=== PATIENT | female | born 1935 | race Caucasian/White ===

== ENCOUNTER 2016-05-30 03:03 | Inpatient (IN) | payer MEDICARE ==
[~2016-05-30] VITALS: Ht 162.6 cm; Wt 69.8 kg
[~2016-05-30 03:03] MED LIST: ALLO100T PO; ANAS1TAB PO; CALC500T49 PO; CALCTAB68 PO; CO Q200C PO; FAMO1TAB11 PO; FOLI1TAB2 PO; LOMO2.5T PO; METO25TAB PO; PROBCAP14 PO; SODI1TA PO; VITA100066 PO; VITA500T88 PO; VITMTA PO; WARF4TAB51 PO; ZOFR20TA PO
[2016-05-30 03:39] LABS: BASO # 0.1 K/mm3 (0.0-0.2); BASO % 0.5 % (0.0-1.0); EOS # 0.5 K/mm3 (0.0-0.50); LARGE UNSTAINED CELL # 0.1 K/mm3 (0.0-0.4); LARGE UNSTAINED CELL % 0.6 % (0.0-4.0); LYMPH # 1.2 K/mm3 (1.5-4.5); LYMPH % 6.9 % (24.0-44.0); MEAN CORPUSCULAR HEMOGLOBIN 30.3 pg (27.0-33.0); MEAN CORPUSCULAR HGB CONC 30.9 g/dl (32.0-36.5); MEAN CORPUSCULAR VOLUME 98.1 fl (80.0-96.0); MONO # 0.6 K/mm3 (0.0-0.8); MONO % 3.7 % (0.0-5.0); NEUTROPHILS % 85.3 % (36.0-66.0); PLATELET COUNT, AUTOMATED 354 k/mm3 (150-450); RED CELL DISTRIBUTION WIDTH 15.9 % (11.5-14.5); WHITE BLOOD COUNT 16.4 K/mm3 (4.0-10.0)
[2016-05-30 03:56] LABS: CALCIUM LEVEL 9.2 MG/DL (8.8-10.2); CREATININE FOR GFR 2.96 MG/DL (0.55-1.02); GLOMERULAR FILTRATION RATE 16.1 (>32); POTASSIUM SERUM 4.3 MEQ/L (3.5-5.1)
[2016-05-30 03:59] LABS: ABG BASE EXCESS -14.3 (-2.0-2.0); ABG DEVICE NASAL CANN; ABG HCO3 11.3 MEQ/L (22.0-26.0); ABG PARTIAL PRESSURE CO2 26.3 mmHg (35.0-45.0); ABG PARTIAL PRESSURE O2 63.2 mmHg (75.0-100.0); ABG STANDARD HCO3 13.4 MEQ/L (22.0-26.0); ABG TOTAL CO2 12.1 MEQ/L (23.0-31.0); ABG pH (ARTERIAL) 7.252 UNITS (7.350-7.450)
[2016-05-30] MEDS ORDERED: ZOSYN 2.25 GM VIAL (J2543) As Ordered ONE (06:44)
[2016-05-30] MEDS ORDERED: LOPE2CA PO (07:33)
[2016-05-30] MEDS ORDERED: DILT180C PO (07:33)
[2016-05-30] MEDS ORDERED: AMIO20TA PO (07:33)
[2016-05-30] MEDS ORDERED: VITA20008 PO (07:33)
--- NOTE | 2016-05-30 07:40 | REPUSA ---
CLINICAL HISTORY: Shortness of breath. TECHNIQUE: Multiple axial CT images were obtained through the thorax without IV contrast material. COMMENTS: Moderate bilateral pleural effusions. Passive atelectatic airspace disease of the lower lobes. Enlarged main pulmonary artery. Findings are suggestive of pulmonary hypertension. Bilateral perihilar ground glass densities of the lungs. Spondylosis. Mildly enlarged mediastinal and hilar lymph nodes. Diffuse idiopathic skeletal hyperostosis. IMPRESSION: Chronic pulmonary fibrosis. Decompensated congestive heart failure. Bilateral multifocal bronchopneumonia. Pulmonary hypertension. Pleural effusions. Thank you for your kind referral of this patient.
--- NOTE | 2016-05-30 08:10 | REP ---
Clinical: Shortness of breath. Comparison: 11/21/2015. Findings: Pulmonary vasculature and interstitial edema with bibasilar opacities will effusions. Mediastinum suggests cardiomegaly with evidence for prior sternotomy and CABG. No pneumothorax. Skeletal structures stable. Impression: Cardiomegaly with CHF including bibasilar atelectasis and pleural effusions. Signed by Jared Nichols MD 05/30/2016 08:02 A
[2016-05-30 08:45] VITALS: BP 104/58
[2016-05-30] MEDS ORDERED: ACETAMINOPHEN TAB 650MG DOSE (2X325MG) PO PRN (08:45)
[2016-05-30] MEDS ORDERED: ONDANSETRON 4MG/2ML VIAL (J2405) IV PRN (08:45)
[2016-05-30] MEDS ORDERED: ONDANSETRON 4MG/2ML VIAL (J2405) As Ordered ONE (08:46)
--- NOTE | 2016-05-30 09:22 | EDDOCDS ---
Nurse's Notes [facility] Name: Keren Carranza Age: 81 yrs Sex: Female : 1935 Arrival Date: 05/30/2016 Time: 03:03 Bed 2 Private MD: Diagnosis: Shortness of breath;Pleural effusion in conditions classified elsewhere Presentation: 05/30 03:09 Presenting complaint: Patient states: per pt she has had SOB for the past week now, had tm5 a cardioversion & loop recorder placed today at [facility], pt states that her SOB gets worse at night. Adult Sepsis Screening: The patient does not have new or worsening altered mentation. Patient's respiratory rate is less than 22. Systolic blood pressure is greater than 100. Patient has a qSOFA score of 0- Negative Sepsis Screen. Suicide/Homicide risk assessment- the patient denies having any suicidal and/or homicidal ideations and does not present with any other emotional, behavioral or mental health complaints. Status: Patient is not a legal service specialist or dependent. Transition of care: patient was not received from another setting of care. 03:09 Acuity: RADHA Level 3 tm5 03:09 Method Of Arrival: Wheelchair tm5 Triage Assessment: 03:14 General: Appears distressed, Behavior is appropriate for age, cooperative. Pain: Denies tm5 pain. The patient is triaged at the bedside. See Assessment in Nurses Notes section of ED record. Neurological: Level of Consciousness is awake, alert, Oriented to person, place, time. Cardiovascular: Rhythm is sinus rhythm. Respiratory: Onset: The symptoms/episode began/occurred 1 week ago, Reports shortness of breath at rest on exertion. Derm: Skin is pink, warm & dry. Historical: - Allergies: NSAIDS; SULFA (SULFONAMIDES); - Home Meds: 1. allopurinol 100 mg Oral tab bid 2. anastrozole 1 mg oral tab 1 tab once daily 3. warfarin 2 mg Oral tab nightly 4. ascorbic acid 500 mg oral tab daily 5. metoprolol 25 mg daily 6. calcium 500 mg twice a day 7. folic acid 1 mg Oral tab 1 tab once daily 8. amiodarone 200 mg Oral tab 1 tab once daily 9. Lomotil oral prn 10. multivitamin Oral cap 1 tab daily 11. Cardizem 180 mg Oral daily 12. sodium chloride 1 gram oral tab twice a day 13. Arimidex 1 mg Oral tab 1 tab once daily 14. Probiotic oral daily 15. co q10 200 mg daily - PMHx: c diff; Cancer, Breast - Right; GERD; Gout; Heart failure; Hypertension; PVD; Stroke; Atrial Fib; - PSHx: CABG; Ileostomy Construction; - Social history: Smoking status: Patient states former smoker of tobacco. No barriers to communication noted, The patient speaks fluent Romansh. - Family history: No immediate family members are acutely ill. - : The pt / caregiver states he / she is on anticoagulants: coumadin. Home medication list is obtained from a discharge med list. - Exposure Risk Screening:: None identified. Screenin:37 Screening information is obtained from the patient, family members. Fall risk: At risk mlc due to age. Assistance ADL's:. Abuse/DV Screen: The patient / caregiver reports he/she is: not in a situation that causes fear, pain or injury. Nutritional screening: No deficits noted. home support is adequate. 04:07 Advance Directives: Currently, there is no health care proxy. There is no active DNR mlc order. There is no living will. There is no Power of Die Inspector. Assessment: 03:20 General: Appears ill, Behavior is cooperative. Pain: Denies pain. Neurological: Level mlc of Consciousness is awake, alert, obeys commands, Oriented to person, place, time. Cardiovascular: Capillary refill < 3 seconds Heart tones S1 S2 present Chest pain is denied. Respiratory: Airway is patent Respiratory effort is labored, Respiratory pattern is tachypnea Breath sounds with crackles bilaterally. Reports shortness of breath cough that is. Derm: Skin is normal. 03:25 General: Dr. Mars made aware of patient status, Dr. Mars in to see patient. . mlc 03:54 Reassessment: Patient states symptoms have not improved. pt resting comfortably in bed. mlc NC in place.. 04:50 Reassessment: Patient states symptoms have not improved. GI: Ileostomy site is clean mlc and dry. is intact. Derm: Bruising that is dark purple, on anterior aspect of left upper chest from procedure today, incision edges well approximately, approx 2 cm in length. 05:23 Reassessment: pt not tolerating CPAP, NC place on pt by RT. . mlc 06:06 Reassessment: Patient appears in no apparent distress at this time. Patient states mlc symptoms have improved. pt tolerating CPAP at this time. . 06:30 General: Appears in no apparent distress, comfortable, to be sleeping. Cardiovascular: mlc Rhythm is atrial fibrillation. Respiratory: Airway is patent Respiratory effort is labored, Respiratory pattern is regular. 06:59 Reassessment: IV fluids infusing per order. pt taken down to CT, pt placed on NC mlc momentarily per DrZohreh order. 07:19 General: Appears in no apparent distress, comfortable, Behavior is appropriate for age, ml6 cooperative. Pain: Denies pain. Neurological: No deficits noted. Level of Consciousness is awake, alert, Oriented to person, place, time. Cardiovascular: Capillary refill < 3 seconds is brisk in bilateral fingers toes Heart tones S1 S2 present Edema is absent. Pulses are all present. Rhythm is sinus rhythm with PACs Chest pain is denied. Respiratory: Airway is patent Respiratory effort is even, labored, Respiratory pattern is regular, symmetrical, Breath sounds with crackles expiratory bilaterally. Reports shortness of breath at rest the patient has moderate shortness of breath. 08:20 Reassessment: Patient appears in no apparent distress at this time. Patient denies pain ml6 at this time. Patient states feeling better. Patient states symptoms have improved. 09:19 General: Appears in no apparent distress, Behavior is appropriate for age, cooperative. ml6 Respiratory: Airway is patent Respiratory effort is even, labored, Respiratory pattern is regular, symmetrical, Breath sounds with crackles expiratory bilaterally. Reports shortness of breath at rest cough that is non-productive, dry, hacking. GI: No deficits noted. Ileostomy site is clean and dry. is intact. Vital Signs: 03:14 BP 99 / 58; Pulse 61; Resp 28 S; Temp 97.8(O); Pulse Ox 77% on R/A; Weight 71.67 kg; tm5 Height 5 ft. 4 in. (162.56 cm); Pain 0/10; 03:14 Pulse 62 MON; Pulse Ox 77% ; mlc 03:16 BP 99 / 58 (auto/); mlc 03:20 Pulse 60 MON; Pulse Ox 94% on 2 lpm NC; mlc 03:36 BP 97 / 52 (auto/); mlc 03:37 Pulse 61 MON; Pulse Ox 90% ; mlc 03:54 Pulse 60 MON; Pulse Ox 92% ; mlc 04:00 BP 101 / 65 (auto/); mlc 04:00 Pulse 61 MON; Pulse Ox 92% ; mlc 04:15 BP 97 / 52 (auto/); mlc 04:15 Pulse 61 MON; Pulse Ox 92% ; mlc 04:29 Pulse 61 MON; Pulse Ox 92% ; mlc 04:30 BP 93 / 57 (auto/); mlc 04:44 Pulse 63 MON; Pulse Ox 91% ; mlc 04:45 BP 108 / 59 (auto/); mlc 05:00 BP 104 / 60 (auto/); mlc 05:00 Pulse 65 MON; Pulse Ox 93% ; mlc 05:15 BP 100 / 56 (auto/); mlc 05:16 Pulse 65 MON; Pulse Ox 89% ; mlc 05:22 Pulse 64 MON; Pulse Ox 91% ; mlc 05:30 BP 108 / 61 (auto/); mlc 05:31 Pulse 64 MON; Pulse Ox 91% ; mlc 05:45 BP 103 / 55 (auto/); mlc 05:45 Pulse 61 MON; Pulse Ox 100% ; mlc 06:00 BP 96 / 55 (auto/); mlc 06:00 Pulse 60 MON; Pulse Ox 99% ; mlc 06:15 BP 107 / 60 (auto/); mlc 06:15 Pulse 64 MON; Pulse Ox 99% ; mlc 06:29 Pulse 60 MON; Resp 20; Pulse Ox 99% ; mlc 06:39 Temp 97.8(TE); mlc 07:08 BP 100 / 53 (auto/); ml6 07:08 Pulse 64 MON; Resp 20; Pulse Ox 94% on 4 lpm NC; ml6 07:15 BP 94 / 55 (auto/); ml6 07:15 Pulse 61 MON; Resp 22; Pulse Ox 100% on 50% BiPAP; ml6 07:30 BP 96 / 52 (auto/); ml6 07:30 Pulse 61 MON; Resp 24; Temp 98.1(TE); Pulse Ox 100% on 50% BiPAP; Pain 0/10; ml6 07:45 BP 98 / 51 (auto/); ml6 07:45 Pulse 60 MON; Resp 22; Pulse Ox 100% on 50% BiPAP; Pain 0/10; ml6 09:15 Pulse 61 MON; Pulse Ox 95% ; ml6 09:15 BP 98 / 50 (auto/); Pulse 66; Resp 18; Temp 98.3(O); Pulse Ox 98% on R/A; Pain 0/10; ml6 03:14 Body Mass Index 27.12 (71.67 kg, 162.56 cm) tm5 Vitals: 03:14 Log In Time: May 30, 2016 at 03:16. tm5 ED Course: 03:05 Patient visited by Arjun Waddell. jp5 03:05 Patient moved to Waiting jp5 03:09 Marsha Dean,RN is Primary Nurse. tm5 03:09 Patient visited by Cortney Ramirez RN. tm5 03:09 Patient moved to 17 tm5 03:11 Triage Initiated tm5 03:13 Sully Mars MD is Attending Physician. fg 03:13 Patient visited by Sully Mars MD. fg 03:14 Family accompanied patient. tm5 03:25 EKG done. (by ED staff). Reviewed by Sully Mars MD. rn1 03:34 Patient moved to 2 cz 03:53 -Arterial Blood Gas Sent. lf2 03:56 Patient visited by Marsha Dean RN. mlc 03:56 The patient / caregiver is instructed regarding the plan of care and ED course. Cardiac mlc monitor on. Pulse ox on. NIBP on. 03:56 Inserted saline lock: 20 gauge in left antecubital area and blood collected. The mlc patient tolerated the procedure well. O2 via nasal cannula \T\ 3L/min. 04:07 BLOOD CULTURES Sent. mlc 04:20 Notified attending ED physician of Critical lab value. lactic acid 2.3. cz 04:38 [facility] [place] was scanned into [employer] and attached to record. hs2 04:52 Patient visited by Marsha Dean RN. mlc 05:24 Patient visited by Marsha Dean RN. mlc 06:00 Patient placed on CPAP Rate 20Breath/Min. mlc 06:07 Patient visited by Marsha Dean RN. mlc 06:32 Patient visited by Marsha Dean RN. mlc 06:49 Casandra Sanchez is Hospitalizing Provider. fg 06:58 Camron Gutierrez, RN is Primary Nurse. ml6 06:59 Patient visited by Camron Gutierrez, INDIO. ml6 06:59 Patient visited by Marsha Dean RN. mlc 07:49 CT Chest Without Contrast Returned. EDMS 08:31 Written Provider Order was scanned into [employer] and attached to record. deg 08:33 Chest, 1 View Returned. EDMS 09:21 No procedures done that require assistance. ml6 Administered Medications: 06:59 Drug: Piperacillin-Tazobactam 2.25 grams [piperacillin-tazobactam 3.375 gram mlc intravenous solution] Route: IVPB; Infused Over: 30 mins; Site: left antecubital; 07:53 Follow up: IV Status: Completed infusion; Infusion discontinued; IV Intake: 100ml ml6 Intake: 07:53 IV: 100.00ml; Total: 100.00ml. ml6 RT: 03:53 ABG's drawn from left radial artery allens test done and positive pressure held for 5 lf2 minutes pressure bandage applied specimen sent pt. tolerated well. O2 via nasal cannula \T\ 3L/min. 05:10 Patient placed on CPAP Expiratory Pressure 10cm of H2O FIO2 50%, Alarms Set: Alarms lf2 set, functioning and audible to nurses station. 05:15 O2 via nasal cannula \T\ 3L/min. lf2 05:40 Patient placed on CPAP Expiratory Pressure 10cm of H2O FIO2 50%, Alarms Set: Alarms lf2 set, functioning and audible to nurses station. Order Results: Lab Order: B-Type Natiuretic Peptide; SPEC'M 05/30/16 03:29 Test: BRAIN NATRIURETIC PEPTIDE; Value: 601; Range: <100; Abnormal: Above high normal; Units: PG/ML; Status: F Lab Order: Basic Metabolic Profile; SPEC'M 05/30/16 03:29 Test: GLUCOSE, FASTING; Value: 188; Range: 83-110; Abnormal: Above high normal; Units: MG/DL; Status: F Test: BLOOD UREA NITROGEN; Value: 71; Range: 7-18; Abnormal: Above high normal; Units: MG/DL; Status: F Test: CREATININE FOR GFR; Value: 2.96; Range: 0.55-1.02; Abnormal: Above high normal; Units: MG/DL; Status: F Test: GLOMERULAR FILTRATION RATE; Value: 16.1; Range: >32; Abnormal: Below low normal; Status: F Test: SODIUM LEVEL; Value: 142; Range: 136-145; Units: MEQ/L; Status: F Test: POTASSIUM SERUM; Value: 4.3; Range: 3.5-5.1; Units: MEQ/L; Status: F Test: CHLORIDE LEVEL; Value: 112; Range: 98-107; Abnormal: Above high normal; Units: MEQ/L; Status: F Test: CARBON DIOXIDE LEVEL; Value: 16; Range: 21-32; Abnormal: Below low normal; Units: MEQ/L; Status: F Test: ANION GAP; Value: 14; Range: 8-16; Units: MEQ/L; Status: F Test: CALCIUM LEVEL; Value: 9.2; Range: 8.8-10.2; Units: MG/DL; Status: F Test Note: ; Units are mL/min/1.73 m2 Chronic Kidney Disease Staging per NKF: Stage I & II GFR >=60 Normal to Mildly Decreased Stage III GFR 30-59 Moderately Decreased Stage IV GFR 15-29 Severely Decreased Stage V GFR <15 Very Little GFR Left ESRD GFR <15 on MOLDER OFFBEARER Lab Order: CBC with Diff; SPEC'M 05/30/16 03:29 Test: WHITE BLOOD COUNT; Value: 16.4; Range: 4.0-10.0; Abnormal: Above high normal; Units: K/mm3; Status: F Test: RED BLOOD COUNT; Value: 3.77; Range: 4.00-5.40; Abnormal: Below low normal; Units: M/mm3; Status: F Test: HEMOGLOBIN; Value: 11.4; Range: 12.0-16.0; Abnormal: Below low normal; Units: g/dl; Status: F Test: HEMATOCRIT; Value: 37.0; Range: 36.0-47.0; Units: %; Status: F Test: MEAN CORPUSCULAR VOLUME; Value: 98.1; Range: 80.0-96.0; Abnormal: Above high normal; Units: fl; Status: F Test: MEAN CORPUSCULAR HEMOGLOBIN; Value: 30.3; Range: 27.0-33.0; Units: pg; Status: F Test: MEAN CORPUSCULAR HGB CONC; Value: 30.9; Range: 32.0-36.5; Abnormal: Below low normal; Units: g/dl; Status: F Test: RED CELL DISTRIBUTION WIDTH; Value: 15.9; Range: 11.5-14.5; Abnormal: Above high normal; Units: %; Status: F Test: PLATELET COUNT, AUTOMATED; Value: 354; Range: 150-450; Units: k/mm3; Status: F Test: NEUTROPHILS %; Value: 85.3; Range: 36.0-66.0; Abnormal: Above high normal; Units: %; Status: F Test: LYMPH %; Value: 6.9; Range: 24.0-44.0; Abnormal: Below low normal; Units: %; Status: F Test: MONO %; Value: 3.7; Range: 0.0-5.0; Units: %; Status: F Test: EOS %; Value: 3.0; Range: 0.0-3.0; Units: %; Status: F Test: BASO %; Value: 0.5; Range: 0.0-1.0; Units: %; Status: F Test: LARGE UNSTAINED CELL %; Value: 0.6; Range: 0.0-4.0; Units: %; Status: F Test: NEUTROPHILS #; Value: 14.0; Range: 1.8-7.7; Abnormal: Above high normal; Units: K/mm3; Status: F Test: LYMPH #; Value: 1.2; Range: 1.5-4.5; Abnormal: Below low normal; Units: K/mm3; Status: F Test: MONO #; Value: 0.6; Range: 0.0-0.8; Units: K/mm3; Status: F Test: EOS #; Value: 0.5; Range: 0.0-0.50; Units: K/mm3; Status: F Test: BASO #; Value: 0.1; Range: 0.0-0.2; Units: K/mm3; Status: F Test: LARGE UNSTAINED CELL #; Value: 0.1; Range: 0.0-0.4; Units: K/mm3; Status: F Lab Order: -Arterial Blood Gas; SPEC'M 05/30/16 03:50 Test: ABG pH (ARTERIAL); Value: 7.252; Range: 7.350-7.450; Abnormal: Below low normal; Units: UNITS; Status: F Test: ABG PARTIAL PRESSURE CO2; Value: 26.3; Range: 35.0-45.0; Abnormal: Below low normal; Units: mmHg; Status: F Test: ABG PARTIAL PRESSURE O2; Value: 63.2; Range: 75.0-100.0; Abnormal: Below low normal; Units: mmHg; Status: F Test: ABG TOTAL CO2; Value: 12.1; Range: 23.0-31.0; Abnormal: Below low normal; Units: MEQ/L; Status: F Test: ABG HCO3; Value: 11.3; Range: 22.0-26.0; Abnormal: Below low normal; Units: MEQ/L; Status: F Test: ABG BASE EXCESS; Value: -14.3; Range: -2.0-2.0; Abnormal: Below low normal; Status: F Test: ABG STANDARD HCO3; Value: 13.4; Range: 22.0-26.0; Abnormal: Below low normal; Units: MEQ/L; Status: F Test: ABG O2 SATURATION; Value: 89.3; Range: 95.0-99.0; Abnormal: Below low normal; Units: %; Status: F Test: ABG DEVICE; Value: NASAL SHANNAN; Status: F Lab Order: Lactic Acid (Rene tube on ice); SPEC'M 05/30/16 03:29 Test: LACTIC ACID SEPSIS PROTOCOL; Value: 2.3; Range: 0.4-2.0; Abnormal: Above upper panic limits; Units: MMOL/L; Status: F Radiology Order: Chest, 1 View Test: Chest, 1 View REASON FOR EXAMINATION: Shortness of Breath; Clinical: Shortness of breath.; ; Comparison: 11/21/2015.; ; Findings:; Pulmonary vasculature and interstitial edema with bibasilar opacities will; effusions. Mediastinum suggests cardiomegaly with evidence for prior sternotomy; and CABG. No pneumothorax. Skeletal structures stable.; ; Impression:; Cardiomegaly with CHF including bibasilar atelectasis and pleural effusions.; ; ; Signed by; Jared Nichols MD 05/30/2016 08:02 A; Radiology Order: CT Chest Without Contrast Test: CT Chest Without Contrast REASON FOR EXAMINATION: Cough;Shortness of Breath; ; CLINICAL HISTORY: Shortness of breath.; TECHNIQUE: Multiple axial CT images were obtained through the thorax without IV contrast material.; COMMENTS:; Moderate bilateral pleural effusions.; Passive atelectatic airspace disease of the lower lobes.; Enlarged main pulmonary artery.; Findings are suggestive of pulmonary hypertension.; Bilateral perihilar ground glass densities of the lungs.; Spondylosis.; Mildly enlarged mediastinal and hilar lymph nodes.; Diffuse idiopathic skeletal hyperostosis.; IMPRESSION:; Chronic pulmonary fibrosis.; Decompensated congestive heart failure.; Bilateral multifocal bronchopneumonia.; Pulmonary hypertension.; Pleural effusions.; Thank you for your kind referral of this patient.; ; ; Outcome: 06:49 Decision to Hospitalize by Provider. fg 09:18 Admission hand-off: Report called to INDIO Hanks. Property :Personal belongings ml6 accompany Pt. 09:20 Discharge Assessment: patient administered narcotics - no. The following High Risk ml6 Discharge criteria are identified: None. Admitted to ICU accompanied by nurse, accompanied by tech, family with patient, via stretcher, with oxygen, on monitor, with chart. Condition: stable. CT Study completed. 09:21 Patient left the ED. ml6 Signatures: Dispatcher [employer] EDMS Angelica Null, Hydrodynamicist Unit deg Delvin Posada RN RN cz Lowe, Matthew, RN RN ml6 Marsha Dean RN RN mlc Newman, Robert rn1 Arjun Waddell jp5 Sully Mars MD MD fg Mamta Meza,RT RT lf2 Ronda Alejo, Reg Reg hs2 Cortney Ramirez,RN RN tm5 Corrections: (The following items were deleted from the chart) 03:54 03:25 Reassessment: Patient states symptoms have not improved. pt resting comfortably mlc in bed. NC in place.. mlc 05:44 05:10 Patient placed on CPAP Expiratory Pressure 10cm of H2O FIO2 50%, Alarms Set: lf2 Alarms set, functioning and audible to nurses station lf2 05:57 05:44 O2 via nasal cannula \T\ 3L/min lf2 lf2 MTDD
--- NOTE | 2016-05-30 09:22 | EDDOCDS ---
Physician Documentation [facility] Name: Keren Carranza Age: 81 yrs Sex: Female : 1935 Arrival Date: 05/30/2016 Time: 03:03 Bed 2 Private MD: Disposition: 05/30/16 06:49 Hospitalization ordered by Casandra Sanchez for Inpatient Admission. Preliminary diagnosis are Shortness of breath, Pleural effusion in conditions classified elsewhere. - Bed requested for M ICU. - Status is Inpatient Admission. ml6 - Condition is Stable. - Problem is chronic. - Symptoms have worsened. Historical: - Allergies: NSAIDS; SULFA (SULFONAMIDES); - Home Meds: 1. allopurinol 100 mg Oral tab bid 2. anastrozole 1 mg oral tab 1 tab once daily 3. warfarin 2 mg Oral tab nightly 4. ascorbic acid 500 mg oral tab daily 5. metoprolol 25 mg daily 6. calcium 500 mg twice a day 7. folic acid 1 mg Oral tab 1 tab once daily 8. amiodarone 200 mg Oral tab 1 tab once daily 9. Lomotil oral prn 10. multivitamin Oral cap 1 tab daily 11. Cardizem 180 mg Oral daily 12. sodium chloride 1 gram oral tab twice a day 13. Arimidex 1 mg Oral tab 1 tab once daily 14. Probiotic oral daily 15. co q10 200 mg daily - PMHx: c diff; Cancer, Breast - Right; GERD; Gout; Heart failure; Hypertension; PVD; Stroke; Atrial Fib; - PSHx: CABG; Ileostomy Construction; - Social history: Smoking status: Patient states former smoker of tobacco. No barriers to communication noted, The patient speaks fluent Trin[place]. - Family history: No immediate family members are acutely ill. - : The pt / caregiver states he / she is on anticoagulants: coumadin. Home medication list is obtained from a discharge med list. - Exposure Risk Screening:: None identified. Vital Signs: 05/30 03:14 BP 99 / 58; Pulse 61; Resp 28 S; Temp 97.8(O); Pulse Ox 77% on R/A; Weight 71.67 kg / tm5 158.01 lbs; Height 5 ft. 4 in. (162.56 cm); Pain 0/10; 03:14 Pulse 62 MON; Pulse Ox 77% ; mlc 03:16 BP 99 / 58 (auto/); mlc 03:20 Pulse 60 MON; Pulse Ox 94% on 2 lpm NC; mlc 03:36 BP 97 / 52 (auto/); mlc 03:37 Pulse 61 MON; Pulse Ox 90% ; mlc 03:54 Pulse 60 MON; Pulse Ox 92% ; mlc 04:00 BP 101 / 65 (auto/); mlc 04:00 Pulse 61 MON; Pulse Ox 92% ; mlc 04:15 BP 97 / 52 (auto/); mlc 04:15 Pulse 61 MON; Pulse Ox 92% ; mlc 04:29 Pulse 61 MON; Pulse Ox 92% ; mlc 04:30 BP 93 / 57 (auto/); mlc 04:44 Pulse 63 MON; Pulse Ox 91% ; mlc 04:45 BP 108 / 59 (auto/); mlc 05:00 BP 104 / 60 (auto/); mlc 05:00 Pulse 65 MON; Pulse Ox 93% ; mlc 05:15 BP 100 / 56 (auto/); mlc 05:16 Pulse 65 MON; Pulse Ox 89% ; mlc 05:22 Pulse 64 MON; Pulse Ox 91% ; mlc 05:30 BP 108 / 61 (auto/); mlc 05:31 Pulse 64 MON; Pulse Ox 91% ; mlc 05:45 BP 103 / 55 (auto/); mlc 05:45 Pulse 61 MON; Pulse Ox 100% ; mlc 06:00 BP 96 / 55 (auto/); mlc 06:00 Pulse 60 MON; Pulse Ox 99% ; mlc 06:15 BP 107 / 60 (auto/); mlc 06:15 Pulse 64 MON; Pulse Ox 99% ; mlc 06:29 Pulse 60 MON; Resp 20; Pulse Ox 99% ; mlc 06:39 Temp 97.8(TE); mlc 07:08 BP 100 / 53 (auto/); ml6 07:08 Pulse 64 MON; Resp 20; Pulse Ox 94% on 4 lpm NC; ml6 07:15 BP 94 / 55 (auto/); ml6 07:15 Pulse 61 MON; Resp 22; Pulse Ox 100% on 50% BiPAP; ml6 07:30 BP 96 / 52 (auto/); ml6 07:30 Pulse 61 MON; Resp 24; Temp 98.1(TE); Pulse Ox 100% on 50% BiPAP; Pain 0/10; ml6 07:45 BP 98 / 51 (auto/); ml6 07:45 Pulse 60 MON; Resp 22; Pulse Ox 100% on 50% BiPAP; Pain 0/10; ml6 09:15 Pulse 61 MON; Pulse Ox 95% ; ml6 09:15 BP 98 / 50 (auto/); Pulse 66; Resp 18; Temp 98.3(O); Pulse Ox 98% on R/A; Pain 0/10; ml6 03:14 Body Mass Index 27.12 (71.67 kg, 162.56 cm) tm5 MDM: 03:14 Ordering Machine Operator/Pulse Ox/q 15 min VS ordered. fg 03:14 IV Saline Lock ordered. fg 03:14 Oxygen at 4L/Min NC or Home dosage ordered. fg 03:14 Rhythm Strip to chart ordered. fg 03:14 IV Saline Lock ordered. fg 03:15 B-Type Natiuretic Peptide Ordered. EDMS 03:15 Basic Metabolic Profile Ordered. EDMS 03:15 CBC with Diff Ordered. EDMS 03:15 Chest, 1 View Ordered. EDMS 03:16 ECG WITH READING ER PHYS+CARDIAG ordered. EDMS 03:28 Call Respiratory ordered. fg 03:29 -Arterial Blood Gas Ordered. EDMS 03:36 Call Respiratory complete. cz 03:51 -Blood Culture (Adults Only), peripheral from different site, or from device/port/PICC fg etc. if present ordered. 03:52 Lactic Acid (Rene tube on ice) Ordered. EDMS 03:52 -Blood Culture Ordered. EDMS 03:55 -Blood Culture (Adults Only), peripheral from different site, or from device/port/PICC kb5 etc. if present complete. 03:57 BLOOD CULTURES Ordered. EDMS 04:37 Financial registration complete. hs2 04:38 [facility] Payment Agreement was scanned into Grab[employer] and attached to record. hs2 06:37 Piperacillin-Tazobactam 2.25 grams IVPB once over 30 mins; dilute in 50mL of NS or D5W fg ordered. 06:49 CT Chest Without Contrast Ordered. EDMS 06:50 BED REQUEST+ADM ordered. EDMS 08:31 Written Provider Order was scanned into [employer] and attached to record. deg 08:38 CARDIAC MARKER PANEL Ordered. EDMS 08:39 Admission / Observation Status ordered. EDMS 08:40 NPO DIET ordered. EDMS 08:42 CRITICAL CARE PROFILE Ordered. EDMS 08:42 MAGNESIUM LEVEL Ordered. EDMS 08:42 AMYLASE Ordered. EDMS 08:42 LIPASE Ordered. EDMS 08:48 CARDIAC MARKER PANEL Ordered. EDMS 08:50 PT & APTT Ordered. EDMS 09:18 MRSA SCREEN Ordered. EDMS Administered Medications: 06:59 Drug: Piperacillin-Tazobactam 2.25 grams [piperacillin-tazobactam 3.375 gram mlc intravenous solution] Route: IVPB; Infused Over: 30 mins; Site: left antecubital; 07:53 Follow up: IV Status: Completed infusion; Infusion discontinued; IV Intake: 100ml ml6 Signatures: Dispatcher [employer] EDMS Angelica Null, Cylinder Press Operator Unit deg Delvin Posada, RN RN cz Juan F Mitchell, LOBO KERFER MACHINE OPERATOR kb5 Camron Gutierrez RN RN ml6 Marsha DeanRN RN Sully Shafer MD MD Ronda Alejo, Reg Reg hs2 Cortney Ramirez,RN RN tm5 The chart was reviewed and I authenticate all verbal orders and agree with the evaluation and treatment provided.Corrections: (The following items were deleted from the chart) 08:48 08:38 CARDIAC MARKER PANEL ordered. EDMS EDMS Attachments: 04:38 [facility] Payment Agreement hs2 08:31 Written Provider Order deg MTDD
[2016-05-30 09:43] VITALS: BP 109/57
[2016-05-30 09:46] LABS: INR 3.98
[2016-05-30 09:51] LABS: ALBUMIN 3.6 GM/DL (3.2-5.2); CALCIUM LEVEL 9.1 MG/DL (8.8-10.2); CREATININE FOR GFR 3.07 MG/DL (0.55-1.02); GLOMERULAR FILTRATION RATE 15.4 (>32); MAGNESIUM LEVEL 2.1 MG/DL (1.8-2.4); PHOSPHORUS LEVEL 5.7 MG/DL (2.5-4.9); POTASSIUM SERUM 4.9 MEQ/L (3.5-5.1)
[2016-05-30 09:52] LABS: ALBUMIN/GLOBULIN RATIO 1.24 (1.00-1.93); BILIRUBIN,TOTAL 0.6 MG/DL (0.2-1.0); TOTAL PROTEIN 6.5 GM/DL (6.4-8.2)
[2016-05-30] MEDS ORDERED: PANTOPRAZOLE 40MG INJ (PROTONIX) (C9113) IV SCH (11:00)
[2016-05-30] MEDS ORDERED: FUROSEMIDE 40 MG/4 ML VIAL (J1940) IV ONE (11:30)
[2016-05-30] MEDS: (RENVELA) SEVELAMER **CARBONate** 800 MG TAB PO SCH ×2 (11:31→18:05)
[2016-05-30 11:42] LABS: URIC ACID 4.4 MG/DL (2.6-6.0)
[2016-05-30 12:00] VITALS: BP 102/56
[2016-05-30] MEDS ORDERED: PIPERACILLIN/TAZOBACTAM SOD 2.25 GM in D5W MINI-BAG PLUS 50 ML IV SCH (12:00)
[2016-05-30] MEDS: BICITRA 30ML SOLN UDC PO SCH ×3 (12:28→21:04)
--- NOTE | 2016-05-30 13:40 | HPE ---
DATE OF ADMISSION: 05/30/2016 NOTE: Asked by the emergency department to emergently evaluate Ms. Carranza for metabolic acidemia. Ms. Carranza is an 81-year-old white female with a past medical history significant for chronic kidney disease, coronary artery disease, status post coronary artery bypass graft (CABG), congestive heart failure (CHF), and atrial fibrillation (AFib), who underwent a transesophageal echocardiogram (LINDEN) yesterday, followed by elective direct current (DC) cardioversion and implantation of an implantable loop recorder yesterday in [place]. She felt reasonably well following the procedure and was discharged to home. Around 11 o'clock last night, she began to feel increasingly more short of breath and became orthopneic. When the symptoms persisted, she came to the emergency department, where she was found to have severe metabolic acidemia with a pH of 7.25, a PCO2 of 26.3, and a pO2 of 63.5. Her chemistries had shown a bicarbonate level of 16. Her chest x-ray and CT scan had shown small bilateral pleural effusions, chronic pulmonary fibrosis with some regions of scarring and bronchiectasis and cardiomegaly. [place] was contacted, but they were full. Her strip winder recommended tapping both effusions, stopping antibiotics as he thought it was pneumonia, even though he performed an outpatient elective procedure less than 24 hours ago. Ms. 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 In obtaining a full history had increasing shortness of breath for probably the last 4 weeks or so. She has a chronic cough that is typically productive of anything from clear to lightly yellow secretions. This morning, she had slight blood tinge, which she attributed to the LINDEN. She has had no fevers, chills, or night sweats. No ill contacts. She has not felt nauseous or had abdominal pain. No emesis. She denies any diarrhea, but it is difficult to tell as she has an ileostomy. Her biggest complaints were worsening shortness of breath and orthopnea. No chest pain. She did feel she was wheezing when she presented to the emergency room but not after she arrived there. She has no past pulmonary history of note. She is a reformed smoker but quit. Has a history of about [id number] history, having quit many years ago. In reviewing her chart and outpatient laboratories, she was in [facility] for acute renal failure in November of 2015. At the time of her discharge then, her creatinine was 2.63, and she had a bicarbonate level of only 20. She is followed with weekly laboratories at [facility]. In reviewing the laboratories for 2016, on 04/08/2016, her creatinine was 2.1, BUN 41, and bicarbonate 23. She had no anion gap. Over the course of the next month, her creatinine has slowly increased, her bicarbonate has decreased, and she has developed an anion gap. Her preoperative laboratory as done last Friday showed a creatinine of 2.7, anion gap of 18, and bicarbonate of 20. She had a completely normal complete blood (cell) count (CBC) with the exception of hemoglobin 11.2. MEDICATIONS: - allopurinol 100 mg by mouth twice a day - anastrozole 1 mg by mouth every day - warfarin 2 mg by mouth every day - ascorbic acid 500 mg by mouth every day - metoprolol 25 mg by mouth every day - calcium 500 mg by mouth twice a day - folic acid 1 mg by mouth every day - amiodarone 200 mg by mouth every day - lomotil as needed - multivitamin one by mouth every day - cardizem 180 mg by mouth every day - sodium chloride 1 gram by mouth twice a day - arimidex 1 mg by mouth every day - probiotic by mouth every day - CoQ10 200 mg by mouth every day ALLERGIES: NONSTEROIDAL ANTIINFLAMMATORY DRUGS (NSAIDs) and SULFA. PAST MEDICAL HISTORY: 1. Chronic kidney disease, followed by Dr. Monzon. 2. History of right breast cancer. 3. Gastroesophageal reflux disease (GERD). 4. Gout. 5. Coronary artery disease (CAD). a. status post CABG. 6. History of congestive heart failure (CHF). 7. History of cerebrovascular accident (CVA). 8. Atrial fibrillation. a. status post electrocardioversion yesterday, 05/29/2016. 9. Hypertension. 10. Peripheral vascular disease. 11. Peripheral arterial disease. a. status post stent and angioplasty of iliac artery. 12. 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 13. The patient reports history of several diagnoses of pancreatitis based on enzymes with no symptoms. 14. Remote history of tobacco usage. SOCIAL AND FAMILY HISTORY AND FURTHER REVIEW OF SYSTEMS: Not obtained due to critical nature of illness. OBJECTIVE: PHYSICAL EXAMINATION: General: Ms. Carranza is lying in bed with a full face mask in place and on CPAP at 10 cm of water pressure. She appears comfortable and is able to easily answer questions. Vital signs: Temperature 98.1, pulse 65, respiratory rate 24, blood pressure 104/58, with a mean arterial pressure (MAP) of 73, two in the high 90s on CPAP at 10 cm of water. HEENT: Anicteric. Nares and oropharynx not examined secondary to full face mask. Neck: Supple without apparent jugular venous distention (JVD) but difficult examination given the CPAP straps without thyromegaly or masses. Trachea is midline. Lymph: Without cervical or supraclavicular adenopathy. Chest: Normal shape. Lungs: Symmetrical excursion. Good air entry. Bilateral Velcro crackles most of the way up. There are absent breath sounds at the bases bilaterally. No wheeze or rhonchi. Normal percussion and palpation. Normal I-to-E. Cardiovascular: Regular rate and rhythm with a normal S1, S2. No murmur, rub, or gallop appreciated. Abdomen: Normoactive bowel sounds, soft, nondistended, nontender. Ileostomy appears patent. No hepatosplenomegaly or masses appreciated. Extremities: Warm and well perfused without clubbing, cyanosis, or significant edema. Palpable pedal pulses bilaterally. LABORATORY DATA: CBC showed a hemoglobin of 11.4, hematocrit 37, platelet count 354,000, white blood cell count 16,400, with a differential of 85% neutrophils, 7% lymphocytes, and 4% monocytes. Chemistry shows sodium 141, potassium 4.9, chloride 113, bicarbonate 15, anion gap 13, BUN 71, creatinine 3.1, glucose 125, initial lactic acid 2.3 with a reflected 1.6, uric acid 4.4, calcium 9.1, phosphorus 5.7, magnesium 2.1, total bilirubin 0.6, AST 53, ALT 48, alkaline phosphatase 128, LDH 315, CK 48, CK-MB 2.5, troponin I 0.02, BNP 601, total protein 6.5, albumin 3.6, amylases 133, lipase 1175. INR 3.98 with a PT of 38.8 and a PTT 51.3. Arterial blood gas was 7.25/ with a measured saturation of 89% and a base excess of -14.2. I do not know how much oxygen this was drawn on. I reviewed her chest x-ray, as well as the report. That x-ray showed enlarged cardiac silhouette and small bilateral effusions and increased interstitial infiltrates. I reviewed her chest CT scan, as well as the report. That CT scan showed enlarged cardiac silhouette and pulmonary vascular shadows. There was increased interstitial markings, along with some peripheral honeycombing. There was bilateral air space disease predominant in the upper lobes. There was enlarged pulmonary silhouettes. There did not appear to be any significantly enlarged mediastinal or hilar lymph nodes. There were bilateral small effusions. IMPRESSION: 1. Metabolic acidemia. By reviewing her laboratories and prior history, this has been increasing over the past month or so; and, in fact, she had anion gap acidosis prior to her elective procedure. I suspect that the major cause is renal failure, likely in large part secondary to cardiac difficulties. 2. Acute and chronic renal failure. Again, she has had worsening renal failure since the beginning of this year. 3. Pulmonary edema. 4. History of atrial fibrillation, status post electrocardioversion yesterday. 5. Coagulopathy secondary to Coumadin usage. 6. Pulmonary fibrosis, based on examination and chest CT scan that showed some regions of honeycombing. 7. Bronchiectasis, likely responsible for her persistent mild cough. 8. Coronary artery disease. 9. Peripheral vascular disease. 10. Peripheral arterial disease. RECOMMENDATIONS: 1. We will obtain and have obtained the records from [facility] in regard to her repeated laboratory draws and from [place] regarding her procedure yesterday. 2. We will discontinue amiodarone. 3. No history to suggest pneumonic process. She was given one dose of Zosyn in the emergency department, but she did not fit the sepsis criteria. Will obtain a sputum for gram stain and culture but will not continue antibiotics at this time. 4. Will consult nephrology regarding her renal failure. 5. 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 From a lung perspective, she is not able to completely compensate for her metabolic acidemia despite breathing her CO2 down to 23. 6. Will obtain an at-once (STAT) echocardiogram. Her family mentions that the valve leakage may have been worse than they anticipated. 7. Likely, will obtain cardiology consult, as I suspect we are going to have to maximize cardiac function to help the renal function to ultimately help her metabolic acidemia. 8. I feel she should have stress ulcer prophylaxis, given her critical illness, as well as her elevated international normalized ratio (INR), and she was placed on Protonix 40 mg intravenous (IV) daily. 9. She is fully anticoagulated as far as the deep venous thrombosis (DVT) prophylaxis. I will not be giving further Coumadin and will allow her to drift down; and eventually, she will need medicine prophylaxis. I will also place her on sequential compression devices (SCDs) and thromboembolic deterrents (TEDs). 10. Will keep her nothing by mouth for the immediate future, as we sort out what has caused her decompensation. She is currently a FULL CODE, and we will make certain that that is her wishes. 11. She reports a history of pancreatitis despite symptoms, and we will send off an amylase and lipase (results dictated above). PROGNOSIS: Guarded. CRITICAL CARE TIME: 90 minutes, not including procedure time.
[2016-05-30] MEDS ORDERED: SLF 3 ML SYR IV PRN (14:30)
[2016-05-30 16:00] VITALS: BP 124/60
[2016-05-30 20:00] VITALS: BP 96/55
[2016-05-30 20:20] VITALS: O2SAT 99
--- NOTE | 2016-05-30 20:20 | ECHO ---
DATE OF PROCEDURE: 05/30/2016 REFERRING PHYSICIAN: Digna Sanchez DO PATIENT LOCATION: Room 3209 REASON FOR ECHOCARDIOGRAM: Heart failure. 2D MEASUREMENTS: IVS: 1.1 cm LV: 5.1 cm LVPW: 1.2 cm LA: 5.1 cm Aorta: 2.9 cm IVC: 2.7 cm DOPPLER MEASUREMENTS: Peak velocity across the aortic valve: 1.4 m/s Peak velocity across the LVOT: 1.0 m/s Mitral E: 1.8 Maximum tricuspid valve velocity: 3.8 m/s 2D COMMENTS: 1. Normal left ventricular size, wall thickness and normal global left ventricular systolic function. The estimated global left ventricular systolic ejection fraction is 65 to 70%. 2. Moderately enlarged left atrium. The right atrium appeared to be mildly enlarged. Normal right ventricle. 3. The atrial septum appeared to be normal without evidence of defect or shunt. 4. Normal aortic root. 5. Trace pericardial effusion noted, no evidence of cardiac tamponade. 6. Mildly calcified aortic valve with normal leaflet excursion. Moderately calcified mitral annulus. Normal tricuspid valve. The pulmonic valve was not well visualized. 7. The inferior vena cava was enlarged, central venous pressure might be elevated. DOPPLER: It detects trace aortic regurgitation, moderately severe mitral regurgitation, severe tricuspid regurgitation. The calculated pulmonary artery systolic pressure was more than 60 mmHg. IMPRESSION: 1. Normal global left ventricular systolic function. 2. Aortic valve sclerosis with trace aortic regurgitation, but no aortic stenosis. 3. Mitral annulus calcification with moderately severe mitral regurgitation and moderately enlarged left atrium. 4. Severe tricuspid regurgitation with severe pulmonary hypertension. 5. There are features of elevated central venous pressure, the inferior vena cava was dilated. 6. Trace pericardial effusion noted. No evidence of cardiac tamponade.
[2016-05-30] MEDS: SLF 3 ML SYR IV SCH (21:05)
[2016-05-31] VITALS (8 sets, daily range): BP systolic 97–115; BP diastolic 51–67; O2SAT 99
--- NOTE | 2016-05-31 01:40 | CR ---
DATE OF CONSULTATION: 05/30/2016 REQUESTING PHYSICIAN: Dr. Casandra Sanchez REASON FOR CONSULTATION: Management of acute kidney injury superimposed on chronic kidney disease and metabolic acidosis. CHIEF COMPLAINT: Patient presented to the emergency room for progressive shortness of breath. HISTORY OF PRESENT ILLNESS: Keren Carranza is an 81-year-old female with past medical history of chronic kidney disease, most likely stage 4, the best creatinine that I have seen in the system is around 2.6-2.7. She follows up with Dr. Monzon, who is a mail teller in [facility]. She has multiple other comorbidities, including coronary artery disease, status post coronary artery bypass grafting, history of congestive heart failure, history of atrial fibrillation. She underwent transesophageal echocardiogram and electrocardioversion and implantation of a loop recorder yesterday at [place]. She came home. She did not have any symptoms at that time. Around midnight last night, she became short of breath and she could not fall back asleep. When her symptoms did not improve, she presented to the emergency room. In the emergency room (ER), she was found to be in respiratory distress. Arterial blood gas (ABG) showed a pH of 7.25, pCO2 of 26, pO2 of 63. She got a CT scan done and the official report read as chronic pulmonary fibrosis, decompensated congestive heart failure, and bilateral multifocal opacities. Initial labs done in triage showed the patient had a creatinine of 3.07 and a bicarbonate level of 15. Nephrology service was called for further management of acute kidney injury superimposed on chronic kidney disease and management of metabolic acidosis and possible fluid overload. PAST MEDICAL HISTORY: She has past medical history of chronic kidney disease, most likely stage 4, she follows up with Dr. Monzon, congestive heart failure, coronary artery disease, status post CABG, history of gastroesophageal reflux disease, history of cerebrovascular accident (CVA) in the past, history of atrial fibrillation (AFib), status post transesophageal echocardiogram (LINDEN) and cardioversion yesterday, hypertension, peripheral vascular disease, history of Clostridium difficile (C. diff) in the past. Patient also reports history of pancreatitis in the past. PAST SURGICAL HISTORY: Status post coronary artery bypass grafting, status post partial colectomy and right lower quadrant ileostomy secondary to C. diff, status post angioplasty of the iliac artery, status post endoscopic retrograde cholangiopancreatography (ERCP), and removal of gallstones from common bile duct (CBD). ALLERGIES: Patient is allergic to IV CONTRAST MEDIA, NSAIDS, and SULFA. FAMILY HISTORY: No significant family history of end-stage renal disease requiring hemodialysis. SOCIAL HISTORY: Patient lives at home. She denies any tobacco abuse at this time, alcohol abuse, or drug abuse. REVIEW OF SYSTEMS: CONSTITUTIONAL: Patient denies any fevers, chills, or rigors. EYES: She denies any blurry vision or double vision. ENT: She denies any dysphagia or odynophagia, ear discharge. CARDIOVASCULAR: She reports history of AFib and she is reporting orthopnea at this time and progressive shortness of breath. RESPIRATORY: She reports progressive shortness of breath for last 1-2 weeks, two pillow orthopnea and cough with some phlegm, which is sometimes whitish, and now it is blood tinged as well. GI: She denies any nausea, vomiting. She has history of C. diff and she has an ileostomy. GENITOURINARY: She denies any history of dysuria or hematuria, but she does report history of chronic kidney disease. MUSCULOSKELETAL: She denies any muscle aches and pains. CENTRAL NERVOUS SYSTEM: Patient reports history of CVA in the past. She denies any seizure disorder. HEMATOLOGICAL/ONCOLOGICAL: She reports history of right breast tumor in the past. ENDOCRINE: She denies history of diabetes. PSYCH: She denies history of depression at this time. All other review of systems was negative. OBJECTIVE: VITAL SIGNS: Temperature was 96.1 degrees Fahrenheit, blood pressure was 109/57, pulse was 62, respiratory rate of 19, saturating 96% on nasal cannula. GENERAL: Patient is awake, alert, and oriented times three, lying in the bed in no apparent distress. HEAD AND NECK EXAM: Extraocular muscles are intact. Patient has a squint. Mucous membranes are moist. Neck is supple. There is mildly elevated jugular venous distention (JVD). CARDIOVASCULAR: S1, S2 regular rate. No murmur, rub, or gallop. RESPIRATORY: Decreased breath sounds at the bases and positive crepitations bilaterally at the bases on deep inspiration. ABDOMEN: Soft. Positive bowel sounds. Positive dressing in the midline on the old surgical scar, and patient has a right lower quadrant ileostomy with liquid stool in the bag. No tenderness in the abdomen. EXTREMITIES: No clubbing or cyanosis. No edema of the bilateral lower extremities. CENTRAL NERVOUS SYSTEM: No focal neurological deficit. Power is 5/5 in all extremities. SKIN: No rashes or ulcers. PSYCH: Normal mood and affect. LYMPH NODES: No significant cervical, axillary, or inguinal lymphadenopathy. LAB REVIEW: CBC showed a WBC of 16.4, hemoglobin 11.4, platelets of 354. ABG showed pH of 7.25, pCO2 26.3, pO2 of 63.2, bicarbonate 11.3, oxygen saturation is 89%. BMP showed sodium 141, potassium 4.9, chloride 113, bicarbonate is 15, BUN 71, creatinine is 3.07, GFR is 58.4. Lactic acid initially was elevated to 2.3, now is 1.6. Phosphorus is 5.7. Troponin is 0.02, BNP was 601. Albumin is 3.6. Amylase is 133, lipase is 1175. PTH is 31.9. Microbiology: Sputum gram stain and blood cultures are pending. IMAGING: CT of the chest showed chronic pulmonary fibrosis, decompensated congestive heart failure, bilateral multifocal opacities suspicious for bronchopneumonia and pulmonary hypertension. Echocardiogram: Bedside echocardiogram done today showed normal global left ventricular systolic function, mitral annulus calcification with moderately severe mitral regurgitation, severe tricuspid regurgitation with severe pulmonary hypertension, elevated central venous pressure, and dilated inferior vena cava. There was trace pericardial effusion. CURRENT MEDICATIONS: Patient's medications were all reviewed by me. Patient was given a dose of Zosyn 2.25 grams initially on arrival. She is on Tylenol as needed. She is on anastrozole 1 mg by mouth daily, vitamin C 500 mg by mouth daily. She is on diltiazem 60 mg by mouth every eight hours, folic acid 1 mg by mouth daily. She was given a dose of Lasix 40 mg IV, one dose. She has been started on Bicitra 15 mL by mouth three times a day, Zofran 4 mg IV every six hours as needed, Protonix 40 mg IV every 24 hours, Renvela 800 mg by mouth with meals, vitamin D 2000 units by mouth daily. ASSESSMENT: 81-year-old female with past medical history of chronic kidney disease stage 4, coronary artery disease, hypertension, status post transesophageal echocardiogram and cardioversion yesterday admitted to the hospital with progressive shortness of breath, pulmonary edema, and acute renal failure superimposed on chronic kidney disease stage 4 along with metabolic acidosis. PLAN: 1. Acute kidney injury superimposed on chronic kidney disease. It is most likely cardiorenal in nature. The best creatinine that I have seen on the recent labs is around 2.6. Patient's creatinine on admission was 3.07. Patient's volume status is decompensated. I have given her a dose of Lasix 40 mg IV times one dose. If patient stays hemodynamically stable, further diuresis will be done tomorrow morning. Patient does not have any signs or symptoms of uremia. The rest of the electrolytes are acceptable. There is no urgent need to start hemodialysis at this time. 2. Metabolic acidosis. Metabolic acidosis is most likely secondary to acute kidney injury superimposed on chronic kidney disease. I have started the patient on Bicitra 15 mL by mouth three times a day. Dose will be adjusted according to the followup BMP tomorrow. 3. Hypophosphatemia. Patient is nothing by mouth at this time. When patient starts eating, she can be started on Renvela 800 mg by mouth three times a day with meals. 4. Chronic pancreatitis. Patient does not have any signs or symptoms of pancreatitis. She does not have any pain. She is hemodynamically stable. I saw that the lipase is always elevated close to 1000. Continue to monitor for now. 5. Fluid overload and pulmonary edema. Patient has been placed on BiPAP and she was given a small dose of Lasix as well. Patient had high lactate level and white cell count and possible bronchopneumonia on initial CT scan, so she was started on IV Zosyn; however, it was discontinued by the pulmonary service given that the findings are most consistent with fluid overload rather than pneumonia. If patient's white cell count does not improve, or if she develops fevers, then she should be restarted on Zosyn for possible aspiration pneumonia coverage after anesthesia and cardioversion. 6. History of atrial fibrillation status post cardioversion. Patient is currently rate controlled and it looks like she is in sinus rhythm. She is on diltiazem 60 mg by mouth every eight hours. She is not on any anticoagulation at this time. Cardizem will be up to cardiology and primary critical care team. Patient does not need any antihypertensives at this time. Thank you for involving us in the care of this patient. We shall be happy to follow the patient along with you tomorrow morning. Plan of care was discussed with Dr. Sanchez.
[2016-05-31] MEDS: SLF 3 ML SYR IV SCH ×3 (05:11→21:41)
[2016-05-31 05:14] LABS: BASO % 0.4 % (0.0-1.0); EOS # 0.3 K/mm3 (0.0-0.50); EOS % 3.4 % (0.0-3.0); LARGE UNSTAINED CELL # 0.2 K/mm3 (0.0-0.4); LARGE UNSTAINED CELL % 1.6 % (0.0-4.0); LYMPH # 1.4 K/mm3 (1.5-4.5); LYMPH % 14.4 % (24.0-44.0); MEAN CORPUSCULAR HEMOGLOBIN 30.8 pg (27.0-33.0); MEAN CORPUSCULAR HGB CONC 32.3 g/dl (32.0-36.5); MEAN CORPUSCULAR VOLUME 95.5 fl (80.0-96.0); MONO # 0.6 K/mm3 (0.0-0.8); MONO % 5.7 % (0.0-5.0); NEUTROPHILS # 7.4 K/mm3 (1.8-7.7); NEUTROPHILS % 74.4 % (36.0-66.0); PLATELET COUNT, AUTOMATED 257 k/mm3 (150-450); RED CELL DISTRIBUTION WIDTH 15.7 % (11.5-14.5); WHITE BLOOD COUNT 9.9 K/mm3 (4.0-10.0)
[2016-05-31 05:20] LABS: INR 3.87
[2016-05-31 05:35] LABS: ALBUMIN 3.2 GM/DL (3.2-5.2); ALBUMIN/GLOBULIN RATIO 0.97 (1.00-1.93); BILIRUBIN,TOTAL 0.5 MG/DL (0.2-1.0); CALCIUM LEVEL 8.5 MG/DL (8.8-10.2); CREATININE FOR GFR 3.54 MG/DL (0.55-1.02); GLOMERULAR FILTRATION RATE 13.1 (>32); MAGNESIUM LEVEL 1.8 MG/DL (1.8-2.4); PHOSPHORUS LEVEL 5.8 MG/DL (2.5-4.9); POTASSIUM SERUM 3.4 MEQ/L (3.5-5.1); TOTAL PROTEIN 6.5 GM/DL (6.4-8.2)
[2016-05-31] MEDS: VITAMIN D 1,000 INTERNATIONAL UNITS TABLET PO SCH (08:34)
[2016-05-31] MEDS: ANASTROZOLE 1 MG TAB PO SCH (08:35)
[2016-05-31] MEDS: FOLIC ACID 1 MG TAB PO SCH (08:35)
[2016-05-31] MEDS: (RENVELA) SEVELAMER **CARBONate** 800 MG TAB PO SCH ×3 (08:35→17:45)
[2016-05-31] MEDS: BICITRA 30ML SOLN UDC PO SCH ×3 (08:35→21:38)
[2016-05-31] MEDS ORDERED: BUMETANIDE 1 MG TAB PO SCH (09:00)
[2016-05-31] MEDS ORDERED: ASCORBIC ACID 500 MG TAB PO SCH (09:00)
[2016-05-31] MEDS ORDERED: POTASSIUM CHLORIDE 10 MEQ SR TABLET PO ONE (09:00)
[2016-05-31] MEDS: PANTOPRAZOLE 40MG TAB (PROTONIX) PO SCH (09:17)
[2016-05-31] MEDS ORDERED: FUROSEMIDE 40 MG/4 ML VIAL (J1940) IV ONE (11:45)
[2016-05-31] MEDS: FEBUXOSTAT 40 MG TABLET (ULORIC) PO SCH (13:23)
--- NOTE | 2016-05-31 13:46 | IPN ---
DATE: 05/31/2016 SUBJECTIVE: Patient was seen and examined at the bedside today morning in the intensive care unit (ICU). She feels much better today. She was taken off the BiPAP this morning. Patient was given a dose of Lasix yesterday and she reports that since overnight, her respiratory status is significantly better. However, her creatinine is slightly worse after diuresis and her glomerular filtration rate is 13 at this time. REVIEW OF SYSTEMS: Patient denies any fevers, chills, rigors, headache, nausea, vomiting, chest pain. She does report shortness of breath which is significantly improved as compared with yesterday. She denies any nausea, vomiting, pain in abdomen, constipation, or diarrhea. Rest of review of system is negative. OBJECTIVE: Vital signs: Temperature is 96.7 degrees Fahrenheit, blood pressure is 115/57, pulse is 75, respiratory rate of 20, saturating 97% on nasal cannula at 2 liters. Intake and output: Urine output recorded at 1340 mL yesterday, 550 mL so far today since overnight. Weight on the bed scale is 71.2 kg. PHYSICAL EXAMINATION: General: Patient is awake, alert, oriented times three sitting on the bed, no apparent distress. Head and neck exam: Extraocular muscles intact. Pupils equally round and reactive to light. Mucous membranes are moist. Neck is supple. There is very mildly elevated jugular venous distention (JVD). Cardiovascular: S1, S2. Regular rate. No murmur, rub or gallop. Respiratory: Bilateral equal air entry. Positive inspiratory crepitations bilaterally at the bases. No rhonchi. Abdomen: Soft, positive bowel sounds. No ascites. Patient has a dressing in the midline and she has a right lower quadrant ileostomy. Extremities: No clubbing or cyanosis. No edema of the bilateral lower extremities. Central nervous system: No focal neurological deficits. Power is 5/5 in all extremities. Psych: Normal mood and affect. LAB REVIEW: CBC showed her WBC 9.9, hemoglobin 10.3, platelets 257. INR is 3.8. BMP showed sodium 144, potassium 3.4, chloride 112, bicarbonate is 19, BUN is 70, creatinine is 3.5. Glomerular filtration rate is 13. Calcium is 8.5, phosphorus is 5.8. Microbiology: Blood cultures are negative so far. Sputum and gram stain is pending. CURRENT MEDICATIONS: Patient's medications are all reviewed by me. Her Zosyn has been discontinued. She has been started on Bumex 1 mg by mouth daily starting tomorrow. She is on Cardizem 60 mg every 8 hourly. I have started her on Uloric 40 mg by mouth daily. I am going to give her another dose of Lasix 40 mg IV today. She was given a dose of potassium chloride 40 mEq by mouth times one dose today and she has been started on potassium chloride 20 mEq by mouth daily starting from tomorrow. There is no other change in medications today as compared with yesterday. ASSESSMENT: 81-year-old female with past medical history of chronic kidney disease stage IV, coronary artery disease, hypertension status post LINDEN and cardioversion on 05/29/2016, admitted this time because of worsening shortness of breath, pulmonary edema and possible pneumonia. Nephrology service following the patient for management of acute kidney injury on chronic kidney disease stage IV and fluid overload. PLAN: 1. Acute kidney injury superimposed on chronic kidney disease stage IV. Patient reports that when she got her abdominal surgery done and right lower quadrant ileostomy was done, patient needed dialysis temporarily at that time. But later on, she was taken off of dialysis. She continues to be in late stage IV to early stage V chronic kidney disease. She follows up with Dr. Monzon ever since she was seen by him at [place]. Her renal function at this time is in stage V. However, there are no signs of uremia. She will be optimized with IV Lasix and oral diuretics. I will not start dialysis in this patient at this time. When she is discharged, she can followup with nephrology as outpatient. 2. Metabolic acidosis. It is secondary to acute kidney injury superimposed on chronic kidney disease. I started the patient on Bicitra. Continue current dose. Her bicarbonate level has improved to 19 today. Continue to monitor for now. 3. Hyperphosphatemia. Patient's phosphorus level is 5.8. I have started the patient on Renvela with meals. Continue current dose of Renvela. 4. Chronic pancreatitis. Her lipase is elevated to more than 1000 but that is her baseline. Continue to monitor for now. Patient is asymptomatic at this time. 5. Fluid overload and pulmonary edema. Patient's shortness of breath is significantly better today. She will be given another dose of Lasix 40 mg IV today and then she will be started on Bumex 1 mg by mouth daily starting tomorrow onwards. 6. Hypokalemia. Patient will be given a dose of potassium chloride 40 mEq times one dose today and starting tomorrow onwards, she will be on potassium chloride 20 mEq by mouth daily. 7. Anemia and chronic kidney disease. Patient's hemoglobin is acceptable at this time. It is more than 10. No need of Aranesp at this time. 8. History of atrial fibrillation status post cardioversion. Patient is currently rate controlled at this time and she is in regular rhythm. She currently is on Diltiazem 60 mg by mouth every 8 hourly. Diltiazem dose adjustment is as per primary team and cardiology. 9. Chronic gout secondary to chronic kidney disease. Patient was on allopurinol at home. She is in almost stage V kidney disease at this time. I have started her on Uloric 40 mg by mouth daily instead of allopurinol.
--- NOTE | 2016-05-31 15:09 | ECGEPIP ---
Stationary ECG Study [facility] - ED Test Date: 2016-05-30 Pat Name: PREETHI MASCORRO Department: Room: - Gender: F Seismograph Chief: rn : 1935 Requested By: NANCY Sawyer Order Number: [id number] Reading MD: Fany Mcintosh Measurements Intervals [place] Rate: 62 P: -53 ND: 130 QRS: 19 QRSD: 80 T: 33 QT: 414 QTc: 421 Interpretive Statements ECTOPIC ATRIAL RHYTHM NSTTW ABNORMALITY LOW VOLTAGE LIMB DELAYED R PROGRESSION NO PRIOR FOR COMPARISON Electronically Signed On 05-31-2016 15:08:36 EST by Fany Mcintosh
--- NOTE | 2016-05-31 17:06 | ECGEPIP ---
Stationary ECG Study [facility] Test Date: 2016-05-31 Pat Name: PREETHI MASCORRO Department: Room: [place] [address] Gender: F Gym Manager: MARTIR : 1935 Requested By: CYNTHIA GOINS Order Number: [id number] Reading MD: Fco Xiong Measurements Intervals [place] Rate: 98 P: [place]: 0 QRS: 19 QRSD: 89 T: 13 QT: 355 QTc: 454 Interpretive Statements ATRIAL FIBRILLATION NONSPECIFIC ST & T-WAVE ABNORMALITY Consider digoxin effect. ABNORMAL RHYTHM ECG Atrial fibrillation and repolarization abnormalities new compared with 05/30/2016. Electronically Signed On 05-31-2016 16:56:20 EST by Fco Xiong
[2016-06-01] VITALS (15 sets, daily range): BP systolic 58–126; BP diastolic 42–66
--- NOTE | 2016-06-01 03:14 | CR ---
DATE OF CONSULTATION: 05/30/2016 REFERRING PROVIDER: Casandra Sanchez MD. REASON FOR CONSULTATION: Decompensated congestive heart failure, status post mechanical cardioversion on 04/28/2016. HISTORY OF PRESENT ILLNESS: 81-year-old woman with a history of atrial fibrillation, symptomatic, was seen by wharf labourer in [place] about 1 week ago then was brought back to [facility] on 04/28/2016, and patient had transesophageal echocardiogram (LINDEN), mechanical cardioversion. She then was discharged home, but during the night prior to her admission here, she developed increasing shortness of breath and she was admitted with findings consistent with decompensated congestive heart failure. She also was found to be acidotic, metabolic in nature. When I saw Mrs. Keren Carranza last evening, she was lying supine in bed and sleepy, using the continuous positive airway pressure (CPAP) machine. Most of the information was taken from patient's granddaughter present in the room. It seemed that she has been having shortness of breath with activities, relieved with rest and when she went for the mechanical cardioversion, she was having more shortness of breath, but they thought it was related to her underlying atrial fibrillation. She underwent a transesophageal echocardiogram and she was told that her valvular heart disease is more severe than initially thought. She was, however, mechanically cardioverted in to a normal sinus rhythm and upon presentation here at the hospital, she was still in normal sinus rhythm, mildly bradycardic at times with underlying first-degree arterioventricular (AV) block. There is no report of chest pain. There is no focal manifestation. There is no report of fever or chills. She has been coughing and last night, she had orthopnea. There is no report of palpitations. There is no bleeding reported. There is no focal manifestation. She usually takes her medication regularly. She has been seeing Dr. Graf for a long time and she also sees nephrology in [place], [place]. She has a past medical history positive for coronary artery disease with a history of percutaneous transluminal coronary angioplasty (PTCA)/stent and coronary artery bypass graft, congestive heart failure secondary to left ventricular diastolic dysfunction, history of CVA, which she has recovered, atrial fibrillation, hypertension, hyperlipidemia, peripheral artery disease with stent, with percutaneous transluminal angioplasty (COMMUNITY DEVELOPMENT WORKER) to the iliac artery, chronic kidney disease for which she has been seeing Dr. 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 PAST SURGICAL HISTORY: Positive for coronary artery bypass graft (CABG) as mentioned above, ileostomy. The patient had endoscopic retrograde cholangiopancreatography (ERCP) done in the past for removal of stones from the common bile duct. FAMILY HISTORY: Noncontributory. CURRENT MEDICATIONS: - metoprolol tartrate 25 mg by mouth daily - amiodarone 200 mg by mouth daily - Cardizem 180 mg by mouth daily - Coumadin 2 mg by mouth daily - allopurinol 100 mg by mouth twice a day - anastrazole 1 mg by mouth daily - vitamin C 400 mg by mouth daily - calcium 400 mg by mouth twice a day - folic acid 1 mg by mouth daily - multivitamins one tablet by mouth daily - Arimidex 1 mg by mouth daily - probiotic daily - CoQ10 200 mg by mouth daily SOCIAL HISTORY: Patient lives currently alone. She is a . She has family in the area and they are very supportive. Currently, her daughter is in [place] and she is on her way back to [facility]. ALLERGIES: NONSTEROIDAL ANTIINFLAMMATORY DRUGS (NSAIDS) and SULFA. ADVANCED DIRECTIVES: Patient is a FULL CODE. PHYSICAL EXAMINATION: Patient is alert and oriented, in no acute distress at rest. Vital signs when I saw were stable with a blood pressure of 124/60, pulse 64, respirations 16, and her temperature was 96.1 degrees Fahrenheit with an oxygen saturation of 99% on noninvasive positive pressure ventilation (NIPPV). Examination of the head, ears, eyes, nose and throat: Atraumatic. Neck is supple with an extended jugular. The lungs did not reveal any wheezing, but crackles bilaterally. The heart examination revealed normal S1 and S2 without gallops. The point of maximal impulse (PMI) is slightly displaced inferiorly. There is no rub. There is a systolic murmur grade 2-3 over 6 at the lower left sternal border and at the apex with some radiation to the axilla. Abdomen is unremarkable. Extremities reveal trace edema. Neurological examination is negative for focal deficit. LABORATORIES: CBC on 05/30/2016, revealed a WBC of 16.4, hemoglobin 11.4, hematocrit 37.0, and platelets 354,000. BMP revealed a sodium of 142, potassium 4.3, chloride 112, CO2 16, BUN 71, creatinine 2.96, GFR 16.1, fasting glucose 188, and calcium 9.2. Serum lactic acid was 2.3. Serum BNP was 601. Repeat BMP done on the same day revealed a sodium of 141, potassium 4.9, chloride 113, CO2 15, BUN 71, creatinine 3.07, GFR 15.4, fasting glucose 125, and lactic acid was 1.6, calcium was 4.9. Serum magnesium was 2.1. Liver enzymes reveal a total bilirubin of 0.6, AST 53, ALT 48, alkaline phosphatase 128, LDH 315, total protein 6.5, albumin 3.6. Lipid profile revealed a total cholesterol of 116, triglycerides 90. Serum amylase was 133 and serum lipase 1175. Serum troponin was 0.02. PT was 38.8 with an INR of 3.98 and a PTT of 51.3. ABG done on 05/30/2016, revealed a pH of 7.25, pCO2 26.3, pO2 63.2, and oxygen saturation was 89% on nasal cannula. Electrocardiogram on admission revealed normal sinus rhythm at 62 beats per minute, first-degree AV block and poor R progression. Chest x-ray done on 05/30/2016, revealed cardiomegaly and manifestation of heart failure and pleural effusions. Chest CT done on 05/30/2016, without contrast, revealed chronic pulmonary fibrosis, decompensated congestive heart failure, bilateral multifocal bronchial pneumonia, pulmonary hypertension, pleural effusion, and arthritis. Echocardiogram on 05/30/2016, revealed a normal left ventricular ejection fraction (LVEF), estimated at 65-70%, moderately enlarged left atrium, as well as mildly enlarged right atrium, trace aortic regurgitation, moderately severe mitral regurgitation, severe tricuspid regurgitation, and severe pulmonary hypertension. Trace pericardial effusion also noted. IMPRESSION: 1. Congestive heart failure, probably acute on chronic with manifestation of pulmonary edema that is probably related to a combination of factors such as her mitral regurgitation and fluid overload that her procedure on 05/29/2016. Case was discussed with abrasive grader helper, it does not seem there is any pneumonia. Her medications were reviewed and she will continue the same and she was restarted on her calcium channel randall, but a small dose. There is a concern about the amiodarone in view of the underlying pulmonary fibrosis and it will be on hold for now. Her blood pressure is running low and she is on a small dose of short-acting beta randall and it also will be on hold. Will monitor her BUN and creatinine and serum potassium. According to the granddaughter, her symptoms have improved since in the hospital. 2. Regarding her atrial fibrillation, it is amazing that she is still in normal sinus rhythm, but I am expecting her go back in atrial fibrillation in view of her underlying structural heart disease, the mitral regurgitation and the dilated left atrium and right atrium. This was discussed with her daughter. Case will be discussed with her wharf labourer in [place], [place]. 3. History of coronary artery disease, seems to be stable. 4. Valvular heart disease and if she continues to have manifestation of heart failure, we shall consider revisiting her mitral regurgitation, she most likely will benefit from mitral valve repair/replacement. 5. Chronic kidney disease and she is being evaluated by nephrology. 6. Metabolic acidosis and this is being addressed. 7. Status post respiratory failure secondary to pulmonary edema and underlying pulmonary fibrosis. It was a pleasure to participate in the care of Mrs. Keren Carranza for her underlying cardiac condition. I will continue to monitor along with you while in the hospital. At this present time, she appears to be stable.
--- NOTE | 2016-06-01 03:35 | IPN ---
DATE OF SERVICE: 05/31/2016 Mrs. Keren Carranza was seen earlier today, she was lying supine in bed in no acute distress at rest. She is doing much better, off continuous positive airway pressure (CPAP) machine. Her daughter was at bedside. She denies any chest pain, and her shortness of breath has improved significantly. She was not short of breath when I was at bedside and she was able to talk easily. There is no report of bleeding. There is no focal manifestation. This morning, when I was at her bedside, she was in normal sinus rhythm with first-degree arterioventricular (AV) block, but this afternoon, she went into an atrial fibrillation with a controlled ventricular rate. She was and has been asymptomatic. PHYSICAL EXAMINATION: Patient is alert and oriented, in no acute distress at rest. Her last vital signs this evening revealed a blood pressure of 96/55 and prior to that it was 124/60, with a pulse that varied between 63 and 75, respirations 16-24, and oxygen saturation was 98-94% on 4-liter nasal cannula. She has been afebrile since I had seen her. She is in a negative fluid balance so far of about 1.1 liters. Examination of the head, ears, eyes, nose and throat: Atraumatic. Neck is supple without jugular venous distention (JVD). The lungs revealed bilateral crackles that seem to be dry crackles. The heart examination revealed normal S1 and S2 without gallops. The point of maximal impulse (PMI) is not displaced. There is no rub. There is a systolic murmur grade 1-2 over 6 at the lower left sternal border and at the apex, some radiation to the axilla. Abdomen is unremarkable. Extremities reveal no pedal edema. Neurological examination grossly was negative for focal deficit. LABORATORIES: BMP done today revealed a sodium of 143, potassium 3.4, chloride 112, CO2 19, BUN 70, creatinine 3.54, GFR 13, fasting glucose 96, and calcium 8.5. Serum magnesium is 1.8. Liver enzymes reveal a total bilirubin of 0.5, AST 32, ALT 41, alkaline phosphatase 105, LDH 266, total protein 6.5, albumin 3.2. CBC revealed a WBC of 9.9, hemoglobin 10.3, hematocrit 31.9, and platelets 257,000. PT is 38.0 and INR 3.87. IMPRESSION: 1. Status post decompensated congestive heart failure/pedal edema, most likely related to a combination of factors such as underlying mitral valve disease and fluid overload during her recent procedure, as well as prior uncontrolled atrial fibrillation. She is now doing much better and I will continue current medications. As mentioned above, this afternoon, she went into atrial fibrillation, but with a controlled ventricular rate. Case was discussed with her javascript developer in [place] and amiodarone was recommended, but in view of her underlying pulmonary fibrosis, we will hold on that. I will continue with the calcium channel randall and if needed, will we restart the beta randall. Her Coumadin is on hold because her INR is still supratherapeutic. As mentioned before, it is very unlikely that she will remain in normal sinus rhythm. 2. Status post respiratory failure secondary to above, number 1. 3. Hypertension. 4. Hyperlipidemia. 5. History of coronary artery disease, stable. 6. Acute on chronic kidney disease and she is being monitored. She has been seen also by nephrology. 7. Metabolic acidosis and she is improving. 8. Electrolyte abnormalities and this is being addressed. It was a pleasure to participate in the care of Mrs. Keren Carranza for her underlying cardiac condition. I will continue to monitor along with you.
[2016-06-01 04:51] LABS: ALBUMIN/GLOBULIN RATIO 0.94 (1.00-1.93); BILIRUBIN,TOTAL 0.4 MG/DL (0.2-1.0); CALCIUM LEVEL 7.9 MG/DL (8.8-10.2); CREATININE FOR GFR 2.89 MG/DL (0.55-1.02); GLOMERULAR FILTRATION RATE 16.6 (>32); MAGNESIUM LEVEL 1.5 MG/DL (1.8-2.4); PHOSPHORUS LEVEL 4.3 MG/DL (2.5-4.9); TOTAL PROTEIN 6.2 GM/DL (6.4-8.2)
[2016-06-01 04:55] LABS: INR 4.33
[2016-06-01 04:57] LABS: BASO % 0.5 % (0.0-1.0); EOS # 0.5 K/mm3 (0.0-0.50); EOS % 5.4 % (0.0-3.0); LARGE UNSTAINED CELL # 0.2 K/mm3 (0.0-0.4); LARGE UNSTAINED CELL % 1.5 % (0.0-4.0); LYMPH # 1.2 K/mm3 (1.5-4.5); LYMPH % 12.6 % (24.0-44.0); MEAN CORPUSCULAR HEMOGLOBIN 30.3 pg (27.0-33.0); MEAN CORPUSCULAR HGB CONC 31.6 g/dl (32.0-36.5); MEAN CORPUSCULAR VOLUME 95.8 fl (80.0-96.0); MONO # 0.6 K/mm3 (0.0-0.8); MONO % 6.2 % (0.0-5.0); NEUTROPHILS % 73.7 % (36.0-66.0); PLATELET COUNT, AUTOMATED 224 k/mm3 (150-450); RED CELL DISTRIBUTION WIDTH 15.6 % (11.5-14.5); WHITE BLOOD COUNT 9.5 K/mm3 (4.0-10.0)
[2016-06-01] MEDS: SLF 3 ML SYR IV SCH ×3 (05:03→20:42)
[2016-06-01] MEDS ORDERED: POTASSIUM CHLORIDE 10 MEQ SR TABLET PO ONE (07:45)
[2016-06-01] MEDS ORDERED: POTASSIUM CHLORIDE 10 MEQ SR TABLET PO SCH (09:00)
[2016-06-01] MEDS: BICITRA 30ML SOLN UDC PO SCH ×3 (09:30→20:42)
[2016-06-01] MEDS: FEBUXOSTAT 40 MG TABLET (ULORIC) PO SCH (09:30)
[2016-06-01] MEDS: (RENVELA) SEVELAMER **CARBONate** 800 MG TAB PO SCH ×3 (09:30→18:26)
[2016-06-01] MEDS: PANTOPRAZOLE 40MG TAB (PROTONIX) PO SCH (09:31)
[2016-06-01] MEDS: FOLIC ACID 1 MG TAB PO SCH (09:31)
[2016-06-01] MEDS: VITAMIN D 1,000 INTERNATIONAL UNITS TABLET PO SCH (09:31)
[2016-06-01] MEDS: MAGNESIUM OXIDE 400 MG TAB (MAG-OX) PO SCH ×3 (09:31→20:42)
[2016-06-01] MEDS: ANASTROZOLE 1 MG TAB PO SCH (09:31)
[2016-06-01] MEDS: BUMETANIDE 1 MG TAB PO SCH (09:31)
--- NOTE | 2016-06-01 10:22 | EDDOCDS ---
Nurse's Notes [facility] Name: Keren Carranza Age: 81 yrs Sex: Female : 1935 Arrival Date: 05/30/2016 Time: 03:03 Bed 2 Private MD: Diagnosis: Shortness of breath;Pleural effusion in conditions classified elsewhere Presentation: 05/30 03:09 Presenting complaint: Patient states: per pt she has had SOB for the past week now, had tm5 a cardioversion & loop recorder placed today at [facility], pt states that her SOB gets worse at night. Adult Sepsis Screening: The patient does not have new or worsening altered mentation. Patient's respiratory rate is less than 22. Systolic blood pressure is greater than 100. Patient has a qSOFA score of 0- Negative Sepsis Screen. Suicide/Homicide risk assessment- the patient denies having any suicidal and/or homicidal ideations and does not present with any other emotional, behavioral or mental health complaints. Status: Patient is not a battery service technician or dependent. Transition of care: patient was not received from another setting of care. 03:09 Acuity: RADHA Level 3 tm5 03:09 Method Of Arrival: Wheelchair tm5 Triage Assessment: 03:14 General: Appears distressed, Behavior is appropriate for age, cooperative. Pain: Denies tm5 pain. The patient is triaged at the bedside. See Assessment in Nurses Notes section of ED record. Neurological: Level of Consciousness is awake, alert, Oriented to person, place, time. Cardiovascular: Rhythm is sinus rhythm. Respiratory: Onset: The symptoms/episode began/occurred 1 week ago, Reports shortness of breath at rest on exertion. Derm: Skin is pink, warm & dry. Historical: - Allergies: NSAIDS; SULFA (SULFONAMIDES); - Home Meds: 1. allopurinol 100 mg Oral tab bid 2. anastrozole 1 mg oral tab 1 tab once daily 3. warfarin 2 mg Oral tab nightly 4. ascorbic acid 500 mg oral tab daily 5. metoprolol 25 mg daily 6. calcium 500 mg twice a day 7. folic acid 1 mg Oral tab 1 tab once daily 8. amiodarone 200 mg Oral tab 1 tab once daily 9. Lomotil oral prn 10. multivitamin Oral cap 1 tab daily 11. Cardizem 180 mg Oral daily 12. sodium chloride 1 gram oral tab twice a day 13. Arimidex 1 mg Oral tab 1 tab once daily 14. Probiotic oral daily 15. co q10 200 mg daily - PMHx: c diff; Cancer, Breast - Right; GERD; Gout; Heart failure; Hypertension; PVD; Stroke; Atrial Fib; - PSHx: CABG; Ileostomy Construction; - Social history: Smoking status: Patient states former smoker of tobacco. No barriers to communication noted, The patient speaks fluent Sami. - Family history: No immediate family members are acutely ill. - : The pt / caregiver states he / she is on anticoagulants: coumadin. Home medication list is obtained from a discharge med list. - Exposure Risk Screening:: None identified. Screenin:37 Screening information is obtained from the patient, family members. Fall risk: At risk mlc due to age. Assistance ADL's:. Abuse/DV Screen: The patient / caregiver reports he/she is: not in a situation that causes fear, pain or injury. Nutritional screening: No deficits noted. home support is adequate. 04:07 Advance Directives: Currently, there is no health care proxy. There is no active DNR mlc order. There is no living will. There is no Power of Dietary Services Manager. Assessment: 03:20 General: Appears ill, Behavior is cooperative. Pain: Denies pain. Neurological: Level mlc of Consciousness is awake, alert, obeys commands, Oriented to person, place, time. Cardiovascular: Capillary refill < 3 seconds Heart tones S1 S2 present Chest pain is denied. Respiratory: Airway is patent Respiratory effort is labored, Respiratory pattern is tachypnea Breath sounds with crackles bilaterally. Reports shortness of breath cough that is. Derm: Skin is normal. 03:25 General: Dr. Mars made aware of patient status, Dr. Mars in to see patient. . mlc 03:54 Reassessment: Patient states symptoms have not improved. pt resting comfortably in bed. mlc NC in place.. 04:50 Reassessment: Patient states symptoms have not improved. GI: Ileostomy site is clean mlc and dry. is intact. Derm: Bruising that is dark purple, on anterior aspect of left upper chest from procedure today, incision edges well approximately, approx 2 cm in length. 05:23 Reassessment: pt not tolerating CPAP, NC place on pt by RT. . mlc 06:06 Reassessment: Patient appears in no apparent distress at this time. Patient states mlc symptoms have improved. pt tolerating CPAP at this time. . 06:30 General: Appears in no apparent distress, comfortable, to be sleeping. Cardiovascular: mlc Rhythm is atrial fibrillation. Respiratory: Airway is patent Respiratory effort is labored, Respiratory pattern is regular. 06:59 Reassessment: IV fluids infusing per order. pt taken down to CT, pt placed on NC mlc momentarily per DrZohreh order. 07:19 General: Appears in no apparent distress, comfortable, Behavior is appropriate for age, ml6 cooperative. Pain: Denies pain. Neurological: No deficits noted. Level of Consciousness is awake, alert, Oriented to person, place, time. Cardiovascular: Capillary refill < 3 seconds is brisk in bilateral fingers toes Heart tones S1 S2 present Edema is absent. Pulses are all present. Rhythm is sinus rhythm with PACs Chest pain is denied. Respiratory: Airway is patent Respiratory effort is even, labored, Respiratory pattern is regular, symmetrical, Breath sounds with crackles expiratory bilaterally. Reports shortness of breath at rest the patient has moderate shortness of breath. 08:20 Reassessment: Patient appears in no apparent distress at this time. Patient denies pain ml6 at this time. Patient states feeling better. Patient states symptoms have improved. 09:19 General: Appears in no apparent distress, Behavior is appropriate for age, cooperative. ml6 Respiratory: Airway is patent Respiratory effort is even, labored, Respiratory pattern is regular, symmetrical, Breath sounds with crackles expiratory bilaterally. Reports shortness of breath at rest cough that is non-productive, dry, hacking. GI: No deficits noted. Ileostomy site is clean and dry. is intact. Vital Signs: 03:14 BP 99 / 58; Pulse 61; Resp 28 S; Temp 97.8(O); Pulse Ox 77% on R/A; Weight 71.67 kg; tm5 Height 5 ft. 4 in. (162.56 cm); Pain 0/10; 03:14 Pulse 62 MON; Pulse Ox 77% ; mlc 03:16 BP 99 / 58 (auto/); mlc 03:20 Pulse 60 MON; Pulse Ox 94% on 2 lpm NC; mlc 03:36 BP 97 / 52 (auto/); mlc 03:37 Pulse 61 MON; Pulse Ox 90% ; mlc 03:54 Pulse 60 MON; Pulse Ox 92% ; mlc 04:00 BP 101 / 65 (auto/); mlc 04:00 Pulse 61 MON; Pulse Ox 92% ; mlc 04:15 BP 97 / 52 (auto/); mlc 04:15 Pulse 61 MON; Pulse Ox 92% ; mlc 04:29 Pulse 61 MON; Pulse Ox 92% ; mlc 04:30 BP 93 / 57 (auto/); mlc 04:44 Pulse 63 MON; Pulse Ox 91% ; mlc 04:45 BP 108 / 59 (auto/); mlc 05:00 BP 104 / 60 (auto/); mlc 05:00 Pulse 65 MON; Pulse Ox 93% ; mlc 05:15 BP 100 / 56 (auto/); mlc 05:16 Pulse 65 MON; Pulse Ox 89% ; mlc 05:22 Pulse 64 MON; Pulse Ox 91% ; mlc 05:30 BP 108 / 61 (auto/); mlc 05:31 Pulse 64 MON; Pulse Ox 91% ; mlc 05:45 BP 103 / 55 (auto/); mlc 05:45 Pulse 61 MON; Pulse Ox 100% ; mlc 06:00 BP 96 / 55 (auto/); mlc 06:00 Pulse 60 MON; Pulse Ox 99% ; mlc 06:15 BP 107 / 60 (auto/); mlc 06:15 Pulse 64 MON; Pulse Ox 99% ; mlc 06:29 Pulse 60 MON; Resp 20; Pulse Ox 99% ; mlc 06:39 Temp 97.8(TE); mlc 07:08 BP 100 / 53 (auto/); ml6 07:08 Pulse 64 MON; Resp 20; Pulse Ox 94% on 4 lpm NC; ml6 07:15 BP 94 / 55 (auto/); ml6 07:15 Pulse 61 MON; Resp 22; Pulse Ox 100% on 50% BiPAP; ml6 07:30 BP 96 / 52 (auto/); ml6 07:30 Pulse 61 MON; Resp 24; Temp 98.1(TE); Pulse Ox 100% on 50% BiPAP; Pain 0/10; ml6 07:45 BP 98 / 51 (auto/); ml6 07:45 Pulse 60 MON; Resp 22; Pulse Ox 100% on 50% BiPAP; Pain 0/10; ml6 09:15 Pulse 61 MON; Pulse Ox 95% ; ml6 09:15 BP 98 / 50 (auto/); Pulse 66; Resp 18; Temp 98.3(O); Pulse Ox 98% on R/A; Pain 0/10; ml6 03:14 Body Mass Index 27.12 (71.67 kg, 162.56 cm) tm5 Vitals: 03:14 Log In Time: May 30, 2016 at 03:16. tm5 ED Course: 03:05 Patient visited by Arjun Waddell. jp5 03:05 Patient moved to Waiting jp5 03:09 Marsha Dean,RN is Primary Nurse. tm5 03:09 Patient visited by Cortney Ramirez RN. tm5 03:09 Patient moved to 17 tm5 03:11 Triage Initiated tm5 03:13 Sully Mars MD is Attending Physician. fg 03:13 Patient visited by Sully Mars MD. fg 03:14 Family accompanied patient. tm5 03:25 EKG done. (by ED staff). Reviewed by Sully Mars MD. rn1 03:34 Patient moved to 2 cz 03:53 -Arterial Blood Gas Sent. lf2 03:56 Patient visited by Marsha Dean RN. mlc 03:56 The patient / caregiver is instructed regarding the plan of care and ED course. Cardiac mlc monitor on. Pulse ox on. NIBP on. 03:56 Inserted saline lock: 20 gauge in left antecubital area and blood collected. The mlc patient tolerated the procedure well. O2 via nasal cannula \T\ 3L/min. 04:07 BLOOD CULTURES Sent. mlc 04:20 Notified attending ED physician of Critical lab value. lactic acid 2.3. cz 04:38 [facility] Payment Agreement was scanned into [employer] and attached to record. hs2 04:52 Patient visited by Marsha Dean RN. mlc 05:24 Patient visited by Marsha Dean RN. mlc 06:00 Patient placed on CPAP Rate 20Breath/Min. mlc 06:07 Patient visited by Marsha Dean RN. mlc 06:32 Patient visited by Marsha Dean RN. mlc 06:49 Casandra Sanchez is Hospitalizing Provider. fg 06:58 Camron Gutierrez, RN is Primary Nurse. ml6 06:59 Patient visited by Camron Gutierrez, INDIO. ml6 06:59 Patient visited by Marsha Dean RN. mlc 07:49 CT Chest Without Contrast Returned. EDMS 08:31 Written Provider Order was scanned into [employer] and attached to record. deg 08:33 Chest, 1 View Returned. EDMS 09:21 No procedures done that require assistance. ml6 21:32 T-Sheet-- Draft Copy was scanned into [employer] and attached to record. klr Administered Medications: 06:59 Drug: Piperacillin-Tazobactam 2.25 grams [piperacillin-tazobactam 3.375 gram [facility] intravenous solution] Route: IVPB; Infused Over: 30 mins; Site: left antecubital; 07:53 Follow up: IV Status: Completed infusion; Infusion discontinued; IV Intake: 100ml ml6 Intake: 07:53 IV: 100.00ml; Total: 100.00ml. ml6 RT: 03:53 ABG's drawn from left radial artery allens test done and positive pressure held for 5 lf2 minutes pressure bandage applied specimen sent pt. tolerated well. O2 via nasal cannula \T\ 3L/min. 05:10 Patient placed on CPAP Expiratory Pressure 10cm of H2O FIO2 50%, Alarms Set: Alarms lf2 set, functioning and audible to nurses station. 05:15 O2 via nasal cannula \T\ 3L/min. lf2 05:40 Patient placed on CPAP Expiratory Pressure 10cm of H2O FIO2 50%, Alarms Set: Alarms lf2 set, functioning and audible to nurses station. Order Results: Lab Order: B-Type Natiuretic Peptide; SPEC'M 05/30/16 03:29 Test: BRAIN NATRIURETIC PEPTIDE; Value: 601; Range: <100; Abnormal: Above high normal; Units: PG/ML; Status: F Lab Order: Basic Metabolic Profile; SPEC'M 05/30/16 03:29 Test: GLUCOSE, FASTING; Value: 188; Range: 83-110; Abnormal: Above high normal; Units: MG/DL; Status: F Test: BLOOD UREA NITROGEN; Value: 71; Range: 7-18; Abnormal: Above high normal; Units: MG/DL; Status: F Test: CREATININE FOR GFR; Value: 2.96; Range: 0.55-1.02; Abnormal: Above high normal; Units: MG/DL; Status: F Test: GLOMERULAR FILTRATION RATE; Value: 16.1; Range: >32; Abnormal: Below low normal; Status: F Test: SODIUM LEVEL; Value: 142; Range: 136-145; Units: MEQ/L; Status: F Test: POTASSIUM SERUM; Value: 4.3; Range: 3.5-5.1; Units: MEQ/L; Status: F Test: CHLORIDE LEVEL; Value: 112; Range: 98-107; Abnormal: Above high normal; Units: MEQ/L; Status: F Test: CARBON DIOXIDE LEVEL; Value: 16; Range: 21-32; Abnormal: Below low normal; Units: MEQ/L; Status: F Test: ANION GAP; Value: 14; Range: 8-16; Units: MEQ/L; Status: F Test: CALCIUM LEVEL; Value: 9.2; Range: 8.8-10.2; Units: MG/DL; Status: F Test Note: ; Units are mL/min/1.73 m2 Chronic Kidney Disease Staging per NKF: Stage I & II GFR >=60 Normal to Mildly Decreased Stage III GFR 30-59 Moderately Decreased Stage IV GFR 15-29 Severely Decreased Stage V GFR <15 Very Little GFR Left ESRD GFR <15 on DIE CUTTER Lab Order: CBC with Diff; SPEC'M 05/30/16 03:29 Test: WHITE BLOOD COUNT; Value: 16.4; Range: 4.0-10.0; Abnormal: Above high normal; Units: K/mm3; Status: F Test: RED BLOOD COUNT; Value: 3.77; Range: 4.00-5.40; Abnormal: Below low normal; Units: M/mm3; Status: F Test: HEMOGLOBIN; Value: 11.4; Range: 12.0-16.0; Abnormal: Below low normal; Units: g/dl; Status: F Test: HEMATOCRIT; Value: 37.0; Range: 36.0-47.0; Units: %; Status: F Test: MEAN CORPUSCULAR VOLUME; Value: 98.1; Range: 80.0-96.0; Abnormal: Above high normal; Units: fl; Status: F Test: MEAN CORPUSCULAR HEMOGLOBIN; Value: 30.3; Range: 27.0-33.0; Units: pg; Status: F Test: MEAN CORPUSCULAR HGB CONC; Value: 30.9; Range: 32.0-36.5; Abnormal: Below low normal; Units: g/dl; Status: F Test: RED CELL DISTRIBUTION WIDTH; Value: 15.9; Range: 11.5-14.5; Abnormal: Above high normal; Units: %; Status: F Test: PLATELET COUNT, AUTOMATED; Value: 354; Range: 150-450; Units: k/mm3; Status: F Test: NEUTROPHILS %; Value: 85.3; Range: 36.0-66.0; Abnormal: Above high normal; Units: %; Status: F Test: LYMPH %; Value: 6.9; Range: 24.0-44.0; Abnormal: Below low normal; Units: %; Status: F Test: MONO %; Value: 3.7; Range: 0.0-5.0; Units: %; Status: F Test: EOS %; Value: 3.0; Range: 0.0-3.0; Units: %; Status: F Test: BASO %; Value: 0.5; Range: 0.0-1.0; Units: %; Status: F Test: LARGE UNSTAINED CELL %; Value: 0.6; Range: 0.0-4.0; Units: %; Status: F Test: NEUTROPHILS #; Value: 14.0; Range: 1.8-7.7; Abnormal: Above high normal; Units: K/mm3; Status: F Test: LYMPH #; Value: 1.2; Range: 1.5-4.5; Abnormal: Below low normal; Units: K/mm3; Status: F Test: MONO #; Value: 0.6; Range: 0.0-0.8; Units: K/mm3; Status: F Test: EOS #; Value: 0.5; Range: 0.0-0.50; Units: K/mm3; Status: F Test: BASO #; Value: 0.1; Range: 0.0-0.2; Units: K/mm3; Status: F Test: LARGE UNSTAINED CELL #; Value: 0.1; Range: 0.0-0.4; Units: K/mm3; Status: F Lab Order: -Arterial Blood Gas; SPEC' 05/30/16 03:50 Test: ABG pH (ARTERIAL); Value: 7.252; Range: 7.350-7.450; Abnormal: Below low normal; Units: UNITS; Status: F Test: ABG PARTIAL PRESSURE CO2; Value: 26.3; Range: 35.0-45.0; Abnormal: Below low normal; Units: mmHg; Status: F Test: ABG PARTIAL PRESSURE O2; Value: 63.2; Range: 75.0-100.0; Abnormal: Below low normal; Units: mmHg; Status: F Test: ABG TOTAL CO2; Value: 12.1; Range: 23.0-31.0; Abnormal: Below low normal; Units: MEQ/L; Status: F Test: ABG HCO3; Value: 11.3; Range: 22.0-26.0; Abnormal: Below low normal; Units: MEQ/L; Status: F Test: ABG BASE EXCESS; Value: -14.3; Range: -2.0-2.0; Abnormal: Below low normal; Status: F Test: ABG STANDARD HCO3; Value: 13.4; Range: 22.0-26.0; Abnormal: Below low normal; Units: MEQ/L; Status: F Test: ABG O2 SATURATION; Value: 89.3; Range: 95.0-99.0; Abnormal: Below low normal; Units: %; Status: F Test: ABG DEVICE; Value: NASAL SHANNAN; Status: F Lab Order: Lactic Acid (Rene tube on ice); SPEC'M 05/30/16 03:29 Test: LACTIC ACID SEPSIS PROTOCOL; Value: 2.3; Range: 0.4-2.0; Abnormal: Above upper panic limits; Units: MMOL/L; Status: F Radiology Order: Chest, 1 View Test: Chest, 1 View REASON FOR EXAMINATION: Shortness of Breath; Clinical: Shortness of breath.; ; Comparison: 11/21/2015.; ; Findings:; Pulmonary vasculature and interstitial edema with bibasilar opacities will; effusions. Mediastinum suggests cardiomegaly with evidence for prior sternotomy; and CABG. No pneumothorax. Skeletal structures stable.; ; Impression:; Cardiomegaly with CHF including bibasilar atelectasis and pleural effusions.; ; ; Signed by; Jared Nichols MD 05/30/2016 08:02 A; Radiology Order: CT Chest Without Contrast Test: CT Chest Without Contrast REASON FOR EXAMINATION: Cough;Shortness of Breath; ; CLINICAL HISTORY: Shortness of breath.; TECHNIQUE: Multiple axial CT images were obtained through the thorax without IV contrast material.; COMMENTS:; Moderate bilateral pleural effusions.; Passive atelectatic airspace disease of the lower lobes.; Enlarged main pulmonary artery.; Findings are suggestive of pulmonary hypertension.; Bilateral perihilar ground glass densities of the lungs.; Spondylosis.; Mildly enlarged mediastinal and hilar lymph nodes.; Diffuse idiopathic skeletal hyperostosis.; IMPRESSION:; Chronic pulmonary fibrosis.; Decompensated congestive heart failure.; Bilateral multifocal bronchopneumonia.; Pulmonary hypertension.; Pleural effusions.; Thank you for your kind referral of this patient.; ; ; Outcome: 06:49 Decision to Hospitalize by Provider. fg 09:18 Admission hand-off: Report called to INDIO Hanks. Property :Personal belongings ml6 accompany Pt. 09:20 Discharge Assessment: patient administered narcotics - no. The following High Risk [facility] Discharge criteria are identified: None. Admitted to ICU accompanied by nurse, accompanied by tech, family with patient, via stretcher, with oxygen, on monitor, with chart. Condition: stable. CT Study completed. 09:21 Patient left the ED. 6 Signatures: Dispatcher [employer] EDMS Angelica Null, Editor In Chief Unit deg Delvin Posada RN RN cz Lowe, Matthew, RN RN ml6 Marsha Dean RN RN mlc Newman, Robert rn1 Arjun Waddell 5 Sully Mars MD MD Mamta Meza,RT RT lf2 Ronda Alejo, Reg Reg hs2 Letty Ackermanr Cortney Ramirez,INDIO RN tm5 Corrections: (The following items were deleted from the chart) 03:54 03:25 Reassessment: Patient states symptoms have not improved. pt resting comfortably mlc in bed. NC in place.. mlc 05:44 05:10 Patient placed on CPAP Expiratory Pressure 10cm of H2O FIO2 50%, Alarms Set: lf2 Alarms set, functioning and audible to nurses station lf2 05:57 05:44 O2 via nasal cannula \T\ 3L/min lf2 lf2 Chart Complete MTDD
--- NOTE | 2016-06-01 10:22 | EDDOCDS ---
Physician Documentation [facility] Name: Keren Carranza Age: 81 yrs Sex: Female : 1935 Arrival Date: 05/30/2016 Time: 03:03 Bed 2 Private MD: Disposition: 05/30/16 06:49 Hospitalization ordered by Casandra Sanchez for Inpatient Admission. Preliminary diagnosis are Shortness of breath, Pleural effusion in conditions classified elsewhere. - Bed requested for M ICU. - Status is Inpatient Admission. ml6 - Condition is Stable. - Problem is chronic. - Symptoms have worsened. Historical: - Allergies: NSAIDS; SULFA (SULFONAMIDES); - Home Meds: 1. allopurinol 100 mg Oral tab bid 2. anastrozole 1 mg oral tab 1 tab once daily 3. warfarin 2 mg Oral tab nightly 4. ascorbic acid 500 mg oral tab daily 5. metoprolol 25 mg daily 6. calcium 500 mg twice a day 7. folic acid 1 mg Oral tab 1 tab once daily 8. amiodarone 200 mg Oral tab 1 tab once daily 9. Lomotil oral prn 10. multivitamin Oral cap 1 tab daily 11. Cardizem 180 mg Oral daily 12. sodium chloride 1 gram oral tab twice a day 13. Arimidex 1 mg Oral tab 1 tab once daily 14. Probiotic oral daily 15. co q10 200 mg daily - PMHx: c diff; Cancer, Breast - Right; GERD; Gout; Heart failure; Hypertension; PVD; Stroke; Atrial Fib; - PSHx: CABG; Ileostomy Construction; - Social history: Smoking status: Patient states former smoker of tobacco. No barriers to communication noted, The patient speaks fluent [place] Zealander. - Family history: No immediate family members are acutely ill. - : The pt / caregiver states he / she is on anticoagulants: coumadin. Home medication list is obtained from a discharge med list. - Exposure Risk Screening:: None identified. Vital Signs: 05/30 03:14 BP 99 / 58; Pulse 61; Resp 28 S; Temp 97.8(O); Pulse Ox 77% on R/A; Weight 71.67 kg / tm5 158.01 lbs; Height 5 ft. 4 in. (162.56 cm); Pain 0/10; 03:14 Pulse 62 MON; Pulse Ox 77% ; mlc 03:16 BP 99 / 58 (auto/); mlc 03:20 Pulse 60 MON; Pulse Ox 94% on 2 lpm NC; mlc 03:36 BP 97 / 52 (auto/); mlc 03:37 Pulse 61 MON; Pulse Ox 90% ; mlc 03:54 Pulse 60 MON; Pulse Ox 92% ; mlc 04:00 BP 101 / 65 (auto/); mlc 04:00 Pulse 61 MON; Pulse Ox 92% ; mlc 04:15 BP 97 / 52 (auto/); mlc 04:15 Pulse 61 MON; Pulse Ox 92% ; mlc 04:29 Pulse 61 MON; Pulse Ox 92% ; mlc 04:30 BP 93 / 57 (auto/); mlc 04:44 Pulse 63 MON; Pulse Ox 91% ; mlc 04:45 BP 108 / 59 (auto/); mlc 05:00 BP 104 / 60 (auto/); mlc 05:00 Pulse 65 MON; Pulse Ox 93% ; mlc 05:15 BP 100 / 56 (auto/); mlc 05:16 Pulse 65 MON; Pulse Ox 89% ; mlc 05:22 Pulse 64 MON; Pulse Ox 91% ; mlc 05:30 BP 108 / 61 (auto/); mlc 05:31 Pulse 64 MON; Pulse Ox 91% ; mlc 05:45 BP 103 / 55 (auto/); mlc 05:45 Pulse 61 MON; Pulse Ox 100% ; mlc 06:00 BP 96 / 55 (auto/); mlc 06:00 Pulse 60 MON; Pulse Ox 99% ; mlc 06:15 BP 107 / 60 (auto/); mlc 06:15 Pulse 64 MON; Pulse Ox 99% ; mlc 06:29 Pulse 60 MON; Resp 20; Pulse Ox 99% ; mlc 06:39 Temp 97.8(TE); mlc 07:08 BP 100 / 53 (auto/); ml6 07:08 Pulse 64 MON; Resp 20; Pulse Ox 94% on 4 lpm NC; ml6 07:15 BP 94 / 55 (auto/); ml6 07:15 Pulse 61 MON; Resp 22; Pulse Ox 100% on 50% BiPAP; ml6 07:30 BP 96 / 52 (auto/); ml6 07:30 Pulse 61 MON; Resp 24; Temp 98.1(TE); Pulse Ox 100% on 50% BiPAP; Pain 0/10; ml6 07:45 BP 98 / 51 (auto/); ml6 07:45 Pulse 60 MON; Resp 22; Pulse Ox 100% on 50% BiPAP; Pain 0/10; ml6 09:15 Pulse 61 MON; Pulse Ox 95% ; ml6 09:15 BP 98 / 50 (auto/); Pulse 66; Resp 18; Temp 98.3(O); Pulse Ox 98% on R/A; Pain 0/10; ml6 03:14 Body Mass Index 27.12 (71.67 kg, 162.56 cm) tm5 MDM: 03:14 Nutritional Services Cook/Pulse Ox/q 15 min VS ordered. fg 03:14 IV Saline Lock ordered. fg 03:14 Oxygen at 4L/Min NC or Home dosage ordered. fg 03:14 Rhythm Strip to chart ordered. fg 03:14 IV Saline Lock ordered. fg 03:15 B-Type Natiuretic Peptide Ordered. EDMS 03:15 Basic Metabolic Profile Ordered. EDMS 03:15 CBC with Diff Ordered. EDMS 03:15 Chest, 1 View Ordered. EDMS 03:16 ECG WITH READING ER PHYS+CARDIAG ordered. EDMS 03:28 Call Respiratory ordered. fg 03:29 -Arterial Blood Gas Ordered. EDMS 03:36 Call Respiratory complete. cz 03:51 -Blood Culture (Adults Only), peripheral from different site, or from device/port/PICC fg etc. if present ordered. 03:52 Lactic Acid (Rene tube on ice) Ordered. EDMS 03:52 -Blood Culture Ordered. EDMS 03:55 -Blood Culture (Adults Only), peripheral from different site, or from device/port/PICC kb5 etc. if present complete. 03:57 BLOOD CULTURES Ordered. EDMS 04:37 Financial registration complete. hs2 04:38 [facility] Payment Agreement was scanned into [employer] and attached to record. hs2 06:37 Piperacillin-Tazobactam 2.25 grams IVPB once over 30 mins; dilute in 50mL of NS or D5W fg ordered. 06:49 CT Chest Without Contrast Ordered. EDMS 06:50 BED REQUEST+ADM ordered. EDMS 08:31 Written Provider Order was scanned into [employer] and attached to record. deg 08:38 CARDIAC MARKER PANEL Ordered. EDMS 08:39 Admission / Observation Status ordered. EDMS 08:40 NPO DIET ordered. EDMS 08:42 CRITICAL CARE PROFILE Ordered. EDMS 08:42 MAGNESIUM LEVEL Ordered. EDMS 08:42 AMYLASE Ordered. EDMS 08:42 LIPASE Ordered. EDMS 08:48 CARDIAC MARKER PANEL Ordered. EDMS 08:50 PT & APTT Ordered. EDMS 09:18 MRSA SCREEN Ordered. EDMS 21:32 T-Sheet-- Draft Copy was scanned into [employer] and attached to record. klr Administered Medications: 06:59 Drug: Piperacillin-Tazobactam 2.25 grams [piperacillin-tazobactam 3.375 gram mlc intravenous solution] Route: IVPB; Infused Over: 30 mins; Site: left antecubital; 07:53 Follow up: IV Status: Completed infusion; Infusion discontinued; IV Intake: 100ml ml6 Signatures: Dispatcher [employer] Angelica Grande, Manager Retirement Unit deg Delvin Posada, RN RN cz Juan F Mitchell, TRANSFORMER REPAIRER TRANSFORMER REPAIRER kb5 Camron Gutierrez RN RN ml6 Marsha Dean RN RN mlc Gill, Frances, MD MD Ronda Alejo, Reg Reg hs2 Letty Ackerman r Corteny RamirezRN RN tm5 The chart was reviewed and I authenticate all verbal orders and agree with the evaluation and treatment provided.Corrections: (The following items were deleted from the chart) 08:48 08:38 CARDIAC MARKER PANEL ordered. EDMS EDMS Attachments: 04:38 [facility] Payment Agreement hs2 08:31 Written Provider Order deg 21:32 T-Sheet-- Draft Copy klr Chart Complete MTDD
--- NOTE | 2016-06-01 10:22 | EDDOCDS ---
Physician Documentation [facility] Name: Keren Carranza Age: 81 yrs Sex: Female : 1935 Arrival Date: 05/30/2016 Time: 03:03 Bed 2 Private MD: Disposition: 05/30/16 06:49 Hospitalization ordered by Casandra Sanchez for Inpatient Admission. Preliminary diagnosis are Shortness of breath, Pleural effusion in conditions classified elsewhere. - Bed requested for M ICU. - Status is Inpatient Admission. ml6 - Condition is Stable. - Problem is chronic. - Symptoms have worsened. Historical: - Allergies: NSAIDS; SULFA (SULFONAMIDES); - Home Meds: 1. allopurinol 100 mg Oral tab bid 2. anastrozole 1 mg oral tab 1 tab once daily 3. warfarin 2 mg Oral tab nightly 4. ascorbic acid 500 mg oral tab daily 5. metoprolol 25 mg daily 6. calcium 500 mg twice a day 7. folic acid 1 mg Oral tab 1 tab once daily 8. amiodarone 200 mg Oral tab 1 tab once daily 9. Lomotil oral prn 10. multivitamin Oral cap 1 tab daily 11. Cardizem 180 mg Oral daily 12. sodium chloride 1 gram oral tab twice a day 13. Arimidex 1 mg Oral tab 1 tab once daily 14. Probiotic oral daily 15. co q10 200 mg daily - PMHx: c diff; Cancer, Breast - Right; GERD; Gout; Heart failure; Hypertension; PVD; Stroke; Atrial Fib; - PSHx: CABG; Ileostomy Construction; - Social history: Smoking status: Patient states former smoker of tobacco. No barriers to communication noted, The patient speaks fluent [place]. - Family history: No immediate family members are acutely ill. - : The pt / caregiver states he / she is on anticoagulants: coumadin. Home medication list is obtained from a discharge med list. - Exposure Risk Screening:: None identified. Vital Signs: 05/30 03:14 BP 99 / 58; Pulse 61; Resp 28 S; Temp 97.8(O); Pulse Ox 77% on R/A; Weight 71.67 kg / tm5 158.01 lbs; Height 5 ft. 4 in. (162.56 cm); Pain 0/10; 03:14 Pulse 62 MON; Pulse Ox 77% ; mlc 03:16 BP 99 / 58 (auto/); mlc 03:20 Pulse 60 MON; Pulse Ox 94% on 2 lpm NC; mlc 03:36 BP 97 / 52 (auto/); mlc 03:37 Pulse 61 MON; Pulse Ox 90% ; mlc 03:54 Pulse 60 MON; Pulse Ox 92% ; mlc 04:00 BP 101 / 65 (auto/); mlc 04:00 Pulse 61 MON; Pulse Ox 92% ; mlc 04:15 BP 97 / 52 (auto/); mlc 04:15 Pulse 61 MON; Pulse Ox 92% ; mlc 04:29 Pulse 61 MON; Pulse Ox 92% ; mlc 04:30 BP 93 / 57 (auto/); mlc 04:44 Pulse 63 MON; Pulse Ox 91% ; mlc 04:45 BP 108 / 59 (auto/); mlc 05:00 BP 104 / 60 (auto/); mlc 05:00 Pulse 65 MON; Pulse Ox 93% ; mlc 05:15 BP 100 / 56 (auto/); mlc 05:16 Pulse 65 MON; Pulse Ox 89% ; mlc 05:22 Pulse 64 MON; Pulse Ox 91% ; mlc 05:30 BP 108 / 61 (auto/); mlc 05:31 Pulse 64 MON; Pulse Ox 91% ; mlc 05:45 BP 103 / 55 (auto/); mlc 05:45 Pulse 61 MON; Pulse Ox 100% ; mlc 06:00 BP 96 / 55 (auto/); mlc 06:00 Pulse 60 MON; Pulse Ox 99% ; mlc 06:15 BP 107 / 60 (auto/); mlc 06:15 Pulse 64 MON; Pulse Ox 99% ; mlc 06:29 Pulse 60 MON; Resp 20; Pulse Ox 99% ; mlc 06:39 Temp 97.8(TE); mlc 07:08 BP 100 / 53 (auto/); ml6 07:08 Pulse 64 MON; Resp 20; Pulse Ox 94% on 4 lpm NC; ml6 07:15 BP 94 / 55 (auto/); ml6 07:15 Pulse 61 MON; Resp 22; Pulse Ox 100% on 50% BiPAP; ml6 07:30 BP 96 / 52 (auto/); ml6 07:30 Pulse 61 MON; Resp 24; Temp 98.1(TE); Pulse Ox 100% on 50% BiPAP; Pain 0/10; ml6 07:45 BP 98 / 51 (auto/); ml6 07:45 Pulse 60 MON; Resp 22; Pulse Ox 100% on 50% BiPAP; Pain 0/10; ml6 09:15 Pulse 61 MON; Pulse Ox 95% ; ml6 09:15 BP 98 / 50 (auto/); Pulse 66; Resp 18; Temp 98.3(O); Pulse Ox 98% on R/A; Pain 0/10; ml6 03:14 Body Mass Index 27.12 (71.67 kg, 162.56 cm) tm5 MDM: 03:14 Police Clerk/Pulse Ox/q 15 min VS ordered. fg 03:14 IV Saline Lock ordered. fg 03:14 Oxygen at 4L/Min NC or Home dosage ordered. fg 03:14 Rhythm Strip to chart ordered. fg 03:14 IV Saline Lock ordered. fg 03:15 B-Type Natiuretic Peptide Ordered. EDMS 03:15 Basic Metabolic Profile Ordered. EDMS 03:15 CBC with Diff Ordered. EDMS 03:15 Chest, 1 View Ordered. EDMS 03:16 ECG WITH READING ER PHYS+CARDIAG ordered. EDMS 03:28 Call Respiratory ordered. fg 03:29 -Arterial Blood Gas Ordered. EDMS 03:36 Call Respiratory complete. cz 03:51 -Blood Culture (Adults Only), peripheral from different site, or from device/port/PICC fg etc. if present ordered. 03:52 Lactic Acid (Rene tube on ice) Ordered. EDMS 03:52 -Blood Culture Ordered. EDMS 03:55 -Blood Culture (Adults Only), peripheral from different site, or from device/port/PICC kb5 etc. if present complete. 03:57 BLOOD CULTURES Ordered. EDMS 04:37 Financial registration complete. hs2 04:38 [facility] Payment Agreement was scanned into Whisper and attached to record. hs2 06:37 Piperacillin-Tazobactam 2.25 grams IVPB once over 30 mins; dilute in 50mL of NS or D5W fg ordered. 06:49 CT Chest Without Contrast Ordered. EDMS 06:50 BED REQUEST+ADM ordered. EDMS 08:31 Written Provider Order was scanned into Whisper and attached to record. deg 08:38 CARDIAC MARKER PANEL Ordered. EDMS 08:39 Admission / Observation Status ordered. EDMS 08:40 NPO DIET ordered. EDMS 08:42 CRITICAL CARE PROFILE Ordered. EDMS 08:42 MAGNESIUM LEVEL Ordered. EDMS 08:42 AMYLASE Ordered. EDMS 08:42 LIPASE Ordered. EDMS 08:48 CARDIAC MARKER PANEL Ordered. EDMS 08:50 PT & APTT Ordered. EDMS 09:18 MRSA SCREEN Ordered. EDMS 21:32 T-Sheet-- Draft Copy was scanned into Whisper and attached to record. klr Administered Medications: 06:59 Drug: Piperacillin-Tazobactam 2.25 grams [piperacillin-tazobactam 3.375 gram mlc intravenous solution] Route: IVPB; Infused Over: 30 mins; Site: left antecubital; 07:53 Follow up: IV Status: Completed infusion; Infusion discontinued; IV Intake: 100ml ml6 Signatures: Dispatcher [employer] Angelica Grande, Program Dir Unit deg Delvin Posada, RN RN cz Juan F Mitchell, ACCOUNTING/FINANCE TUTOR ACCOUNTING/FINANCE TUTOR kb5 Camron Gutierrez RN RN ml6 Marsha Dean RN RN mlc Gill, Frances, MD MD Ronda Alejo, Reg Reg hs2 Letty Ackerman r Cortney RamirezRN RN tm5 The chart was reviewed and I authenticate all verbal orders and agree with the evaluation and treatment provided.Corrections: (The following items were deleted from the chart) 08:48 08:38 CARDIAC MARKER PANEL ordered. EDMS EDMS Attachments: 04:38 [facility] Payment Agreement hs2 08:31 Written Provider Order deg 21:32 T-Sheet-- Draft Copy klr Chart Complete MTDD
--- NOTE | 2016-06-01 11:15 | IPNPDOC ---
Subjective Date Seen The patient was seen on 06/01/16. Subjective Chief Complaint/HPI The patient is a 81-year-old female admitted with a reason for visit of Metabolic Acidemia. General: Denies: Chills, Night Sweats Constitutional: Denies: Chills, Fever Eyes: Denies: Pain, Vision change ENT: Denies: Ear Pain, Head Aches Skin: Denies: Lesions, Rash Pulmonary: Reports: Dyspnea, Denies: Cough Cardiovascular: Reports: Edema, Palpitations, Paroxysmal Noc. Dyspnea, Denies: Chest Pain Gastrointestinal: Denies: Nausea, Vomiting Genitourinary: Denies: Dysuria, Frequency Hematologic: Denies: Bleeding Excessively, Bruising Objective Physical Examination General Exam: Positive: Alert, Cooperative, No Acute Distress ENT Exam: Positive: Atraumatic, Mucous membr. moist/pink Neck Exam: Positive: JVD Chest Exam: Positive: Diminished, Rales (Bibasilar rales noted on auscultation) , Negative: Wheezing Heart Exam: Positive: Irregular Rhythm, Normal S1, Normal S2, Rate Normal Telemetry: Positive: Atrial fibrillation Abdomen Exam: Positive: Soft, Negative: Tenderness Extremity Exam: Positive: Swelling (1+ pitting edema in the lower extremities) , Negative: Tenderness Assessment /Plan Plan/VTE VTE Prophylaxis Ordered?: Yes Plan/Urinary Catheter Reason for insertion/continuin: Critical Pt monitoring Plan Shortness of Breath 2/2 Decompensated CHF, Acute Kidney Injury Superimposed on Chronic Kidney Disease Decompensated CHF likely a component of underlying 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 Monzon in the [facility] Patient's baseline serum creatinine appears to be between 2.4 and 2.6 based on her previous lab work here Creatinine has actually improved to 2.89 here today, after being 3.54 yesterday Nephro on board Atrial fibrillation s/p electrocardioversion on 05/29/2016 Patient does take Coumadin for anticoagulation INR remains supratherapeutic, we will continue to hold the patient's Coumadin for now Rate well controlled on Cardizem every 8 hours Continue with monitoring on telemetry Cardiology on board Hx of CAD s/p CABG, PVD, PAD Not on ASA 2/2 Coumadin therapy, increased risk of bleeding We will Consider adding Beta Kathy therapy if the patient's B/P can tolerate this Not on statin? Will defer this to outpatient management History of Pulmonary Fibrosis CT of the chest with chronic changes noted History of cerebrovascular accident (CVA). Hypertension. Gastroesophageal reflux disease (GERD). Gout. 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 History of tobacco use History of right breast cancer. Code Status: Full Code (I did discuss the patient's CODE STATUS extensively at the bedside today, especially given the patient's extensive cardiac disease, underlying pulmonary fibrosis, end-stage chronic kidney disease, and generally overall poor long-term prognosis. At this time, the patient states that she would like to remain full code and further discuss this with her family). Disposition-pending clinical improvement. VS, I&O, 24H, [facility] Vital Signs/I&O Vital Signs Date Time Temp Pulse Resp B/P Pulse Ox O2 Delivery O2 Flow Rate FiO2 06/01/16 07:54 Nasal Cannula 2.0 06/01/16 07:45 96.0 74 18 110/56 98 05/31/16 04:04 30 I&O- Last 24 Hours up to 6 AM 06/01/16 06:00 Intake Total 780 ml Output Total 1900 ml Balance -1120 ml Laboratory Data 24H LABS Laboratory Tests 2 06/01/16 04:11: Blood Urea Nitrogen 67H, Creatinine 2.89H, Sodium Level 143, Potassium Level 3.0L, Chloride Level 111H, Carbon Dioxide Level 22, Calcium Level 7.9L, Phosphorus Level 4.3#, Aspartate Amino Transf (AST/SGOT) 23, Alanine Aminotransferase (ALT/SGPT) 31, Lactate Dehydrogenase 260H, Total Creatine Kinase 39, Alkaline Phosphatase 90, Total Bilirubin 0.4, Triglycerides Level 61 , Cholesterol Level 103, Total Protein 6.2L, Albumin 3.0L, Albumin/Globulin Ratio 0.94L, Anion Gap 10, White Blood Count 9.5, Red Blood Count 3.22L, Hemoglobin 9.7L, Hematocrit 30.8L, Mean Corpuscular Volume 95.8, Mean Corpuscular Hemoglobin 30.3, Mean Corpuscular Hemoglobin Concent 31.6L, Red Cell Distribution Width 15.6H, Platelet Count 224, Neutrophils (%) (Auto) 73.7H , Lymphocytes (%) (Auto) 12.6L, Monocytes (%) (Auto) 6.2H, Eosinophils (%) (Auto ) 5.4H, Basophils (%) (Auto) 0.5, Neutrophils # (Auto) 7.0, Lymphocytes # (Auto ) 1.2L, Monocytes # (Auto) 0.6, Eosinophils # (Auto) 0.5, Basophils # (Auto) 0.0 , Glomerular Filtration Rate 16.6L, Large Unclassified Cells # 0.2, Large Unclassified Cells % 1.5, Magnesium Level 1.5L, Prothromb Time International Ratio 4.33, Prothrombin Time 41.4H CBC/BMP Laboratory Tests 06/01/16 04:11 Calcium Level 7.9 L, Phosphorus Level 4.3 #, Aspartate Amino Transf (AST/SGOT) 23, Alanine Aminotransferase (ALT/SGPT) 31, Lactate Dehydrogenase 260 H, Total Creatine Kinase 39, Alkaline Phosphatase 90, Total Bilirubin 0.4, Triglycerides Level 61, Cholesterol Level 103, Total Protein 6.2 L, Albumin 3.0 L, Red Blood Count 3.22 L, Mean Corpuscular Volume 95.8, Mean Corpuscular Hemoglobin 30.3, Mean Corpuscular Hemoglobin Concent 31.6 L, Red Cell Distribution Width 15.6 H, Neutrophils (%) (Auto) 73.7 H, Lymphocytes (%) (Auto) 12.6 L, Monocytes (%) ( Auto) 6.2 H, Eosinophils (%) (Auto) 5.4 H, Basophils (%) (Auto) 0.5, Neutrophils # (Auto) 7.0, Lymphocytes # (Auto) 1.2 L, Monocytes # (Auto) 0.6, Eosinophils # (Auto) 0.5, Basophils # (Auto) 0.0 Microbiology Microbiology 05/30/16 Blood Culture - Preliminary, Resulted No Growth after 48 hours. All Specime... 05/30/16 Blood Culture - Preliminary, Resulted No Growth after 48 hours. All Specime... 05/30/16 Gram Stain - Final, Complete 05/30/16 Sputum Culture - Final, Complete 05/30/16 MRSA Screen - Final, Complete INEZ MURRELL MD Jun 01, 2016 11:14
[2016-06-01] MEDS: POTASSIUM CHLORIDE 10 MEQ SR TABLET PO SCH ×2 (12:45→20:42)
[2016-06-01] MEDS: METOPROLOL TART 25 MG TABLET PO SCH ×2 (15:12→17:31)
[2016-06-02] VITALS (7 sets, daily range): BP systolic 90–112; BP diastolic 52–58
--- NOTE | 2016-06-02 02:48 | IPN ---
DATE: 06/01/2016 Mrs. Carranza is seen this morning on her bedside. She reports that last evening her blood pressure went down to about 79/60 mmHg. She was admitted with shortness of breath and was found to be in decompensated congestive heart failure. She also has severe pulmonary hypertension and pulmonary fibrosis. She denies any fever, chills, nausea or vomiting. She remains on oxygen due to chronic dyspnea. PHYSICAL EXAMINATION: Temperature 96.0 degrees Fahrenheit, heart rate 74 per minute and respiratory rate 18 per minute. Blood pressure 110/56 mmHg and oxygen saturation 98% on two liters oxygen. Ears, nose and throat are unremarkable. Pupils equal and reactive to light and sclera is anicteric. Neck veins are quite prominent with prominent pulsations. Neck is supple and without any thyroid enlargement. HEART: Sounds are irregular in rhythm, but without a pericardial friction rub. LUNGS: Have bilateral crepitations. Abdomen is soft and nontender and without a palpable organomegaly. Bowel sounds are normal. Extremities have no cyanosis or clubbing. Skin has no rash or ulcers. Neurologically she is awake, alert and oriented times three. She has no focal neurological deficit. Intake and output records from yesterday show a negative fluid balance of 1230 mL. Today's labs show WBC count 9.5, hemoglobin 9.7 and hematocrit 30.8. Platelets 224. Sodium 143 and potassium 3.0. Chloride 111 and CO2 22. BUN 67 and creatinine is down to 2.89. Calcium level 7.9 and phosphorus 4.3. Total protein 6.2 and albumin 3.0. PROBLEMS: 1. Acute renal failure superimposed on chronic kidney disease. The patient has good urine output and kidney function has improved since yesterday. At present, there is no indication for dialysis. Her acute renal failure is most likely related to decompensated congestive heart failure. 2. Congestive heart failure. The patient has significant valvular and cardiac problems. Her most recent echocardiogram showed normal systolic function and severe tricuspid regurgitation and severe pulmonary hypertension. She did have only trace of pericardial effusion, but elevated central venous pressure. We need to cautiously diurese her as she still has decompensated volume status. In view of her pulmonary hypertension and chronic tricuspid regurgitation, she is not likely to tolerate aggressive diuresis. 3. Hypokalemia. This is related to diuretic use. She has already received one dose of 40 mEq potassium chloride. I will increase her oral supplement to 20 mEq twice a day. Electrolytes will be checked again tomorrow morning. 4. Atrial fibrillation. Her ventricular rate is well-controlled at present with Cardizem. She is also on metoprolol 25 mg twice a day. 5. Gout. The patient is currently asymptomatic and continues with Uloric 40 mg daily. We will get a uric acid level tomorrow morning as she is being diuresed and does have risk of acute failure. 6. Hyperphosphatemia. Phosphorus level has improved with Renvela 800 mg three times a day.
[2016-06-02] MEDS: SLF 3 ML SYR IV SCH ×3 (05:27→21:22)
[2016-06-02 05:28] LABS: BASO % 0.5 % (0.0-1.0); EOS # 0.5 K/mm3 (0.0-0.50); EOS % 5.2 % (0.0-3.0); LARGE UNSTAINED CELL # 0.1 K/mm3 (0.0-0.4); LARGE UNSTAINED CELL % 1.2 % (0.0-4.0); LYMPH # 1.1 K/mm3 (1.5-4.5); LYMPH % 10.4 % (24.0-44.0); MEAN CORPUSCULAR HEMOGLOBIN 31.6 pg (27.0-33.0); MEAN CORPUSCULAR HGB CONC 33.4 g/dl (32.0-36.5); MEAN CORPUSCULAR VOLUME 94.8 fl (80.0-96.0); MONO # 0.6 K/mm3 (0.0-0.8); MONO % 6.3 % (0.0-5.0); NEUTROPHILS # 7.4 K/mm3 (1.8-7.7); NEUTROPHILS % 76.5 % (36.0-66.0); PLATELET COUNT, AUTOMATED 243 k/mm3 (150-450); WHITE BLOOD COUNT 9.6 K/mm3 (4.0-10.0)
[2016-06-02 05:35] LABS: INR 2.93
[2016-06-02 05:48] LABS: ALBUMIN 2.9 GM/DL (3.2-5.2); ALBUMIN/GLOBULIN RATIO 0.85 (1.00-1.93); BILIRUBIN,TOTAL 0.4 MG/DL (0.2-1.0); CALCIUM LEVEL 8.2 MG/DL (8.8-10.2); CREATININE FOR GFR 2.58 MG/DL (0.55-1.02); GLOMERULAR FILTRATION RATE 18.9 (>32); MAGNESIUM LEVEL 1.7 MG/DL (1.8-2.4); POTASSIUM SERUM 3.5 MEQ/L (3.5-5.1); TOTAL PROTEIN 6.3 GM/DL (6.4-8.2)
[2016-06-02] MEDS: BICITRA 30ML SOLN UDC PO SCH ×3 (08:51→21:22)
[2016-06-02] MEDS: (RENVELA) SEVELAMER **CARBONate** 800 MG TAB PO SCH ×3 (08:52→17:12)
[2016-06-02] MEDS: FEBUXOSTAT 40 MG TABLET (ULORIC) PO SCH (08:52)
[2016-06-02] MEDS: POTASSIUM CHLORIDE 10 MEQ SR TABLET PO SCH ×2 (08:52→21:21)
[2016-06-02] MEDS: FOLIC ACID 1 MG TAB PO SCH (08:52)
[2016-06-02] MEDS: PANTOPRAZOLE 40MG TAB (PROTONIX) PO SCH (08:52)
[2016-06-02] MEDS: METOPROLOL TART 25 MG TABLET PO SCH (08:52)
[2016-06-02] MEDS: VITAMIN D 1,000 INTERNATIONAL UNITS TABLET PO SCH (08:53)
[2016-06-02] MEDS: MAGNESIUM OXIDE 400 MG TAB (MAG-OX) PO SCH ×3 (08:53→21:21)
[2016-06-02] MEDS: BUMETANIDE 1 MG TAB PO SCH (08:53)
[2016-06-02] MEDS: ANASTROZOLE 1 MG TAB PO SCH (08:53)
--- NOTE | 2016-06-02 11:02 | IPN ---
DATE: 06/02/2016 Mrs. Keren Carranza was seen this morning. She was laying supine in bed in no acute distress at rest. Her son was at bedside. She is feeling much better. She denies any chest pain or shortness of breath, or palpitations. She has not felt any fluttering in her chest today. Yesterday, her ventricular rate was not quite under control. Also during the day, she had more episodes of low blood pressure but asymptomatic. This morning, she also had minimal nose bleed. On physical examination, the patient is alert and oriented, in no acute distress at rest and her vital signs revealed a blood pressure of 109/55 with a pulse of 81, respirations 18-20 and her temperature is 96.3 degrees Fahrenheit with an oxygen saturation of 98% on 2 liters nasal cannula. Examination of the head, ears, eyes, nose and throat: Atraumatic. Neck is supple, no jugular venous distention (JVD). The lungs revealed bilateral dry crackles. No wheezing. The heart examination revealed irregularly irregular heart sounds without gallops. The point of maximum impulse (PMI) is not displaced. There is no rub. There is a systolic murmur, grade 2 to 3 over 6 at the lower left sternal border and at the apex, some radiation to the axilla. Abdomen is unremarkable. Extremities revealed no pedal edema. Neurologic examination is negative for focal deficit. LABORATORY: INR done today, 06/02/2016, was 2.93 with a PT of 30.6. BMP revealed a sodium of 145, potassium 3.5, chloride 109, CO2 24, BUN 56, creatinine 2.58, GFR 18.9, fasting glucose 93, calcium 8.2. Serum magnesium is 1.7. Liver enzymes revealed a total bilirubin of 0.4, AST 15, ALT 25, alkaline phosphatase 96, total protein 6.3, albumin 2.9. CBC revealed a WBC of 9.6, hemoglobin 10.3, hematocrit 30.9 and platelets 243,000. Telemetry revealed atrial fibrillation with a controlled ventricular rate. IMPRESSION: Status post decompensated congestive heart failure, acute on chronic and upon presentation, the patient was in respiratory failure. She has underlying pulmonary fibrosis. She is doing much better on her current medications and will continue the same. We will continue to monitor her blood pressure. I have talked to the patient as well as the son. It seems that prior to her admission to the hospital, she only was on metoprolol tartrate at 25 mg by mouth twice a day and the Cardizem was started after her mechanical cardioversion at [facility] on the day prior to her admission. She had an echocardiogram done, and it revealed a normal global left ventricular systolic function with moderately severe mitral regurgitation. Will continue with the calcium channel randall, and she is on a small dose of diuretic with Bumex. Her condition has improved significantly. Status post respiratory failure secondary to above in the setting of pulmonary fibrosis. Hypertension and the patient will be monitored for hypotensive episode. I will decrease the beta randall and continue with a calcium channel randall. History of coronary artery disease and coronary artery bypass graft, stable. Acute on chronic kidney disease, and she is being monitored. She sees also nephrology in [place], [place]. Her kidney function continues to improve. Status post metabolic acidosis. Electrolyte abnormality and this is being addressed. It was a pleasure to participate in the care of Mrs. Keren Carranza for her underlying cardiac condition. I will continue to monitor along with you while in the hospital. She continues to be improved.
--- NOTE | 2016-06-02 13:33 | IPNPDOC ---
Subjective Date Seen The patient was seen on 06/02/16. Subjective Chief Complaint/HPI The patient is a 81-year-old female admitted with a reason for visit of Metabolic Acidemia. General: Denies: Chills, Night Sweats Constitutional: Denies: Chills, Fever Eyes: Denies: Pain, Vision change ENT: Denies: Ear Pain, Head Aches Skin: Denies: Lesions, Rash Pulmonary: Denies: Cough, Dyspnea Cardiovascular: Denies: Chest Pain, Palpitations Gastrointestinal: Denies: Nausea, Vomiting Genitourinary: Denies: Dysuria, Frequency Hematologic: Denies: Bleeding Excessively, Bruising Objective Physical Examination General Exam: Positive: Alert, Cooperative, No Acute Distress ENT Exam: Positive: Atraumatic, Mucous membr. moist/pink Neck Exam: Positive: JVD Chest Exam: Positive: Diminished, Rales (Bibasilar rales noted on auscultation) , Negative: Wheezing Heart Exam: Positive: Irregular Rhythm, Normal S1, Normal S2, Rate Normal Telemetry: Positive: Atrial fibrillation Abdomen Exam: Positive: Soft, Negative: Tenderness Extremity Exam: Positive: Swelling (1+ pitting edema in the lower extremities) , Negative: Tenderness Assessment /Plan Plan/VTE VTE Prophylaxis Ordered?: Yes Plan/Urinary Catheter Reason for insertion/continuin: Critical Pt monitoring Plan Shortness of Breath 2/2 Decompensated CHF, Acute Kidney Injury Superimposed on Chronic Kidney Disease Decompensated CHF likely a component of underlying Moderately Severe-MR, Atrial Fibrillation with RVR 2D echo noted At this time the patient's volume status has improved compared to her initial presentation to the ER as per the patient Her diuretic therapy is being managed by nephrology, given her underlying acute on chronic kidney disease We will continue to monitor her I's and O's Daily weights Cardiology, nephrology on board We will continue to monitor the patient's respiratory and volume status Chronic Kidney Disease Stage IV-V Followed by Dr. Monzon in the [facility] Patient's baseline serum creatinine appears to be between 2.4 and 2.6 based on her previous lab work here Creatinine has actually improved to 2.58 here today, after being as high as 3.54 on 05/31/16 She continues to make adequate urine output Nephro on board Atrial fibrillation s/p electrocardioversion on 05/29/2016 Patient does take Coumadin for anticoagulation INR remains borderline supratherapeutic, we will continue to hold the patient's Coumadin for now Rate well controlled on Cardizem every 8 hours Continue with monitoring on telemetry Cardiology on board Hx of CAD s/p CABG, PVD, PAD Not on ASA 2/2 Coumadin therapy, increased risk of bleeding CanConsider adding Beta Kathy therapy if the patient's B/P can tolerate this, will defer to Cardiology Not on statin? Will defer this to outpatient management History of Pulmonary Fibrosis CT of the chest with chronic changes noted History of cerebrovascular accident (CVA). Hypertension. Gastroesophageal reflux disease (GERD). Gout. 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 History of tobacco use History of right breast cancer. Code Status: Full Code (I did discuss the patient's CODE STATUS extensively at the bedside today, especially given the patient's extensive cardiac disease, underlying pulmonary fibrosis, end-stage chronic kidney disease, and generally overall poor long-term prognosis. At this time, the patient states that she would like to remain full code and further discuss this with her family). Disposition-pending clinical improvement. VS, I&O, 24H, [facility] Vital Signs/I&O Vital Signs Date Time Temp Pulse Resp B/P Pulse Ox O2 Delivery O2 Flow Rate FiO2 06/02/16 08:52 81 109/55 06/02/16 08:00 Nasal Cannula 2.0 06/02/16 08:00 96.3 20 98 05/31/16 04:04 30 I&O- Last 24 Hours up to 6 AM 06/02/16 06:00 Intake Total 1440 ml Output Total 1350 ml Balance 90 ml Laboratory Data 24H LABS Laboratory Tests 2 06/02/16 04:47: Blood Urea Nitrogen 56H, Creatinine 2.58H, Sodium Level 145, Potassium Level 3.5 , Chloride Level 109H, Carbon Dioxide Level 24, Calcium Level 8.2L, Phosphorus Level 3.0#, Aspartate Amino Transf (AST/SGOT) 15, Alanine Aminotransferase (ALT/ SGPT) 25, Lactate Dehydrogenase 250H, Total Creatine Kinase 30, Alkaline Phosphatase 96, Total Bilirubin 0.4, Triglycerides Level 81, Cholesterol Level 113, Uric Acid 5.0, Total Protein 6.3L, Albumin 2.9L, Albumin/Globulin Ratio 0.85L, Anion Gap 12, White Blood Count 9.6, Red Blood Count 3.26L, Hemoglobin 10.3L, Hematocrit 30.9L, Mean Corpuscular Volume 94.8, Mean Corpuscular Hemoglobin 31.6, Mean Corpuscular Hemoglobin Concent 33.4, Red Cell Distribution Width 16.0H, Platelet Count 243, Neutrophils (%) (Auto) 76.5H, Lymphocytes (%) (Auto) 10.4L, Monocytes (%) (Auto) 6.3H, Eosinophils (%) (Auto) 5.2H, Basophils (%) (Auto) 0.5, Neutrophils # (Auto) 7.4, Lymphocytes # (Auto) 1.1L, Monocytes # (Auto) 0.6, Eosinophils # (Auto) 0.5, Basophils # (Auto) 0.0, Glomerular Filtration Rate 18.9L, Large Unclassified Cells # 0.1, Large Unclassified Cells % 1.2, Magnesium Level 1.7L, Prothromb Time International Ratio 2.93, Prothrombin Time 30.6H CBC/BMP Laboratory Tests 06/02/16 04:47 Calcium Level 8.2 L, Phosphorus Level 3.0 #, Aspartate Amino Transf (AST/SGOT) 15, Alanine Aminotransferase (ALT/SGPT) 25, Lactate Dehydrogenase 250 H, Total Creatine Kinase 30, Alkaline Phosphatase 96, Total Bilirubin 0.4, Triglycerides Level 81, Cholesterol Level 113, Uric Acid 5.0, Total Protein 6.3 L, Albumin 2.9 L, Red Blood Count 3.26 L, Mean Corpuscular Volume 94.8, Mean Corpuscular Hemoglobin 31.6, Mean Corpuscular Hemoglobin Concent 33.4, Red Cell Distribution Width 16.0 H, Neutrophils (%) (Auto) 76.5 H, Lymphocytes (%) (Auto ) 10.4 L, Monocytes (%) (Auto) 6.3 H, Eosinophils (%) (Auto) 5.2 H, Basophils (% ) (Auto) 0.5, Neutrophils # (Auto) 7.4, Lymphocytes # (Auto) 1.1 L, Monocytes # (Auto) 0.6, Eosinophils # (Auto) 0.5, Basophils # (Auto) 0.0 Microbiology Microbiology 05/30/16 Blood Culture - Preliminary, Resulted No Growth after 72 hours. All specime... 05/30/16 Blood Culture - Preliminary, Resulted No Growth after 72 hours. All specime... 05/30/16 Gram Stain - Final, Complete 05/30/16 Sputum Culture - Final, Complete 05/30/16 MRSA Screen - Final, Complete INEZ MURRELL MD Jun 02, 2016 13:33
--- NOTE | 2016-06-02 14:19 | IPN ---
DATE: 06/01/2016 Mrs. Keren Carranza was seen yesterday morning and at that time her son was at bedside. She was transferred from ICU to PCU, doing much better. In the evening prior to the transfer, she had one episode of low blood pressure, but asymptomatic. This morning, she denies any chest pain and her shortness of breath as well as her cough has improved significantly. She denies any bleeding. She feels, however, some fluttering in her chest. There is no nausea, vomiting, diarrhea, melena or hematemesis. PHYSICAL EXAMINATION: The patient is alert and oriented, in no acute distress and her vital signs when I saw her revealed a blood pressure of 121/66 with a pulse of 92, respiration 18 and temperature was 96 degrees Fahrenheit with an oxygen saturation of 95% on 2 liters nasal cannula. Head: Normocephalic, atraumatic. Neck is supple, no jugular venous distention (JVD). The lungs revealed bilateral dry crackles. No wheezing. The heart revealed irregularly irregular heart sounds. Mildly tachycardic. The point of maximal impulse (PMI) is not displaced. There is no rub. Abdomen is soft and nontender. Extremities reveal no pedal edema. Neurological examination grossly is negative for focal deficit. LABS: CBC on 06/01/2016 revealed a WBC of 9.5, hemoglobin 9.7, hematocrit 30.8 and platelet 224,000. BMP on 06/01/2016 revealed a sodium of 143, potassium 3.0, chloride 111, CO2 22, BUN 67, creatinine 2.89. GFR 16.6. Fasting glucose 93. Calcium 7.9. Magnesium was 1.5. Liver enzymes revealed a total bilirubin of 0.4, AST 23, ALT 31, alkaline phosphatase 90. Total protein 6.2, albumin 3.0. PT was 41.4 with INR of 4.3. Telemetry revealed atrial fibrillation with a heart rate that varies between 100 and 110 beats per minute. IMPRESSION: 1. Status post decompensated congestive heart failure, acute on chronic secondary to left ventricular diastolic dysfunction and underlying atrial fibrillation and fluid overload. The patient has improved significantly, but she is now back in atrial fibrillation yesterday in the evening with mild uncontrolled ventricular rate on current medications. She will be monitored. I started her back on her small dose of the beta randall with metoprolol tartrate at 25 mg by mouth twice a day. Her INR is supratherapeutic and she will be monitored. There is no active bleeding. 2. Hypertension, under control with one episode of low blood pressure, but asymptomatic. She will be monitored while now on the calcium channel randall as well as the beta randall. 3. History of coronary artery disease and coronary artery bypass graft as well as percutaneous transluminal coronary angioplasty (PTCA)/stent, stable. She has not been having any chest pain and serum troponin remain negative. 4. Acute on chronic kidney disease, improving and she is also being monitored by nephrology. 5. Hyperlipidemia and currently not on a statin. She might benefit from treatment in view of her history. 6. Valvular heart disease with moderately severe mitral regurgitation, but normal left ventricular ejection fraction (LVEF). 7. Electrolyte abnormalities with hypokalemia and hypomagnesemia, being addressed. It is a pleasure to participate in the care of Mrs. Keren Carranza for her underlying cardiac condition. She appears to be stable and her condition has improved. I will continue to monitor her along with you. Please do not hesitate to call if any questions.
--- NOTE | 2016-06-02 21:35 | IPN ---
DATE: 06/02/2016 Mrs. Carranza is seen this morning on her bedside. She is feeling better today and reports another episode of hypotension last evening. She denies any chest pain, palpitations, nausea, vomiting, fever or chills. PHYSICAL EXAMINATION: Temperature 96.3 degrees Fahrenheit, heart rate 80 per minute and respiratory rate 20 per minute. Blood pressure 109/55 mmHg and oxygen saturation 98% on 2 liters oxygen. Head is atraumatic. Neck veins are prominent and pulsating. There is no oral thrush or ulcers. Pupils are equal and reactive to light and sclera is anicteric. Ears, nose and throat are unremarkable. Heart sounds are irregular in rhythm. Lungs with bilateral chronic crepitations. Abdomen is soft and nontender. Extremities have no cyanosis or clubbing. Skin has no rash or ulcers. Neurologically, she is awake, alert and oriented times three. Today's labs show WBC count 9.6, hemoglobin 10.3, hematocrit 30.9. Sodium 145 and potassium 3.5. BUN 56 and creatinine 2.58. His uric acid level is 5.0 and calcium 8.2. Total protein 6.3 and albumin 2.9. PROBLEMS: 1. Acute renal failure superimposed on chronic kidney disease. Kidney function continues to improve and the patient has no uremic symptoms. At this point, we will monitor to monitor her kidney function on a daily basis. 2. Congestive heart failure. The patient had congestive heart failure related to rapid atrial fibrillation. Her volume status continues to improve, and I would recommend to achieve a gentle negative fluid balance of about 1 liter per day. 3. Pulmonary hypertension and tricuspid regurgitation. The patient is being followed by cardiology. At present, she remains oxygen dependent, and we will diurese her with caution due to her severe pulmonary hypertension and risk of hypotension with aggressive diuresis. 4. Hypokalemia, potassium level has improved with 3.5 and we will continue with the supplement. Electrolytes will be checked again tomorrow morning. 5. Anemia. Her anemia is stable and does not need any intervention at this time. All in all, Mrs. Carranza continues to improve slowly, and I will continue to follow her along with you.
[2016-06-03] MEDS ORDERED: WARFARIN SOD 1 MG TAB PO ONE
[2016-06-03 00:10] VITALS: BP 96/56
[2016-06-03 05:10] VITALS: BP 113/58
[2016-06-03] MEDS: SLF 3 ML SYR IV SCH ×3 (05:15→22:09)
[2016-06-03 05:38] LABS: INR 2.33
[2016-06-03 05:39] LABS: BASO % 0.4 % (0.0-1.0); EOS # 0.5 K/mm3 (0.0-0.50); EOS % 5.4 % (0.0-3.0); LARGE UNSTAINED CELL # 0.2 K/mm3 (0.0-0.4); LARGE UNSTAINED CELL % 2.4 % (0.0-4.0); LYMPH # 1.3 K/mm3 (1.5-4.5); LYMPH % 13.4 % (24.0-44.0); MEAN CORPUSCULAR HEMOGLOBIN 30.3 pg (27.0-33.0); MEAN CORPUSCULAR HGB CONC 32.3 g/dl (32.0-36.5); MEAN CORPUSCULAR VOLUME 93.9 fl (80.0-96.0); MONO # 0.6 K/mm3 (0.0-0.8); MONO % 5.7 % (0.0-5.0); NEUTROPHILS # 7.1 K/mm3 (1.8-7.7); NEUTROPHILS % 72.7 % (36.0-66.0); PLATELET COUNT, AUTOMATED 254 k/mm3 (150-450); RED CELL DISTRIBUTION WIDTH 15.7 % (11.5-14.5); WHITE BLOOD COUNT 9.7 K/mm3 (4.0-10.0)
[2016-06-03 06:01] LABS: ALBUMIN/GLOBULIN RATIO 0.83 (1.00-1.93); BILIRUBIN,TOTAL 0.6 MG/DL (0.2-1.0); CALCIUM LEVEL 8.3 MG/DL (8.8-10.2); CREATININE FOR GFR 2.53 MG/DL (0.55-1.02); GLOMERULAR FILTRATION RATE 19.3 (>32); MAGNESIUM LEVEL 1.8 MG/DL (1.8-2.4); PHOSPHORUS LEVEL 2.9 MG/DL (2.5-4.9); POTASSIUM SERUM 3.5 MEQ/L (3.5-5.1); TOTAL PROTEIN 6.6 GM/DL (6.4-8.2)
[2016-06-03 08:00] VITALS: BP 95/51
[2016-06-03] MEDS: VITAMIN D 1,000 INTERNATIONAL UNITS TABLET PO SCH (08:15)
[2016-06-03] MEDS: ANASTROZOLE 1 MG TAB PO SCH (08:15)
[2016-06-03] MEDS: POTASSIUM CHLORIDE 10 MEQ SR TABLET PO SCH ×2 (08:15→20:06)
[2016-06-03] MEDS: (RENVELA) SEVELAMER **CARBONate** 800 MG TAB PO SCH ×3 (08:16→17:08)
[2016-06-03] MEDS: FEBUXOSTAT 40 MG TABLET (ULORIC) PO SCH (08:16)
[2016-06-03] MEDS: MAGNESIUM OXIDE 400 MG TAB (MAG-OX) PO SCH ×3 (08:16→20:07)
[2016-06-03] MEDS: FOLIC ACID 1 MG TAB PO SCH (08:16)
[2016-06-03] MEDS: BICITRA 30ML SOLN UDC PO SCH ×3 (08:16→20:07)
[2016-06-03] MEDS: BUMETANIDE 1 MG TAB PO SCH (08:16)
[2016-06-03] MEDS: PANTOPRAZOLE 40MG TAB (PROTONIX) PO SCH (08:16)
--- NOTE | 2016-06-03 08:29 | IPN ---
DATE: 06/03/2016 Mrs. Carranza tells me that she is feeling better every day. She was able to dress herself and wash herself without major difficulty. As I walk into the room, she was just taken off her oxygen and feels reasonably well without it. She denies any chest pain or palpitations. Vital signs: Blood pressure 113/58. Heart rate has been in 70s to 80s. She is afebrile. Saturation was 95% on liter of oxygen and it was in low 90s without oxygen, but for a very short period of time. Fluid balance yesterday was documented approximately equal even though her weight is reported 17.5, which would be a considerable drop since yesterday, but not much different from two days ago. Her jugular venous pulse (JVP) does not appear elevated. Lungs reveal fine crackles at inspiratory over bases. Somewhat diminished breath sounds over bases as well. Heart exam reveals irregularly irregular rhythm. There is a murmur of TR just left from her sternum about 2/6 intensity, also much harder to hear murmur of MR mostly in the axilla, also about 2-3/6 intensity. Abdomen is soft and nontender. There is no peripheral edema. Neurologically she is intact. Laboratory-archuleta, hemoglobin 10.4, hematocrit 32 and platelet count 254. Basic metabolic panel: potassium 3.5, BUN 55, creatinine 2.5 which is similar to yesterday. Albumin is 3.0 and her INR is 2.3. ASSESSMENT/PLAN: Mrs. Carranza is a rather ill lady. She is an 81-year-old female who presented with atrial fibrillation with rapid ventricular response (RVR) and the associated acute on chronic diastolic congestive heart failure together with acute on chronic renal failure. She has underlying at least moderately severe mitral insufficiency and probably severe tricuspid insufficiency with severe pulmonary hypertension and preserved LV systolic function. Unfortunately, the combination of these factors indicates a really poor prognosis. We had a discussion on this topic and apparently there was a plan to pursue possible placement of pacemaker, possibly to be followed with AV jerson ablatio with Dr. Liao who is her head soft sugar operator. She also follows very closely with Dr. Graf. Consequently, we are not going to assume the long-term management. While in the hospital, she seems to be improving and I would continue her medications without change today. Provided her rate remains reasonably well-controlled and she does not have any problems with ambulation and will be able to stay without oxygen, I believe that she will be able to be discharged home tomorrow to have a fairly early followup with Dr. Graf and Dr. Liao.
--- NOTE | 2016-06-03 10:36 | IPNPDOC ---
Subjective Date Seen The patient was seen on 06/03/16. Subjective Chief Complaint/HPI The patient is a 81-year-old female admitted with a reason for visit of Metabolic Acidemia. General: Denies: Chills, Night Sweats Constitutional: Denies: Chills, Fever Eyes: Denies: Pain, Vision change ENT: Denies: Ear Pain, Head Aches Skin: Denies: Lesions, Rash Pulmonary: Denies: Cough, Dyspnea Cardiovascular: Denies: Chest Pain, Palpitations Gastrointestinal: Denies: Nausea, Vomiting Genitourinary: Denies: Dysuria, Frequency Hematologic: Denies: Bleeding Excessively, Bruising Objective Physical Examination General Exam: Positive: Alert, Cooperative, No Acute Distress ENT Exam: Positive: Atraumatic, Mucous membr. moist/pink Neck Exam: Positive: JVD Chest Exam: Positive: Diminished, Rales (Bibasilar rales noted on auscultation) , Negative: Wheezing Heart Exam: Positive: Irregular Rhythm, Normal S1, Normal S2, Rate Normal Telemetry: Positive: Atrial fibrillation Abdomen Exam: Positive: Soft, Negative: Tenderness Extremity Exam: Positive: Swelling (1+ pitting edema in the lower extremities) , Negative: Tenderness Assessment /Plan Plan/VTE VTE Prophylaxis Ordered?: Yes Plan/Urinary Catheter Reason for insertion/continuin: Critical Pt monitoring Plan Shortness of Breath 2/2 Decompensated CHF, Acute Kidney Injury Superimposed on Chronic Kidney Disease Decompensated CHF likely a component of underlying Moderately Severe-MR, Severe TR and Pulm HTN, with Atrial Fibrillation + RVR 2D echo noted At this time the patient's volume status has improved compared to her initial presentation to the ER as per the patient Her diuretic therapy is being managed by nephrology, given her underlying acute on chronic kidney disease We will continue to monitor her I's and O's Daily weights Cardiology, nephrology on board Appears better from a volume status today The patient has been weaned off of supplemental oxygen Will continue to monitor her respiratory and hemodynamic status IF stable, we will consider D/C in the AM Chronic Kidney Disease Stage IV-V Followed by Dr. Monzon in the [facility] Patient's baseline serum creatinine appears to be between 2.4 and 2.6 based on her previous lab work here Creatinine has actually improved to 2.53 here today, after being as high as 3.54 on 05/31/16 She continues to make adequate urine output Nephro on board Atrial fibrillation s/p electrocardioversion on 05/29/2016 Patient does take Coumadin for anticoagulation INR therapeutic this AM Coumadin continued today Rate well controlled on Cardizem every 8 hours Continue with monitoring on telemetry Cardiology on board Hx of CAD s/p CABG, PVD, PAD Not on ASA 2/2 Coumadin therapy, increased risk of bleeding Can Consider adding Beta Kathy therapy if the patient's B/P can tolerate this , will defer to Cardiology Not on statin? Will defer this to outpatient management History of Pulmonary Fibrosis CT of the chest with chronic changes noted History of cerebrovascular accident (CVA). Hypertension. Gastroesophageal reflux disease (GERD). Gout. 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 History of tobacco use History of right breast cancer. Code Status: Full Code (I did discuss the patient's CODE STATUS extensively at the bedside today, especially given the patient's extensive cardiac disease, underlying pulmonary fibrosis, end-stage chronic kidney disease, and generally overall poor long-term prognosis. At this time, the patient states that she would like to remain full code and further discuss this with her family). Disposition-Possible D/C in the AM if the patient remains hemodynamically stable. VS, I&O, [facility]H, [facility] Vital Signs/I&O Vital Signs Date Time Temp Pulse Resp B/P Pulse Ox O2 Delivery O2 Flow Rate FiO2 06/03/16 08:00 97.0 97 20 95/51 97 Room Air 06/03/16 05:16 1.0 05/31/16 04:04 30 I&O- Last 24 Hours up to 6 AM 06/03/16 05:59 Intake Total 1080 ml Output Total 1075 ml Balance 5 ml Laboratory Data 24H LABS Laboratory Tests 2 06/03/16 05:05: Blood Urea Nitrogen 55H, Creatinine 2.53H, Sodium Level 143, Potassium Level 3.5 , Chloride Level 105, Carbon Dioxide Level 26, Calcium Level 8.3L, Phosphorus Level 2.9, Aspartate Amino Transf (AST/SGOT) 12L, Alanine Aminotransferase (ALT/ SGPT) 21, Lactate Dehydrogenase 238, Total Creatine Kinase 20L, Alkaline Phosphatase 92, Total Bilirubin 0.6, Triglycerides Level 87, Cholesterol Level 124, Total Protein 6.6, Albumin 3.0L, Albumin/Globulin Ratio 0.83L, Anion Gap 12 , White Blood Count 9.7, Red Blood Count 3.43L, Hemoglobin 10.4L, Hematocrit 32.2L, Mean Corpuscular Volume 93.9, Mean Corpuscular Hemoglobin 30.3, Mean Corpuscular Hemoglobin Concent 32.3, Red Cell Distribution Width 15.7H, Platelet Count 254, Neutrophils (%) (Auto) 72.7H, Lymphocytes (%) (Auto) 13.4L, Monocytes (%) (Auto) 5.7H, Eosinophils (%) (Auto) 5.4H, Basophils (%) (Auto) 0.4 , Neutrophils # (Auto) 7.1, Lymphocytes # (Auto) 1.3L, Monocytes # (Auto) 0.6, Eosinophils # (Auto) 0.5, Basophils # (Auto) 0.0, Glomerular Filtration Rate 19.3L, Large Unclassified Cells # 0.2, Large Unclassified Cells % 2.4, Magnesium Level 1.8, Prothromb Time International Ratio 2.33, Prothrombin Time 25.6H CBC/BMP Laboratory Tests 06/03/16 05:05 Calcium Level 8.3 L, Phosphorus Level 2.9, Aspartate Amino Transf (AST/SGOT) 12 L, Alanine Aminotransferase (ALT/SGPT) 21, Lactate Dehydrogenase 238, Total Creatine Kinase 20 L, Alkaline Phosphatase 92, Total Bilirubin 0.6, Triglycerides Level 87, Cholesterol Level 124, Total Protein 6.6, Albumin 3.0 L , Red Blood Count 3.43 L, Mean Corpuscular Volume 93.9, Mean Corpuscular Hemoglobin 30.3, Mean Corpuscular Hemoglobin Concent 32.3, Red Cell Distribution Width 15.7 H, Neutrophils (%) (Auto) 72.7 H, Lymphocytes (%) (Auto ) 13.4 L, Monocytes (%) (Auto) 5.7 H, Eosinophils (%) (Auto) 5.4 H, Basophils (% ) (Auto) 0.4, Neutrophils # (Auto) 7.1, Lymphocytes # (Auto) 1.3 L, Monocytes # (Auto) 0.6, Eosinophils # (Auto) 0.5, Basophils # (Auto) 0.0 Microbiology Microbiology 05/30/16 Blood Culture - Preliminary, Resulted No Growth after 72 hours. All specime... 05/30/16 Blood Culture - Preliminary, Resulted No Growth after 72 hours. All specime... 05/30/16 Gram Stain - Final, Complete 05/30/16 Sputum Culture - Final, Complete 05/30/16 MRSA Screen - Final, Complete INEZ MURRELL MD Jun 03, 2016 10:36
[2016-06-03 12:00] VITALS: BP 119/64
[2016-06-03] MEDS ORDERED: POTASSIUM CHLORIDE 10 MEQ SR TABLET PO ONE (12:00)
[2016-06-03 16:00] VITALS: BP 151/67
--- NOTE | 2016-06-03 17:45 | IPN ---
DATE: 06/03/2016 Mrs. Carranza is seen this morning on her bedside. She is feeling much better today and is able to ambulate in her room. She is not using oxygen anymore. She reports that her dyspnea has improved significantly. She denies any chest pain, cough, fever or chills. She denies any nausea or vomiting. PHYSICAL EXAMINATION: Temperature 97 degrees Fahrenheit, heart rate 100 per minute and respiratory rate 20 per minute. Blood pressure 95/51 mmHg and oxygen saturation 97% on room air. Intake and output from yesterday are even. Her neck veins are still prominent and pulsatile. Head is atraumatic. Trachea is midline and there is no thyroid enlargement. Pupils are equal and reactive to light and sclerae is anicteric. Ears, nose and throat are unremarkable. Heart sounds are irregular with a systolic murmur grade 2/6. Lungs are much clearer today with few basilar rales. Abdomen soft and nontender and without palpable organomegaly. Bowel sounds are normal. Extremities have no cyanosis or clubbing. Skin has no rash or ulcers. Today's labs show WBC count 9.7, hemoglobin 10.4 and hematocrit 32.2. Sodium is 143 and potassium 3.5. BUN 55 and creatinine 2.53. Rest of her chemistry is essentially unchanged. PROBLEMS: 1. Acute on chronic congestive heart failure. Volume status has improved significantly. She was almost even on her fluid status yesterday. Currently she is on Bumex 1 mg daily and I would like to not diurese her too aggressively. 2. Acute renal failure superimposed on chronic kidney disease. Kidney function has also improved and stabilized. She has no uremic symptoms and kidney function will be monitored closely. 3. Hyperphosphatemia. Phosphorus level is low now and I am going to stop her phosphate binder. 4. Hypokalemia. This is related to aggressive diuresis. At present we will give her an extra dose of potassium chloride 40 mEq today and continue with twice a day of 20 mEq dose. Her diuretics have been cut down significantly, so she is likely to recover her electrolytes. 5. Gout. She is currently asymptomatic and her uric acid level is at the goal of 5.0. 6. Generalized weakness and deconditioning. The patient is feeling much better and is able to get up and walk in her room.
[2016-06-03 20:00] VITALS: BP 120/62
[2016-06-03] MEDS ORDERED: WARFARIN SOD 1 MG TAB PO SCH (21:00)
[2016-06-03] MEDS ORDERED: WARFARIN SOD 2 MG TAB PO SCH (21:00)
[2016-06-04] VITALS: BP 123/60
[2016-06-04 04:00] VITALS: BP 115/56
[2016-06-04 05:14] VITALS: BP 123/60
[2016-06-04] MEDS: SLF 3 ML SYR IV SCH (05:14)
[2016-06-04 06:15] LABS: BASO % 0.5 % (0.0-1.0); EOS # 0.5 K/mm3 (0.0-0.50); EOS % 5.4 % (0.0-3.0); LARGE UNSTAINED CELL # 0.2 K/mm3 (0.0-0.4); LYMPH # 1.2 K/mm3 (1.5-4.5); LYMPH % 13.3 % (24.0-44.0); MEAN CORPUSCULAR HEMOGLOBIN 30.3 pg (27.0-33.0); MEAN CORPUSCULAR HGB CONC 32.6 g/dl (32.0-36.5); MEAN CORPUSCULAR VOLUME 93.1 fl (80.0-96.0); MONO # 0.4 K/mm3 (0.0-0.8); MONO % 4.7 % (0.0-5.0); NEUTROPHILS # 6.9 K/mm3 (1.8-7.7); NEUTROPHILS % 74.1 % (36.0-66.0); PLATELET COUNT, AUTOMATED 259 k/mm3 (150-450); RED CELL DISTRIBUTION WIDTH 15.5 % (11.5-14.5); WHITE BLOOD COUNT 9.3 K/mm3 (4.0-10.0)
[2016-06-04 06:21] LABS: INR 2.02
[2016-06-04 06:35] LABS: ALBUMIN 3.1 GM/DL (3.2-5.2); ALBUMIN/GLOBULIN RATIO 0.91 (1.00-1.93); BILIRUBIN,TOTAL 0.6 MG/DL (0.2-1.0); CREATININE FOR GFR 2.26 MG/DL (0.55-1.02); PHOSPHORUS LEVEL 2.5 MG/DL (2.5-4.9); POTASSIUM SERUM 3.6 MEQ/L (3.5-5.1); TOTAL PROTEIN 6.5 GM/DL (6.4-8.2)
[2016-06-04 08:00] VITALS: BP 115/53
[2016-06-04] MEDS: POTASSIUM CHLORIDE 10 MEQ SR TABLET PO SCH (09:35)
[2016-06-04] MEDS: FOLIC ACID 1 MG TAB PO SCH (09:35)
[2016-06-04] MEDS: ANASTROZOLE 1 MG TAB PO SCH (09:35)
[2016-06-04] MEDS: FEBUXOSTAT 40 MG TABLET (ULORIC) PO SCH (09:35)
[2016-06-04] MEDS: BICITRA 30ML SOLN UDC PO SCH (09:36)
[2016-06-04] MEDS: VITAMIN D 1,000 INTERNATIONAL UNITS TABLET PO SCH (09:36)
[2016-06-04] MEDS: PANTOPRAZOLE 40MG TAB (PROTONIX) PO SCH (09:36)
[2016-06-04] MEDS: BUMETANIDE 1 MG TAB PO SCH (09:36)
[2016-06-04] MEDS ORDERED: BUME1TA PO (11:00)
[2016-06-04] MEDS ORDERED: POTA10CA PO (11:00)
[2016-06-04] MEDS ORDERED: FEBU40TA PO (11:00)
[2016-06-04] MEDS ORDERED: DILT60TA PO (11:00)
[2016-06-04] MEDS ORDERED: WARF05TA PO (11:00)
--- NOTE | 2016-06-04 12:48 | IPN ---
DATE: 06/04/2016 Mrs. Carranza is seen this morning on her bedside. She is feeling better today and sitting in the chair at the time of my visit. She thinks that she is going to go home today. Her dyspnea has improved and she denies any nausea or vomiting. She has not required oxygen anymore. On physical exam, temperature 96.8 degrees Fahrenheit, heart rate 89 per minute and respiratory rate 18 per minute. Blood pressure 123/60 mmHg and oxygen saturation 97% on room air. Neck veins are still prominent with jugular venous distention (JVD) about 5-6 cm above sternal angle. Head is atraumatic. Ears, nose and throat are unremarkable. Pupils equal and reactive to light and sclera is anicteric. Heart sounds irregular with systolic murmur grade 3/6. Lungs with only occasional basilar rales. Abdomen soft and nontender and without palpable organomegaly. Extremities have no leg edema. There is no cyanosis or clubbing. Skin has no rash or ulcers. Neurologically, she is awake and alert and without focal deficit. Today's labs show WBC count 9.3, hemoglobin 10.7 and hematocrit 33.0. Sodium 141 and potassium 3.6. BUN 50 and creatinine 2.26. PROBLEMS: 1. Acute kidney injury superimposed on chronic kidney disease. Kidney function continues to gradually improve. At this point, she is doing much better and will follow up with her primary temple marker in [place] as an outpatient. 2. Congestive heart failure. Volume status has corrected. She is going to continue with current diuretic dose in order to maintain her volume status. She will follow up with her primary chief radiation therapist as an outpatient. 3. Hypokalemia. Her potassium level is slightly low and one dose of potassium chloride will be given this morning again as she is receiving it twice a day. I had increased her potassium chloride dose just recently. We will continue with the same. 4. History of gout. She remains asymptomatic and will continue with Uloric 40 mg daily. DISPOSITION: From a renal standpoint, the patient can be discharged to home and follow up with her primary [facility] marker in [place].
--- NOTE | 2016-06-05 09:05 | DSES ---
DATE OF ADMISSION: 05/30/2016 DATE OF DISCHARGE: 06/04/2016 ATTENDING PHYSICIAN: Kai Polanco MD PRIMARY CARE PHYSICIAN: Harmeet Ramirez MD REFERRING PHYSICIAN: None. CONSULTING PHYSICIANS: Dr. Ashwin Sanchez CONDITION ON DISCHARGE: Stable. FINAL DIAGNOSIS: Shortness of breath, likely secondary to decompensated congestive heart failure (CHF). Acute kidney injury, superimposed on chronic kidney disease (CKD). PROCEDURES: None. HISTORY OF PRESENT ILLNESS: The patient is an 81-year-old female with a past medical history significant for CKD, coronary artery disease, status post coronary artery bypass graft (CABG), congestive heart failure, atrial fibrillation who underwent transesophageal echocardiogram (LINDEN) yesterday followed by elective DC cardioversion and implantation of implantable loop recorder in [place]. She felt reasonably well following the procedure and was discharged home. When she was at home she began to experience increasing shortness of breath and became orthopneic. The patient presented to the emergency room where she was found to have severe metabolic acidemia with pH of 7.25, pc02 of 26, and pO2 of 63. Chest x-ray and CT scan had shown small bilateral pleural effusions, chronic pulmonary fibrosis and some regions of scarring and bronchiectasis and cardiomegaly. [place] was contacted but they were full. Her field technical support consultant recommended tapping both effusions, stopping antibiotics as there is less concern for pneumonia. Mrs. 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 HOSPITAL COURSE: 1. Shortness of breath secondary to decompensated CHF. 2. Acute kidney injury superimposed on chronic kidney disease. 3. Decompensated CHF likely a component to underlying moderately severe mitral regurgitation. 4. Severe tricuspid regurgitation. 5. Pulmonary hypertension. 6. Atrial fibrillation plus rapid ventricular response (RVR). 2D echo is noted. DISCHARGE DIAGNOSES: 1. At this time the patient's volume status has improved from her admission. Her diuretic therapy is being managed by nephrology. She has been negative fluid balance. The patient has been weaned off supplemental oxygen, has been taken off BiPAP. 2. Chronic kidney disease, stage IV to V. Followup with Dr. Monzon in [place]. The patient's baseline serum creatinine appears to be between 2.4 and 2.6. Creatinine has improved down to baseline. She continues to make adequate urine output. 3. Atrial fibrillation. Status post electrocardioversion on 05/29/2016. The patient does take Coumadin for anticoagulation. INR is therapeutic. Coumadin has been continued. Rate controlled with Cardizem. Continue with telemetry monitoring. Cardiology has been consulted. 4. History of coronary artery disease, status post CABG. 5. Peripheral vascular disease. Not on aspirin secondary to Coumadin therapy. Increased risk of bleeding. Can consider adding beta randall therapy if the patient's blood pressure can tolerate this. 6. History of pulmonary fibrosis. CT of the chest revealed chronic changes. 7. History of cerebrovascular accident (CVA). 8. Hypertension. 9. GERD. 10. Gout. 11. Status post ileostomy secondary to C. Difficile. 12. History of tobacco use. 13. History of breast cancer. 14. Deep venous thrombosis (DVT) prophylaxis. She is on full anticoagulation. DISCHARGE MEDICATIONS: The patient discharged on the following medications. - anastrozole 1 mg by mouth every day - ascorbic acid 500 mg by mouth every day - calcium 500 mg by mouth twice a day - cholecalciferol 2000 units by mouth every day - Co-Enzyme Q10 200 mg by mouth every day - diltiazem 180 mg by mouth nightly - folic acid 1 mg by mouth every day - loperamide 2 mg by mouth as needed diarrhea - multivitamins 1 tablet by mouth every day - probiotic 1 capsule by mouth daily - sodium chloride 1 gram by mouth twice a day NEW MEDICATIONS PRESCRIBED: Include - bumetanide 1 mg by mouth every day - febuxostat 40 mg by mouth every day - potassium chloride 20 mEq by mouth twice a day - warfarin 1 mg by mouth nightly DISCHARGE INSTRUCTIONS: The patient has been advised to followup with her primary care provider, nephrology and cardiology with in the next seven days. She has been advised to remain compliant with her treatment plan and medications and return to the emergency room if she experiences any problems. Time spent on discharge: 35 minutes.
== END 2016-06-04 12:46 | disposition home or self-care (01) | DRG 291 ==
LOC: M ED 03:03 → M ED INP 08:32 → EEVIPCON 08:32 → M ICU 09:35 → M PCU 06-01 04:44
PROVIDERS: ADMIT Internal Medicine Pulmonary Disease; ATTEND Internal Medicine
DX: I13.2 Hypertensive heart and chronic kidney disease with heart failure and with stage 5 chronic kidney disease, or end stage renal disease (principal); J96.00 Acute respiratory failure, unspecified whether with hypoxia or hypercapnia; I50.33 Acute on chronic diastolic (congestive) heart failure; N17.9 Acute kidney failure, unspecified; E87.2 Acidosis; J81.1 Chronic pulmonary edema; N18.5 Chronic kidney disease, stage 5; D68.9 Coagulation defect, unspecified; I73.9 Peripheral vascular disease, unspecified; E87.6 Hypokalemia; I25.10 Atherosclerotic heart disease of native coronary artery without angina pectoris; I44.0 Atrioventricular block, first degree; K21.9 Gastro-esophageal reflux disease without esophagitis; M10.30 Gout due to renal impairment, unspecified site; D63.1 Anemia in chronic kidney disease; I48.91 Unspecified atrial fibrillation; I34.0 Nonrheumatic mitral (valve) insufficiency; I36.1 Nonrheumatic tricuspid (valve) insufficiency; I27.2 Other secondary pulmonary hypertension; E83.39 Other disorders of phosphorus metabolism; J84.10 Pulmonary fibrosis, unspecified; Z93.2 Ileostomy status; Z86.73 Personal history of transient ischemic attack (TIA), and cerebral infarction without residual deficits; Z85.3 Personal history of malignant neoplasm of breast; Z79.01 Long term (current) use of anticoagulants; Z79.899 Other long term (current) drug therapy; Z96.9 Presence of functional implant, unspecified; Z87.891 Personal history of nicotine dependence; Z88.2 Allergy status to sulfonamides; Z88.6 Allergy status to analgesic agent; Z91.041 Radiographic dye allergy status

== ENCOUNTER → 2016-12-05 | Outpatient (REF) | payer MEDICARE ==
[~2016-12-05] MED LIST changes: +AMIO200T PO; +BUME1TA PO; -CO Q200C PO; +CO Q200C10 PO; +DILT180C PO; +DILT60TA PO; +FEBU40TA PO; -FOLI1TAB2 PO; +FOLI1TAB4 PO; +LIDO2.5C15; +LOPE2CA PO; +MELA3TAB PO; +METO25TA4 PO; -METO25TAB PO; +MIDO10TA PO; +NORCOTAB PO; +PANT40TA2 PO; +POTA10CA PO; +RENA1TAB3 PO; +RENV2TAB PO; +VITA20008 PO; +WARF-58 PO; +WARF05TA PO
== END ==
LOC: M LAB REF 09:17
PROVIDERS: ATTEND Internal Medicine Medical Oncology
DX: C50.919 Malignant neoplasm of unspecified site of unspecified female breast (principal)

== ENCOUNTER 2016-12-20 07:04 | Day surgery (SDC) | payer MEDICARE ==
[~2016-12-20] VITALS: Ht 162.6 cm; Wt 63.5 kg
[~2016-12-20 07:04] MED LIST changes: -LIDO2.5C15; -NORCOTAB PO
[2016-12-20] MEDS ORDERED: fentaNYL 100 MCG/2 ML INJECTION (J3010) As Ordered ONE (07:55)
[2016-12-20] MEDS ORDERED: MIDAZOLAM INJ 2 MG/2 ML VIAL (J2250) As Ordered ONE (07:55)
[2016-12-20] MEDS ORDERED: LIDOCAINE 1% MDV 20ML VIAL SQ ONE (08:00)
[2016-12-20] MEDS ORDERED: LR 1,000 ML IV ONE (08:00)
[2016-12-20] MEDS ORDERED: LIDOCAINE 1% SDV INJ 30 ML VIAL As Ordered ONE (08:18)
[2016-12-20] MEDS ORDERED: HEPARIN SOD (PORCINE) 5000 UNITS/ML VIAL As Ordered ONE (08:18)
[2016-12-20] MEDS ORDERED: ISOVUE-300 61% 50ML VIAL (Q9967) As Ordered ONE (08:18)
[2016-12-20] MEDS ORDERED: BUPIVACAINE HCL 0.5% 30 ML VIAL As Ordered ONE (08:19)
[2016-12-20 08:32] LABS: INR 2.39
[2016-12-20] MEDS ORDERED: PROPOFOL 200 MG/20 ML VIAL As Ordered ONE (10:03)
[2016-12-20] MEDS ORDERED: LIDOCAINE 2% INJ 100 MG/5 ML SDV (FOR ANES.) As Ordered ONE (10:03)
[2016-12-20 11:25] VITALS: BP 127/62
--- NOTE | 2016-12-25 08:19 | RO ---
DATE OF PROCEDURE: 12/20/2016 PREOPERATIVE DIAGNOSIS: End-stage renal disease. POSTOPERATIVE DIAGNOSIS: End-stage renal disease. PROCEDURE: Left brachiocephalic arteriovenous fistula formation. ATTENDING SURGEON: Dr. Daniella Moreland FACILITY OPERATIONS MANAGER: None. ANESTHESIA: Was local monitored anesthesia care (MAC). INDICATION: Patient is an 81-year-old female who currently dialyzes through a right internal jugular vein PermCath and who requires long-term access for hemodialysis access. Patient was evaluated and recommended to undergo a left radiocephalic, possible brachiocephalic arteriovenous fistula. Risks, benefits, and alternative treatment options were discussed with the patient. Alternative treatment options included, but were not limited to, no intervention. Benefits included, but were not limited to, having a functioning arteriovenous fistula with ability to remove the central venous tunnel catheter. Risks included, but were not limited to, infection, bleeding, failure of arteriovenous fistula to maintain patency with thrombosis, failure of arteriovenous fistula to mature requiring secondary intervention, steal syndrome, possible need for further open surgical intervention, cerebrovascular accident, myocardial infarction, pulmonary embolus, deep venous thrombosis (DVT), loss of limb, loss of life, and poor outcome. Patient's questions were answered. Patient verbalizes understanding of these risks, benefits, and alterative treatment options. Patient verbalizes consent to proceed with a left radiocephalic, possible brachiocephalic arteriovenous fistula and accepts the associated risks. ESTIMATED BLOOD LOSS: 27 mL. INTRAVENOUS (IV) FLUID: 500 mL. HEPARIN: None. COMPLICATIONS: None. DRAINS: None. SPECIMENS: None. IMPLANTS: None. DESCRIPTION OF PROCEDURE: Patient was taken to the operating room, placed supine on the operating room table, and then the left upper extremity was prepped and draped in a standard surgical fashion. The time-out was then conducted by myself and all team members in the room, confirming the correct patient, procedure, and laterality. A tourniquet was then applied to the left arm, and there was a small cephalic vein at the wrist which did not appear to be adequate for dialysis access creation, and the decision was made to perform a left brachiocephalic arteriovenous fistula. The incision was then made at the antecubital fossa transversely after anesthetizing the overlying skin with 1% lidocaine mixed with 0.5% Marcaine. The cephalic vein was identified, sharply dissected, freed proximally and distally, and then transected with the remnant ligated with a #2-0 silk suture. The cephalic vein was then dilated with heparinized saline, brought to the brachial artery which had been dissected free, and encircled with Vesseloops. The brachial artery was clamped proximally and distally. An arteriotomy was made, and then the cephalic vein was anastomosed to the brachial artery in an end-to-side fashion using #6-0 Prolene suture. There was good flow through the fistula as well as in the brachial artery distal to the arteriovenous anastomosis at the completion of the anastomosis. Hemostasis was obtained, after which #2-0 Vicryl was used to approximate the deeper layers and #3-0 Monocryl to approximate the skin in a running subcuticular fashion. Steri-Strips and dressings were applied. Patient tolerated the procedure well. All instruments, sponge, and needle counts were correct at the end of the case. There were no complications. Dr. Moreland was present for and directed the entire case. Patient was transferred to the recovery room, awake, alert, extubated, and in stable condition.
== END 2016-12-20 12:01 | disposition home or self-care (01) ==
LOC: M SDC 07:04
PROVIDERS: ATTEND Surgery Vascular Surgery
DX: N18.6 End stage renal disease (principal); T88.59XD Other complications of anesthesia, subsequent encounter; I25.10 Atherosclerotic heart disease of native coronary artery without angina pectoris; I11.0 Hypertensive heart disease with heart failure; I73.9 Peripheral vascular disease, unspecified; K21.9 Gastro-esophageal reflux disease without esophagitis; R06.02 Shortness of breath; M54.9 Dorsalgia, unspecified; C50.919 Malignant neoplasm of unspecified site of unspecified female breast; Z88.6 Allergy status to analgesic agent; Z91.041 Radiographic dye allergy status; Z79.899 Other long term (current) drug therapy; Z79.01 Long term (current) use of anticoagulants; Z95.0 Presence of cardiac pacemaker; Z86.73 Personal history of transient ischemic attack (TIA), and cerebral infarction without residual deficits; Z78.0 Asymptomatic menopausal state; Z92.3 Personal history of irradiation; Z87.891 Personal history of nicotine dependence; Z95.4 Presence of other heart-valve replacement; Z99.2 Dependence on renal dialysis
CPT/HCPCS: 36415; 36821; 84132; 85610; J2250; J3010

== ENCOUNTER → 2016-12-27 | Outpatient (CLI) | payer MEDICARE ==
[~2016-12-27] MED LIST changes: +GASTROGRAFIN SOLUTION 30ML (Q9963) As Ordered ONE; +LIDO2.5C15; +NORCOTAB PO
--- NOTE | 2016-12-27 11:10 | REP ---
CT of the chest without IV contrast: Comparison is 08/09/2016. Diffuse bilateral interstitial coarsening is again identified, compatible with fibrosis. The previous right pneumothorax is no longer identified. No lung masses or nodules are identified, however could be obscured by the fibrosis. There are no acute infiltrates or effusions. There is no mediastinal adenopathy. No axillary adenopathy. The study is insensitive for hilar adenopathy in the absence of IV contrast: The thoracic aorta is unremarkable except for calcified atheroma. Cardiac size is normal. There is a cardiac valve prosthesis. There are a electronic there is a electronic device implanted in the anterior chest wall to the left of midline. There is pneumobilia of the liver, not present previously. The the patient indicates she has had cholecystectomy, appendectomy, hysterectomy and colon resection. There are no lytic, blastic or destructive skeletal changes. Impression: No evidence of metastatic disease or adenopathy. Chronic extensive fibrotic changes throughout the lung wilson. Pneumobilia. There is a right IJ central venous catheter with the tip in the right atrium. Signed by Reddy Diaz MD 12/27/2016 11:02 A
--- NOTE | 2016-12-27 11:22 | REP ---
CT of the abdomen and pelvis without IV contrast but with bowel contrast: Patient has a history of breast carcinoma, cholecystectomy, appendectomy, hysterectomy and colon resection. Comparison is 10/21/2016. The study is performed in continuity with the CT of the chest this same date. There is pneumobilia. This was not present previously. There are surgical clips in the gallbladder fossa. These are unchanged. The unenhanced hepatic parenchyma is otherwise homogeneous and unremarkable. The pancreas and spleen are unremarkable. The adrenals and unenhanced kidneys are unremarkable. The abdominal aorta is unremarkable except for calcified atheroma. There is no retroperitoneal or mesenteric adenopathy. There is a midline ventral hernia containing multiple bowel loops and there is no bowel obstruction or strangulation. There is a right lower quadrant ostomy. This is also unchanged. Pelvis: The vaginal cuff and adnexa are unremarkable. There is no ascites. There is no pelvic adenopathy. There are no lytic, blastic or destructive skeletal changes. There is diffuse demineralization and there is multilevel degenerative disc disease in the lumbar spine. Impression: Pneumobilia. No evidence of metastatic disease, adenopathy or ascites. Midline ventral hernia in the pelvis containing multiple bowel loops without bowel obstruction or strangulation. This is unchanged. Left lower quadrant ostomy, unchanged. Demineralization. No lytic, blastic or destructive skeletal changes. Signed by Reddy Diaz MD 12/27/2016 11:14 A
--- NOTE | 2016-12-27 12:08 | REP ---
WHOLE BODY RADIONUCLIDE BONE SCAN: HISTORY: Breast carcinoma. Elevated tumor markers. Breast carcinoma was treated in 2007. The patient has a history of end-stage renal failure on dialysis. History of left knee replacement. No comparison bone scan. Comparison is made with CT study of the chest, abdomen, pelvis from December 27, 2016. TECHNIQUE: 21.6 mCi technetium 99m MDP is injected and standard whole body bone scan imaging was acquired. SCINTIGRAPHIC FINDINGS: There is a focus of increased uptake in the anterolateral segment right 3rd rib. This corresponds with a healing fracture on today's chest CT study. No other abnormal rib uptake is seen. There is uptake in several levels along the lower thoracic spine corresponding with large osteophyte formation and degenerative disc disease on the CT images. There are mild degenerative uptake pattern changes in the lumbar spine. There is uptake in small bilateral kidneys. Minimal uptake is seen in the urinary bladder. The there are arthritic changes in the hips bilaterally. There are degenerative changes in the cervical spine. Prosthesis associated uptake is seen in the left knee. IMPRESSION: There is no scintigraphic evidence to suggest skeletal metastatic disease. Signed by Servando Johnson MD 12/27/2016 03:20 P
== END ==
LOC: M RAD 08:07
PROVIDERS: ATTEND Internal Medicine Medical Oncology
DX: R97.8 Other abnormal tumor markers (principal); Z85.3 Personal history of malignant neoplasm of breast
CPT/HCPCS: 71250; 74176; 78306; A9503; Q9963

== ENCOUNTER → 2017-01-10 | Outpatient (CLI) | payer MEDICARE ==
[~2017-01-10] MED LIST changes: -GASTROGRAFIN SOLUTION 30ML (Q9963) As Ordered ONE; +ISOVUE-300 61% 50ML VIAL (Q9967) As Ordered ONE; +MIDAZOLAM INJ 2 MG/2 ML VIAL (J2250) As Ordered ONE; +fentaNYL 100 MCG/2 ML INJECTION (J3010) As Ordered ONE
--- NOTE | 2017-01-15 09:09 | REPKIM ---
DATE OF PROCEDURE: 01/10/2017 PREPROCEDURE DIAGNOSIS: Endstage renal disease, dysfunctional left brachiocephalic arteriovenous fistula with non-maturation, right internal jugular vein PermaCath currently being used for hemodialysis. POSTPROCEDURE DIAGNOSIS: Endstage renal disease, dysfunctional left brachiocephalic arteriovenous fistula with non-maturation, right internal jugular vein PermaCath currently being used for hemodialysis. PROCEDURE: Left brachiocephalic arteriovenous fistulogram. SURGEON: Dr. Daniella Moreland AEROPLANE PILOT: Mara Ledbetter ANESTHESIA: Local with 2% lidocaine. CONTRAST: 1 mL. COMPLICATION: None. DRAINS: None. SPECIMENS: None. IMPLANTS: None. INDICATION: The patient is an 81-year-old female with recent creation of a left brachiocephalic arteriovenous fistula which is pulsatile and non-maturing and unable to be used yet for hemodialysis access. The patient will undergo a fistulogram with possible angioplasty. Risks, benefits and alternative treatment options were discussed with the patient and alternative treatment options included but were not limited to no intervention. Benefits included, but were not limited to functioning arteriovenous fistula with ability to remove the PermaCath. Risks included but were not limited to infection, bleeding, loss of arteriovenous access, steel syndrome, possibility for open surgical intervention, cerebrovascular accident, myocardial infarction, pulmonary embolus, deep venous thrombosis, loss of limb, loss of live and poor outcome. The patient's questions were answered. The patient voices understanding of these risks, benefits and alternative treatment options and consents to proceed with the left brachiocephalic arteriovenous fistulogram with associated risks. DESCRIPTION OF PROCEDURE: The patient was taken to the angiography suite and placed supine on the angiography table and then the left upper extremity was prepped a draped in a standard surgical fashion. The fistula was cannulated with a micropuncture needle after anesthetizing the overlying skin with 2% lidocaine. The micropuncture wire was advanced through the micropuncture needle which was up-sized to a micropuncture sheath. A fistulogram was then performed through the micropuncture sheath showing the cephalic vein to be widely patent to the cephalic arch and into the central venous system with no stenosis noted. The micropuncture sheath was removed and manual compression applied for hemostasis. Dressings were then applied. The patient tolerated the procedure well. All instruments, sponge and needle counts were correct at the end of the case. There were no complications. Dr. Moreland was present for and directed the entire case. The patient was transferred to the holding area and subsequently discharged in stable condition. RADIOLOGIC SUPERVISION INTERPRETATION: The fistula was widely patent. The cephalic vein was approximately 4-5 mm in diameter and widely patent to the central venous system with no central venous stenosis or occlusion noted. The fistula will be allowed to continue to mature spontaneously and re-evaluated in 2-3 weeks.
== END | disposition home or self-care (01) ==
LOC: M IRPRO 08:54
PROVIDERS: ATTEND Surgery Vascular Surgery
DX: T82.590A Other mechanical complication of surgically created arteriovenous fistula, initial encounter (principal); N18.6 End stage renal disease; Z99.2 Dependence on renal dialysis
CPT/HCPCS: 36901; C1894; Q9967

== ENCOUNTER 2017-01-27 09:18 | Emergency (ER) | payer MEDICARE ==
[~2017-01-27] VITALS: Ht 160 cm; Wt 62.3 kg
[~2017-01-27 09:18] MED LIST changes: -ISOVUE-300 61% 50ML VIAL (Q9967) As Ordered ONE; -LIDO2.5C15; -MIDAZOLAM INJ 2 MG/2 ML VIAL (J2250) As Ordered ONE; -NORCOTAB PO; -fentaNYL 100 MCG/2 ML INJECTION (J3010) As Ordered ONE
[2017-01-27] MEDS ORDERED: LIDO2.5C15 (09:27)
[2017-01-27] MEDS ORDERED: MORPHINE 4 MG/ML 1ML SYRINGE IV ONE (10:00)
[2017-01-27 10:59] LABS: BASO # 0.1 10^3/uL (0.0-0.2); BASO % 0.7 % (0.0-1.0); EOS # 0.1 10^3/uL (0.0-0.50); EOS % 1.2 % (0.0-3.0); IMMATURE GRANULOCYTE % 0.7 % (0-0); LYMPH # 1.1 10^3/uL (1.5-4.5); LYMPH % 8.8 % (24.0-44.0); MEAN CORPUSCULAR HEMOGLOBIN 33.5 pg (27.0-33.0); MEAN CORPUSCULAR HGB CONC 33.1 g/dl (32.0-36.5); MEAN CORPUSCULAR VOLUME 101.1 fl (80.0-96.0); MONO # 1.3 10^3/uL (0.0-0.8); MONO % 10.7 % (0.0-5.0); NEUTROPHILS # 9.5 10^3/uL (1.8-7.7); NEUTROPHILS % 77.9 % (36.0-66.0); PLATELET COUNT, AUTOMATED 242 10^3/uL (150-450); RED CELL DISTRIBUTION WIDTH 15.2 % (11.5-14.5); WHITE BLOOD COUNT 12.2 10^3/uL (4.0-10.0)
--- NOTE | 2017-01-27 11:15 | REP ---
LUMBOSACRAL SPINE: Five views lumbosacral spine performed. There is an acute compression fracture of L3 which is new since 12/27/2016. Loss of height is approximately 30%. There is no other evidence of acute fracture or dislocation. There is moderate diffuse spurring. There is mild disc space narrowing and subchondral sclerosis at all levels. There is sclerosis and spurring at the posterior facet joints diffusely. The posterior elements are intact. There is mild curvature toward the left. There are diffuse vascular calcifications. IMPRESSION: 30% compression fracture L3. This is new compared to prior study of 12/27/2016. Degenerative changes. Signed by Reddy Rene MD 01/27/2017 04:30 P
[2017-01-27 11:22] LABS: ALBUMIN 3.5 GM/DL (3.2-5.2); ALBUMIN/GLOBULIN RATIO 0.85 (1.00-1.93); BILIRUBIN,DIRECT 0.1 MG/DL (0.0-0.2); BILIRUBIN,TOTAL 0.4 MG/DL (0.2-1.0); CALCIUM LEVEL 10.2 MG/DL (8.8-10.2); CREATININE FOR GFR 5.71 MG/DL (0.55-1.02); GLOMERULAR FILTRATION RATE 7.5 (>32); POTASSIUM SERUM 4.3 MEQ/L (3.5-5.1); TOTAL PROTEIN 7.6 GM/DL (6.4-8.2)
--- NOTE | 2017-01-27 11:22 | REP ---
PELVIS AND LEFT HIP: AP view of the pelvis is performed as well as two views of the left hip. No acute fracture or dislocation is seen. There are mild degenerative changes at the sacroiliac joints and hips. Diffuse vascular calcifications are present. IMPRESSION: No acute fracture or dislocation. Signed by Reddy Rene MD 01/27/2017 04:30 P
[2017-01-27] MEDS ORDERED: NORCOTAB PO (11:36)
[2017-01-27 12:14] VITALS: BP 145/62
== END 2017-01-27 12:18 | disposition home or self-care (01) ==
LOC: M ED 09:18
DX: S32.039A Unspecified fracture of third lumbar vertebra, initial encounter for closed fracture (principal); Z85.3 Personal history of malignant neoplasm of breast; I25.10 Atherosclerotic heart disease of native coronary artery without angina pectoris; I50.9 Heart failure, unspecified; N18.3 Chronic kidney disease, stage 3 (moderate); I12.9 Hypertensive chronic kidney disease with stage 1 through stage 4 chronic kidney disease, or unspecified chronic kidney disease; Z87.891 Personal history of nicotine dependence; Z79.01 Long term (current) use of anticoagulants

== ENCOUNTER → 2017-02-17 | Outpatient (CLI) | payer MEDICARE ==
[~2017-02-17] MED LIST changes: +LIDO2.5C15; +NORCOTAB PO
== END ==
LOC: M LAB 14:45
PROVIDERS: ATTEND Internal Medicine Nephrology
DX: I95.9 Hypotension, unspecified (principal)

== ENCOUNTER → 2017-03-07 | Outpatient (CLI) | payer MEDICARE ==
[~2017-03-07] MED LIST changes: +ISOVUE-300 61% 50ML VIAL (Q9967) As Ordered ONE; +LIDOCAINE 1% MDV 20ML VIAL As Ordered ONE; +MIDAZOLAM INJ 2 MG/2 ML VIAL (J2250) As Ordered ONE; +fentaNYL 100 MCG/2 ML INJECTION (J3010) As Ordered ONE
--- NOTE | 2017-03-26 10:08 | REPIR ---
DATE OF PROCEDURE: 03/07/2017 PREPROCEDURE DIAGNOSIS: Endstage renal disease, dysfunctional left brachiocephalic arteriovenous fistula. POSTPROCEDURE DIAGNOSIS: Endstage renal disease, dysfunctional left brachiocephalic arteriovenous fistula. PROCEDURE: Left brachiocephalic arteriovenous fistulogram. Retrograde left brachial artery angiogram. Left cephalic vein angioplasty with 6 x 100 balloon. SURGEON: Dr. Daniella Moreland SMALL MACHINE BINDERY OPERATOR: Mara Sheets. ANESTHESIA: Local with sedation with 1 mg versed, 50 mcg of fentanyl and 1 mL of 2% lidocaine. Sedation time was from 10:37 a.m. to 10:55 a.m. for a total of 18 minutes. Sedation and cardiopulmonary monitoring were performed by the RN in the room under my direct supervision. I was present for and directed the entire case. FLUORO TIME: 2.222 minutes. CONTRAST: 3 mL. HEPARIN: None. COMPLICATIONS: None. DRAINS: None. SPECIMENS: None. IMPLANTS: None. INDICATION: The patient is an 81-year-old female who underwent creation of a left brachial cephalic arteriovenous fistula which has been non-maturing and not able to be used for hemodialysis. The patient will undergo a fistulogram with possible angioplasty and/or stent. The risks, benefits and alternative treatment options were discussed with the patient. DESCRIPTION OF PROCEDURE: The patient was taken to the angiography suite and placed supine on the angiography room table and then prepped and draped in the standard surgical fashion. The left brachiocephalic fistula was then cannulated with a micropuncture needle after anesthetizing the overlying skin with 2% lidocaine. The micropuncture wire was advanced to the micropuncture needle, which was upsized to a micropuncture sheath. A fistulogram was performed showing approximately 80% stenosis in the cephalic vein in the mid upper arm. The cephalic vein was then angioplastied with a 6 x 100 balloon and a retrograde left brachial artery angiogram was performed during inflation of the 6 x 100 balloon. A completion fistulogram showed resolution of the stenosis. The sheath was removed and a #2-0 Prolene suture placed at the puncture site for hemostasis. Which was subsequently removed prior to discharge with good hemostasis noted. Dressings were applied. The patient tolerated the procedure well. All instrument, sponge and needle counts were correct at the end of the case. There were no complications. Dr. Aniceto was present for and directed the entire case. The patient was transferred to the holding area and subsequently discharged in stable condition once the #2-0 Prolene suture with good hemostasis noted. The fistula, which was pulsatile prior to the intervention had a strong thrill palpable at the completion of the intervention. RADIOLOGIC SUPERVISION AND INTERPRETATION: The initial fistulogram showed stenosis in the cephalic vein which was treated with a 6 x 100 balloon. The retrograde brachial artery angiogram showed no stenosis at the arteriovenous venous anastomosis and good flow in the brachial artery proximally. Distally, the arteriovenous anastomosis completion fistulogram showed the cephalic vein to be wildly patent after angioplasty with a 6 x 100 balloon.
== END | disposition home or self-care (01) ==
LOC: M IRPRO 09:35
PROVIDERS: ATTEND Surgery Vascular Surgery
DX: T82.858A Stenosis of other vascular prosthetic devices, implants and grafts, initial encounter (principal); N18.6 End stage renal disease
CPT/HCPCS: 36902; C1725; C1769; C1894; J2250; J3010; Q9967

== ENCOUNTER 2017-08-05 23:00 | Emergency (ER) | payer MEDICARE ==
[2017-08-06 00:32] LABS: BASO # 0.1 10^3/uL (0.0-0.2); BASO % 0.6 % (0.0-1.0); EOS # 0.3 10^3/uL (0.0-0.50); EOS % 3.4 % (0.0-3.0); HEMATOCRIT 29.5 % (36.0-47.0); HEMOGLOBIN 9.8 g/dl (12.0-15.5); IMMATURE GRANULOCYTE % 0.6 % (0-3.0); LYMPH # 1.7 10^3/uL (1.5-4.5); LYMPH % 17.7 % (24.0-44.0); MEAN CORPUSCULAR HEMOGLOBIN 32.3 pg (27.0-33.0); MEAN CORPUSCULAR HGB CONC 33.2 g/dl (32.0-36.5); MEAN CORPUSCULAR VOLUME 97.4 fl (80.0-96.0); MONO % 10.5 % (0.0-5.0); NEUTROPHILS # 6.6 10^3/uL (1.8-7.7); NEUTROPHILS % 67.2 % (36.0-66.0); PLATELET COUNT, AUTOMATED 232 10^3/uL (150-450); RED BLOOD COUNT 3.03 10^6/uL (4.00-5.40); RED CELL DISTRIBUTION WIDTH 13.2 % (11.5-14.5); WHITE BLOOD COUNT 9.8 10^3/uL (4.0-10.0)
[2017-08-06 00:54] LABS: ANION GAP 7 MEQ/L (8-16); BLOOD UREA NITROGEN 21 MG/DL (7-18); CALCIUM LEVEL 8.9 MG/DL (8.8-10.2); CARBON DIOXIDE LEVEL 30 MEQ/L (21-32); CHLORIDE LEVEL 100 MEQ/L (98-107); CPK CREATINE PHOSPHOKINASE 39 U/L (26-192); CREATININE FOR GFR 4.08 MG/DL (0.55-1.30); FREE T4 0.84 NG/DL (0.76-1.46); GLOMERULAR FILTRATION RATE 11.1 (>32); GLUCOSE, FASTING 93 MG/DL (70-100); MAGNESIUM LEVEL 1.7 MG/DL (1.8-2.4); POTASSIUM SERUM 3.8 MEQ/L (3.5-5.1); SODIUM LEVEL 137 MEQ/L (136-145); TROPONIN I 0.03 NG/ML (< 0.10)
[2017-08-06 01:00] LABS: CK-MB VALUE MASS 2.3 NG/ML (<3.6); MB/CK RELATIVE INDEX 5.89 (< OR =4)
[2017-08-06] MEDS: MAG SULF 1GM/100ML (MAG RUN) 1 GM in APPROPRIATE DILUENT 1 EA IV (02:12)
== END 2017-08-06 03:32 | disposition home or self-care (01) ==
LOC: M ED 08-06 03:32
DX: R00.2 Palpitations (principal); E83.42 Hypomagnesemia; I48.91 Unspecified atrial fibrillation; N18.6 End stage renal disease; Z88.8 Allergy status to other drugs, medicaments and biological substances; Z79.899 Other long term (current) drug therapy; Z79.01 Long term (current) use of anticoagulants
CPT/HCPCS: J3475

== ENCOUNTER → 2017-08-22 | Outpatient (CLI) | payer MEDICARE ==
[~2017-08-22] MED LIST changes: -ALLO100T PO; -AMIO200T PO; -ANAS1TAB PO; -BUME1TA PO; -CALC500T49 PO; -CALCTAB68 PO; -CO Q200C10 PO; -DILT180C PO; -DILT60TA PO; -FAMO1TAB11 PO; -FEBU40TA PO; -FOLI1TAB4 PO; +ISOVUE-300 61% 50ML VIAL (Q9967) As Ordered; -ISOVUE-300 61% 50ML VIAL (Q9967) As Ordered ONE; -LIDO2.5C15; -LIDOCAINE 1% MDV 20ML VIAL As Ordered ONE; +LIDOCAINE 2% MDV 20 ML VIAL As Ordered; -LOMO2.5T PO; -LOPE2CA PO; -MELA3TAB PO; -METO25TA4 PO; +MIDAZOLAM INJ 2 MG/2 ML VIAL (J2250) As Ordered; -MIDAZOLAM INJ 2 MG/2 ML VIAL (J2250) As Ordered ONE; -MIDO10TA PO; -NORCOTAB PO; -PANT40TA2 PO; -POTA10CA PO; -PROBCAP14 PO; -RENA1TAB3 PO; -RENV2TAB PO; -SODI1TA PO; -VITA100066 PO; -VITA20008 PO; -VITA500T88 PO; -VITMTA PO; -WARF-58 PO; -WARF05TA PO; -WARF4TAB51 PO; -ZOFR20TA PO; +fentaNYL 100 MCG/2 ML INJECTION (J3010) As Ordered; -fentaNYL 100 MCG/2 ML INJECTION (J3010) As Ordered ONE
== END | disposition home or self-care (01) ==
LOC: M IRPRO 09:29
DX: T82.858A Stenosis of other vascular prosthetic devices, implants and grafts, initial encounter (principal); N18.6 End stage renal disease; Z99.2 Dependence on renal dialysis
CPT/HCPCS: 36902

== ENCOUNTER → 2017-09-10 | Outpatient (REF) | payer MEDICARE ==
[2017-09-13 00:09] LABS: CA 27.29 63.2 U/mL (0.0-38.6)
== END ==
LOC: M LAB REF 15:03
DX: Z85.3 Personal history of malignant neoplasm of breast (principal)
CPT/HCPCS: 86300

== ENCOUNTER → 2017-09-25 | Outpatient (REF) | payer MEDICARE | LOC: M LAB REF 13:14 | DX: R19.7 Diarrhea, unspecified (principal) | CPT/HCPCS: 87507 ==

== ENCOUNTER → 2017-10-03 | Outpatient (CLI) | payer MEDICARE ==
[~2017-10-03] MED LIST changes: -ISOVUE-300 61% 50ML VIAL (Q9967) As Ordered; -MIDAZOLAM INJ 2 MG/2 ML VIAL (J2250) As Ordered; -fentaNYL 100 MCG/2 ML INJECTION (J3010) As Ordered
== END | disposition home or self-care (01) ==
LOC: M IRPRO 08:06
DX: Z45.2 Encounter for adjustment and management of vascular access device (principal); N18.6 End stage renal disease; Z99.2 Dependence on renal dialysis
CPT/HCPCS: 36589

== ENCOUNTER 2017-10-21 21:17 | Inpatient (IN) | payer MEDICARE ==
[2017-10-21] MEDS: NS 500 ML IV (22:30)
[2017-10-21 22:33] LABS: BASO % 0.4 % (0.0-1.0); EOS % 0.4 % (0.0-3.0); HEMATOCRIT 28.3 % (36.0-47.0); HEMOGLOBIN 9.7 g/dl (12.0-15.5); IMMATURE GRANULOCYTE % 0.6 % (0-3.0); LYMPH # 0.8 10^3/uL (1.5-4.5); LYMPH % 7.7 % (24.0-44.0); MEAN CORPUSCULAR HEMOGLOBIN 33.3 pg (27.0-33.0); MEAN CORPUSCULAR HGB CONC 34.3 g/dl (32.0-36.5); MEAN CORPUSCULAR VOLUME 97.3 fl (80.0-96.0); MONO # 0.7 10^3/uL (0.0-0.8); MONO % 7.3 % (0.0-5.0); NEUTROPHILS # 8.2 10^3/uL (1.8-7.7); NEUTROPHILS % 83.6 % (36.0-66.0); PLATELET COUNT, AUTOMATED 284 10^3/uL (150-450); RED BLOOD COUNT 2.91 10^6/uL (4.00-5.40); RED CELL DISTRIBUTION WIDTH 13.3 % (11.5-14.5); WHITE BLOOD COUNT 9.8 10^3/uL (4.0-10.0)
[2017-10-21 22:44] LABS: INR 3.39
[2017-10-21 23:06] LABS: ALBUMIN 3.5 GM/DL (3.2-5.2); ALKALINE PHOSPHATASE 204 U/L (45-117); ALT/SGPT 25 U/L (12-78); ANION GAP 11 MEQ/L (8-16); AST/SGOT 19 U/L (7-37); BILIRUBIN,DIRECT 0.2 MG/DL (0.0-0.2); BILIRUBIN,TOTAL 0.4 MG/DL (0.2-1.0); BLOOD UREA NITROGEN 23 MG/DL (7-18); CALCIUM LEVEL 7.7 MG/DL (8.8-10.2); CARBON DIOXIDE LEVEL 28 MEQ/L (21-32); CHLORIDE LEVEL 94 MEQ/L (98-107); CREATININE FOR GFR 4.01 MG/DL (0.55-1.30); GLOMERULAR FILTRATION RATE 11.3 (>32); GLUCOSE, FASTING 123 MG/DL (70-100); LIPASE 967 U/L (73-393); MAGNESIUM LEVEL 1.9 MG/DL (1.8-2.4); POTASSIUM SERUM 3.6 MEQ/L (3.5-5.1); SODIUM LEVEL 133 MEQ/L (136-145)
[2017-10-21] MEDS: METOCLOPRAMIDE INJ 10MG/2ML VIAL (J2765) IV (23:10)
[2017-10-21] MEDS: MORPHINE 4 MG/ML 1ML VIAL/SYRINGE (J2270) IV (23:10)
[2017-10-22] MEDS ORDERED: ACETAMINOPHEN 500 MG TAB PO (02:15)
[2017-10-22] MEDS: NS 1,000 ML IV ×2 (02:45→09:00)
[2017-10-22] MEDS: MAGNESIUM OXIDE 400 MG TAB (MAG-OX) PO ×3 (03:05→21:16)
[2017-10-22] MEDS: PANTOPRAZOLE 40MG TAB (PROTONIX) PO ×3 (03:05→21:16)
[2017-10-22] MEDS: MORPHINE 4 MG/ML 1ML VIAL/SYRINGE (J2270) IV ×2 (06:56→12:48)
[2017-10-22 07:27] LABS: INR 3.13; PROTHROMBIN TIME 32.9 SECONDS (12.1-14.4)
[2017-10-22 07:37] LABS: BASO # 0.1 10^3/uL (0.0-0.2); BASO % 0.6 % (0.0-1.0); EOS # 0.1 10^3/uL (0.0-0.50); EOS % 0.9 % (0.0-3.0); HEMATOCRIT 26.7 % (36.0-47.0); HEMOGLOBIN 9.1 g/dl (12.0-15.5); IMMATURE GRANULOCYTE % 0.6 % (0-3.0); LYMPH # 1.4 10^3/uL (1.5-4.5); LYMPH % 15.4 % (24.0-44.0); MEAN CORPUSCULAR HEMOGLOBIN 33.1 pg (27.0-33.0); MEAN CORPUSCULAR HGB CONC 34.1 g/dl (32.0-36.5); MEAN CORPUSCULAR VOLUME 97.1 fl (80.0-96.0); MONO % 10.9 % (0.0-5.0); NEUTROPHILS # 6.3 10^3/uL (1.8-7.7); NEUTROPHILS % 71.6 % (36.0-66.0); PLATELET COUNT, AUTOMATED 273 10^3/uL (150-450); RED BLOOD COUNT 2.75 10^6/uL (4.00-5.40); RED CELL DISTRIBUTION WIDTH 13.4 % (11.5-14.5); WHITE BLOOD COUNT 8.7 10^3/uL (4.0-10.0)
[2017-10-22 07:49] LABS: ALBUMIN 3.2 GM/DL (3.2-5.2); ALKALINE PHOSPHATASE 177 U/L (45-117); ALT/SGPT 25 U/L (12-78); ANION GAP 11 MEQ/L (8-16); AST/SGOT 18 U/L (7-37); BILIRUBIN,TOTAL 0.4 MG/DL (0.2-1.0); BLOOD UREA NITROGEN 25 MG/DL (7-18); CALCIUM LEVEL 7.4 MG/DL (8.8-10.2); CARBON DIOXIDE LEVEL 28 MEQ/L (21-32); CHLORIDE LEVEL 96 MEQ/L (98-107); CREATININE FOR GFR 4.48 MG/DL (0.55-1.30); GLUCOSE, FASTING 87 MG/DL (70-100); LIPASE 3795 U/L (73-393); MAGNESIUM LEVEL 1.8 MG/DL (1.8-2.4); POTASSIUM SERUM 3.5 MEQ/L (3.5-5.1); SODIUM LEVEL 135 MEQ/L (136-145); TOTAL PROTEIN 6.4 GM/DL (6.4-8.2)
[2017-10-22] MEDS: FEBUXOSTAT 40 MG TABLET (ULORIC) PO (08:53)
[2017-10-22] MEDS: MIDODRINE 5 MG TAB PO ×3 (10:09→16:36)
[2017-10-22] MEDS: LACTOBACILLUS ACIDOPHILUS CAP (BACID) PO (21:16)
[2017-10-23] MEDS: NS 1,000 ML IV (00:41)
[2017-10-23] MEDS: MIDODRINE 5 MG TAB PO ×3 (06:05→16:16)
[2017-10-23] MEDS: MAGNESIUM OXIDE 400 MG TAB (MAG-OX) PO ×2 (06:06→22:02)
[2017-10-23] MEDS: FEBUXOSTAT 40 MG TABLET (ULORIC) PO (06:07)
[2017-10-23] MEDS: LACTOBACILLUS ACIDOPHILUS CAP (BACID) PO ×2 (06:07→22:01)
[2017-10-23] MEDS: PANTOPRAZOLE 40MG TAB (PROTONIX) PO ×2 (06:07→22:01)
[2017-10-23 07:02] LABS: HEMATOCRIT 25.1 % (36.0-47.0); HEMOGLOBIN 8.5 g/dl (12.0-15.5); MEAN CORPUSCULAR HEMOGLOBIN 33.6 pg (27.0-33.0); MEAN CORPUSCULAR HGB CONC 33.9 g/dl (32.0-36.5); MEAN CORPUSCULAR VOLUME 99.2 fl (80.0-96.0); PLATELET COUNT, AUTOMATED 230 10^3/uL (150-450); RED BLOOD COUNT 2.53 10^6/uL (4.00-5.40); RED CELL DISTRIBUTION WIDTH 13.7 % (11.5-14.5); WHITE BLOOD COUNT 7.8 10^3/uL (4.0-10.0)
[2017-10-23 07:17] LABS: INR 2.99; PROTHROMBIN TIME 31.7 SECONDS (12.1-14.4)
[2017-10-23 07:33] LABS: ALBUMIN 2.8 GM/DL (3.2-5.2); ALBUMIN/GLOBULIN RATIO 0.82 (1.00-1.93); ALKALINE PHOSPHATASE 180 U/L (45-117); ALT/SGPT 27 U/L (12-78); ANION GAP 13 MEQ/L (8-16); AST/SGOT 20 U/L (7-37); BILIRUBIN,TOTAL 0.4 MG/DL (0.2-1.0); BLOOD UREA NITROGEN 35 MG/DL (7-18); CALCIUM LEVEL 6.8 MG/DL (8.8-10.2); CARBON DIOXIDE LEVEL 20 MEQ/L (21-32); CHLORIDE LEVEL 104 MEQ/L (98-107); CREATININE FOR GFR 5.89 MG/DL (0.55-1.30); GLOMERULAR FILTRATION RATE 7.3 (>32); GLUCOSE, FASTING 61 MG/DL (70-100); LIPASE 811 U/L (73-393); MAGNESIUM LEVEL 2.1 MG/DL (1.8-2.4); POTASSIUM SERUM 3.7 MEQ/L (3.5-5.1); SODIUM LEVEL 137 MEQ/L (136-145); TOTAL PROTEIN 6.2 GM/DL (6.4-8.2)
[2017-10-23] MEDS: LIDOCAINE 1% SDV 5 ML VIAL SQ (12:00)
[2017-10-23] MEDS: HEPARIN 1,000 UNITS/ML 10ML VIAL (FOR RADIOLOGY& DIALYSIS ONLY) IV (12:00)
[2017-10-23] MEDS: WARFARIN SOD 2 MG TAB PO (16:16)
[2017-10-24 06:05] LABS: HEMATOCRIT 25.4 % (36.0-47.0); HEMOGLOBIN 8.7 g/dl (12.0-15.5); MEAN CORPUSCULAR HEMOGLOBIN 33.2 pg (27.0-33.0); MEAN CORPUSCULAR HGB CONC 34.3 g/dl (32.0-36.5); MEAN CORPUSCULAR VOLUME 96.9 fl (80.0-96.0); PLATELET COUNT, AUTOMATED 238 10^3/uL (150-450); RED BLOOD COUNT 2.62 10^6/uL (4.00-5.40); RED CELL DISTRIBUTION WIDTH 13.3 % (11.5-14.5); WHITE BLOOD COUNT 6.9 10^3/uL (4.0-10.0)
[2017-10-24 06:17] LABS: INR 2.89; PROTHROMBIN TIME 30.9 SECONDS (12.1-14.4)
[2017-10-24 06:24] LABS: ALBUMIN 2.8 GM/DL (3.2-5.2); ALKALINE PHOSPHATASE 189 U/L (45-117); ALT/SGPT 27 U/L (12-78); ANION GAP 8 MEQ/L (8-16); AST/SGOT 17 U/L (7-37); BILIRUBIN,TOTAL 0.5 MG/DL (0.2-1.0); BLOOD UREA NITROGEN 16 MG/DL (7-18); CALCIUM LEVEL 7.8 MG/DL (8.8-10.2); CARBON DIOXIDE LEVEL 28 MEQ/L (21-32); CHLORIDE LEVEL 102 MEQ/L (98-107); CREATININE FOR GFR 3.87 MG/DL (0.55-1.30); GLOMERULAR FILTRATION RATE 11.8 (>32); GLUCOSE, FASTING 83 MG/DL (70-100); LIPASE 470 U/L (73-393); MAGNESIUM LEVEL 1.9 MG/DL (1.8-2.4); POTASSIUM SERUM 4.2 MEQ/L (3.5-5.1); SODIUM LEVEL 138 MEQ/L (136-145); TOTAL PROTEIN 6.3 GM/DL (6.4-8.2)
[2017-10-24] MEDS: PANTOPRAZOLE 40MG TAB (PROTONIX) PO (09:46)
[2017-10-24] MEDS: FEBUXOSTAT 40 MG TABLET (ULORIC) PO (09:46)
[2017-10-24] MEDS: LACTOBACILLUS ACIDOPHILUS CAP (BACID) PO (09:46)
[2017-10-24] MEDS: MIDODRINE 5 MG TAB PO (09:47)
[2017-10-24] MEDS: MAGNESIUM OXIDE 400 MG TAB (MAG-OX) PO (09:47)
[2017-10-26] MEDS ORDERED: WARFARIN SOD 2 MG TAB PO (17:00)
== END 2017-10-24 11:45 | disposition home health service (06) | DRG 438 ==
LOC: M ED 21:17 → M MS5PR 10-23 15:15 → M ED INP 10-22 02:01 → M MS4PR 10-22 05:08
PROC: 5A1D70Z Performance of Urinary Filtration, Intermittent, Less than 6 Hours Per Day (ICD-10-PCS; principal; 2017-10-23)
DX: K85.90 Acute pancreatitis without necrosis or infection, unspecified (principal); N18.6 End stage renal disease; I12.0 Hypertensive chronic kidney disease with stage 5 chronic kidney disease or end stage renal disease; E87.1 Hypo-osmolality and hyponatremia; M81.0 Age-related osteoporosis without current pathological fracture; I48.91 Unspecified atrial fibrillation; K43.5 Parastomal hernia without obstruction or gangrene; E87.6 Hypokalemia; D63.1 Anemia in chronic kidney disease; K43.9 Ventral hernia without obstruction or gangrene; Z95.0 Presence of cardiac pacemaker; Z85.3 Personal history of malignant neoplasm of breast; Z92.3 Personal history of irradiation; Z87.891 Personal history of nicotine dependence; Z99.2 Dependence on renal dialysis; Z90.49 Acquired absence of other specified parts of digestive tract; Z79.01 Long term (current) use of anticoagulants; Z95.2 Presence of prosthetic heart valve; Z79.899 Other long term (current) drug therapy; Z91.041 Radiographic dye allergy status; Z93.2 Ileostomy status

== ENCOUNTER → 2017-11-25 | Outpatient (CLI) | payer MEDICARE ==
[~2017-11-25] MED LIST changes: +ISOVUE-300 61% 50ML VIAL (Q9967) As Ordered
== END | disposition home or self-care (01) ==
LOC: M IRPRO 09:22
DX: T82.858A Stenosis of other vascular prosthetic devices, implants and grafts, initial encounter (principal); N18.6 End stage renal disease
CPT/HCPCS: 36902

== ENCOUNTER → 2018-02-25 | Outpatient (CLI) | payer MEDICARE | END | disposition home or self-care (01) | LOC: M IRPRO 09:35 | DX: T82.590A Other mechanical complication of surgically created arteriovenous fistula, initial encounter (principal); N18.6 End stage renal disease; Z99.2 Dependence on renal dialysis | CPT/HCPCS: 36901 ==

== ENCOUNTER 2018-06-26 14:27 | Inpatient (IN) | payer MEDICARE ==
[~2018-06-26] VITALS: Ht 162.6 cm; Wt 55.9 kg
[~2018-06-26 14:27] MED LIST changes: +ACET-683 PO; +ALLO100T PO; +AMIO200T PO; +ANAS1TAB2 PO; +BUME1TAB3 PO; +CALC1TAB30 PO; +CALC500T49 PO; +CALCTAB68 PO; +CO Q200C10 PO; +DILT180C43 PO; +DILT30TA PO; +DILT60TA PO; +FAMO1TAB11 PO; +FEBU40TA PO; +FOLI1TAB11 PO; +HYDR-3715 PO; -ISOVUE-300 61% 50ML VIAL (Q9967) As Ordered; +KLOR10TA76 PO; +LIDO2.5C15; -LIDOCAINE 2% MDV 20 ML VIAL As Ordered; +LOMO2.5T PO; +LOPE2CA PO; +MAGN400T2 PO; +MELA3TAB PO; +METO25TA4 PO; +MIDO10TA PO; +PANT40TA3 PO; +PROBCAP14 PO; +PROL60SO SC; +RENA1TAB3 PO; +RENV2TAB PO; +SODI1TAB12 PO; +VITA100066 PO; +VITA20008 PO; +VITA500T88 PO; +VITMTA PO; +WARF-58 PO; +WARF05TA PO; +WARF4TAB51 PO; +ZOFR4TAB16 PO
[2018-06-26] MEDS ORDERED: FENT12DI8 TOP (14:44)
[2018-06-26] MEDS ORDERED: GABA-843 PO (14:44)
[2018-06-26] MEDS ORDERED: CEPH500C PO (14:44)
[2018-06-26 15:44] LABS: BASO # 0.1 10^3/uL (0.0-0.2); BASO % 0.6 % (0.0-1.0); EOS # 0.1 10^3/uL (0.0-0.50); EOS % 0.9 % (0.0-3.0); HEMATOCRIT 29.5 % (36.0-47.0); HEMOGLOBIN 9.5 g/dl (12.0-15.5); LYMPH # 1.1 10^3/uL (1.5-4.5); LYMPH % 10.5 % (24.0-44.0); MEAN CORPUSCULAR HEMOGLOBIN 31.8 pg (27.0-33.0); MEAN CORPUSCULAR HGB CONC 32.2 g/dl (32.0-36.5); MEAN CORPUSCULAR VOLUME 98.7 fl (80.0-96.0); MONO # 1.2 10^3/uL (0.0-0.8); MONO % 11.8 % (0.0-5.0); NEUTROPHILS # 7.8 10^3/uL (1.8-7.7); NEUTROPHILS % 75.5 % (36.0-66.0); PLATELET COUNT, AUTOMATED 288 10^3/uL (150-450); RED BLOOD COUNT 2.99 10^6/uL (4.00-5.40); WHITE BLOOD COUNT 10.3 10^3/uL (4.0-10.0)
[2018-06-26 15:54] LABS: INR 3.24; PROTHROMBIN TIME 33.8 SECONDS (12.1-14.4)
[2018-06-26 17:25] LABS: BLOOD UREA NITROGEN 20 MG/DL (7-18); GLUCOSE, FASTING 98 MG/DL (70-100)
[2018-06-26 17:26] LABS: CARBON DIOXIDE LEVEL 36 MEQ/L (21-32); CHLORIDE LEVEL 96 MEQ/L (98-107); CREATININE FOR GFR 4.12 MG/DL (0.55-1.30); GLOMERULAR FILTRATION RATE 10.9 (>32); SODIUM LEVEL 137 MEQ/L (136-145)
[2018-06-26 17:27] LABS: ALT/SGPT 14 U/L (12-78); CALCIUM LEVEL 8.3 MG/DL (8.8-10.2); CK-MB VALUE MASS < 1.0 NG/ML (<3.6); CPK CREATINE PHOSPHOKINASE 35 U/L (26-192)
[2018-06-26 17:28] LABS: BILIRUBIN,DIRECT 0.1 MG/DL (0.0-0.2); BILIRUBIN,TOTAL 0.3 MG/DL (0.2-1.0); TOTAL PROTEIN 6.9 GM/DL (6.4-8.2)
[2018-06-26 17:29] LABS: ALBUMIN 2.8 GM/DL (3.2-5.2); NT-PRO BNP 16883 PG/ML (<450); TROPONIN I 0.04 NG/ML (< 0.10)
--- NOTE | 2018-06-26 17:29 | REP ---
Chest x-ray: Two views. History: Shortness of breath. Comparison chest x-ray: August 06, 2017. Findings: The patient is status post prior median sternotomy and cardiac valve replacement procedure. The aorta is tortuous and calcific. The heart is enlarged. A loop recorder is seen. These findings are unchanged. Previously noted tunnel catheter has been removed since the prior study. EKG monitoring electrodes are seen. There is a diffuse interstitial fibrosis pattern in the lung wilson moderate in degree, also unchanged. No acute infiltrate is seen. There is slight blunting of the right lateral pleural angle. There are right-sided rib fractures again noted. Impression: Cardiomegaly and pulmonary vascular congestion consistent with CHF with slight blunting of the right lateral pleural angle. Diffuse interstitial fibrosis pattern. No acute infiltrate. Electronically Signed by Servando Johnson MD 06/26/2018 10:28 P
--- NOTE | 2018-06-26 20:00 | REP ---
CT CHEST WITHOUT IV CONTRAST: CT chest performed without IV contrast and compared to prior CT chest of 12/27/2016 as well as other prior exams. There is cardiomegaly. There is a small right pleural effusion. There is underlying interstitial fibrosis bilaterally with bronchiectasis in the lower lobes, right greater than left. However, there is superimposed interstitial infiltrate diffusely, primarily in the lower lung zones and more so on the right than on the left. There are also associated scattered ground glass opacities, also more so on the right than on the left. No definite suspicious nodule is seen in either lung. There is moderate atherosclerotic calcification of the thoracic aorta without aneurysm. No pericardial effusion is seen. Postsurgical changes are seen in the right breast which are stable. There is mild mediastinal adenopathy, with an enlarged precarinal lymph node on the right measuring 1.7 cm in short axis dimension and a subcarinal lymph node 2.1 cm. There are degenerative changes of the spine. There is a stable severe compression deformity of the L2 vertebral body. In the visualized portions of the upper abdomen, biliary air is present. This was seen on the prior CT exams. IMPRESSION: Chronic fibrosis and bronchiectasis, right more so than left. There are superimposed interstitial and ground glass alveolar infiltrates, right greater than left with a small right effusion. Findings suggest asymmetric pulmonary edema. There is cardiomegaly. There is mild mediastinal adenopathy. Electronically Signed by Reddy Rene MD 06/26/2018 08:06 P
[2018-06-26] MEDS ORDERED: ONDANSETRON 4 MG TAB (S0181) PO PRN (20:45)
[2018-06-26] MEDS ORDERED: BISACODYL 5 MG TAB PO PRN (20:45)
[2018-06-26] MEDS: MAGNESIUM OXIDE 400 MG TAB (MAG-OX) PO SCH (22:21)
[2018-06-26] MEDS: PANTOPRAZOLE 40MG TAB (PROTONIX) PO SCH (22:21)
[2018-06-26] MEDS: GABAPENTIN 300 MG CAP PO SCH (22:22)
--- NOTE | 2018-06-26 22:32 | HPEPDOC ---
[facility] Medical History & Physical Date of Admission Jun 26, 2018 History and Physical CHIEF COMPLAINT: HISTORY OF PRESENT ILLNESS: This is an 83yo female with multiple pmhx including esrd on HD TTS who was sent to the ED by Dr. Graf , for pneumonia seen on cxr; however, cxr and CT chest here shows pulm edema, but no obvious sign of PNA. Patient has been sob with cough, but no fever , chills, chest pain, weakness, weight changes, nausea, vomiting or diarrhea. Patient no longer urinates. Ros - all 14 point ROS negative except what's stated in HPI PAST MEDICAL HISTORY: 1. End-stage renal disease on hemodialysis. 2. Hypertension. 3. Osteoporosis. 4. Breast cancer status post lumpectomy, status post radiation therapy 2008. 5. Status post arteriovenous (AV) fistula. 6. 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 7. Atrial fibrillation on warfarin. 8. Status post permanent pacemaker (PPM). 9. Status post MVR. 10. Incisional/periostomy hernia. SOCIAL HISTORY: Lives alone. Ex-cigarette smoker, stopped 30 years ago. Denies alcohol use. FAMILY HISTORY: Reviewed and noncontributory. Medications - as below ALLERGIES: CONTRAST MEDIA. HOME MEDICATIONS: Please see below. Physical Exam GEN: NAD , normal built HEENT: normocephalic, atraumatic, PERRLA, EOMI, external ears appears normal, neck supple, no pharyngeal erythema CVS : normal S1, S2 no murmur, rubs or gallops , PMI nondisplaced RESP: b/l crackles diffusely ABD - +BS, soft, NT, ND , no cva tenderness MSK no joint swelling, FROM, no muscle tenderness Neuro no focal deficit, AOAX3 Lymphatics- no lymphedema, no lymphadenopathy in cervical and supraclavicular chains Psych- normal mood and affect, good judgement and insight LABORATORY DATA: See below. IMAGING: [ct chest reviewed ] MICROBIOLOGY: Please see below. ASSESSMENT and Plan Pulmonary edema -likely the cause of pt's sob -plan for HD tomorrow- nephro already aware -c/w home meds -supplemental oxygen as needed -hold off on abx - not convinced patient has pna hypotension - c/w midodrine stressed fractures - c/w prn pain meds - tylenol and gabapentine afib - hold warfarin tonight - since INR IS >3 - F/U INR in AM and order coumadin if level is appropriate -c/w diltiazem dvt ppx full code, from home , no svc Vital Signs Vital Signs Date Time Temp Pulse Resp B/P (MAP) Pulse Ox O2 Delivery O2 Flow Rate FiO2 06/26/18 18:15 69 111/59 (76) 94 06/26/18 15:41 Room Air 06/26/18 14:28 98.4 20 Laboratory Data Labs 24H Laboratory Tests 2 06/26/18 15:35: Immature Granulocyte % (Auto) 0.7, White Blood Count 10.3H, Red Blood Count 2.99L, Hemoglobin 9.5L, Hematocrit 29.5L, Mean Corpuscular Volume 98.7H, Mean Corpuscular Hemoglobin 31.8, Mean Corpuscular Hemoglobin Concent 32.2, Red Cell Distribution Width 14.6H, Platelet Count 288, Neutrophils (%) (Auto) 75.5H, Lymphocytes (%) (Auto) 10.5L, Monocytes (%) (Auto) 11.8H, Eosinophils (%) (Auto) 0.9, Basophils (%) (Auto) 0.6, Neutrophils # (Auto) 7.8H, Lymphocytes # (Auto) 1.1L, Monocytes # (Auto) 1.2H, Eosinophils # (Auto) 0.1, Basophils # (Auto) 0.1, Nucleated Red Blood Cells % (auto) 0.0, Prothrombin Time 33.8H, Prothromb Time International Ratio 3.24, Anion Gap 5L, Glomerular Filtration Rate 10.9L, Calcium Level 8.3L, Aspartate Amino Transf (AST/SGOT) 17, Alanine Whitt otransferase (ALT/SGPT) 14, Alkaline Phosphatase 144H, Total Bilirubin 0.3, Direct Bilirubin 0.1, Total Creatine Kinase 35, Creatine Kinase MB < 1.0, Creatine Kinase MB Relative Index , Troponin I 0.04, IV-Dfr-P-Type Natriuretic Peptide 12920P, Total Protein 6.9, Albumin 2.8L, Albumin/Globulin Ratio 0.68L, Thyroid Stimulating Hormone (TSH) 1.440 CBC/BMP Laboratory Tests 06/26/18 15:35 Red Blood Count 2.99 L, Mean Corpuscular Volume 98.7 H, Mean Corpuscular Hemoglobin 31.8, Mean Corpuscular Hemoglobin Concent 32.2, Red Cell Distribution Width 14.6 H, Neutrophils (%) (Auto) 75.5 H, Lymphocytes (%) (Auto) 10.5 L, Monocytes (%) (Auto) 11.8 H, Eosinophils (%) (Auto) 0.9, Basophils (%) (Auto) 0.6, Neutrophils # (Auto) 7.8 H, Lymphocytes # (Auto) 1.1 L, Monocytes # (Auto) 1.2 H, Eosinophils # (Auto) 0.1, Basophils # (Auto) 0.1 Home Medications Scheduled (Co Q-10) 200 Mg Cap, 200 MG PO DAILY (Renal-Santa 0.8 mg) 1 Tab Tab, 1 TAB PO DAILY (Prolia) 60 Mg/Ml Fouzia, 60 MG SC [id number] TAKES EVERY 6 MONTHS; STATES LAST INJECTION WAS IN (Calcium 500+D 500-200 mg-Unit) 1 Tab Tab, 1 TAB PO BID Cephalexin Monohydrate (Cephalexin) 500 Mg Cap, 500 MG PO QID Diltiazem HCl (Diltiazem HCl) 30 Mg Tab, 30 MG PO BID Febuxostat (Uloric) 40 Mg Tab, 40 MG PO DAILY Fentanyl (Fentanyl) 12 Mcg/Hr Dis, 12 MCG TOP Q3RD APPLIED PATCH TO LEFT HIP Friday Gabapentin (Gabapentin) 300 Mg Cap, 300 MG PO BID Magnesium Oxide (Magnesium Oxide) 400 Mg Tab, 400 MG PO BID Midodrine HCl (Midodrine HCl) 10 Mg Tab, 10 MG PO TID Pantoprazole Sodium (Pantoprazole Sodium) 40 Mg Tab, 40 MG PO BID Warfarin Sod (Warfarin Sodium) 2 Mg Tab, 2 MG PO [id number] TAKES FRIDAY THROUGH FRIDAY AT QHS Warfarin Sod (Warfarin Sodium) 2 Mg Tab, 4 MG PO 1XWK TAKES ON FRIDAY NIGHTS Scheduled PRN Acetaminophen (Acetaminophen Extra Stren) 500 Mg Tab, 500 MG PO Q4H PRN for PAIN Melatonin (Melatonin) 3 Mg Tab, 3 MG PO QHS PRN for INSOMNIA Allergies Coded Allergies: Contrast Media (Verified Allergy, Intermediate, RADIOACTIVE DYE-ITCHING, 12/11/16) NSAIDs (Unverified Allergy, Unknown, UNKNOWN - WAS JUST TOLD NOT TO TAKE, 12/11/16) VICENTA ANGUIANO MD Jun 26, 2018 21:59
[2018-06-26 23:40] VITALS: BP 141/65
[2018-06-27 06:00] VITALS: BP 120/55
[2018-06-27 06:08] LABS: BASO # 0.1 10^3/uL (0.0-0.2); BASO % 0.6 % (0.0-1.0); EOS # 0.2 10^3/uL (0.0-0.50); EOS % 2.1 % (0.0-3.0); HEMATOCRIT 26.5 % (36.0-47.0); HEMOGLOBIN 8.7 g/dl (12.0-15.5); LYMPH # 0.9 10^3/uL (1.5-4.5); LYMPH % 9.9 % (24.0-44.0); MEAN CORPUSCULAR HEMOGLOBIN 32.2 pg (27.0-33.0); MEAN CORPUSCULAR HGB CONC 32.8 g/dl (32.0-36.5); MEAN CORPUSCULAR VOLUME 98.1 fl (80.0-96.0); MONO # 1.1 10^3/uL (0.0-0.8); MONO % 11.4 % (0.0-5.0); NEUTROPHILS # 7.1 10^3/uL (1.8-7.7); NEUTROPHILS % 75.4 % (36.0-66.0); PLATELET COUNT, AUTOMATED 280 10^3/uL (150-450); WHITE BLOOD COUNT 9.4 10^3/uL (4.0-10.0)
[2018-06-27] MEDS: PANTOPRAZOLE 40MG TAB (PROTONIX) PO SCH ×2 (06:15→20:34)
[2018-06-27] MEDS: MIDODRINE 5 MG TAB PO SCH ×3 (06:17→16:45)
[2018-06-27] MEDS: MAGNESIUM OXIDE 400 MG TAB (MAG-OX) PO SCH ×2 (06:18→20:34)
[2018-06-27 06:19] LABS: INR 3.13; PROTHROMBIN TIME 32.9 SECONDS (12.1-14.4)
[2018-06-27] MEDS: GABAPENTIN 300 MG CAP PO SCH ×2 (06:19→20:35)
[2018-06-27] MEDS: HEPARIN SOD (PORCINE) 5000 UNITS/ML VIAL SC SCH ×3 (06:19→20:35)
[2018-06-27 06:44] LABS: CALCIUM LEVEL 8.4 MG/DL (8.8-10.2); CREATININE FOR GFR 4.93 MG/DL (0.55-1.30); GLOMERULAR FILTRATION RATE 8.9 (>32); MAGNESIUM LEVEL 2.1 MG/DL (1.8-2.4); POTASSIUM SERUM 4.5 MEQ/L (3.5-5.1); THYROID STIMULATING HORMONE 1.48 uIU/ML (0.358-3.740)
--- NOTE | 2018-06-27 07:11 | ECGEPIP ---
Stationary ECG Study [facility] - ED Test Date: 2018-06-26 Pat Name: PREETHI MASCORRO Department: Room: - Gender: F Interventional Sale Consultant: ct : 1935 Requested By: SARAH Nicholson Order Number: [id number] Reading MD: Newton Bryant Measurements Intervals [place] Rate: 69 P: 265 LA: 259 QRS: -68 QRSD: 170 T: 83 QT: 486 QTc: 523 Interpretive Statements ELECTRONIC VENTRICULAR PACEMAKER SIMILAR TO 08/05/17 Electronically Signed On 06-27-2018 7:11:25 EDT by Newton Bryant
[2018-06-27] MEDS: FEBUXOSTAT 40 MG TABLET (ULORIC) PO SCH (09:43)
[2018-06-27] MEDS ORDERED: IRON SUCROSE 100MG 5ML VIAL (J1756 PER 1MG) IV SCH (10:45)
[2018-06-27] MEDS ORDERED: DARBEPOETIN 100 MCG/0.5 ML *DIALYSIS* SYRINGE (J0882) IV SCH (10:45)
[2018-06-27] MEDS ORDERED: HEPARIN 1,000 UNITS/ML 10ML VIAL (FOR RADIOLOGY& DIALYSIS ONLY) IV ONE (12:45)
[2018-06-27 14:00] VITALS: BP 110/51
[2018-06-27] MEDS: ACETAMINOPHEN TAB 650MG DOSE (2X325MG) PO PRN (14:34)
--- NOTE | 2018-06-27 16:14 | IPN ---
DATE: 06/27/2018 SUBJECTIVE: The patient tells me that she is still feeling short of breath. She denies any fevers, chills, nausea, vomiting, or any associated chest pressure. Otherwise, she is feeling quite well. OBJECTIVE: VITAL SIGNS: Temperature 99.1, pulse 75, respiratory rate 15, blood pressure 120/55, oxygen saturation 96% on 3 liters. GENERAL: She is a frail, elderly, female lying flat in bed. She does not appear to be in acute distress. HEENT: She is wearing bifocal lens. Chronic dysconjugate gaze. Moist mucous membranes. There is some elevation in her central venous pressure. CARDIOVASCULAR EXAM: S1, S2 regular. RESPIRATORY EXAM: Actually quite clear other than some rales in the lower two-thirds. ABDOMINAL EXAM: Benign. EXTREMITIES: Without, clubbing, cyanosis. I do not appreciate edema. LABORATORY STUDIES: WBC 9.4, hemoglobin 8.7, platelet count 280. Chemistry panel showed sodium 137, potassium 4.5, chloride 97, bicarbonate 34, BUN 23, creatinine 4.9, TSH within normal limits. INR is 3.1. She is status post 2 units of albumin. IMAGING: The patient did have a CT of her chest that revealed chronic fibrosis and bronchiectasis, right more than left, superimposed interstitial and ground glass alveolar infiltrates, right greater than left with small right effusion consistent with pulmonary edema. ASSESSMENT AND PLAN: This is an 83-year-old female who presented with shortness of breath. She was referred from her primary care provider with concern for pneumonia. 1. Shortness of breath. I feel that this may be less likely pneumonia at this point and may be pulmonary edema. She has been scheduled for hemodialysis today. Nephrology's help is greatly appreciated. I think that she would benefit from fluid removal as her blood pressure tolerates. We will see if her respiratory status improves following fluid removal. I will check respiratory PCR panel to rule out other etiologies for her cough and shortness of breath. 2. Chronic hypertension. This will make fluid removal during hemodialysis difficult. Continue with midodrine. 3. Gout. Continue Uloric. 4. Iron deficiency of end stage renal disease. She is receiving IV iron and IV Aranesp as per nephrology, whose help is greatly appreciated. 5. Atrial fibrillation. Anticoagulation is currently on hold for supratherapeutic INR. She is status post a mitral valve replacement as well. We will review whether this is mechanical or porcine. She is also rate controlled with diltiazem. 6. Pain related to stress fractures. She is on Neurontin. 7. Deep vein thrombosis (DVT) prophylaxis. She is on heparin. DISPOSITION: Pending clinical improvement in respiratory status.
[2018-06-27 22:00] VITALS: BP 137/62
--- NOTE | 2018-06-28 01:18 | CR ---
DATE OF CONSULTATION: 06/27/2018 REQUESTING PHYSICIAN: Alessandra Tapia MD CONSULTING PHYSICIAN: Susana Christopher MD REASON FOR CONSULTATION: Management of end-stage renal disease on hemodialysis. CHIEF COMPLAINT: The patient presented to the hospital yesterday with hemoptysis and shortness of breath. HISTORY OF PRESENT ILLNESS: Keren Carranza is an 83-year-old female with a past medical history of end-stage renal disease on hemodialysis every Friday, , and Friday, history of a right lower quadrant ileostomy. She gets minimal fluid removal done during hemodialysis because of high ileostomy output and she is below her dry weight. She presented to the emergency room yesterday with cough and hemoptysis for the last few days. She got further imaging done in the emergency room including chest x-ray and CT chest which showed a possible pulmonary edema. She was admitted under the hospitalist service yesterday. Nephrology service was called today for further help in the management of this patient with end-stage renal disease, hemodialysis and fluid overload. I had already arranged patient's hemodialysis today morning. The patient was being dialyzed when I saw her in the morning. She reports that she is feeling better today now with the initiation of hemodialysis and fluid removal. She denies any fevers, chills, rigors or cough with phlegm production. PAST MEDICAL HISTORY: The patient has a past medical history of 1. End-stage renal disease on hemodialysis every Friday, , and Friday. 2. Ileostomy status. 3. Hypertension. 4. Osteoporosis. 5. History of breast cancer status post lumpectomy and radiation therapy in 2008. 6. Status post arteriovenous (AV) fistula placement. 7. History of atrial fibrillation (AFib) chronically on anticoagulation. PAST SURGICAL HISTORY: 1. Status post mitral valve repair. 2. Status post pacemaker insertion. 3. Status post colectomy and ileostomy. ALLERGIES: The patient is allergic to IV CONTRAST MEDIA and NONSTEROIDAL ANTI-INFLAMMATORY DRUGS (NSAIDS). FAMILY HISTORY: No significant family history of end-stage renal disease requiring hemodialysis. SOCIAL HISTORY: The patient lives alone. She denies any illicit drug abuse, alcohol or active smoking at this point. REVIEW OF SYSTEMS: CONSTITUTIONAL: The patient denies any fevers or chills. EYES: She denies any blurry vision, double vision. ENT: She denies any dysphagia, odynophagia. She does report bleeding from the nose sometimes. CARDIOVASCULAR: She denies any chest pain or palpitations. RESPIRATORY: She does report hemoptysis and shortness of breath. GASTROINTESTINAL (GI): She reports ileostomy status. GENITOURINARY (): She denies any dysuria or hematuria. MUSCULOSKELETAL: She denies any muscle aches and pains. CENTRAL NERVOUS SYSTEM (CASH APPLICATIONS CLERK): She denies any strokes or seizures. PSYCHIATRIC: She denies any depression or anxiety. HEMATOLOGICAL ONCOLOGICAL: She reports hemoptysis and history of cancer breast in the past. ENDOCRINE: She reports secondary hyperparathyroidism. All other review of systems is negative. PHYSICAL EXAMINATION: GENERAL: The patient awake, alert, and oriented times three, mild respiratory distress lying in the bed getting hemodialysis done. VITAL SIGNS: Temperature 99.1 degrees Fahrenheit, blood pressure 120/59, pulse is 70, respiratory rate of 15, saturating 96% on nasal cannula 3 liters. HEAD AND NECK EXAM: Extraocular muscles are intact. Pupils are equally round and reactive to light. Mucous membranes are moist. Neck is supple. There is mildly elevated jugular venous distention (JVD). CARDIOVASCULAR: S1, S2. Pacemaker was noted. No edema of the bilateral lower extremities. Midline sternotomy scar was noted. RESPIRATORY: Decreased breath sounds at the bases. Crepitations on the right base. ABDOMEN: Soft, right lower quadrant ileostomy was noted. MUSCULOSKELETAL: No clubbing or cyanosis. Pulses are 2+. CENTRAL NERVOUS SYSTEM (CASH APPLICATIONS CLERK): No focal deficits. Power is 5/5 in all extremities. PSYCHIATRIC: Normal mood and affect. LABORATORY REVIEW: Complete blood count (CBC) showed a white blood cell (WBC) of 9.4, hemoglobin 8.7, platelets of 280. INR is 3.1. Basic metabolic panel (BMP) showed sodium 137, potassium is 4.5, chloride 97, bicarbonate 34, BUN 23, creatinine is 4.9, calcium 8.4, magnesium was 2.1. ProBNP was 16,883. IMAGING: A CAT scan of the chest was done yesterday without contrast which showed chronic fibrosis and bronchiectasis, right more than left. Interstitial and ground-glass alveolar infiltrates, right greater than left suggestive of pulmonary edema. CURRENT INPATIENT MEDICATIONS: The patient's medications include: - Tylenol as needed - Dulcolax as needed - diltiazem 30 mg by mouth twice a day - Uloric 40 mg by mouth daily - gabapentin 300 mg by mouth twice a day - heparin subcutaneous - magnesium oxide 400 mg by mouth twice a day - midodrine 10 mg by mouth three times a day - Zofran as needed - Protonix 40 mg by mouth twice a day ASSESSMENT: An 83-year-old female with past medical history of end-stage renal disease on hemodialysis every Friday, , and Friday, chronic atrial fibrillation (AFib) on anticoagulation, history of ileostomy status, chronic hypotension admitted at this time with hemoptysis and shortness of breath secondary to pulmonary edema PLAN: 1. End-stage renal disease on hemodialysis. Today is patient's regular day of dialysis. She usually does not get much fluid removed during dialysis because of ileostomy status. Today I am going to try to remove dialysis. Because of her hypotension I am going to give her albumin and along with albumin I will remove fluid. 2. Hypoxemia and pulmonary edema. The patient is currently on nasal cannula. Because of very low blood pressures I will give her 25% 25-gram intravenous (IV) albumin and fluid removal target will be 1 to 1.5 kg as tolerated by her blood pressure. 3. Anemia secondary to end-stage renal disease. Her hemoglobin is suboptimal at 8.7. She is going to get a dose of Aranesp 100 mcg intravenous (IV) during dialysis and I am going to start her on Venofer 100 mg intravenous (IV) with hemodialysis. 4. Chronic atrial fibrillation (AFib). Continue current dose of diltiazem. Heart rate is controlled. INR is therapeutic. 5. 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 Continue current dose of Uloric 40 mg by mouth daily. Thank you for involving me in the care of this patient. I shall be happy to follow the patient along with you tomorrow morning.
[2018-06-28] MEDS: HEPARIN SOD (PORCINE) 5000 UNITS/ML VIAL SC SCH ×3 (05:37→21:21)
[2018-06-28 06:00] VITALS: BP 97/41
[2018-06-28 06:14] LABS: HEMATOCRIT 26.5 % (36.0-47.0); HEMOGLOBIN 8.4 g/dl (12.0-15.5); MEAN CORPUSCULAR HEMOGLOBIN 31.9 pg (27.0-33.0); MEAN CORPUSCULAR HGB CONC 31.7 g/dl (32.0-36.5); MEAN CORPUSCULAR VOLUME 100.8 fl (80.0-96.0); PLATELET COUNT, AUTOMATED 268 10^3/uL (150-450); RED BLOOD COUNT 2.63 10^6/uL (4.00-5.40); WHITE BLOOD COUNT 8.9 10^3/uL (4.0-10.0)
[2018-06-28 06:41] LABS: CALCIUM LEVEL 8.4 MG/DL (8.8-10.2); CREATININE FOR GFR 3.68 MG/DL (0.55-1.30); GLOMERULAR FILTRATION RATE 12.5 (>32); POTASSIUM SERUM 4.2 MEQ/L (3.5-5.1)
[2018-06-28] MEDS: MIDODRINE 5 MG TAB PO SCH ×3 (09:57→15:59)
[2018-06-28] MEDS: GABAPENTIN 300 MG CAP PO SCH ×2 (09:57→21:22)
[2018-06-28] MEDS: PANTOPRAZOLE 40MG TAB (PROTONIX) PO SCH ×2 (09:57→21:22)
[2018-06-28] MEDS: MAGNESIUM OXIDE 400 MG TAB (MAG-OX) PO SCH ×2 (09:58→21:21)
[2018-06-28] MEDS: FEBUXOSTAT 40 MG TABLET (ULORIC) PO SCH (09:59)
[2018-06-28] MEDS: ACETAMINOPHEN TAB 650MG DOSE (2X325MG) PO PRN ×2 (13:31→19:10)
[2018-06-28 14:00] VITALS: BP 140/58
--- NOTE | 2018-06-28 14:30 | IPNPDOC ---
Date Seen The patient was seen on 06/28/18. Progress Note SUBJECTIVE: Patient tells me that she is feeling much better today though that her shortness of breath is improving but she is not back to normal. She denies chest pressure nausea vomiting diarrhea OBJECTIVE PHYSICAL EXAMINATION: VITAL SIGNS: Please see below. GENERAL: Pleasant elderly female sitting up in bed rearranging her tray table she does not appear to be in acute distress she appears much workout with the previous days exam HEENT: Chronic disconjugate gaze cranial nerves otherwise grossly intact she is wearing glasses CARDIOVASCULAR: S1-S2 appears fairly regular. RESPIRATORY: Some scattered bibasilar rales with diminished breath sounds but otherwise good air movement improved aeration for the previous day ABDOMINAL: bowel sounds are present abdomen soft and nontender. EXTREMITIES: No clubbing cyanosis or edema LABORATORY DATA, IMAGING STUDIES, MICROBIOLOGY: Please see below. DVT prophylaxis ordered?: Heparin ASSESSMENT AND PLAN: This is an 83-year-old female who presented with shortness of breath. She was referred from her primary care provider with concern for pneumonia. 1. Shortness of breath. less likely pneumonia at this point and may be pulmonary edema. Nephrology's help is greatly appreciated. She does appear much improved this morning following hemodialysis there were limited in the amount of fluid able to be taken off given her soft blood pressures. I suspect she would benefit from further fluid removal as tolerated at her baseline she does not use oxygen while awake we will attempt to wean her as able 2. Chronic hyportension. This will make fluid removal during hemodialysis difficult. Continue with midodrine. And close monitoring 3. Gout. Continue Uloric. 4. Iron deficiency of end stage renal disease. She is receiving IV iron and IV Aranesp as per nephrology 5. Atrial fibrillation. Anticoagulation is currently on hold for supratherapeutic INR. Follow daily INRs. She is status post a mitral valve replacement as well. She is also rate controlled with diltiazem. 6. Pain related to stress fractures. She is on Neurontin. We'll check x-ray of the left hip she does not complain of some pain in his axilla. Surgery regarding this on the outpatient setting in the near future DISPOSITION: Pending clinical improvement in respiratory status. VS, I&O, 24H, Fishbone Vital Signs/I&O Vital Signs Date Time Temp Pulse Resp B/P (MAP) Pulse Ox O2 Delivery O2 Flow Rate FiO2 06/28/18 14:00 99.5 41 18 140/58 (85) 84 2.0 06/26/18 23:00 Nasal Cannula I&O- Last 24 Hours up to 6 AM 06/28/18 06:00 Intake Total 540 ml Output Total 1000 ml Balance -460 ml Laboratory Data 24H LABS Laboratory Tests 2 06/28/18 05:52: Nucleated Red Blood Cells % (auto) 0.0, Anion Gap 6L, Glomerular Filtration Rate 12.5L, Blood Urea Nitrogen 14, Creatinine 3.68H, Sodium Level 136, Potassium Level 4.2, Chloride Level 100, Carbon Dioxide Level 30, Calcium Level 8.4L, QC-Tvf-G-Type Natriuretic Peptide 57724Q 06/28/18 14:20: CBC/BMP Laboratory Tests 06/28/18 05:52 Red Blood Count 2.63 L, Mean Corpuscular Volume 100.8 H, Mean Corpuscular Hemoglobin 31.9, Mean Corpuscular Hemoglobin Concent 31.7 L, Red Cell Distribution Width 14.6 H, Calcium Level 8.4 L MACEY HARRISON MD Jun 28, 2018 14:30
[2018-06-28 14:56] LABS: TROPONIN I 0.03 NG/ML (< 0.10)
[2018-06-28 15:52] LABS: ABG BASE EXCESS 4.8 (-2.0-2.0); ABG HCO3 28.9 MEQ/L (22.0-26.0); ABG O2 SATURATION 99.3 % (95.0-99.0); ABG PARTIAL PRESSURE CO2 40.6 mmHg (35.0-45.0); ABG PARTIAL PRESSURE O2 158.7 mmHg (75.0-100.0); ABG STANDARD HCO3 28.9 MEQ/L (22.0-26.0); ABG TOTAL CO2 30.1 MEQ/L (23.0-31.0)
[2018-06-28 22:00] VITALS: BP 127/58
--- NOTE | 2018-06-28 22:00 | ECGEPIP ---
Stationary ECG Study [facility] Test Date: 2018-06-28 Pat Name: PREETHI MASCORRO Department: Room: [place] [address] Gender: F Lining Cutter: ANTWON : 1935 Requested By: MACEY HARRISON Order Number: [id number] Reading MD: Fco Xiong Measurements Intervals [place] Rate: 70 P: AR: 0 QRS: -69 QRSD: 162 T: 87 QT: 455 QTc: 491 Interpretive Statements ELECTRONIC VENTRICULAR PACEMAKER Probably underlying atrial fibrillation. ABNORMAL RHYTHM ECG Electronically Signed On 06-28-2018 22:00:24 EDT by Fco Xiong
[2018-06-29] MEDS: ACETAMINOPHEN TAB 650MG DOSE (2X325MG) PO PRN ×3 (00:51→17:36)
[2018-06-29] MEDS: HEPARIN SOD (PORCINE) 5000 UNITS/ML VIAL SC SCH ×3 (05:13→21:24)
[2018-06-29 06:00] VITALS: BP 105/52
[2018-06-29 06:07] LABS: HEMATOCRIT 27.3 % (36.0-47.0); HEMOGLOBIN 8.7 g/dl (12.0-15.5); MEAN CORPUSCULAR HEMOGLOBIN 32.5 pg (27.0-33.0); MEAN CORPUSCULAR HGB CONC 31.9 g/dl (32.0-36.5); MEAN CORPUSCULAR VOLUME 101.9 fl (80.0-96.0); PLATELET COUNT, AUTOMATED 273 10^3/uL (150-450); RED BLOOD COUNT 2.68 10^6/uL (4.00-5.40); WHITE BLOOD COUNT 10.7 10^3/uL (4.0-10.0)
[2018-06-29 06:32] LABS: INR 2.07; PROTHROMBIN TIME 23.7 SECONDS (12.1-14.4)
[2018-06-29 06:34] LABS: CALCIUM LEVEL 8.6 MG/DL (8.8-10.2); CREATININE FOR GFR 5.34 MG/DL (0.55-1.30); GLOMERULAR FILTRATION RATE 8.1 (>32); POTASSIUM SERUM 4.8 MEQ/L (3.5-5.1)
--- NOTE | 2018-06-29 06:53 | REP ---
CHEST, PORTABLE: AP portable view of the chest is performed and compared to recent study of 06/26/2018. There is cardiomegaly with bilateral scattered infiltrates, more so on the right than on the left. This is superimposed on chronic fibrosis. The findings are stable. The mediastinal silhouette is unchanged. Multiple sternal wires are present. IMPRESSION: Stable exam. Electronically Signed by Reddy Rene MD 06/29/2018 09:17 A
[2018-06-29] MEDS: FEBUXOSTAT 40 MG TABLET (ULORIC) PO SCH (09:43)
[2018-06-29] MEDS: PANTOPRAZOLE 40MG TAB (PROTONIX) PO SCH ×2 (09:43→21:23)
[2018-06-29] MEDS: MIDODRINE 5 MG TAB PO SCH ×3 (09:43→17:32)
[2018-06-29] MEDS: MAGNESIUM OXIDE 400 MG TAB (MAG-OX) PO SCH ×2 (09:44→21:23)
[2018-06-29] MEDS: GABAPENTIN 300 MG CAP PO SCH ×2 (09:45→21:23)
--- NOTE | 2018-06-29 11:05 | IPN ---
DATE: 06/28/2018 SUBJECTIVE: Patient is seen and examined this morning at the bedside. She is still having shortness of breath but reports that it has improved over the course of this admission. She is still coughing and bringing up a yellowish-brown sputum. She denies chest pain. Reports her ostomy output remains the usual chronic watery stool that she has. VITAL SIGNS: Temperature 98.4, pulse 70, respiratory rate 18, blood pressure 97/41, saturating 93% on 2 liters nasal cannula. Intake yesterday was 740. Dialysis yesterday removed 1 liter. Net negative 260. Weight on the bed scale today is not recorded. GENERAL: Patient is sitting in bed. Head of the bed elevated, awake, alert, oriented. Does not appear to be in any respiratory distress at rest but when she repositions herself for the physical exam, she does look a little bit short. There is no conversational dyspnea. HEENT Extraocular muscle are intact. Pupils are reactive to light. Mucous membrane are moist. The jugular venous pulse is noted to be elevated. CARDIAC: S1, S2. There is no edema in the lower extremities. There is an old healed midline sternotomy scar. RESPIRATORY: There is crepitations present on the right and diminished breath sounds at the bases. ABDOMEN: Soft. There is a right lower quadrant ileostomy with watery stool. MUSCULOSKELETAL: There is no clubbing or cyanosis. NEUROLOGIC: She is oriented times three. Baseline mentation. No deficit. SKIN: Normal turgor and temperature. LABS: White count 8.9, hemoglobin 8.4, platelet 268. Sodium 136, potassium 4.2, BNP 16,000. INPATIENT MEDICATIONS: Reviewed by myself. No change from prior. PROBLEMS: 1. End-stage renal disease on hemodialysis on a Friday, , Friday maintenance schedule. Usually, this patient does not have much in the way of fluid removal with her hemodialysis treatments because of her ostomy and chronic watery stool. However, she presently has shortness of breath and is requiring supplemental oxygen and CT chest did show pulmonary edema superimposed on her underlying interstitial fibrosis and her BNP is 16,000. She was dialyzed yesterday with albumin support for 1 liter of fluid removed. I was alerted in the afternoon by the primary team that the patient is desaturated again with oxygen requirements up to 4 liters and we arranged for urgent hemodialysis in the evening, again with albumin support with a goal fluid removal of 2 liters as tolerated by her hemodynamics. 2. Hypoxemia, pulmonary edema, pleural effusion: Patient is requiring between 2-4 liters of supplemental oxygen. Urgent hemodialysis arranged for this evening with albumin support in view of her hypotension of hemodialysis with goal fluid removal of 2 liters as tolerated. 3. Anemia related to end-stage renal disease: Hemoglobin is suboptimal at 8.4. She is receiving iron and Aranesp. I would transfuse if her hemoglobin falls any further as the anemia may also be contributing to her shortness of breath.
--- NOTE | 2018-06-29 11:25 | REP ---
Left hip: Two views. History: Left hip pain. Findings: AP and frog-leg views of the left hip show diffuse osteopenia. There is osteoarthritic spurring and vascular calcification is noted. No fracture or subluxation is seen. Impression: Left hip osteoarthritis. Vascular calcification and diffuse osteopenia are also noted. Electronically Signed by Servando Johnson MD 06/29/2018 12:08 P
[2018-06-29 14:00] VITALS: BP 103/50
[2018-06-29] MEDS: fentaNYL 12 MCG/HR PATCH TOP SCH (14:55)
--- NOTE | 2018-06-29 17:51 | IPNPDOC ---
Date Seen The patient was seen on 06/29/18. Progress Note SUBJECTIVE: Patient tells me that she is feeling better she tells me that her breathing has improved but continues to complain of pain in her left hip. She tells me her breathing is not back to normal she denies any chest pressure palpitations nausea vomiting diarrhea fevers or chills. OBJECTIVE PHYSICAL EXAMINATION: VITAL SIGNS: Please see below. GENERAL: Pleasant elderly female sitting up in bed she does not appear to be in acute distress HEENT: Chronic disconjugate gaze cranial nerves otherwise grossly intact she is wearing glasses CARDIOVASCULAR: S1-S2 appears fairly regular. RESPIRATORY: good air movement improved aeration for the previous day ABDOMINAL: bowel sounds are present abdomen soft and nontender. EXTREMITIES: No clubbing cyanosis or edema LABORATORY DATA, IMAGING STUDIES, MICROBIOLOGY: Please see below. DVT prophylaxis ordered?: Heparin ASSESSMENT AND PLAN: This is an 83-year-old female who presented with shortness of breath. She was referred from her primary care provider with concern for pneumonia. 1. Shortness of breath. less likely pneumonia and more likely pulmonary edema and she certainly improved following 2 sessions of hemodialysis. Nephrology's help is greatly appreciated. I spoke to nursing staff will attempt to wean her oxygen as tolerated she's currently being documented at 98% on 2 L I suspect she will do just fine on room air 2. Chronic hyportension. Continue with midodrine. And close monitoring 3. Gout. Continue Uloric. 4. Iron deficiency of end stage renal disease. She is receiving IV iron and IV Aranesp as per nephrology 5. Atrial fibrillation. Anticoagulation is currently on hold for supratherapeutic INR. She is also rate controlled with diltiazem. Likely to resume Coumadin tomorrow 6. Pain related to stress fractures. She is on Neurontin. We'll restart her home fentanyl patches she does continue to complain of left hip pain we'll check x-rays to ensure no fracture if not consider outpatient follow up with orthopedic surgery as previously scheduled DISPOSITION: Pending clinical improvement in respiratory status, PT. And echocardiogram ordered by nephrology VS, I&O, 24H, Fishbone Vital Signs/I&O Vital Signs Date Time Temp Pulse Resp B/P (MAP) Pulse Ox O2 Delivery O2 Flow Rate FiO2 06/29/18 15:29 18 06/29/18 14:00 98.2 70 103/50 (67) 98 2.0 06/26/18 23:00 Nasal Cannula I&O- Last 24 Hours up to 6 AM 06/29/18 06:00 Intake Total 1050 ml Output Total 2250 ml Balance -1200 ml Laboratory Data 24H LABS Laboratory Tests 2 06/29/18 05:44: Nucleated Red Blood Cells % (auto) 0.0, Prothrombin Time 23.7H, Prothromb Time International Ratio 2.07, Anion Gap 7L, Glomerular Filtration Rate 8.1L, Blood Urea Nitrogen 31#H, Creatinine 5.34H, Sodium Level 135L, Potassium Level 4.8, Chloride Level 101, Carbon Dioxide Level 27, Calcium Level 8.6L, WN-Vnm-U-Type Natriuretic Peptide [id number] CBC/BMP Laboratory Tests 06/29/18 05:44 Red Blood Count 2.68 L, Mean Corpuscular Volume 101.9 H, Mean Corpuscular Hemoglobin 32.5, Mean Corpuscular Hemoglobin Concent 31.9 L, Red Cell Distribut ion Width 14.7 H, Calcium Level 8.6 L MACEY HARRISON MD Jun 29, 2018 17:51
[2018-06-29 22:00] VITALS: BP 122/59
--- NOTE | 2018-06-29 22:08 | ECHO ---
DATE OF PROCEDURE: 06/29/2018 REFERRING PHYSICIAN: Dr. Tree Corbett INDICATION: Heart failure, unspecified. HEIGHT: 163 cm WEIGHT: 56 kg 2D MEASUREMENTS: Ventricular septum: 1.51 cm Posterior wall: 1.52 cm Left ventricle diastole: 3.6 cm Left atrium: 5.0 cm Aortic root: 3.2 cm Aortic annulus: 1.6 cm Inferior vena cava: 2.1 cm with more than 50% respiratory variation (central venous pressure estimated to be 5-10 mmHg). DOPPLER MEASUREMENTS: Aortic valve velocity: 171 cm/s LVOT velocity: 124 cm/s LVOT VTI: 28.3 cm No mitral stenosis. No mitral regurgitation. Mild tricuspid regurgitation. Estimated right ventricle systolic pressure: 41-46 mmHg assuming a right atrial pressure of 5-10 mmHg. DESCRIPTION: Rhythm was atrial fibrillation, ventricular paced rhythm at 70 beats per minute. Image quality was good. This was a 2D, M-mode, color flow Doppler and pulse wave Doppler examination. CONCLUSIONS: 1. Moderate concentric left ventricle hypertrophy with normal regional left ventricular (LV) wall motion and wall thickening. Left ventricular ejection fraction (LVEF) 65% by visual estimate. No paradoxical septal motion. Unable to assess LV diastolic function in the setting of atrial fibrillation and status post mitral valve bioprosthesis. 2. Severe left atrial dilatation. 3. Suggestive of moderate elevation of estimated right ventricle systolic pressure (41-46 mmHg). Normal right ventricle size and systolic function. Central venous pressure estimated to be 5-10 mmHg at the time of the study. 4. Well seated and normally functioning mitral valve bioprosthesis. No mitral stenosis or regurgitation. Cusp of the mitral valve prosthesis appeared normal. 5. Moderate aortic valve sclerosis of a 3-cusp aortic valve. No aortic regurgitation or stenosis. 6. Status post tricuspid valve repair. Mild tricuspid regurgitation. 7. Tiny pericardial effusion.
[2018-06-30] MEDS: ACETAMINOPHEN TAB 650MG DOSE (2X325MG) PO PRN ×4 (02:10→19:27)
[2018-06-30 06:00] VITALS: BP 107/53
[2018-06-30] MEDS: MIDODRINE 5 MG TAB PO SCH ×3 (06:21→17:53)
[2018-06-30] MEDS: GABAPENTIN 300 MG CAP PO SCH ×2 (06:21→20:22)
[2018-06-30] MEDS: MAGNESIUM OXIDE 400 MG TAB (MAG-OX) PO SCH ×2 (06:22→20:23)
[2018-06-30] MEDS: PANTOPRAZOLE 40MG TAB (PROTONIX) PO SCH ×2 (06:22→20:22)
[2018-06-30] MEDS: FEBUXOSTAT 40 MG TABLET (ULORIC) PO SCH (06:22)
[2018-06-30] MEDS: HEPARIN SOD (PORCINE) 5000 UNITS/ML VIAL SC SCH ×3 (06:22→20:22)
--- NOTE | 2018-06-30 06:47 | IPN ---
DATE OF VISIT: 06/29/2018 SUBJECTIVE: The patient is seen and examined this morning at the bedside. She continues to have shortness of breath at rest though she reports that her breathing did improved with urgent hemodialysis yesterday evening with 2 liters of fluid removed, however she is no where near her usual baseline. Her oxygen requirements have been deemed previously on 4 liters nasal cannula, now down to 2 liters and she reports her productive cough has also significantly improved as well. PHYSICAL EXAMINATION: VITAL SIGNS: Temperature 98.2, pulse 70 respiratory rate 20, blood pressure 103/50, saturating 98% on 2 liter nasal cannula. Intake yesterday was 900, dialysis yesterday removed 1999. Ostomy output was 250, net negative 1350, weight in the bed scale today is not recorded. GENERAL: The patient is seen sitting out of bed to the chair, elderly female, frail in no distress at rest but does look a little short when she repositions herself for the physical exam. There is no conversational dyspnea. HEENT: Extraocular muscles intact. Moist mucous membranes. NECK: Jugular venous pulse is noted to be elevated. CARDIAC: S1, S2. Old healed midline sternotomy scar. No edema in the peripheries. RESPIRATORY: There is crepitations present on the bases but mostly on the right and diminished breath sounds at the base. A cough is noted with deep inspiration. ABDOMEN: Soft. There is a right lower quadrant ileostomy with watery stool. MUSCULOSKELETAL: There is no clubbing or cyanosis. There is wrinkling of the extremities, absolutely no peripheral edema. NEUROLOGIC: She is oriented times three, at baseline mentation. LABORATORY DATA: White count 10.7, hemoglobin 8.7, platelets 273. Sodium 135, potassium 4.8, BNP 17,000. IMAGING: Left hip x-ray, osteoarthritis. INPATIENT MEDICATIONS: Reviewed by myself. No change from prior. Fentanyl patch was noted to be resumed. PROBLEMS: 1. End-stage renal disease on hemodialysis on Friday, , and Friday schedule. She was dialyzed on Friday and had an urgent treatment on Friday as well for hypoxemia and shortness of breath with pulmonary edema superimposed on her underlying pulmonary fibrosis. She will be dialyzed again tomorrow with goal fluid removal of 2 liters as tolerated by her hemodynamics. Her electrolytes are otherwise acceptable. 2. Hypoxemia, pulmonary edema, pleural effusion. CAT scan showed pulmonary edema superimposed on interstitial fibrosis. BNP significantly elevated. She still looks short of breath even with dialysis on Friday and Friday. We will get a repeat CT chest. Pulmonary embolus is less likely as the patient is already anticoagulated and did come in with a supratherapeutic INR. Other possibility is pneumonia, although clinically I would favor fluid overload making her short of breath. I would get an echocardiogram in view of the ongoing respiratory issues. 3. Anemia related to end-stage renal disease. Hemoglobin is suboptimal but stable at 8.7. I will have low thresholds to transfuse her as she does have shortness of breath and ongoing supplemental oxygen requirements. At present she continues on iron and Aranesp. 4. Chronic hypotension. Continue with midodrine. Careful watch for hypotension of hemodialysis with fluid removal. We have been giving her albumin with dialysis to help maintain blood pressures. She is on Cardizem for rate control of atrial fibrillation.
[2018-06-30 08:11] LABS: HEMATOCRIT 30.7 % (36.0-47.0); HEMOGLOBIN 9.8 g/dl (12.0-15.5); MEAN CORPUSCULAR HEMOGLOBIN 32.6 pg (27.0-33.0); MEAN CORPUSCULAR HGB CONC 31.9 g/dl (32.0-36.5); PLATELET COUNT, AUTOMATED 332 10^3/uL (150-450); RED BLOOD COUNT 3.01 10^6/uL (4.00-5.40); WHITE BLOOD COUNT 13.9 10^3/uL (4.0-10.0)
[2018-06-30 08:21] LABS: INR 1.69; PROTHROMBIN TIME 20.1 SECONDS (12.1-14.4)
[2018-06-30 08:33] LABS: CALCIUM LEVEL 8.9 MG/DL (8.8-10.2); CREATININE FOR GFR 6.87 MG/DL (0.55-1.30); GLOMERULAR FILTRATION RATE 6.1 (>32); POTASSIUM SERUM 4.9 MEQ/L (3.5-5.1)
[2018-06-30] MEDS ORDERED: HEPARIN 1,000 UNITS/ML 10ML VIAL (FOR RADIOLOGY& DIALYSIS ONLY) IV ONE (12:45)
[2018-06-30] MEDS ORDERED: LIDOCAINE 1% SDV 5 ML VIAL SQ ONE (12:45)
[2018-06-30 14:00] VITALS: BP 112/49
--- NOTE | 2018-06-30 15:17 | IPNPDOC ---
Text Note Date of Service The patient was seen on 06/30/18. 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 fib (on Warfarin), PM, s/p MVR. Patient was being treated for pneumonia as an outpatient. However, was transferred to [facility] where she was found to have evidence of fluid overload. Hospital service was called for further evaluation and treatment. Patient was seen and examined at the bedside. Clinically. Patient notes significant improvement in her breathing. However, she continues to experience shortness of breath upon exertion. . She denies any chest pain or palpitation. She denies any nausea, vomiting, abdominal pain, constipation, or diarrhea. Objective: Vitals (See below) General: Lying in bed, no acute distress, comfortable, AAOx3 HEENT: NC, AT CVS: RRR, +S1S2 Lungs: Fair air entry b/l, appears to be diffuse inspiratory crackles at bilateral lung bases and mid lung field. No evidence of wheezing or rhonchi Abdomen: Soft, ND, NT Extremities: - Edema, - Calf tenderness Assessment and plan: Acute hypoxic respiratory failure - likely 2/2 fluid overload - likely 2/2 CHF, possibly R sided or diastolic dysfunction / ESRD on HD - Initially, patient was saturating at 84% on room air. Was requiring supplemental oxygen via nasal cannula at 2 L - Has been titrated down to room air, however, is still hypoxic upon ambulation - Auscultation reveals bilateral crackles at lower and midlung wilson bilaterally - BNP still significantly elevated - CT Chest 06/26: Chronic fibrosis and bronchiectasis, right more so than left. There are superimposed interstitial and ground glass alveolar infiltrates, right greater than left with a small right effusion. Findings suggest asymmetric pulmonary edema. There is cardiomegaly. There is mild mediastinal adenopathy. - CXR 06/29: Stable exam. - ECHO 06/29: EF equals 65%, unable to assess LV diastolic function, severe, LA dilation, moderate elevation of RVSP, normally functioning mitral valve bioprosthesis - We will continue to remove fluid via dialysis - Nephrology on consultation Chronic hypotension - c/w Midodrine Gout - c/w Uloric MARK - c/w Iron supplementation and Aranesp as per Nephrology Atrial fibrillation - c/w Rate / rhythm control with Diltiazem - Will resume full anticoagulation with Warfarin Pain related to stress fractures - XR hip 06/29: Left hip osteoarthritis. Vascular calcification and diffuse o steopenia are also noted. - c/w he is on Gabapentin - c/w Fentanyl patch - c/w PT & OT - Discussed with family about other imaging modalities; they have indicated that they would not like to pursue surgery if it was required; at this point - c/w PT and will have outpatient f/u with orthopedic surgery GI prophylaxis - c/w Protonix DVT prophylaxis - c/w Heparin; will restart full anticoagulation with Coumadin DISPOSITION: - Pending clinical improvement [place] [facility], I+O [facility] Laboratory Tests 06/30/18 07:32 Red Blood Count 3.01 L, Mean Corpuscular Volume 102.0 H, Mean Corpuscular Hemoglobin 32.6, Mean Corpuscular Hemoglobin Concent 31.9 L, Red Cell Distribution Width 14.9 H, Calcium Level 8.9 Vital Signs Date Time Temp Pulse Resp B/P (MAP) Pulse Ox O2 Delivery O2 Flow Rate FiO2 06/30/18 06:23 70 107/53 06/30/18 06:00 97.6 19 95 06/29/18 14:00 2.0 06/26/18 23:00 Nasal Cannula I&O- Last 24 Hours up to 6 AM 06/30/18 06:00 Intake Total 740 ml Output Total 0 ml Balance 740 ml DARLINE ESPINOSA MD Jun 30, 2018 15:17
--- NOTE | 2018-06-30 17:38 | IPN ---
DATE: 06/30/2018 SUBJECTIVE: Keren is seen and examined this morning in the hemodialysis unit, receiving her maintenance treatment. She tells me that her shortness of breath continues to improve but is not yet back to baseline. She has been weaned off of nasal cannula and is presently saturating well on room air. Goal dialysis fluid removal today is two liters. Patient otherwise complains of chronic pain in the hip. Vital Signs: Temperature 97.9, pulse 69, respiratory rate 18, blood pressure 112/49, saturating 96% on room air. Intake yesterday was 890, dialysis today removed 2 liters. Weight on the bed scale today is not recorded. General: She is seen in the hemodialysis unit, awake, alert, oriented, comfortable, in no acute respiratory distress. Tongue is moist. Neck is supple. Jugular veins are mildly elevated. She looks more comfortable today than she has on prior days. Respirations are rested. Cardiac: S1, S2, old healed midline sternotomy scar. No edema in the peripheries. Respiratory shows fine crepitations at the bases but mostly on the right. Some diminished breath sounds at the bases as well. Abdomen: Soft. There is a right lower quadrant ileostomy with watery stool. Musculoskeletal: There is no clubbing or cyanosis. There is wrinkling of the extremities, absolutely no peripheral edema. Neurologic: She is oriented times three, at baseline mentation. LABORATORY: White count 13.9, hemoglobin 9.8, platelets 332. Sodium 133, potassium 4.9. INPATIENT MEDICATIONS: Reviewed by myself and no change from prior. Her Coumadin is noted to be resumed. PROBLEMS: 1. End-stage renal disease, on hemodialysis on Friday, , Friday schedule. She is dialyzed today again with albumin support with fluid removal of two liters, which she tolerated well. Her electrolytes are acceptable. Her volume status is improving, and she is weaned off of supplementation oxygen. 2. Hypoxemia, pulmonary edema, and pleural effusion. Echocardiogram is pending. I will repeat lung imaging now that she is weaned off of oxygen. Continue fluid removal as tolerated by hemodynamics on dialysis. Continue oral fluid restriction. 3. Chronic hypotension. Continue midodrine. She also is receiving albumin with dialysis to help with the fluid removal. She is on Cardizem for rate control of atrial fibrillation. 4. Anemia related to chronic renal failure. Hemoglobin is improving and up to 9.8 on labs today. There was probably some hemodilution effect as well. She continues on Aranesp and Venofer with dialysis.
[2018-06-30] MEDS: WARFARIN SOD 2 MG TAB PO SCH (17:53)
--- NOTE | 2018-06-30 18:04 | REP ---
Clinical: Pulmonary edema. Comparison: 06/28/2018. Findings: Mediastinum and cardiac silhouette are stable with mild cardiomegaly again suggested. The bilateral lung wilson demonstrate diffuse chronic interstitial changes with evidence for COPD/emphysematous disease and scattered fibrosis. No obvious focal consolidation or effusion. No pneumothorax. Mild interstitial edema cannot be excluded although findings appear relatively stable. Impression: 1. Stable cardiomegaly and stable chronic COPD/emphysematous changes along with scattered fibrosis. 2. Underlying interstitial edema cannot definitively be excluded. No focal consolidation or effusion. Electronically Signed by Jared Nichols MD 06/30/2018 05:56 P
[2018-06-30 22:00] VITALS: BP 121/58
[2018-07-01] MEDS: ACETAMINOPHEN TAB 650MG DOSE (2X325MG) PO PRN ×4 (02:55→21:38)
[2018-07-01] MEDS: HEPARIN SOD (PORCINE) 5000 UNITS/ML VIAL SC SCH (05:43)
[2018-07-01 06:00] VITALS: BP 112/54
[2018-07-01 06:37] LABS: HEMATOCRIT 31.2 % (36.0-47.0); HEMOGLOBIN 10.2 g/dl (12.0-15.5); MEAN CORPUSCULAR HEMOGLOBIN 32.2 pg (27.0-33.0); MEAN CORPUSCULAR HGB CONC 32.7 g/dl (32.0-36.5); MEAN CORPUSCULAR VOLUME 98.4 fl (80.0-96.0); PLATELET COUNT, AUTOMATED 318 10^3/uL (150-450); RED BLOOD COUNT 3.17 10^6/uL (4.00-5.40); WHITE BLOOD COUNT 14.8 10^3/uL (4.0-10.0)
[2018-07-01 06:48] LABS: INR 1.55; PROTHROMBIN TIME 18.8 SECONDS (12.1-14.4)
[2018-07-01 06:55] LABS: CALCIUM LEVEL 9.5 MG/DL (8.8-10.2); CREATININE FOR GFR 4.35 MG/DL (0.55-1.30); GLOMERULAR FILTRATION RATE 10.3 (>32); MAGNESIUM LEVEL 1.9 MG/DL (1.8-2.4); POTASSIUM SERUM 5.2 MEQ/L (3.5-5.1)
[2018-07-01] MEDS: PANTOPRAZOLE 40MG TAB (PROTONIX) PO SCH ×2 (08:10→20:06)
[2018-07-01] MEDS: FEBUXOSTAT 40 MG TABLET (ULORIC) PO SCH (08:10)
[2018-07-01] MEDS: GABAPENTIN 300 MG CAP PO SCH ×2 (08:10→20:05)
[2018-07-01] MEDS: MIDODRINE 5 MG TAB PO SCH ×3 (08:10→16:54)
[2018-07-01] MEDS: MAGNESIUM OXIDE 400 MG TAB (MAG-OX) PO SCH ×2 (08:10→20:05)
[2018-07-01] MEDS: BETAMETHASONE DIP 0.05% OINT 15 GM TOP SCH (13:51)
[2018-07-01 14:00] VITALS: BP 103/49
--- NOTE | 2018-07-01 15:03 | NUR ---
Recommend regular solids, thin liquids. Pt does not show s/sx aspiration. Will educate on compensatory strategies for energy conservation. Addendum: 07/01/18 at 1505 by CAROLA STOVER [facility] Amended: Links added.
--- NOTE | 2018-07-01 16:27 | REP ---
CT chest without contrast: History: Evaluate for pneumonia. Comparison is made with chest x-ray from the previous day and chest CT study from June 26, 2018. CT findings: There is marked diffuse interstitial pulmonary fibrosis pattern again noted predominantly peripherally distributed in the lung wilson bilaterally. There is a small quantity of right pleural fluid again noted with some fissural fluid and pleural thickening on the right unchanged from the recent prior CT study. There is no evidence of acute new pulmonary parenchymal consolidation. Vascular calcification is again observed. There is mild mediastinal lymphadenopathy again noted also unchanged. Postoperative changes are noted post median sternotomy and bypass graft procedure. There is a loop recorder in the anterior precordial soft tissues on the left. There is a somewhat linear area of spiculation or fibrosis in the right breast upper outer aspect unchanged. This consistent with post treatment fibrosis. The patient has a history of right breast carcinoma. This finding is unchanged from the December 27, 2016 study as well. The mediastinal nodes are larger today than on remote prior study. Impression: No new pulmonary parenchymal consolidation. Electronically Signed by Servando Johnson MD 07/01/2018 04:31 P
[2018-07-01] MEDS: WARFARIN SOD 2 MG TAB PO SCH (16:54)
--- NOTE | 2018-07-01 17:05 | IPNPDOC ---
Text Note Date of Service The patient was seen on 07/01/18. 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 fib (on Warfarin), PM, s/p MVR. Patient was being treated for pneumonia as an outpatient. However, was transferred to [facility] where she was found to have evidence of fluid overload. Hospital service was called for further evaluation and treatment. Patient was seen and examined at the bedside. Currently patient still reports left hip pain. Denies any chest pain or palpitations. Still notes some shortness of breath with a productive cough. Denies any nausea, vomiting, abdominal pain, constipation, or diarrhea. Does not make much urine. Objective: Vitals (See below) General: Lying in bed, no acute distress, comfortable, AAOx3 HEENT: NC, AT CVS: RRR, +S1S2 Lungs: Fair air entry b/l, no significant wheezing / rhonchi / rales Abdomen: Soft, nondistended, without tenderness Extremities: No evidence of lower extremity edema, - Calf tenderness Assessment and plan: Acute hypoxic respiratory failure - likely 2/2 fluid overload - likely 2/2 CHF, possibly R sided or diastolic dysfunction / ESRD on HD - Initially, patient was saturating at 84% on room air. Was requiring supp lemental oxygen via nasal cannula at 2 L - Has been titrated down to room air, however, is still hypoxic upon ambulation - Auscultation reveals bilateral crackles at lower and midlung wilson bilateral ly - BNP still significantly elevated - CT Chest 06/26: Chronic fibrosis and bronchiectasis, right more so than left. There are superimposed interstitial and ground glass alveolar infiltrates, right greater than left with a small right effusion. Findings suggest asymmetric pulmonary edema. There is cardiomegaly. There is mild mediastinal adenopathy. - CXR 06/29: Stable exam. - ECHO 06/29: EF equals 65%, unable to assess LV diastolic function, severe, LA dilation, moderate elevation of RVSP, normally functioning mitral valve bioprosthesis - We will continue to remove fluid via dialysis - Nephrology on consultation Leukocytosis - possibly 2/2 possibly 2/2 URTI, less likely 2/2 PNA - Physical without any adventitious lung sounds - Remains afebrile - Blood cultures 07/01: Pending - Respiratory panel 07/01: Pending - CT chest 07/01: No new pulmonary parenchymal consolidation. - Will hold off on antibiotics Chronic hypotension - c/w Midodrine Gout - c/w Uloric MARK - c/w Iron supplementation and Aranesp as per Nephrology Atrial fibrillation - c/w Rate / rhythm control with Diltiazem - INR subtherapeutic - c/w Warfarin Pain related to stress fractures - XR hip 06/29: Left hip osteoarthritis. Vascular calcification and diffuse osteopenia are also noted. - c/w Gabapentin - c/w Fentanyl patch - c/w PT & OT - Discussed with family about other imaging modalities; they have indicated that they would not like to pursue surgery if it was required; at this point - c/w PT and will have outpatient f/u with orthopedic surgery; GI prophylaxis - c/w Protonix DVT prophylaxis - c/w Heparin and Coumadin - awaiting therapeutic INR VS,Fishbone, I+O VS, Fishbone, I+O Laboratory Tests 07/01/18 06:07 Red Blood Count 3.17 L, Mean Corpuscular Volume 98.4 H, Mean Corpuscular Hemoglobin 32.2, Mean Corpuscular Hemoglobin Concent 32.7, Red Cell Distribution Width 15.1 H, Calcium Level 9.5 Vital Signs Date Time Temp Pulse Resp B/P (MAP) Pulse Ox O2 Delivery O2 Flow Rate FiO2 07/01/18 14:00 97.7 73 18 103/49 (67) 95 06/30/18 13:00 3.0 06/26/18 23:00 Nasal Cannula I&O- Last 24 Hours up to 6 AM 07/01/18 06:00 Intake Total 880 ml Output Total 2000 ml Balance -1120 ml DARLINE ESPINOSA MD Jul 01, 2018 17:05
[2018-07-01 22:00] VITALS: BP 107/47
[2018-07-02] MEDS: ACETAMINOPHEN TAB 650MG DOSE (2X325MG) PO PRN ×4 (03:05→21:40)
[2018-07-02 06:00] VITALS: BP 124/40
[2018-07-02] MEDS: MIDODRINE 5 MG TAB PO SCH ×3 (06:14→15:51)
[2018-07-02] MEDS: PANTOPRAZOLE 40MG TAB (PROTONIX) PO SCH ×2 (06:15→21:40)
[2018-07-02] MEDS: MAGNESIUM OXIDE 400 MG TAB (MAG-OX) PO SCH ×2 (06:15→21:40)
[2018-07-02] MEDS: GABAPENTIN 300 MG CAP PO SCH ×2 (06:15→21:40)
[2018-07-02] MEDS: FEBUXOSTAT 40 MG TABLET (ULORIC) PO SCH (06:15)
[2018-07-02 06:16] LABS: HEMATOCRIT 31.5 % (36.0-47.0); HEMOGLOBIN 10.3 g/dl (12.0-15.5); MEAN CORPUSCULAR HGB CONC 32.7 g/dl (32.0-36.5); MEAN CORPUSCULAR VOLUME 97.8 fl (80.0-96.0); PLATELET COUNT, AUTOMATED 298 10^3/uL (150-450); RED BLOOD COUNT 3.22 10^6/uL (4.00-5.40)
[2018-07-02] MEDS: BETAMETHASONE DIP 0.05% OINT 15 GM TOP SCH (06:16)
[2018-07-02 06:23] LABS: INR 1.68; PROTHROMBIN TIME 20.1 SECONDS (12.1-14.4)
[2018-07-02 06:48] LABS: CALCIUM LEVEL 9.5 MG/DL (8.8-10.2); CREATININE FOR GFR 6.08 MG/DL (0.55-1.30); POTASSIUM SERUM 5.6 MEQ/L (3.5-5.1)
[2018-07-02] MEDS: fentaNYL 12 MCG/HR PATCH TOP SCH (07:54)
--- NOTE | 2018-07-02 11:01 | IPN ---
DATE: 07/01/2018 SUBJECTIVE: Patient seen and examined this morning at the bedside. She complains of hip pain, say it almost makes her want to cry. Respiratory status is still not at her baseline but she has been weaned off of supplemental oxygen. She tolerated dialysis yesterday with 2 liters of fluid removed. Her white count continues to rise. Temperature 97.7, pulse 78, respiratory rate 18, blood pressure 103/49, saturating 95% on room air. Intake yesterday was 820. Dialysis yesterday removed 2 liters. Weight on the bed scale today is not recorded. General: Patient seen lying in bed. Elderly female in no acute distress. Extraocular muscles intact. Tongue moist. Neck supple. Jugular veins are no longer elevated. Cardiac: S1, S2 regular rate and rhythm. Lungs have crackles bilaterally. Abdomen is soft and nontender. There is an ileostomy with watery stool. The upper extremities fistula has three and bruit. The lower extremities are wrinkled. Absolutely no pedal edema. Neurologic: She is oriented times three at baseline mentation. LABS: White count 14.8, hemoglobin 10.2, platelets 318. Sodium 135, potassium 5.2, magnesium 1.9. Microbiology: Respiratory viral panel negative. Sputum culture pending. Imaging: CT of the chest shows interstitial pulmonary fibrosis with no other acute changes from prior studies. INPATIENT MEDICATIONS: Reviewed by myself. I discontinued her heparin subcutaneous. The remainder of medications are unchanged from prior. PROBLEMS: 1. End-stage renal disease on hemodialysis on Friday, , Friday schedule. Yesterday we took off 2 liters. I see on echocardiogram, her estimated central venous pressure (CVP) is now 5-10 indicative of fairly acceptable fluid status. We will try to remove around another 2 liters as tolerated by hemodynamics tomorrow. She has been weaned off of supplementary oxygen. There is mild hyperkalemia on labs today which will improve with dialysis tomorrow. 2. Hypoxemia, pulmonary edema, pleural effusion: Status post dialysis with fluid removal and improvement in respiratory status, though not yet back to baseline now saturating well on room air. Echocardiogram showed estimated CVP of 5-10 which is fairly reasonable. I do not think she has a lot of ongoing extra fluid on board. CT chest also did not show any significant amount of extra fluid present. 3. Rising white count and respiratory status is not yet back to baseline despite improvement in fluid status. Raises concern for some sort of infectious process. Respiratory viral panel was negative. Sputum culture is pending. Continue fluid removal with hemodialysis. Consider pulmonary input if her respiratory status does not return to baseline. She does have underlying pulmonary fibrosis. 4. Chronic hypotension: Continues on midodrine and we are using albumin with dialysis to help with fluid removal. 5. Anemia related to chronic renal failure improving. She continues on Aranesp and Venofer with hemodialysis. 6. Anticoagulation: I have stopped the heparin subcutaneous as she is on Coumadin. Her Coumadin dose needs to be increased as her INR is subtherapeutic. I will defer this to the primary team. I
[2018-07-02 11:17] LABS: C REACTIVE PROTEIN QUANTITATIV 8.78 MG/DL (0.00-0.30)
--- NOTE | 2018-07-02 11:46 | IPNPDOC ---
Text Note Date of Service The patient was seen on 07/02/18. 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 fib (on Warfarin), PM, s/p MVR. Patient was being treated for pneumonia as an outpatient. However, was transferred to [facility] where she was found to have evidence of fluid overload. Hospital service was called for further evaluation and treatment. Patient was seen and examined at the bedside. Currently patient has no compressive cough, shortness of breath, chest pain or palpitations. She denies any nausea or vomiting. Denies any abdominal pain. Does report that over her stay. She has had several instances where her ostomy bag has fallen off. I have asked her specifically about output and she notes that it may have increased. However, she is unsure. She denies any production of urine and does not have a BM. Objective: Vitals (See below) General: Lying in bed, no acute distress, comfortable, AAOx3 HEENT: NC, AT CVS: RRR, +S1S2 Lungs: Fair air entry b/l, auscultations without rhonchi, wheezing or rales Abdomen: Soft, without tenderness or distention, + Ostomy Extremities: Lower extremity is without edema, - Calf tenderness Assessment and plan: Acute hypoxic respiratory failure - likely 2/2 fluid overload - likely 2/2 CHF, possibly R sided or diastolic dysfunction / ESRD on HD - Initially, patient was saturating at 84% on room air. Was requiring supplemental oxygen via nasal cannula at 2 L - Has been titrated down to room air, however, is still hypoxic upon ambulation - No significant crackles on auscultation - BNP still significantly elevated; - CT Chest 06/26: Chronic fibrosis and bronchiectasis, right more so than left. There are superimposed interstitial and ground glass alveolar infiltrates, right greater than left with a small right effusion. Findings suggest asymmetric pulmonary edema. There is cardiomegaly. There is mild mediastinal adenopathy. - CXR 06/29: Stable exam. - ECHO 06/29: EF equals 65%, unable to assess LV diastolic function, severe, LA dilation, moderate elevation of RVSP, normally functioning mitral valve bioprosthesis - Remove fluid via dialysis - Nephrology on consultation Leukocytosis - possibly 2/2 possibly 2/2 URTI, less likely 2/2 PNA, possibly 2/2 intra-abdominal source - Physical without any adventitious lung sounds - Remains afebrile - Blood cultures 07/01: Pending - Respiratory panel 07/01: Negative - CT chest 07/01: No new pulmonary parenchymal consolidation. - Will evaluate with CT ab/pelvis with oral contrast and CT L femur - GI Panel pending - Will consult ID depending on findings of imaging - Will hold off on antibiotics Chronic hypotension - c/w Midodrine Gout - c/w Uloric MARK - c/w Iron supplementation and Aranesp as per Nephrology Atrial fibrillation - c/w Rate / rhythm control with Diltiazem - INR subtherapeutic - c/w Warfarin Pain - possibly 2/2 osteoarthritis - XR hip 06/29: Left hip osteoarthritis. Vascular calcification and diffuse osteopenia are also noted. - c/w Gabapentin - c/w Fentanyl patch - Will evaluate with CT left femur - Discussed with family about other imaging modalities; they have indicated that they would not like to pursue surgery if it was required; at this point - c/w PT and will have outpatient f/u with orthopedic surgery; GI prophylaxis - c/w Protonix DVT prophylaxis - c/w Heparin and Coumadin - awaiting therapeutic INR VS,Fishbone, I+O VS, Fishbone, I+O Laboratory Tests 07/02/18 05:44 Red Blood Count 3.22 L, Mean Corpuscular Volume 97.8 H, Mean Corpuscular Hemoglobin 32.0, Mean Corpuscular Hemoglobin Concent 32.7, Red Cell Distribution Width 15.7 H, Calcium Level 9.5 Vital Signs Date Time Temp Pulse Resp B/P (MAP) Pulse Ox O2 Delivery O2 Flow Rate FiO2 07/02/18 08:24 18 07/02/18 06:14 80 122/52 07/02/18 06:00 98.8 97 06/30/18 13:00 3.0 06/26/18 23:00 Nasal Cannula I&O- Last 24 Hours up to 6 AM 07/02/18 06:00 Intake Total 1560 ml Output Total 665 ml Balance 895 ml DARLINE ESPINOSA MD Jul 02, 2018 11:46
--- NOTE | 2018-07-02 11:46 | IPNPDOC ---
Text Note Date of Service The patient was seen on 07/02/18. 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 fib (on Warfarin), PM, s/p MVR. Patient was being treated for pneumonia as an outpatient. However, was transferred to [facility] where she was found to have evidence of fluid overload. Hospital service was called for further evaluation and treatment. Patient was seen and examined at the bedside. Patient and noted Objective: Vitals (See below) General: Lying in bed, no acute distress, comfortable, AAOx3 HEENT: NC, AT CVS: RRR, +S1S2 Lungs: Fair air entry b/l, no significant wheezing / rhonchi / rales Abdomen: Soft, nondistended, tenderness at LLQ Extremities: No evidence of lower extremity edema, - Calf tenderness Assessment and plan: Acute hypoxic respiratory failure - likely 2/2 fluid overload - likely 2/2 CHF, possibly R sided or diastolic dysfunction / ESRD on HD - Initially, patient was saturating at 84% on room air. Was requiring supplemental oxygen via nasal cannula at 2 L - Has been titrated down to room air, however, is still hypoxic upon ambulation - Auscultation reveals bilateral crackles at lower and midlung wilson bilaterally - BNP still significantly elevated - CT Chest 06/26: Chronic fibrosis and bronchiectasis, right more so than left. There are superimposed interstitial and ground glass alveolar infiltrates, right greater than left with a small right effusion. Findings suggest asymmetric pulmonary edema. There is cardiomegaly. There is mild mediastinal adenopathy. - CXR 06/29: Stable exam. - ECHO 06/29: EF equals 65%, unable to assess LV diastolic function, severe, LA dilation, moderate elevation of RVSP, normally functioning mitral valve bi oprosthesis - We will continue to remove fluid via dialysis - Nephrology on consultation Leukocytosis - possibly 2/2 possibly 2/2 URTI, less likely 2/2 PNA - Physical without any adventitious lung sounds - Remains afebrile - Blood cultures 07/01: Pending - Respiratory panel 07/01: Pending - CT chest 07/01: No new pulmonary parenchymal consolidation. - Will hold off on antibiotics Chronic hypotension - c/w Midodrine Gout - c/w Uloric MARK - c/w Iron supplementation and Aranesp as per Nephrology Atrial fibrillation - c/w Rate / rhythm control with Diltiazem - INR subtherapeutic - c/w Warfarin Pain related to stress fractures - XR hip 06/29: Left hip osteoarthritis. Vascular calcification and diffuse osteopenia are also noted. - c/w Gabapentin - c/w Fentanyl patch - c/w PT & OT - Discussed with family about other imaging modalities; they have indicated that they would not like to pursue surgery if it was required; at this point - c/w PT and will have outpatient f/u with orthopedic surgery; GI prophylaxis - c/w Protonix DVT prophylaxis - c/w Heparin and Coumadin - awaiting therapeutic INR VS,Fishbone, I+O VS, Fishbone, I+O Laboratory Tests 07/02/18 05:44 Red Blood Count 3.22 L, Mean Corpuscular Volume 97.8 H, Mean Corpuscular Hemoglobin 32.0, Mean Corpuscular Hemoglobin Concent 32.7, Red Cell Distribution Width 15.7 H, Calcium Level 9.5 Vital Signs Date Time Temp Pulse Resp B/P (MAP) Pulse Ox O2 Delivery O2 Flow Rate FiO2 07/02/18 08:24 18 07/02/18 06:14 80 122/52 07/02/18 06:00 98.8 97 06/30/18 13:00 3.0 06/26/18 23:00 Nasal Cannula I&O- Last 24 Hours up to 6 AM 07/02/18 06:00 Intake Total 1560 ml Output Total 665 ml Balance 895 ml DARLINE ESPINOSA MD Jul 02, 2018 11:46
[2018-07-02] MEDS ORDERED: LIDOCAINE 1% SDV 5 ML VIAL SQ ONE (12:00)
[2018-07-02] MEDS ORDERED: HEPARIN 1,000 UNITS/ML 10ML VIAL (FOR RADIOLOGY& DIALYSIS ONLY) IV ONE (12:00)
[2018-07-02 14:00] VITALS: BP 150/67
[2018-07-02] MEDS: READI-CAT 2 PO SCH ×2 (14:05→14:39)
[2018-07-02] MEDS: FENTANYL REMOVAL DOCUMENTATION MISC XX SCH (15:29)
[2018-07-02 15:30] VITALS: BP 138/64
[2018-07-02 15:38] LABS: CLOSTRIDIUM DIFFICILE PCR NEGATIVE (NEGATIVE)
[2018-07-02 16:05] LABS: ERYTHROCYTE SEDIMENTATION RATE 76 mm/hr (0-42)
--- NOTE | 2018-07-02 17:31 | REP ---
CT abdomen and pelvis with oral but without IV contrast: History: Increased output from ostomy. Comparison CT study October 22, 2017. 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 The lung bases again show diffuse advanced fibrosis in the in the lung wilson. There is extensive vascular calcification. A tiny sliver of right pleural fluid is evident. No pericardial effusion is seen. The liver and spleen are normal in size homogeneous in texture. There is mild pneumobilia. Gallbladder is surgically absent. No pancreatic mass is seen. No adrenal lesion is seen. The kidneys are atrophic bilaterally without hydronephrosis. There is a right lower quadrant ileostomy. A ventral hernia is seen filled with opacified unobstructed small bowel loops. These findings are unchanged. The patient is status post partial colectomy. The rectum and rectosigmoid colon and some of the sigmoid colon persist with diverticulosis but without evidence of diverticulitis. No obstructive lesion is seen. No pelvic mass or adenopathy is seen. Retroverted uterus is seen. There is diffuse osteopenia. Multiple wedge compression deformities are seen in the thoracolumbar spine. There is a band osteoporotic of wedge deformity developed at L3 along its inferior end plate in the interval since the October 24, 2017 study. T11 and L2 compression deformities are again seen unchanged. Degenerative disc and facet changes are again noted. Impression: No acute intra-abdominal or pelvic abnormality. Large ventral hernia containing unobstructed small bowel loops. Right lower quadrant ileostomy. Extensive vascular calcification. Diffuse interstitial pulmonary fibrosis. Bilateral renal atrophy. Multiple osteoporotic wedge compression deformities in the thoracic and lumbar spine. Electronically Signed by Servando Johnson MD 07/03/2018 08:25 A
[2018-07-02] MEDS: WARFARIN SOD 2 MG TAB PO SCH (18:00)
[2018-07-02 22:00] VITALS: BP 124/41
[2018-07-03 06:00] VITALS: BP 123/41
[2018-07-03] MEDS: ACETAMINOPHEN TAB 650MG DOSE (2X325MG) PO PRN ×3 (06:10→16:02)
[2018-07-03 06:19] LABS: HEMATOCRIT 33.3 % (36.0-47.0); HEMOGLOBIN 10.8 g/dl (12.0-15.5); MEAN CORPUSCULAR HEMOGLOBIN 32.4 pg (27.0-33.0); MEAN CORPUSCULAR HGB CONC 32.4 g/dl (32.0-36.5); PLATELET COUNT, AUTOMATED 274 10^3/uL (150-450); RED BLOOD COUNT 3.33 10^6/uL (4.00-5.40); WHITE BLOOD COUNT 15.6 10^3/uL (4.0-10.0)
[2018-07-03 06:27] LABS: INR 1.83; PROTHROMBIN TIME 21.5 SECONDS (12.1-14.4)
[2018-07-03 06:45] LABS: CALCIUM LEVEL 9.6 MG/DL (8.8-10.2); CREATININE FOR GFR 4.14 MG/DL (0.55-1.30); GLOMERULAR FILTRATION RATE 10.9 (>32); POTASSIUM SERUM 4.8 MEQ/L (3.5-5.1)
--- NOTE | 2018-07-03 08:09 | REP ---
CT SCAN OF THE LEFT FEMUR WITHOUT CONTRAST: HISTORY: Left hip pain. CT FINDINGS: There is moderate osteoarthritis of the left hip with joint space narrowing, femoral and acetabular osteophyte formation, and some reactive sclerosis. There is no evidence of significant joint effusion or periarticular soft tissue lesion. Extensive vascular calcifications noted. There is diffuse osteopenia. A suprapubic ventral hernia is seen transmitting small bowel loops. There is spray artifact from knee arthroplasty components on the distal scan images. No bony destructive lesion or fracture is seen. IMPRESSION: Left hip osteoarthritis. Diffuse osteopenia. Extensive vascular calcification. Left knee arthroplasty. No acute abnormality seen. Electronically Signed by Servando Johnson MD 07/03/2018 08:25 A
[2018-07-03] MEDS: PANTOPRAZOLE 40MG TAB (PROTONIX) PO SCH ×2 (08:12→20:17)
[2018-07-03] MEDS: FEBUXOSTAT 40 MG TABLET (ULORIC) PO SCH (08:13)
[2018-07-03] MEDS: GABAPENTIN 300 MG CAP PO SCH ×2 (08:13→20:17)
[2018-07-03] MEDS: MAGNESIUM OXIDE 400 MG TAB (MAG-OX) PO SCH ×2 (08:13→20:17)
[2018-07-03] MEDS: MIDODRINE 5 MG TAB PO SCH ×3 (08:13→16:01)
[2018-07-03] MEDS: BETAMETHASONE DIP 0.05% OINT 15 GM TOP SCH (08:14)
[2018-07-03] MEDS ORDERED: CEFDINIR 300 MG CAP (OMNICEF) PO SCH (09:00)
--- NOTE | 2018-07-03 09:29 | IPN ---
DATE: 07/02/2018 SUBJECTIVE: Keren is seen and examined this morning in the hemodialysis unit receiving her maintenance treatment. She is complaining of pain around the left lower quadrant and is almost to the point of tears. She also tells me that she has had some breakdown of her ostomy bag multiple times in the past day, although she denies significant increase in the amount of ostomy output. Her white continues to rise. Her ESR and C-reactive protein are elevated and I have discussed with the hospitalist team regarding need for further infectious workup. VITAL SIGNS: Temperature 98.6, pulse 71, respiratory rate 16, blood pressure 160/57, saturating 91% on room air. Intake yesterday was 1120. Ostomy output yesterday was 425. Goal dialysis fluid removal today is 1.5 liters. General: Patient seen in the hemodialysis unit receiving her treatment. Elderly female, frail, lying in bed in pain and tearful. Extraocular muscles intact. Tongue moist. Neck supple. Jugular veins are no longer elevated. Cardiac: S1, S2 regular rate and rhythm. Lungs have bibasilar crackles . Abdomen is soft and nontender. There is an ileostomy with only a small amount of watery stool. The ostomy site is pink and patent. She has localized tenderness to palpation in the left lower quadrant. The upper extremity fistula his presently in use. The lower extremities are wrinkled. There is absolutely no peripheral edema. Neurologic: She is oriented times three and at baseline mentation. Musculoskeletal: The left hip site has no erythema or warmth. The patient does not grimace with palpation of the hip joint. LABS: White count 17, hemoglobin 10.3, platelets 298. ESR 76, C-reactive protein 8.7. Sodium 132, potassium 5.6. Microbiology: Respiratory viral panel was negative. Sputum culture is pending. Imaging: CT of the abdomen and pelvis on 07/02/2018 showed a large ventral hernia with unobstructed small bowel loops, extensive vascular calcification. Diffuse interstitial pulmonary fibrosis. Multiple osteoporotic wedge compression deformities in the thoracolumbar spine. INPATIENT MEDICATIONS: Reviewed by myself and no change from prior. PROBLEMS: 1. End-stage renal disease on hemodialysis on Friday, , Friday schedule. The patient is dialyzed today, 1.5 liters of fluid removed. I see on echocardiogram, her estimated central venous pressure (CVP) two days ago was 5-10, indicative of fairly acceptable fluid status. I no longer think that she is significantly hypervolemic. She has been weaned off supplementary oxygen. There is mild hyperkalemia on labs today, which will improve with dialysis. She continues to receive albumin with her hemodialysis treatments. 2. Hypoxemia and pulmonary edema. This is improved with aggressive dialysis and fluid removal. She is presently saturating well on room air. Echocardiogram did not show any signs of ongoing fluid overload. CT chest also did not show any significant amount of extra fluid present. We will continue with modest ultrafiltration and fluid removal with dialysis. 3. Leukocytosis, elevated ESR and C-reactive protein. I am concerned that there is some infectious process growing. Her blood cultures were negative. Her respiratory viral panel was negative. She had a CT scan of the abdomen and pelvis with oral contrast that was not significantly revealing. Her main complaint has been pain either in the left hip or in the left lower quadrant that is causing her to almost cry. I think that she should be evaluated by infectious disease. 4. Chronic hypotension. Continues on midodrine and we are using albumin with dialysis to help with hemodynamic support. 5. Anemia related to chronic renal failure. She continues on Aranesp and Venofer with hemodialysis. 6. Anticoagulation. Her INR is subtherapeutic. Defer Coumadin adjustments to the primary team. DISPOSITION: Patient is improving from a respiratory point of view, but has elevated markers of inflammation and worsening leukocytosis without clear cut etiology and is in painful distress from some pain that seems to be around either the left hip or the left lower quadrant. Further workup has been discussed with the hospitalist service and I recommend an infectious disease evaluation.
--- NOTE | 2018-07-03 13:57 | IPNPDOC ---
Text Note Date of Service The patient was seen on 07/03/18. 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 fib (on Warfarin), PM, s/p MVR. Patient was being treated for pneumonia as an outpatient. However, was transferred to [facility] where she was found to have evidence of fluid overload. Hospital service was called for further evaluation and treatment. Patient was seen and examined at the bedside. Patient has noted that her hip pain is generally doing better today. She denies any chest pain or palpitations. Reports a mild cough. Denies any difficulty breathing. Denies nausea, vomiting, abdominal pain, constipation or diarrhea. Objective: Vitals (See below) General: Lying in bed, no acute distress, comfortable, AAOx3 HEENT: NC, AT CVS: RRR, +S1S2 Lungs: Fair air entry b/l, no evidence of wheezing or rhonchi. There still appeared to be crackles at bilateral lung bases Abdomen: Soft, does not appear to have any significant tenderness, + Ostomy Extremities: Does not appear to be any lower extremity edema, - Calf tenderness Assessment and plan: Acute hypoxic respiratory failure - likely 2/2 fluid overload - likely 2/2 CHF, possibly R sided or diastolic dysfunction / ESRD on HD - Initially, patient was saturating at 84% on room air. Was requiring supplemental oxygen via nasal cannula at 2 L - Has been titrated down to room air, however, is still hypoxic upon ambulation - No significant crackles on auscultation - BNP still significantly elevated; - CT Chest 06/26: Chronic fibrosis and bronchiectasis, right more so than left. There are superimposed interstitial and ground glass alveolar infiltrates, right greater than left with a small right effusion. Findings suggest asymmetric pulmonary edema. There is cardiomegaly. There is mild mediastinal adenopathy. - CXR 06/29: Stable exam. - ECHO 06/29: EF equals 65%, unable to assess LV diastolic function, severe, LA dilation, moderate elevation of RVSP, normally functioning mitral valve bioprosthesis - Remove fluid via dialysis - Nephrology on consultation Leukocytosis - possibly 2/2 possibly 2/2 URTI, less likely 2/2 PNA, possibly 2/2 intra-abdominal source - Physical without any adventitious lung sounds - Remains afebrile - Blood cultures 07/01: Negative at 24 hours; Respiratory panel 07/01: Negative - Sputum culture 07/01: E. Coli / Enterobacter Cloacae - CT chest 07/01: No new pulmonary parenchymal consolidation. - CT ab/pelvis 07/02: No acute intra-abdominal or pelvic abnormality. Large ventral hernia containing unobstructed small bowel loops. Right lower quadrant ileostomy. Extensive vascular calcification. Diffuse interstitial pulmonary fibrosis. Bilateral renal atrophy. Multiple osteoporotic wedge compression deformities in the thoracic and lumbar spine. - Will start Cefdinir (Day #1) Chronic hypotension - c/w Midodrine Gout - c/w Uloric MARK - c/w Iron supplementation and Aranesp as per Nephrology Atrial fibrillation - c/w Rate / rhythm control with Diltiazem - INR subtherapeutic - c/w Warfarin; will increase dose Pain - possibly 2/2 osteoarthritis - XR hip 06/29: Left hip osteoarthritis. Vascular calcification and diffuse osteopenia are also noted. - c/w Gabapentin - c/w Fentanyl patch - CT femur 07/01: Left hip osteoarthritis. Diffuse osteopenia. Extensive vascular calcification. Left knee arthroplasty. No acute abnormality seen. - Discussed with family about other imaging modalities; they have indicated that they would not like to pursue surgery if it was required; at this point - c/w PT and will have outpatient f/u with orthopedic surgery; GI prophylaxis - c/w Protonix DVT prophylaxis - c/w Heparin and Coumadin - awaiting therapeutic INR VS,[place], I+O VS, [place], I+O Laboratory Tests 07/03/18 05:45 Red Blood Count 3.33 L, Mean Corpuscular Volume 100.0 H, Mean Corpuscular Hemoglobin 32.4, Mean Corpuscular Hemoglobin Concent 32.4, Red Cell Distribution Width 15.9 H, Calcium Level 9.6 Vital Signs Date Time Temp Pulse Resp B/P (MAP) Pulse Ox O2 Delivery O2 Flow Rate FiO2 07/03/18 08:12 69 123/41 07/03/18 06:00 98.6 21 91 06/30/18 13:00 3.0 I&O- Last 24 Hours up to 6 AM 07/03/18 06:00 Intake Total 1560 ml Output Total 3350 ml Balance -1790 ml DARLINE ESPINOSA MD Jul 03, 2018 13:57
[2018-07-03 14:00] VITALS: BP 117/39
[2018-07-03] MEDS: WARFARIN SOD 3 MG TAB PO SCH (16:02)
[2018-07-03 22:00] VITALS: BP 114/64
[2018-07-04 06:00] VITALS: BP 98/54
[2018-07-04 06:11] LABS: HEMATOCRIT 30.8 % (36.0-47.0); HEMOGLOBIN 10.2 g/dl (12.0-15.5); MEAN CORPUSCULAR HGB CONC 33.1 g/dl (32.0-36.5); MEAN CORPUSCULAR VOLUME 99.7 fl (80.0-96.0); PLATELET COUNT, AUTOMATED 222 10^3/uL (150-450); RED BLOOD COUNT 3.09 10^6/uL (4.00-5.40); WHITE BLOOD COUNT 14.6 10^3/uL (4.0-10.0)
[2018-07-04] MEDS: PANTOPRAZOLE 40MG TAB (PROTONIX) PO SCH ×2 (06:15→20:52)
[2018-07-04] MEDS: MIDODRINE 5 MG TAB PO SCH ×3 (06:15→16:35)
[2018-07-04] MEDS: ACETAMINOPHEN TAB 650MG DOSE (2X325MG) PO PRN ×4 (06:15→20:53)
[2018-07-04] MEDS: FEBUXOSTAT 40 MG TABLET (ULORIC) PO SCH (06:15)
[2018-07-04] MEDS: GABAPENTIN 300 MG CAP PO SCH ×2 (06:15→20:52)
[2018-07-04] MEDS: MAGNESIUM OXIDE 400 MG TAB (MAG-OX) PO SCH ×2 (06:16→20:54)
[2018-07-04] MEDS: BETAMETHASONE DIP 0.05% OINT 15 GM TOP SCH (06:18)
[2018-07-04 06:28] LABS: INR 2.2; PROTHROMBIN TIME 24.9 SECONDS (12.1-14.4)
[2018-07-04 06:48] LABS: CALCIUM LEVEL 9.3 MG/DL (8.8-10.2); CREATININE FOR GFR 5.79 MG/DL (0.55-1.30); GLOMERULAR FILTRATION RATE 7.4 (>32)
[2018-07-04 07:25] LABS: C REACTIVE PROTEIN QUANTITATIV 16.5 MG/DL (0.00-0.30)
--- NOTE | 2018-07-04 10:39 | IPN ---
DATE OF SERVICE: 07/03/2018 SUBJECTIVE: Patient is seen and examined today at the bedside. She reports her hip pain is a lot better today. She denies any chest pain or palpitations. Her shortness of breath is improved, but she does not yet rate it as her usual baseline. Her sputum culture resulted positive and she is now on cefdinir. VITAL SIGNS: Temperature 97.9, pulse 70, respiratory rate 18, blood pressure 117/40, saturating 94% on room air. INTAKE AND OUTPUT: Intake yesterday was 2 liters. Urine output yesterday was 450 mL, stool yesterday 1200, and hemodialysis yesterday removed 1500 mL, net negative 1.1 liters. Weight on the bed scale today is not recorded. GENERAL: Patient seen lying in bed, elderly female, frail, smiling today and not in any distress. HEENT: Extraocular muscles are intact. Tongue moist. NECK: Supple. Jugular veins are no longer elevated. CARDIAC: S1, S2 regular rate and rhythm. RESPIRATORY: Lungs have bibasilar crackles, which are fine. ABDOMEN: The abdomen is soft and nontender. The ileostomy in the right lower quadrant only has minimal amount of watery stool. The ostomy is pink and patent. EXTREMITIES: The upper extremity fistula has thrill and bruit. The lower extremities are wrinkled. There is absolutely no peripheral edema. NEUROLOGIC: She is oriented times three, at baseline mentation. LABS: White count 15.6, hemoglobin 10.8, platelets 274. Sodium 134, potassium 4.8. Microbiology: Sputum culture with E. coli and enterobacter cloacae complex. CT of the abdomen and pelvis noncontrast 07/02/2018 showed a large ventral hernia containing unobstructed small bowel loops, right lower quadrant ileostomy. Diffuse interstitial pulmonary fibrosis. Multiple osteoporotic wedge compression deformities in the thoracolumbar spine. INPATIENT MEDICATIONS: Reviewed by myself. Patient is on cefdinir 300 mg by mouth at bedtime. The remainder of medications show only an increase in Coumadin dosing, otherwise unchanged from prior. PROBLEMS: 1. End-stage renal disease on hemodialysis on Friday, , Friday schedule. The patient will be dialyzed tomorrow. Her fluid status has improved nicely over the course of this admission. She has been weaned off of supplementary oxygen. She is improved from a respiratory point of view. She will require fluid removal in the outpatient hemodialysis setting as well and she has been tolerating her treatments without significant hypotension of hemodialysis. 2. Hypoxemia related to pulmonary edema and also recently found to have enterobacter cloacae complex and E. coli in the sputum culture. Her shortness of breath has improved with dialysis and fluid removal. She is now saturating well on room air. Next dialysis will be tomorrow. She has been started on cefdinir for the pneumonia. She continues on an oral fluid restriction. The patient does have underlying pulmonary fibrosis as well. 3. Chronic hypotension. Continues on midodrine and she is tolerating ultrafiltration with dialysis. 4. Anemia related to chronic renal failure. She continues on Aranesp and Venofer with hemodialysis. Hemoglobin is at target and has improved over the course of this admission with correction of her fluid overload. There was likely an element of hemodilution. Hemodilution previously present. 5. Anticoagulation. Her INR is subtherapeutic. Coumadin has been adjusted by the primary team.
[2018-07-04] MEDS ORDERED: LIDOCAINE 1% SDV 5 ML VIAL SQ ONE (11:00)
[2018-07-04] MEDS ORDERED: HEPARIN 1,000 UNITS/ML 10ML VIAL (FOR RADIOLOGY& DIALYSIS ONLY) IV ONE (11:00)
--- NOTE | 2018-07-04 12:29 | IPNPDOC ---
Text Note Date of Service The patient was seen on 07/04/18. 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 fib (on Warfarin), PM, s/p MVR. Patient was being treated for pneumonia as an outpatient. However, was transferred to [facility] where she was found to have evidence of fluid overload. Hospital service was called for further evaluation and treatment. Patient was seen and examined at the bedside. , Currently patient notes that her colostomy site has fallen off again. She denies any significant cough or shortness of breath. Reports that her left leg pain is doing better. Still notes some abdominal tenderness at her left lower quadrant. Denies any increased output from her ostomy. Objective: Vitals (See below) General: Lying in bed, no acute distress, comfortable, AAOx3 HEENT: NC, AT CVS: RRR, +S1S2 Lungs: Auscultation, does not appear to reveal any wheezing or rhonchi. There are mild crackles appreciated at bilateral lower lung Abdomen: Soft, does not appear to have any significant tenderness, + Ostomy Extremities: Lower extremities are without any edema, - Calf tenderness Assessment and plan: Acute hypoxic respiratory failure - likely 2/2 fluid overload - likely 2/2 CHF, possibly R sided or diastolic dysfunction / ESRD on HD - Initially, patient was saturating at 84% on room air. Was requiring supplemental oxygen via nasal cannula at 2 L - Has been titrated down to room air, however, is still hypoxic upon ambulation - No significant crackles on auscultation - BNP was elevated - CT Chest 06/26: Chronic fibrosis and bronchiectasis, right more so than left. There are superimposed interstitial and ground glass alveolar infiltrates, right greater than left with a small right effusion. Findings suggest asymmetric pulmonary edema. There is cardiomegaly. There is mild mediastinal adenopathy. - CXR 06/29: Stable exam. - ECHO 06/29: EF equals 65%, unable to assess LV diastolic function, severe, LA dilation, moderate elevation of RVSP, normally functioning mitral valve bioprosthesis - Nephrology on consultation Leukocytosis - possibly 2/2 possibly 2/2 URTI, less likely 2/2 PNA, possibly 2/2 intra-abdominal source - Remains afebrile - Blood cultures 07/01: Negative at 24 hours; Respiratory panel 07/01: Negative - Sputum culture 07/01: E. Coli / Enterobacter Cloacae - CT chest 07/01: No new pulmonary parenchymal consolidation. - CT ab/pelvis 07/02: No acute intra-abdominal or pelvic abnormality. Large ventral hernia containing unobstructed small bowel loops. Right lower quadrant ileostomy. Extensive vascular calcification. Diffuse interstitial pulmonary fibrosis. Bilateral renal atrophy. Multiple osteoporotic wedge compression deformities in the thoracic and lumbar spine. - c/w Cefdinir (Day #2) Chronic hypotension - c/w Midodrine Gout - c/w Uloric MARK - c/w Iron supplementation and Aranesp as per Nephrology Atrial fibrillation - c/w Rate / rhythm control with Diltiazem - INR therapeutic - c/w Warfarin - continue with current dose Pain - possibly 2/2 osteoarthritis - XR hip 06/29: Left hip osteoarthritis. Vascular calcification and diffuse osteopenia are also noted. - c/w Gabapentin - c/w Fentanyl patch - CT femur 07/01: Left hip osteoarthritis. Diffuse osteopenia. Extensive vascular calcification. Left knee arthroplasty. No acute abnormality seen. - Discussed with family about other imaging modalities; they have indicated that they would not like to pursue surgery if it was required; at this point - c/w PT and will have outpatient f/u with orthopedic surgery; GI prophylaxis - c/w Protonix DVT prophylaxis - c/w full anticoagulation with Coumadin VS,[place], I+O VS, [place], I+O Laboratory Tests 07/04/18 05:55 Red Blood Count 3.09 L, Mean Corpuscular Volume 99.7 H, Mean Corpuscular Hemoglobin 33.0, Mean Corpuscular Hemoglobin Concent 33.1, Red Cell Distribution Width 15.9 H, Calcium Level 9.3 Vital Signs Date Time Temp Pulse Resp B/P (MAP) Pulse Ox O2 Delivery O2 Flow Rate FiO2 07/04/18 12:19 76 105/42 07/04/18 06:00 98.5 17 92 06/30/18 13:00 3.0 I&O- Last 24 Hours up to 6 AM 07/04/18 06:00 Intake Total 1820 ml Output Total 0 ml Balance 1820 ml DARLINE ESPINOSA MD Jul 04, 2018 12:29
--- NOTE | 2018-07-04 13:02 | MHIPN ---
DATE: 07/04/2018 Mrs. Carranza is seen this morning during hemodialysis. She is still not feeling very well and continues to have pain in her left leg. She reports that sometimes this pain is in the ankle, sometime in the hip and sometimes in the knee. Right now she has complaint of pain in her left knee but no pain in her left hip. She also has problems with her colostomy bag breaking open. She denies any abdominal pain. PHYSICAL EXAMINATION: Temperature 98.5 degrees Fahrenheit, heart rate 70 per minute and respiratory rate 18 per minute. Blood pressure 98/54 mmHg and oxygen saturation 92% on room air. Her head is atraumatic. Neck is supple and jugular venous distention (JVD) is minimally elevated. She has no oral thrush or ulcers. Heart sounds are irregular in rhythm and lungs have diminished breath sounds at lower half. Abdomen is soft with tenderness. Colostomy is functioning. Bowel sounds are normal. Extremities have no cyanosis or clubbing. Neurologically she is at her baseline mentation. Today's labs show WBC count 14.6, hemoglobin 10.2 and hematocrit 30.8. Platelets 222. Sodium 130, potassium 5.0, CO2 21, BUN 46 and creatinine 5.79. PROBLEM #1: End-stage renal disease. Mrs. Carranza is being dialyzed this morning, and she is tolerating her dialysis treatment very well. She had low BP earlier but seems to be doing well now. PROBLEM #2: Congestive heart failure. Her volume status seems clinically well compensated, and we are trying to remove about 1.5 liters of fluid as tolerated. PROBLEM #3: Leukocytosis and pain. Etiology is uncertain at this point. She is being treated with cefdinir, and we will continue to monitor closely. Her C-reactive protein went up from 8.78 two days ago to 16.5 today. There is no obvious source of infection and she remains on cefdinir. PROBLEM #4: Anemia. At present, her anemia is stable, and we will continue to monitor closely and treat with Aranesp as needed. PROBLEM #5: Atrial fibrillation. She remains on her beta randall therapy along with Coumadin. No changes are being made today. [facility]
[2018-07-04 14:00] VITALS: BP 104/44
[2018-07-04] MEDS ORDERED: CEFDINIR 300 MG CAP (OMNICEF) PO SCH (16:00)
[2018-07-04] MEDS ORDERED: **CEFDINIR AFTER HD** MISC XX SCH (16:00)
[2018-07-04] MEDS: WARFARIN SOD 3 MG TAB PO SCH (16:35)
[2018-07-04] MEDS ORDERED: DOCUSATE SODIUM 100 MG CAP PO ONE (20:30)
[2018-07-04] MEDS: CEFDINIR 300 MG CAP (OMNICEF) PO SCH (20:52)
[2018-07-04 22:00] VITALS: BP 105/52
[2018-07-05] MEDS: ACETAMINOPHEN TAB 650MG DOSE (2X325MG) PO PRN ×5 (00:52→20:09)
[2018-07-05 06:00] VITALS: BP 104/54
[2018-07-05 06:28] LABS: HEMATOCRIT 31.6 % (36.0-47.0); HEMOGLOBIN 10.4 g/dl (12.0-15.5); MEAN CORPUSCULAR HEMOGLOBIN 31.9 pg (27.0-33.0); MEAN CORPUSCULAR HGB CONC 32.9 g/dl (32.0-36.5); MEAN CORPUSCULAR VOLUME 96.9 fl (80.0-96.0); PLATELET COUNT, AUTOMATED 234 10^3/uL (150-450); RED BLOOD COUNT 3.26 10^6/uL (4.00-5.40)
[2018-07-05 06:40] LABS: INR 2.21
[2018-07-05 06:46] LABS: C REACTIVE PROTEIN QUANTITATIV 16.4 MG/DL (0.00-0.30); CALCIUM LEVEL 9.2 MG/DL (8.8-10.2); CREATININE FOR GFR 4.78 MG/DL (0.55-1.30); GLOMERULAR FILTRATION RATE 9.2 (>32); POTASSIUM SERUM 4.4 MEQ/L (3.5-5.1)
[2018-07-05] MEDS: PANTOPRAZOLE 40MG TAB (PROTONIX) PO SCH ×2 (08:38→20:09)
[2018-07-05] MEDS: MAGNESIUM OXIDE 400 MG TAB (MAG-OX) PO SCH ×2 (08:38→20:09)
[2018-07-05] MEDS: MIDODRINE 5 MG TAB PO SCH ×3 (08:38→16:43)
[2018-07-05] MEDS: GABAPENTIN 300 MG CAP PO SCH ×2 (08:39→20:09)
[2018-07-05] MEDS: BETAMETHASONE DIP 0.05% OINT 15 GM TOP SCH (08:39)
[2018-07-05] MEDS: FEBUXOSTAT 40 MG TABLET (ULORIC) PO SCH (08:39)
[2018-07-05] MEDS: fentaNYL 12 MCG/HR PATCH TOP SCH (08:40)
--- NOTE | 2018-07-05 09:41 | IPNPDOC ---
Text Note Date of Service The patient was seen on 07/05/18. 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 fib (on Warfarin), PM, s/p MVR. Patient was being treated for pneumonia as an outpatient. However, was transferred to [facility] where she was found to have evidence of fluid overload. Hospital service was called for further evaluation and treatment. Patient was seen and examined at the bedside. Notes that she still expresses some left leg pain. She denies any significant abdominal pain this morning, has continued to have output from her ostomy. Denies any nausea, vomiting. Denies chest pain or palpitations. Notes that her breathing is doing generally better. Notes that her cough is still present, but slightly improved Objective: Vitals (See below) General: Lying in bed, no acute distress, comfortable, AAOx3 HEENT: NC, AT CVS: RRR, +S1S2 Lungs: There does not appear to be auscultated evidence of rhonchi or wheezing, however there are still some crackles that can be appreciated bilaterally Abdomen: Soft,+ Ostomy, no distention, mild tenderness diffusely Extremities: No appreciable edema, - Calf tenderness Assessment and plan: Shortness of breath - likely 2/2 fluid overload - likely 2/2 CHF, possibly R sided or diastolic dysfunction / ESRD on HD - Patient has noted improvement in her breathing - No significant crackles on auscultation - BNP was elevated - CT Chest 06/26: Chronic fibrosis and bronchiectasis, right more so than left. There are superimposed interstitial and ground glass alveolar infiltrates, right greater than left with a small right effusion. Findings suggest asymmetric pulmonary edema. There is cardiomegaly. There is mild mediastinal adenopathy. - CXR 06/29: Stable exam. - ECHO 06/29: EF equals 65%, unable to assess LV diastolic function, severe, LA dilation, moderate elevation of RVSP, normally functioning mitral valve bioprosthesis - Nephrology on consultation Leukocytosis - possibly 2/2 possibly 2/2 URTI, less likely 2/2 PNA, possibly 2/2 intra-abdominal source - Has been improving - Remains afebrile - Blood cultures 07/01: Negative at 72 hours; Respiratory panel 07/01: Negative - Sputum culture 07/01: E. Coli / Enterobacter Cloacae - CT chest 07/01: No new pulmonary parenchymal consolidation. - CT ab/pelvis 07/02: No acute intra-abdominal or pelvic abnormality. Large ventral hernia containing unobstructed small bowel loops. Right lower quadrant ileostomy. Extensive vascular calcification. Diffuse interstitial pulmonary fibrosis. Bilateral renal atrophy. Multiple osteoporotic wedge compression deformities in the thoracic and lumbar spine. - c/w Cefdinir (Day #3) Chronic hypotension - c/w Midodrine Gout - c/w Uloric MARK - c/w Iron supplementation and Aranesp as per Nephrology Atrial fibrillation - c/w Rate / rhythm control with Diltiazem - INR therapeutic - c/w Warfarin - continue with current dose Pain - possibly 2/2 osteoarthritis - XR hip 06/29: Left hip osteoarthritis. Vascular calcification and diffuse osteopenia are also noted. - c/w Gabapentin - c/w Fentanyl patch - CT femur 07/01: Left hip osteoarthritis. Diffuse osteopenia. Extensive vascular calcification. Left knee arthroplasty. No acute abnormality seen. - Discussed with family about other imaging modalities; they have indicated that they would not like to pursue surgery if it was required; at this point - c/w PT and will have outpatient f/u with orthopedic surgery - Will discuss with nephrology about considering CT lumbar spine with contrast predialysis; however, will require premedication given contrast allergy that induces hives GI prophylaxis - c/w Protonix DVT prophylaxis - c/w full anticoagulation with Coumadin Disposition: - Will be working with physical therapy [place] [facility], I+O [place] [facility] I+O Laboratory Tests 07/05/18 05:58 Red Blood Count 3.26 L, Mean Corpuscular Volume 96.9 H, Mean Corpuscular Hemoglobin 31.9, Mean Corpuscular Hemoglobin Concent 32.9, Red Cell Distribution Width 15.9 H, Calcium Level 9.2 Vital Signs Date Time Temp Pulse Resp B/P (MAP) Pulse Ox O2 Delivery O2 Flow Rate FiO2 07/05/18 09:10 16 07/05/18 08:38 68 104/54 07/05/18 06:00 97.3 95 06/30/18 13:00 3.0 I&O- Last 24 Hours up to 6 AM 07/05/18 06:00 Intake Total 1660 ml Output Total 1000 ml Balance 660 ml DARLINE ESPINOSA MD Jul 05, 2018 09:41
[2018-07-05 14:00] VITALS: BP 108/52
--- NOTE | 2018-07-05 14:13 | IPN ---
DATE OF VISIT: 07/05/2018 Mrs. Carranza is seen this afternoon on her bedside. Her son and [id number] are present in the room. Patient and her family are very concerned about pain in her left lower extremity. She denies any dyspnea, chest pain, nausea, or vomiting. She did have hemodialysis yesterday which she tolerated well. PHYSICAL EXAM: Temperature 97.3 degrees Fahrenheit, heart rate 68 per minute, and respiratory rate 16 per minute. Blood pressure 104/54 mmHg, and oxygen saturation 95% on room air. Head: Is atraumatic. Neck is supple and without jugular venous distention or thyroid enlargement. She has no oral thrush or ulcers. Heart: Sounds are irregular in rhythm. Lungs: Sound clear to auscultation. Abdomen is soft and nontender, and bowel sounds are normal. Extremities have no cyanosis or clubbing. Neurologically, she is awake, alert, and at baseline mentation. Today's labs show WBC count 13.0, hemoglobin 10.4, and hematocrit 31.6. Platelets 234. C-reactive protein is still 16.40 today. Sodium is 134, potassium 4.4, CO2 25, BUN 39, and creatinine 4.78. Calcium level 9.2. PROBLEMS: 1. End-stage renal disease. The patient was dialyzed yesterday and her next dialysis will be scheduled for Friday. 2. Congestive heart failure. Volume status is very well compensated and she can wait for next dialysis until Friday. 3. Anemia. Her anemia is stable and we will continue to monitor closely. This will be managed with dialysis. She is receiving Aranesp 100 mcg once a week which will be continued. 4. Left leg pain, etiology remains uncertain. She does have a leukocytosis and elevated C-reactive protein. There is no clinical evidence of infection in her hip or knee joint so far. I have requested Dr. Yung to see her for infectious disease evaluation as patient does have positive sputum culture for Escherichia (E) coli and Enterobacter, persistently elevated C-reactive protein, and leukocytosis. 5. Atrial fibrillation. She remains on Coumadin and INR is therapeutic.
--- NOTE | 2018-07-05 16:23 | CR.PDOC ---
General Date of Consultation: Jul 05, 2018 Attending Physician: PHILLIP ALLISON MD Consultation REASON FOR CONSULTATION/CHIEF COMPLAINT: L hip pain. HISTORY OF PRESENT ILLNESS: Patient is an 83 y/o female with ESRD on dialysis, pacemaker, and other medical comorbidities with a 3 week history of worsening left hip pain. She denies a fall, or any other traumatic mechanism. She was seen by her qa automation architect who obtained a chest xray and sent her to the hospital here for treatment of pneumonia. She has has + E. Coli sputum cultures and it being treated for this. Patient was admitted to the hospital 9 days ago. She was given outpatient follow up but primary team concerned for continued hip pain and consulted orthopedics for inpatient management of her hip pain. Patient states that when at home she was using a wheelchair secondary to her hip pain, but while in the hospital has been ambulating with a walker. She described mostly lateral sided hip pain that occasionally radiates laterally down the leg. She denies any associated back pain. Denies burning, tingling, or numbness distally in the left lower extremity. ALLERGIES: Please see below. HOME MEDICATIONS: Please see below. PMH: 1. ESRD on dialysis 2. Osteoporosis 3. Breast CA 4. Hypertension 5. Prior history of C diff toxic megacolon PSH: 1. Mitral valve replacement 2. Pacemaker 3. Left total knee arthroplasty 4. Breast lumpectomy 5. Bowel resection 6. Hernia repair Social history: Lives independently. Former smoker. Denies alcohol use Family history: non contributory REVIEW OF SYSTEMS: CONSTITUTIONAL: No fevers, chills. CARDIOVASCULAR: NO recent chest pain or palpitations. RESPIRATORY: + SOB and cough. GENITOURINARY: No urinary retention or incontinence. MUSCULOSKELETAL: + L hip pain per HPI. GASTROINTESTINAL: No recent nausea or vomiting. PHYSICAL EXAMINATION: VITAL SIGNS: Please see below. GENERAL APPEARANCE: Well nourished female, appears stated age, no acute distres. HEENT: Normocephalic, atraumatic. RESPIRATORY: Non labored breathing. CARDIOVASCULAR: 1+ DP, PT pulses, BCR all digits LLE. EXTREMITIES: Focused exam of the left hip demonstrates no open wounds or abrasions. There is no pain with logroll. No pain with axial load of the hip. Patient able to perform resisted SLR with no significant increase in pain. 5/5 motor strength in hip flexion, abduction, knee flexion/extension, ankle plantarflexion/dorsiflexion. There is maximal tenderness at the greater trochanteric bursa. Mild anterior hip tenderness. No tenderness along IT band. NEUROLOGICAL: Sensation and motor intact in LLE femoral, tibial, sural, saphenous, SPN, DPN distributions. LABORATORY DATA: Please see below. Radiographs: Plain radiographs and CT scan of the left hip demonstrate evidence of left hip osteoarthritis with joint space narrowing, osteophyte formation, and subchondral sclerosis. No evidence of occult hip fracture, joint effusion, or other acute bone or joint pathology ASSESSMENT: 83 y/o female with the above comorbidities with left hip pain from underlying osteoarthritis and some greater trochanteric bursitis PLAN: I discussed with the patient the nature of her findings. There is no clinical evidence of infection to the hip joint given her relatively benign exam. Therefore, it would likely be of very low yield to pursue a guided hip aspiration. Given that she has been ambulating with physical therapy, I advise her to continue to do so. I spoke with the hospitalist Dr. Polanco, and recommended renally dosed tramadol for pain if possible for systemic pain control. She has an established follow up appointment in the [facility] office within the next week, which she was encouraged to keep. Recommend continued conservative management of hip osteoarthritis. A greater trochanteric bursa corticosteroid injection may also be considered in the office setting if not contraindicated. Given her significant medical comorbidities, she is probably not a suitable candidate for total hip arthroplasty. Patient expressed understanding with this and all questions were answered. Vital Signs/I&O Vital Signs Date Time Temp Pulse Resp B/P (MAP) Pulse Ox O2 Delivery O2 Flow Rate FiO2 07/05/18 14:00 97.3 70 19 108/52 (70) 97 06/30/18 13:00 3.0 I&O- Last 24 Hours up to 6 AM 07/05/18 06:00 Intake Total 1660 ml Output Total 1000 ml Balance 660 ml Laboratory Data Labs 24H Laboratory Tests 2 07/05/18 05:58: Nucleated Red Blood Cells % (auto) 0.0, Prothrombin Time 25.0H, Prothromb Time International Ratio 2.21, Anion Gap 10, Glomerular Filtration Rate 9.2L, Blood Urea Nitrogen 39H, Creatinine 4.78H, Sodium Level 132L, Potassium Level 4.4, Chloride Level 97L, Carbon Dioxide Level 25, Calcium Level 9.2, C-Reactive Protein, Quantitative 16.40H CBC/BMP Laboratory Tests 07/05/18 05:58 Red Blood Count 3.26 L, Mean Corpuscular Volume 96.9 H, Mean Corpuscular He moglobin 31.9, Mean Corpuscular Hemoglobin Concent 32.9, Red Cell Distribution Width 15.9 H, Calcium Level 9.2 Microbiology Microbiology 07/01/18 Blood Culture - Preliminary, Resulted No Growth after 72 hours. All specime... 07/01/18 Blood Culture - Preliminary, Resulted No Growth after 72 hours. All specime... 07/05/18 MRSA Screen, Received Pending 07/01/18 Respiratory Virus Panel (PCR) (JORDY) - Final, Complete 07/01/18 Gram Stain - Final, Complete 07/01/18 Sputum Culture - Final, Complete Escherichia Coli Enterobacter Cloacae Complex Allergies Coded Allergies: Contrast Media (Verified Allergy, Intermediate, RADIOACTIVE DYE-ITCHING, 12/11/16) NSAIDS (Non-Steroidal Anti-Inflamma (Verified Adverse Reaction, Unknown, Pt was told not to take, 07/01/18) Home Medications Scheduled (Co Q-10) 200 Mg Cap, 200 MG PO DAILY, (Reported) (Renal-Santa 0.8 mg) 1 Tab Tab, 1 TAB PO DAILY, (Reported) (Prolia) 60 Mg/Ml Fouzia, 60 MG SC [id number], (Reported) TAKES EVERY 6 MONTHS; STATES LAST INJECTION WAS IN (Calcium 500+D 500-200 mg-Unit) 1 Tab Tab, 1 TAB PO BID, (Reported) Cephalexin Monohydrate (Cephalexin) 500 Mg Cap, 500 MG PO QID, (Reported) Diltiazem HCl (Diltiazem HCl) 30 Mg Tab, 30 MG PO BID, (Reported) Febuxostat (Uloric) 40 Mg Tab, 40 MG PO DAILY, (Reported) Fentanyl (Fentanyl) 12 Mcg/Hr Dis, 12 MCG TOP Q3RD, (Reported) APPLIED PATCH TO LEFT HIP Friday Gabapentin (Gabapentin) 300 Mg Cap, 300 MG PO BID, (Reported) Magnesium Oxide (Magnesium Oxide) 400 Mg Tab, 400 MG PO BID, (Reported) Midodrine HCl (Midodrine HCl) 10 Mg Tab, 10 MG PO TID, (Reported) Pantoprazole Sodium (Pantoprazole Sodium) 40 Mg Tab, 40 MG PO BID, (Reported) Warfarin Sod (Warfarin Sodium) 2 Mg Tab, 2 MG PO 6XWK, (Reported) TAKES FRIDAY THROUGH FRIDAY AT [facility] Warfarin Sod (Warfarin Sodium) 2 Mg Tab, 4 MG PO 1XWK, (Reported) TAKES ON FRIDAY NIGHTS Scheduled PRN Acetaminophen (Acetaminophen Extra Stren) 500 Mg Tab, 500 MG PO Q4H PRN for PAIN, (Reported) Melatonin (Melatonin) 3 Mg Tab, 3 MG PO [facility] PRN for INSOMNIA, (Reported) PHILLIP ALLISON MD Jul 05, 2018 16:23
[2018-07-05] MEDS: WARFARIN SOD 3 MG TAB PO SCH (16:43)
[2018-07-05] MEDS: CEFDINIR 300 MG CAP (OMNICEF) PO SCH (20:08)
[2018-07-05 22:00] VITALS: BP 133/47
[2018-07-06] MEDS: ACETAMINOPHEN TAB 650MG DOSE (2X325MG) PO PRN ×5 (02:37→21:00)
[2018-07-06 06:00] VITALS: BP 104/51
[2018-07-06 06:28] LABS: HEMATOCRIT 31.3 % (36.0-47.0); HEMOGLOBIN 10.1 g/dl (12.0-15.5); MEAN CORPUSCULAR HEMOGLOBIN 31.9 pg (27.0-33.0); MEAN CORPUSCULAR HGB CONC 32.3 g/dl (32.0-36.5); MEAN CORPUSCULAR VOLUME 98.7 fl (80.0-96.0); PLATELET COUNT, AUTOMATED 252 10^3/uL (150-450); RED BLOOD COUNT 3.17 10^6/uL (4.00-5.40); WHITE BLOOD COUNT 13.3 10^3/uL (4.0-10.0)
[2018-07-06 06:45] LABS: INR 2.85; PROTHROMBIN TIME 30.5 SECONDS (12.1-14.4)
[2018-07-06 06:48] LABS: CALCIUM LEVEL 8.9 MG/DL (8.8-10.2); CREATININE FOR GFR 6.52 MG/DL (0.55-1.30); GLOMERULAR FILTRATION RATE 6.4 (>32)
[2018-07-06 07:17] LABS: C REACTIVE PROTEIN QUANTITATIV 13.2 MG/DL (0.00-0.30)
[2018-07-06] MEDS: GABAPENTIN 300 MG CAP PO SCH ×2 (08:28→21:01)
[2018-07-06] MEDS: MAGNESIUM OXIDE 400 MG TAB (MAG-OX) PO SCH ×2 (08:29→21:01)
[2018-07-06] MEDS: MIDODRINE 5 MG TAB PO SCH ×3 (08:29→17:12)
[2018-07-06] MEDS: FEBUXOSTAT 40 MG TABLET (ULORIC) PO SCH (08:29)
[2018-07-06] MEDS: PANTOPRAZOLE 40MG TAB (PROTONIX) PO SCH ×2 (08:29→21:01)
[2018-07-06] MEDS: BETAMETHASONE DIP 0.05% OINT 15 GM TOP SCH (11:31)
[2018-07-06 14:00] VITALS: BP 123/58
[2018-07-06] MEDS: WARFARIN SOD 3 MG TAB PO SCH (17:12)
[2018-07-06] MEDS: CEFDINIR 300 MG CAP (OMNICEF) PO SCH (21:01)
[2018-07-06 22:00] VITALS: BP 118/58
[2018-07-07] MEDS: ACETAMINOPHEN TAB 650MG DOSE (2X325MG) PO PRN ×4 (02:00→21:35)
[2018-07-07 06:00] VITALS: BP 141/59
[2018-07-07] MEDS: MIDODRINE 5 MG TAB PO SCH ×3 (06:22→17:06)
[2018-07-07] MEDS: GABAPENTIN 300 MG CAP PO SCH ×2 (06:22→21:35)
[2018-07-07] MEDS: FEBUXOSTAT 40 MG TABLET (ULORIC) PO SCH (06:22)
[2018-07-07] MEDS: MAGNESIUM OXIDE 400 MG TAB (MAG-OX) PO SCH ×2 (06:22→21:36)
[2018-07-07] MEDS: PANTOPRAZOLE 40MG TAB (PROTONIX) PO SCH ×2 (06:22→21:36)
[2018-07-07] MEDS: BETAMETHASONE DIP 0.05% OINT 15 GM TOP SCH (06:23)
[2018-07-07 06:35] LABS: HEMATOCRIT 30.9 % (36.0-47.0); HEMOGLOBIN 10.2 g/dl (12.0-15.5); MEAN CORPUSCULAR HEMOGLOBIN 32.9 pg (27.0-33.0); MEAN CORPUSCULAR VOLUME 99.7 fl (80.0-96.0); PLATELET COUNT, AUTOMATED 273 10^3/uL (150-450); WHITE BLOOD COUNT 14.1 10^3/uL (4.0-10.0)
[2018-07-07 06:45] LABS: INR 4.26
[2018-07-07 07:03] LABS: CREATININE FOR GFR 8.37 MG/DL (0.55-1.30); GLOMERULAR FILTRATION RATE 4.8 (>32); POTASSIUM SERUM 5.3 MEQ/L (3.5-5.1)
--- NOTE | 2018-07-07 09:27 | IPN ---
DATE: 07/06/2018 Mrs. Carranza is seen this morning on her bedside. She continues to have pain in her left hip but denies any other complaints. She has no dyspnea, chest pain, nausea, vomiting, fever or chills. PHYSICAL EXAMINATION: Temperature 97.3 degrees Fahrenheit, heart rate 69 per minute and respiratory rate 16 per minute. Blood pressure 136/60 mmHg and oxygen saturation 96% on room air. Head is atraumatic. Neck is supple and without jugular venous distention (JVD) or thyroid enlargement. Heart sounds are irregular in rhythm. Lungs have chronic bilateral crepitations. Abdomen is soft and nontender. Bowel sounds are normal. Extremities have no cyanosis or clubbing. Neurologically, she is awake, alert and oriented times three. LABORATORY DATA: Today's laboratories show WBC count 13.3, hemoglobin 10.1 and hematocrit 31.3. Sodium 132, potassium 5.0, CO2 24, BUN 54 and creatinine 6.52. C-reactive protein is down to 13.2. PROBLEMS: 1. End-stage renal disease. The patient is regularly dialyzed on Friday, and Friday schedule. Her last dialysis was done on Friday and will be scheduled for next dialysis tomorrow. There is no emergent indication for dialysis today. 2. Anemia. Her anemia is stable and does not need any intervention at this point. 3. Congestive heart failure and atrial fibrillation. Volume status is well-compensated and her international normalized ratio (INR) is 2.85 which is appropriate. We will continue to manage her congestive heart failure with dialysis. 4. Hyponatremia. There is mild chronic hyponatremia which is essentially unchanged and does not need any urgent intervention. 5. Left hip pain. She has been seen by orthopedics and felt to have intertrochanteric bursitis. She is scheduled for a steroid injection as an outpatient on Friday. At this point, her pain is being managed by hospitalist service.
--- NOTE | 2018-07-07 09:50 | IPN ---
DATE OF SERVICE: 07/06/2018 Mrs. Carranza seems to be doing better. She states her hip pain has improved. She does not have the shooting pain all the way down to the ankle. She still has some pain along the trochanteric bursa. No fever or chills. Shortness of breath has decreased. She does not complain much of a cough. Temperature is 97.7, pulse 75, respirations 18, blood pressure 118/58, oxygen (O2) saturation 94% on room air. Heart: Normal S1, S2 with a systolic ejection murmur 2/6. Lungs: Diminished breath sounds at the bases but clear. No wheezes, rales, or rhonchi. Crackles [facility] down and dry consistent with pulmonary fibrosis. Abdomen: Soft. Mildly tender in the right lower quadrant where she has an ileostomy. Extremities: No edema. Ecchymosis of the left big toe. IMPRESSION: 1. Left hip pain with sciatica. This is not infectious in etiology. She may have a component also of trochanteric bursitis. She has an elevated erythrocyte sedimentation rate (ESR) and C-reactive protein (CRP) but doubt these are infectious at this point. 2. Congestive heart failure with fluid overload, doing better. I do not think the patient has bronchitis. She had an elevated brain natriuretic peptide (BNP) and fluid overload that is now well compensated. 3. Escherichia (E.) coli and Enterobacter few in sputum culture done on 07/01/2018. CT chest showed no new pulmonary parenchymal consolidation. LABORATORIES: White count 13.3, hemoglobin 10.1, hematocrit 31.3, platelets 252. Sodium 132, potassium 5, chloride 98, bicarbonate 24, BUN 54, creatinine 6.52, glucose 95, calcium 8.9, CRP down to 13.2 from 16.5. PLAN: Continue managing hip pain with conservative management, heating pad, gabapentin, and pain medication. She may benefit from a steroid injection to the trochanteric bursa as an outpatient. At this point, I do not think cefdinir is needed. There was few white cells and very few (dictation cut off). The patient (dictation cut off) and, therefore, would be expected to be colonized with healthcare-associated pathogens. Will wait for procalcitonin tomorrow. If elevated suggestive of bacterial infection, will continue with cefdinir. Otherwise, will consider discontinuing antibiotics.
--- NOTE | 2018-07-07 10:07 | CR ---
DATE OF CONSULTATION: 07/05/2018 Asked to consult by Dr. Polanco and Dr. Corbett for evaluation of hip pain with elevated sed rate and CRP. HISTORY OF PRESENT ILLNESS: Mrs. Carranza is a pleasant 83-year-old female who was admitted on June 26 with complains of increasing shortness of breath and pain in her left hip that radiated to her knee and at times to her ankles. The patient usually at baseline is able to ambulate with a walker without significant pain. She was seen at Dr. Graf's office with complaint of hip pain and shortness of breath. She had a chest x-ray done as an outpatient which was suggestive of pneumonia and therefore she was told to go to the hospital at [facility] to be admitted. Chest x-ray at [facility] and CT were suggestive of pulmonary edema, but no obvious pneumonia. The patient had minimal cough. No fever, chills, or chest pain. No nausea, vomiting or diarrhea. Her major concern today is the fact that she was having severe hip pain, very positional,radiating to the thigh and the ankle at times, but relieved with positional changes. PAST MEDICAL HISTORY: End-stage renal disease on hemodialysis, hypertension, osteoporosis, breast cancer status post lumpectomy and radiation in 2008, AV fistula for dialysis, history of coronary artery disease, coronary artery bypass graft (CABG) following which had C difficile colitis which required colectomy, atrial fibrillation on warfarin, permanent pacemaker. PAST SURGICAL HISTORY: Mitral valve replacement, coronary artery bypass graft (CABG), AV fistula, incision periostomy hernia, left total knee replacement. FAMILY HISTORY: Unrevealing. SOCIAL HISTORY: She lives alone. She has a new car she drives. She quit smoking over 30 years ago. Does not use alcohol. She has a very supportive son who is at the bedside. LABS: White count is 13, hemoglobin 10.4, hematocrit 31.6, platelets 234, white count has increased over the past 8 days from 10 to 17. Hemoglobin 10.4, hematocrit 31.6, platelets 234. ESR 76. Sodium 132, potassium 4.4, chloride 97, bicarb 25, BUN 39, creatinine 4.78, glucose 82, calcium 9.2, CRP 16.4 which has increased from 8.8. Blood cultures two sets were negative on 07/01. Respiratory panel was negative. Sputum culture had few E-coli, a few Enterobacter cloacae, was susceptible to third generation cephalosporin. Gram stain on that sputum had a few white cells, few epithelial cells. IMAGING STUDIES: Extremity CT done on 07/02 without contrast showed left hip arthritis and left knee arthroplasty. No evidence of infection, extensive vascular calcification. CT of abdomen and pelvis done on 07/02 showed no acute intra-abdominal pathology, large ventral hernia, right lower quadrant ileostomy and extensive vascular calcification diffuse interstitial pulmonary fibrosis and bilateral renal atrophy. On physical exam she is a healthy-looking elderly female in no acute distress. Temperature is 97.3, pulse 70, respirations 19, blood pressure 108/52, O2 sat 97% on room air. Heart: Normal S1-S2 with a faint systolic ejection murmur appreciated at the left upper sternal border. Lungs: Crackles care home up bilaterally, dry, suggestive of fibrosis. No wheezing or rhonchi. Abdomen: Soft, nontender. No hepatosplenomegaly. Right ileostomy. Left sided hernia repair around the ileostomy. Back: No CVA or lumbosacral tenderness. Extremities: No clubbing, cyanosis or edema. No calf tenderness. Oropharynx is clear with no lesions. Musculoskeletal exam: She has bilateral sacroiliac tenderness. A left trochanteric bursitis with tenderness. Range of motion of left knee and left hip are great. She has no limited range of motion. No redness. No pain with movement. Motor strength is normal. IMPRESSION: This is an 83-year-old female who was admitted with sounds like congestive heart failure suggested by CT chest. She had a sputum culture that had two E-coli and a few Enterobacter, I suspect these are more colonization with hospital-acquired pathogen as she is dialysis dependent. I do not suspect this is pneumonia. Her chest CT was done on 06/26 showed chronic fibrosis and bronchiectasis with superimposed interstitial alveolar infiltrates, right greater than left suggestive of atypical pulmonary edema. Her hip pain and leg pain are suggestive of sciatica on clinical exam. She also has trochanteric bursitis and may benefit from a steroid injection of her trochanteric bursa. PLAN: Medication cefdinir 300 mg by mouth at bedtime, warfarin 3 mg daily, Diprosone topically, fentanyl patch 12 mcg topically every 72 hours, iron 100 mg IV with dialysis, Aranesp 100 mcg IV with dialysis, midodrine 10 mg by mouth three times a day, Cardizem 30 mg twice a day, gabapentin 300 mg by mouth twice a day, Protonix 40 mg by mouth twice a day, Tylenol as needed, Zofran as needed. ALLERGIES: CONTRAST MEDIA and NSAIDS. IMPRESSION AND PLAN: We will order procalcitonin level to see if the patient has a elevated procalcitonin suggestive of bacterial infection. If pain continues and there is a concern for bacterial infection could obtain a bone scan to rule out mass or infection but my suspicion is low. Continue to monitor CBC, CRP. MTDD
[2018-07-07] MEDS ORDERED: LIDOCAINE 1% SDV 5 ML VIAL SQ ONE (11:45)
[2018-07-07] MEDS ORDERED: HEPARIN 1,000 UNITS/ML 10ML VIAL (FOR RADIOLOGY& DIALYSIS ONLY) IV ONE (11:45)
[2018-07-07] MEDS: CALCIUM/VITAMIN D 500 MG TAB PO SCH (12:39)
--- NOTE | 2018-07-07 13:31 | IPN ---
DATE: 07/06/2018 The patient was examined at bedside. No new complaints. No issues overnight. She continues to have left hip pain, but is otherwise feeling better with her breathing. She states that her ostomy bag opened up this morning but is now replaced with a new bag. Otherwise, no other complaints. Breathing is getting better. OBJECTIVE: Temperature 97.3, pulse 69, respirations 16, blood pressure 104/51, mean arterial pressure of 68, pulse oximetry 96%. GENERAL: Lying in bed. No acute distress. Comfortable. Alert and oriented times three. Fully conversant. HEENT: Normocephalic, atraumatic. Anicteric sclerae. CARDIAC: Irregular rhythm. Chronic atrial fibrillation. Rate controlled. 2/6 systolic murmur with radiation to the carotids. LUNGS: No wheezing or rhonchi. Mild bibasilar rales. Equal chest rise bilaterally. Able to speak in full sentences. ABDOMEN: Soft, nontender, nondistended. Positive bowel sounds. Ostomy bag. EXTREMITIES: No edema. Negative calf tenderness. MUSCULOSKELETAL: Able to move all extremities. Has left hip tenderness to palpation and 1+ dorsalis pedis pulses bilaterally. LABORATORIES: WBC 13.3, hemoglobin and hematocrit 10.1 and 31.3, platelets 252, INR 2.85. Sodium 132, potassium 5, BUN and creatinine 54 and 6.52, C-reactive protein 13.2. Microbiology: Sputum with Escherichia (E) coli and Enterobacter cloacae. No new imaging. ASSESSMENT AND PLAN: 1. Dyspnea. Likely secondary to fluid overload from decompensated congestive heart failure (CHF) plus possible upper respiratory tract infection. The patient's respiratory status is improving. We will continue dialysis. C- reactive protein continues to trend down. Continue antibiotics for positive sputum culture, as well as hemodialysis and fluid removal. Of note, most recent echo on this admission does reveal moderate concentric left ventricle hypertrophy and ejection fraction of 65%. Unable to assess diastolic function. There is severe left atrial dilatation. There is moderate elevation in the right ventricle systolic pressure. Normally functioning mitral valve bioprosthesis without any stenosis or regurgitation. There is moderate aortic valve sclerosis, mild tricuspid regurgitation. Pro calcitonin is pending. If it is negative, we will consider stopping her Cefdinir. If positive, continue for 5 to 7 days. 2. Osteoarthritis with left hip pain. Osteoarthritis is noted on imaging. Orthopedics has been consulted, who believe this is also secondary to underlying osteoarthritis and possibly some greater trochanteric bursitis. Per their recommendations, we will continue with physical therapy (PT) and pain control and possible outpatient steroid injection. Will require outpatient followup. The patient has been updated regarding findings and plan of care. All questions answered. She is on fentanyl patch with adequate pain control and gabapentin. She is scheduled for outpatient followup with orthopedics this Friday on 07/10/2018. 3. Leukocytosis, likely secondary to her upper respiratory tract infection. She continues to be afebrile. Respiratory panel and blood cultures have been negative. Sputum culture is positive for Escherichia (E) coli and Enterobacter cloacae. Her C-reactive protein overall is trending down. Continue with Cefdinir, day #4, started on 07/03/2018. 4. Chronic hypotension, stable. Continue midodrine. 5. Gout, stable. Continue Uloric. 6. Anemia of chronic disease. She is at her baseline hemoglobin of 10 to 11. No acute source of bleed, likely is secondary to underlying end stage renal disease. She is on iron and Aranesp per nephrology. 7. Chronic atrial fibrillation. Rate is controlled with diltiazem. INR is therapeutic. Continue Coumadin. 8. Adenopathy noted on imaging: pt updated on results and all questions answered. She is agreeable to follow-up outpatient with her PCP for possible concern of malignancy. She is aware that this may also instead be 2/2 other factors, such as her acute illness state. 9. Compression fractures noted on imaging: Patient has been updated regarding this and she states that she is already aware she has a history of osteoporosis and compression fractures in the past. She is already receiving Prolia and takes [id number] multivitamin. She has been started on vitamin D and calcium supplement inpatient and agrees to continue this afterwards. She is been educated on continuing weightbearing exercises and to follow-up with her PCP for further monitoring and management. 8. Deep vein thrombosis (DVT) prophylaxis. Chronically on Coumadin. DISPOSITION: Pending clinical improvement and physical therapy (PT) clearance, likely discharge in the next 24 to 48 hours. My faculty preceptor for this patient encounter was physically present during the encounter and was fully available. All aspects of the patient interview, examination, medical decision making process, and medical care plan development were reviewed and approved by the faculty preceptor. The faculty preceptor is aware and concurs with the plan as stated in the body of this note and will attest to such by his/her co-signature. I, Kai Polanco, have both independently examined this patient as well as reviewed the documentation. I have discussed in detail with the resident the findings and plan of treatment as documented in the residents documentation. I will continue to follow the patient and offer further guidance to the patients care as necessary during this hospital stay. MARY JO
[2018-07-07 14:00] VITALS: BP 117/53
--- NOTE | 2018-07-07 15:38 | IPN ---
DATE: 07/07/2018 Mrs. Carranza is seen this morning during hemodialysis. She has continuing pain in her left hip. She is scheduled to see orthopedic as an outpatient on Friday for steroid injection for possible bursitis in her hip. She denies any nausea, vomiting, dyspnea, chest pain, fever or chills. PHYSICAL EXAMINATION: Temperature 98 degrees Fahrenheit, heart rate 70 per minute and respiratory rate 20 per minute. Blood pressure 140/60 mmHg and oxygen saturation 97% on room air. Head is atraumatic. Neck is supple and without jugular venous distention (JVD) or thyroid enlargement. Heart sounds are irregular in rhythm. Lungs have bilateral chronic crepitations at bases. Abdomen is soft and nontender and bowel sounds are normal. Extremities have no cyanosis or clubbing. Neurologically, she is at her baseline mentation. LABORATORY DATA: Today's laboratories show WBC count 14.1, hemoglobin 10.2 and hematocrit 30.9. Platelets 273. Sodium 130, potassium 5.3, CO2 20, BUN 69 and creatinine 8.37. C-reactive protein is up to 15.0. PROBLEMS: 1. End-stage renal disease. The patient is being dialyzed today and she is tolerating her dialysis treatment very well. 2. Hyperkalemia. She has mild hyperkalemia related to end-stage renal disease and it will be corrected with dialysis as we are using 2.0 mEq potassium bath. 3. Hyponatremia. She has mild hyponatremia which is likely to improve if not completely corrected with dialysis today. She will remain on fluid restriction of 1500 mL per day. 4. Anemia. Her anemia has been stable and we will continue to monitor and manage with the dialysis. 5. Left hip pain. She is felt to have bursitis and has been seen by orthopedics. She is scheduled for injection of steroid as an outpatient on Friday. She is anticipating discharge to home tomorrow.
--- NOTE | 2018-07-07 16:02 | IPN ---
DATE: 07/07/2018 SUBJECTIVE: The patient examined at bedside and has no new complaints. States she feels much improved and is looking forward to going home. No reported issues overnight. States that her left hip pain is improved and controlled on the current regimen. She is not having any coughing, shortness of breath, or sputum production. This is also improving from admission. PHYSICAL EXAMINATION: VITAL SIGNS: Temperature 98, pulse 70, respirations 20, blood pressure 141/39, mean arterial pressure (MAP) of 86, pulse oximetry 97%. GENERAL: Laying in bed, in no acute distress, comfortable, alert and oriented times three. HEENT: Normocephalic, atraumatic. Anicteric sclerae. Extraocular muscles intact. CARDIAC: Irregular rhythm. Has chronic atrial fibrillation. Rate is controlled. There is a 2/6 systolic murmur with radiation to the carotids. LUNGS: No wheezing or rhonchi. There are bilateral rales skilled nursing up the chest. She does have underlying pulmonary fibrosis, otherwise has equal chest rise and able to speak in full sentences. ABDOMEN: Soft, nontender, nondistended. Positive bowel sounds. She has ostomy bag present. EXTREMITIES: No edema or calf tenderness. MUSCULOSKELETAL: Able to move all extremities. Mild left hip tenderness which continues from the previous days. 1+ bilateral dorsalis pedis pulses. LABORATORY DATA: WBC 14.1, hemoglobin and hematocrit 10 and 30, platelets 273. PT and INR 42 and 4.26. Sodium 130, potassium 5.3, chloride 97, CO2 20, BUN and creatinine 69 and 8.37, CRP is 15, procalcitonin 4.92. ASSESSMENT AND PLAN: 1. Dyspnea and fluid overload, secondary from decompensated diastolic congestive heart failure (CHF) and likely upper respiratory tract infection. Her procalcitonin is elevated at 4.92. She continues on cefdinir day five, started 07/03/2018. Regarding her volume status, continue with hemodialysis. She was examined during dialysis today. Her C-reactive protein (CRP) is at 15. We will continue trending. Overall, she is subjectively improving with her breathing. We will continue to titrate down off of oxygen. 2. Upper respiratory tract infection. Continue cefdinir, on day five. Dr. Yung is following. Appreciate input. 3. Osteoarthritis with left hip pain. Overall, pain is controlled on current regimen. Continue gabapentin, Tylenol, and fentanyl patch. Will require outpatient followup with orthopedics for possible steroid injection for her greater trochanteric bursitis. She is scheduled with their clinic for this Friday07/10/2018. 4. Supratherapeutic international normalized ratio (INR). INR is at 4.26 this morning up from 2.85 yesterday. Currently, we will hold her warfarin and reassess tomorrow. She has required adjustment of her Coumadin levels during this hospitalization as she had initially presented supratherapeutic and has been subtherapeutic at times during this stay and is now supratherapeutic again. Continue readjusting regimen. Currently stable without any active bleeding. 5. Chronic hypotension, stable. Continue midodrine. 6. Gout, stable. Continue Uloric. 7. Anemia of chronic disease, likely is from her underlying end-stage renal disease. Continue her iron and Aranesp per nephrology. Of note, she is at her baseline hemoglobin of 10-11. 8. Chronic atrial fibrillation. Rate controlled with diltiazem. INR supratherapeutic as mentioned above. 9. ESRD: regular HD TTS. Nephro following 10. Adenopathy & compression fx: o/p f/u Deep vein thrombosis (DVT) prophylaxis. Chronically on Coumadin. DISPOSITION: Continue titrating down on oxygen. Likely will be back to baseline tomorrow. Anticipate discharge in the next 24 hours. My faculty preceptor for this patient encounter was physically present during the encounter and was fully available. All aspects of the patient interview, examination, medical decision making process, and medical care plan development were reviewed and approved by the faculty preceptor. The faculty preceptor is aware and concurs with the plan as stated in the body of this note and will attest to such by his/her co-signature. MARY JO
--- NOTE | 2018-07-07 21:39 | IPNPDOC ---
Subjective Date Seen The patient was seen on 07/07/18. Subjective Chief Complaint/HPI left hip pain General: Reports: Other Symptoms (Denies fevers or trouble sleeping) Gastrointestinal: Reports: Other Symptoms (Denies n/v or diarrhea) Musculoskeletal: Reports: Leg Pain (continued left leg pain) Objective Physical Examination General Exam: Positive: Alert, Cooperative, Mild Distress (from left leg discomfort) Chest Exam: Positive: Other (inspiratory velcro like crackles thorughout) Heart Exam: Positive: Normal S1, Normal S2, Other (no mumurs, rubs or gallops) Telemetry: Positive: No significant arrhythmia Abdomen Exam: Positive: Normal bowel sounds, Soft, Other (nabsx4, non-tender, no distension) Extremity Exam: Positive: Other (internal rotation does not cause left hip pain, however external rotation of left leg causes hip pain in groin and radiation to lateral dalton area, no swelling or rashes in area appreciated of left hip/trochanter, tender area over b/l sacroiliac's and L5 spinous process) Neuro Exam: Positive: Normal Speech Psych Exam: Positive: Mood NL Assessment /Plan Assessment 1. Left lower extremity pain -The patients procalcitonin is elevated to 4.92 along with a constant elevation of CRP and WBC. Concern is high for a bacterial etiology. The patient did have a CT of her left extremity performed this visit, however we independently reviewed this image with Dr Nichols who suggested inflammation in the area of the muscle surrounding the left hip with subsequent possible erosion into the hip joint. We have requested a CT guided biopsy of this areas with AFB, bacterial cultures, fungal studies and cytology of tissue. The patient and her son agreed to this procedure and we can hopefully have this performed tomorrow after speaking to IR. In the mean time, have stopped her antibiotic in anticipation of the procedure tomorrow. Hopefully this can shed some light as to a possible source of her infection. She had a sputum culture that had two E-coli and a few Enterobacter, I suspect these are more colonization with hospital- acquiredpathogen as she is dialysis dependent. I do not suspect this is pneumonia. Her chest CT was done on 06/26 showed chronic fibrosis and bronchiectasis with superimposed interstitial alveolar infiltrates, right greater than left suggestive of atypical pulmonary edema. Depending on biopsy results, could also consider bone scan to help rule out bone infection as pat ient cannot tolerate MRI due to pacemaker. Plan/VTE VTE Prophylaxis Ordered?: Yes VS, I&O, 24H, Fishbone Vital Signs/I&O Vital Signs Date Time Temp Pulse Resp B/P (MAP) Pulse Ox O2 Delivery O2 Flow Rate FiO2 07/07/18 14:00 97.3 68 18 117/53 (74) 96 I&O- Last 24 Hours up to 6 AM 07/07/18 06:00 Intake Total 1170 ml Output Total 0 ml Balance 1170 ml Laboratory Data 24H LABS Laboratory Tests 2 07/07/18 06:05: Nucleated Red Blood Cells % (auto) 0.0, Prothrombin Time 42.0H, Prothromb Time International Ratio 4.26, Anion Gap 13, Glomerular Filtration Rate 4.8L, Blood Urea Nitrogen 69H, Creatinine 8.37*H, Sodium Level 130L, Potassium Level 5.3H, Chloride Level 97L, Carbon Dioxide Level 20L, Calcium Level 9.0, C-Reactive Protein, Quantitative 15.00H CBC/BMP Laboratory Tests 07/07/18 06:05 Red Blood Count 3.10 L, Mean Corpuscular Volume 99.7 H, Mean Corpuscular Hemoglobin 32.9, Mean Corpuscular Hemoglobin Concent 33.0, Red Cell Distribution Width 16.4 H, Calcium Level 9.0 Microbiology Microbiology 07/01/18 Blood Culture - Final, Complete NO GROWTH AFTER 5 DAYS 07/01/18 Blood Culture - Final, Complete NO GROWTH AFTER 5 DAYS 07/05/18 MRSA Screen - Final, Complete Staph.aureus Methicillin Resis 07/01/18 Respiratory Virus Panel (PCR) (JORDY) - Final, Complete 07/01/18 Gram Stain - Final, Complete 07/01/18 Sputum Culture - Final, Complete Escherichia Coli Enterobacter Cloacae Complex GME ATTESTATION GME ATTESTATION My faculty preceptor for this patient encounter was physically present during the encounter and was fully available. All aspects of the patient interview, examination, medical decision making process, and medical care plan development were reviewed and approved by the faculty preceptor. The faculty preceptor is aware and concurs with the plan as stated in the body of this note and will attest to such by his/her cosignature. JOVON JASON DO Jul 07, 2018 21:39
[2018-07-07 22:00] VITALS: BP 125/57
[2018-07-08] MEDS: ACETAMINOPHEN TAB 650MG DOSE (2X325MG) PO PRN ×5 (02:07→23:47)
[2018-07-08 06:00] VITALS: BP 129/57
[2018-07-08 06:06] LABS: HEMATOCRIT 31.6 % (36.0-47.0); HEMOGLOBIN 10.4 g/dl (12.0-15.5); MEAN CORPUSCULAR HEMOGLOBIN 32.6 pg (27.0-33.0); MEAN CORPUSCULAR HGB CONC 32.9 g/dl (32.0-36.5); MEAN CORPUSCULAR VOLUME 99.1 fl (80.0-96.0); PLATELET COUNT, AUTOMATED 303 10^3/uL (150-450); RED BLOOD COUNT 3.19 10^6/uL (4.00-5.40); WHITE BLOOD COUNT 13.9 10^3/uL (4.0-10.0)
[2018-07-08 06:29] LABS: CREATININE FOR GFR 5.05 MG/DL (0.55-1.30); GLOMERULAR FILTRATION RATE 8.7 (>32); POTASSIUM SERUM 4.7 MEQ/L (3.5-5.1)
[2018-07-08] MEDS: MIDODRINE 5 MG TAB PO SCH ×3 (08:41→15:57)
[2018-07-08] MEDS: MAGNESIUM OXIDE 400 MG TAB (MAG-OX) PO SCH ×2 (08:42→20:29)
[2018-07-08] MEDS: GABAPENTIN 300 MG CAP PO SCH ×2 (08:42→20:29)
[2018-07-08] MEDS: PANTOPRAZOLE 40MG TAB (PROTONIX) PO SCH ×2 (08:43→20:29)
[2018-07-08] MEDS: FEBUXOSTAT 40 MG TABLET (ULORIC) PO SCH (08:43)
[2018-07-08] MEDS: CALCIUM/VITAMIN D 500 MG TAB PO SCH (08:43)
[2018-07-08] MEDS: BETAMETHASONE DIP 0.05% OINT 15 GM TOP SCH (08:44)
[2018-07-08] MEDS: fentaNYL 12 MCG/HR PATCH TOP SCH (08:49)
[2018-07-08] MEDS: FENTANYL REMOVAL DOCUMENTATION MISC XX SCH (08:55)
[2018-07-08 09:35] LABS: INR 3.65; PROTHROMBIN TIME 37.2 SECONDS (12.1-14.4)
[2018-07-08] MEDS ORDERED: PHYTONADIONE 1.25 MG 1/4 TAB PO ONE (12:00)
--- NOTE | 2018-07-08 12:27 | IPN ---
DATE: 07/08/2018 SUBJECTIVE: Patient examined sitting up in chair. No reported events overnight. She has cleared physical therapy but continues to have a significant amount of pain in her left hip that is not much improved without her current pain regimen. She denies any other complaints and states that her breathing, shortness of breath is all back to baseline. PHYSICAL EXAMINATION: VITAL SIGNS: Temperature 97.4, pulse 70, respirations 18, blood pressure 129/57 with a mean arterial pressure (MAP) of 81, pulse oximetry 95% on room air. GENERAL: Sitting up in chair, in no acute distress. She is alert and oriented times three. HEENT: Normocephalic, atraumatic. Anicteric sclerae. Extraocular muscles intact. CARDIAC: Irregular rhythm with chronic atrial fibrillation. Rate is controlled. A 2/6 systolic murmur with radiation to the carotids. LUNGS: Clear on the upper lung wilson. There are diffuse bilateral rales group home up the chest given her underlying pulmonary fibrosis. ABDOMEN: Soft, nontender, nondistended. Positive bowel sounds. Ostomy bag present. No appreciable masses or hernias. EXTREMITIES: No edema or calf tenderness. MUSCULOSKELETAL: Able to move all extremities, is jumping out of the chair when left hip and groin are palpated, 5/5 strength in the right lower extremity, and 4/5 in the left lower extremity. She admits to guarding her left leg due to the left hip pain. LABORATORY DATA: WBC 13.9, hemoglobin and hematocrit 10.4 and 31.6, platelets 303. Sodium 132, potassium 4.7, chloride 99, bicarbonate 26, INR today 3.65. ASSESSMENT AND PLAN: 1. Left hip pain. Patient has overall cleared physical therapy. Per orthopedic assessment, this is likely osteoarthritis. They had recommended pain control and physical therapy and outpatient followup in their clinic for a possible trochanteric bursitis steroid injection. She is not improving with conservative measures. Infection disease is concerned for an infectious etiology given her elevated procalcitonin around 5 and C-reactive protein around 15. Per discussion with infectious disease (ID), they state that they have reviewed images with radiology which upon closer examination reveal some possible left hip swelling and erosion to the bone and thus ID will be pursuing a CT-guided biopsy to the left hip once her international normalized ratio (INR) is below 2.5. Patient has been updated regarding this concern and about her results and plan of care. She is otherwise stable. 2. Dyspnea, resolved. She is no longer hypervolemic as her fluid status is improved from her recent dialysis sessions and was likely also secondary to her decompensated diastolic congestive heart failure (CHF), likely diastolic. She is back on room air and baseline breathing. ID does not believe that she has a respiratory infection and have discontinued her cefdinir. Otherwise, she is doing well. 3. Supratherapeutic INR. Coumadin was held yesterday and again today given her INR is now 3.65 which is improved from 4.26 yesterday. Continue holding Coumadin. We will also administer low-dose vitamin K in anticipation of CT-guided biopsy by interventional radiology (IR) who would like her INR to be below 2.5. We will reassess tomorrow. Currently stable without any bleeding. 4. Chronic hypotension, stable and within normal limits. Continue midodrine. 5. Gout, stable. Continue Uloric. 6. Anemia of chronic disease, likely from her underlying end-stage renal disease. Continue iron and Aranesp per nephrology. Her hemoglobin and hematocrit remains stable at her baseline of 10-11. 7. Chronic atrial fibrillation. Rate controlled with diltiazem. INR is supratherapeutic as mentioned above. 8. ESRD: regular HD TTS. Nephro following 9. Adenopathy & compression fx: o/p f/u. Discussed w/ pt and pt agreeable to plan. Deep vein thrombosis (DVT) prophylaxis. Chronically on Coumadin. DISPOSITION: Pending clinical improvement and further left hip workup. Possible discharge in the next 24-48 hours. My faculty preceptor for this patient encounter was physically present during the encounter and was fully available. All aspects of the patient interview, examination, medical decision making process, and medical care plan development were reviewed and approved by the faculty preceptor. The faculty preceptor is aware and concurs with the plan as stated in the body of this note and will attest to such by his/her co-signature. MARY JO
[2018-07-08] MEDS ORDERED: PHYTONADIONE 5 MG TAB PO ONE (12:30)
--- NOTE | 2018-07-08 12:37 | IPN ---
DATE: 07/08/2018 Mrs. Carranza is seen this morning on her bedside. She is sitting in the chair today and her son is present in the room. The patient has complained of pain in her left hip but otherwise feels well. She denies any dyspnea, chest pain, nausea or vomiting. PHYSICAL EXAMINATION: Temperature 97.3 degrees Fahrenheit, heart rate 72 per minute and respiratory rate 20 per minute. Blood pressure 126/39 mmHg and oxygen saturation 95% on room air. Head is atraumatic. Neck is supple and without jugular venous distention (JVD) or thyroid enlargement sitting upright. Lungs have chronic basilar crepitations. Heart sounds are irregular in rhythm. Abdomen is soft and nontender. Extremities have no cyanosis or clubbing. Neurologically, she is at her baseline mentation. LABORATORY DATA: Today's laboratories show WBC count 13.9, hemoglobin 10.4 and hematocrit 31.6. Platelets 303. Sodium 132, potassium 4.7, CO2 26, BUN 35 and creatinine 5.05. Her C-reactive protein was up to 15.0 yesterday. INR is 3.65 today. PROBLEMS: 1. End-stage renal disease. The patient was dialyzed yesterday and will be scheduled for next dialysis tomorrow. There is no emergent need for dialysis today. 2. Hyperkalemia. She had mild hyperkalemia which has already improved with dialysis. No intervention is indicated today. 3. Anemia. Her anemia has been stable and is being managed with dialysis. We will continue with Aranesp 100 mcg once a week. 4. Left hip pain. She has been seen by Dr. Yung and is scheduled for a CT-guided aspiration of hip joint which can be done when her international normalized ratio (INR) comes down. In the meantime, she will remain on pain management.
[2018-07-08 14:00] VITALS: BP 114/40
[2018-07-08 22:00] VITALS: BP 110/49
[2018-07-09 06:00] VITALS: BP 122/55
[2018-07-09] MEDS: MIDODRINE 5 MG TAB PO SCH ×3 (06:07→15:58)
[2018-07-09] MEDS: GABAPENTIN 300 MG CAP PO SCH ×2 (06:07→21:42)
[2018-07-09] MEDS: CALCIUM/VITAMIN D 500 MG TAB PO SCH (06:08)
[2018-07-09] MEDS: ACETAMINOPHEN TAB 650MG DOSE (2X325MG) PO PRN ×4 (06:08→21:43)
[2018-07-09] MEDS: FEBUXOSTAT 40 MG TABLET (ULORIC) PO SCH (06:08)
[2018-07-09] MEDS: MAGNESIUM OXIDE 400 MG TAB (MAG-OX) PO SCH ×2 (06:09→21:43)
[2018-07-09] MEDS: PANTOPRAZOLE 40MG TAB (PROTONIX) PO SCH ×2 (06:09→21:42)
[2018-07-09] MEDS: BETAMETHASONE DIP 0.05% OINT 15 GM TOP SCH (06:09)
[2018-07-09 06:19] LABS: HEMATOCRIT 30.3 % (36.0-47.0); HEMOGLOBIN 9.8 g/dl (12.0-15.5); MEAN CORPUSCULAR HEMOGLOBIN 31.9 pg (27.0-33.0); MEAN CORPUSCULAR HGB CONC 32.3 g/dl (32.0-36.5); MEAN CORPUSCULAR VOLUME 98.7 fl (80.0-96.0); PLATELET COUNT, AUTOMATED 352 10^3/uL (150-450); RED BLOOD COUNT 3.07 10^6/uL (4.00-5.40); WHITE BLOOD COUNT 13.7 10^3/uL (4.0-10.0)
[2018-07-09 06:29] LABS: INR 2.36; PROTHROMBIN TIME 26.3 SECONDS (12.1-14.4)
[2018-07-09 06:36] LABS: C REACTIVE PROTEIN QUANTITATIV 16.2 MG/DL (0.00-0.30); CALCIUM LEVEL 8.8 MG/DL (8.8-10.2); CREATININE FOR GFR 6.61 MG/DL (0.55-1.30); GLOMERULAR FILTRATION RATE 6.3 (>32); POTASSIUM SERUM 5.7 MEQ/L (3.5-5.1)
[2018-07-09] MEDS ORDERED: LIDOCAINE 1% SDV 5 ML VIAL SQ ONE (09:45)
[2018-07-09] MEDS ORDERED: HEPARIN 1,000 UNITS/ML 10ML VIAL (FOR RADIOLOGY& DIALYSIS ONLY) IV ONE (09:45)
--- NOTE | 2018-07-09 10:38 | IPN ---
DATE: 07/09/2018 SUBJECTIVE: Patient examined at bedside during dialysis. She has no complaints besides the left hip pain for which she will undergo a CT guided biopsy today as her INR is below 2.5 per interventional radiology (IR) request. She denies any events overnight and overall is feeling well. PHYSICAL EXAMINATION: VITAL SIGNS: Temperature 97.4, pulse 70, respirations 18, blood pressure 122/55 with a mean arterial pressure (MAP) of 77, pulse oximetry 96% on room air. GENERAL: No acute distress, resting comfortably in bed. Alert and oriented times three, fully conversant. HEENT: Normocephalic, atraumatic. Anicteric sclera. Pupils equal, round, reactive to light. NECK: Supple. CARDIAC: Rate is controlled. Rhythm is irregular with chronic atrial fibrillation. She has a 2/6 systolic murmur that radiates to the carotids. LUNGS: She has bibasilar crackles given her underlying pulmonary fibrosis. Otherwise, her upper lung wilson bilaterally are clear. ABDOMEN: Soft, nontender, nondistended. Positive bowel sounds. Ostomy bag present. No appreciable masses or hernias. EXTREMITIES: No edema or calf tenderness. She is able to move all extremities. MUSCULOSKELETAL: Left hip and groin pain still present. Otherwise, strength is intact. LABORATORIES: WBC 13.7, hemoglobin and hematocrit 9.8 and 30.3, platelets 352. Sodium 130, potassium 5.7, chloride 97, bicarbonate 24, calcium 8.8, CRP 16.2, INR today 2.36. ASSESSMENT AND PLAN: 1. Left hip pain. Patient continues to have left hip pain. There was concern for possible infectious etiology here given her persistently elevated CRP that continues to rise today as well as her leukocytosis. Her INR is below 2.5 which is the cut off IR had requested for her to get a biopsy today. She has been off of cefdinir for the past few days. She will undergo the biopsy today to rule out any infection at this location. The patient is agreeable to plan. All questions were answered. 2. Supratherapeutic INR. She has required multiple adjustments to her regimen since hospitalization. Her INR is down to 2.36 as needed below 2.5 for her procedure today. She is status post 6.25 mg of vitamin K. Will consider resuming her warfarin after the procedure. 3. Dyspnea, resolved. She initially was hypervolemic on admission and has improved with her regular dialysis sessions. No longer in decompensated congestive heart failure (CHF). She is back to breathing on room air and has no respiratory complaints today. 4. Chronic hypotension. Vitals within normal limits. Continue midodrine. 5. Gout, stable. Continue Uloric. 6. Anemia of chronic disease. Related to her underlying end-stage renal disease. Continue iron and Aranesp per nephrology. Hemoglobin and hematocrit remain stable with her baseline of 10-11. 7. Chronic atrial fibrillation. Rate controlled with diltiazem. INR as discussed above. Her chronic Coumadin is on hold. 8. End stage renal disease. Regular hemodialysis days are Friday, and Friday. She was examined today during dialysis. Nephrology is following. 9. Adenopathy and compression fractures noted on imaging earlier this hospitalization. The patient has been made aware and agreeable to follow-up outpatient. 10. Deep vein thrombosis (DVT) prophylaxis. Chronically on Coumadin. DISPOSITION: Pending clinical improvement and CT guided biopsy of left hip today. Anticipate she will be here the remainder of this week and early into next week. Discharge home when improved. My faculty preceptor for this patient encounter was physically present during the encounter and was fully available. All aspects of the patient interview, examination, medical decision making process, and medical care plan development were reviewed and approved by the faculty preceptor. The faculty preceptor is aware and concurs with the plan as stated in the body of this note and will attest to such by his/her co-signature.
--- NOTE | 2018-07-09 11:23 | IPN ---
DATE OF VISIT: 07/09/2018 Mrs. Carranza is seen this morning during hemodialysis. She continues to have pain in her left hip. She denies any dyspnea, chest pain, nausea, vomiting, fever or chills. PHYSICAL EXAMINATION: Temperature 97.4 degrees Fahrenheit, heart rate 70 per minute and respiratory rate 18 per minute. Blood pressure 122/55 mmHg and oxygen saturation 96% on room air. Head is atraumatic. Neck is supple and without jugular venous distention (JVD) or thyroid enlargement. Heart sounds are irregular in rhythm. Lungs sound clear to auscultation. Abdomen is soft and nontender. Extremities are without any cyanosis or clubbing. Neurologically she is at her baseline mentation. Today's labs show WBC count 13.7, hemoglobin 9.8 and hematocrit 30.3. Platelets 352. Sodium 130, potassium 5.7, CO2 24, BUN 52 and creatinine 6.61. C-reactive protein is up to 16.2. INR this morning is 2.36. PROBLEMS: 1. End-stage renal disease. The patient is being dialyzed today and she is tolerating her dialysis treatment very well. 2. Hyperkalemia. Her hyperkalemia is related to end-stage renal disease and it is likely to improve with dialysis. We are using 1.0 mEq potassium bath. Electrolytes should be checked again tomorrow morning. 3. Anemia. At present her anemia is stable and we will continue to manage with Aranesp during dialysis on weekly basis. 4. Congestive heart failure and atrial fibrillation. Her volume status is very well compensated and ventricular rate is also well compensated. Her Coumadin is currently on hold due to need for a procedure. INR is still therapeutic. 5. Left hip pain. She in need for a needle aspiration of her left hip joint due to elevated C-reactive protein and leukocytosis. She will be going for procedure either later this afternoon or tomorrow morning.
[2018-07-09 14:00] VITALS: BP 136/64
[2018-07-09] MEDS ORDERED: LIDOCAINE 1% MDV 20ML VIAL As Ordered ONE (14:18)
--- NOTE | 2018-07-09 16:28 | REP ---
CT-GUIDED LEFT ILIAC BONE BIOPSY The procedure was performed under the direct supervision of Dr. rene. The patient has a history of A bony destructive lesion measuring approximately 2.2 cm in the anterior aspect of the iliac crests on the left seen on a previous CT scan dated 07/02/2018. The risks and benefits of the procedure were explained to the patient and informed consent was obtained. The left iliac bone lesion was localized using CT guidance. The skin was prepped and draped in a sterile fashion. 1% lidocaine was used as a local anesthetic. Using CT guidance a 19/20 gauge coaxial needle biopsy system was inserted and advanced into the lesion. Eight core biopsy samples were obtained and sent to lab. The patient tolerated the procedure well and there were no immediate complications. After the appropriate amount of monitored convalescence the patient was discharged from the department. Reviewed by LYNN Robles 07/09/2018 04:19 P Electronically Signed by Reddy Rene MD 07/09/2018 04:20 P
--- NOTE | 2018-07-09 18:03 | IPN ---
DATE: 07/09/2018 Mrs. Carranza had a biopsy of her left hip done by Jim Olguin. Eight core biopsy samples were obtained and sent to the lab. Some were sent for AFB fungus cultures and others to pathology. She denies any fever or chills. No nausea, vomiting or diarrhea. She has a mild cough, slightly productive of white to yellowish phlegm. She has been off antibiotics for 48 hours. Temperature is 99.2, pulse 70, respirations 18, blood pressure 136/64, oxygen saturation (O2 sat) 96% on room air. Heart: Normal S1, S2, irregular. Lungs: Diminished breath sounds at the bases but clear. Abdomen is soft, tender in the right lower quadrant where she has an ileostomy and an incisional hernia. Knee and hip joint movements normal. No clubbing, cyanosis or edema. She had bilateral sacroiliac tenderness. LABORATORY DATA: White count of 13.7, hemoglobin 9.8, hematocrit 30.3, platelets 352. Sodium 130, potassium 5.7, chloride 97, bicarbonate 24, BUN 52, creatinine 6.61, glucose 85, calcium 8.8, CRP is 16.2, which has continued to trend up and procalcitonin 4.92. Cultures of left hip pending. AFB fungal and bacterial gram stain has no cells, no organisms seen. IMPRESSION: 1. Left hip pain with sciatica, possibly related to destructive lesion of the pelvis. Rule out malignancy versus osteomyelitis. What is consistent with infectious process is the fact that she has an elevated white count, CRP and procalcitonin but CT is more suggestive of a mass. Will wait for results of culture before starting empiric antibiotics as the patient is not septic. 2. End-stage renal disease. On hemodialysis, stable. Shortness of breath has improved. 3. Congestive heart failure and atrial fibrillation. Stable. INR was 2.36 today after she had vitamin K for procedure. PLAN: Continue off antibiotics until results of pathology and cultures available. Case has been discussed with her son and Mrs. Carranza. MARY JO
[2018-07-09] MEDS ORDERED: ANALGESIC BALM CRM 120 GM TOP PRN (20:00)
[2018-07-09 22:00] VITALS: BP 116/48
[2018-07-10] MEDS: ACETAMINOPHEN TAB 650MG DOSE (2X325MG) PO PRN ×6 (01:51→22:46)
[2018-07-10 06:00] VITALS: BP 110/45
[2018-07-10 06:21] LABS: HEMATOCRIT 33.6 % (36.0-47.0); HEMOGLOBIN 10.9 g/dl (12.0-15.5); MEAN CORPUSCULAR HEMOGLOBIN 32.6 pg (27.0-33.0); MEAN CORPUSCULAR HGB CONC 32.4 g/dl (32.0-36.5); MEAN CORPUSCULAR VOLUME 100.6 fl (80.0-96.0); PLATELET COUNT, AUTOMATED 301 10^3/uL (150-450); RED BLOOD COUNT 3.34 10^6/uL (4.00-5.40); WHITE BLOOD COUNT 13.1 10^3/uL (4.0-10.0)
[2018-07-10 06:27] LABS: INR 1.82; PROTHROMBIN TIME 21.4 SECONDS (12.1-14.4)
[2018-07-10 06:36] LABS: CALCIUM LEVEL 9.2 MG/DL (8.8-10.2); CREATININE FOR GFR 4.57 MG/DL (0.55-1.30); GLOMERULAR FILTRATION RATE 9.7 (>32)
[2018-07-10] MEDS: GABAPENTIN 300 MG CAP PO SCH ×2 (08:32→21:34)
[2018-07-10] MEDS: MAGNESIUM OXIDE 400 MG TAB (MAG-OX) PO SCH ×2 (08:32→21:34)
[2018-07-10] MEDS: CALCIUM/VITAMIN D 500 MG TAB PO SCH (08:32)
[2018-07-10] MEDS: MIDODRINE 5 MG TAB PO SCH ×3 (08:32→16:15)
[2018-07-10] MEDS: PANTOPRAZOLE 40MG TAB (PROTONIX) PO SCH ×2 (08:32→21:34)
[2018-07-10] MEDS: FEBUXOSTAT 40 MG TABLET (ULORIC) PO SCH (08:32)
[2018-07-10] MEDS: BETAMETHASONE DIP 0.05% OINT 15 GM TOP SCH (08:34)
--- NOTE | 2018-07-10 10:15 | IPN ---
DATE OF SERVICE: 07/10/2018 SUBJECTIVE: Patient is examined at bedside. She has no new complaints today and is feeling well overall besides her left hip pain which has been ongoing during this admission. She underwent a left hip CT guided biopsy yesterday to rule out infectious etiology here. She also underwent hemodialysis and tolerated well. Has no fevers, chills, nausea, vomiting or shortness of breath. PHYSICAL EXAMINATION: Vitals: Temperature 98.4, pulse 70, respirations 18, blood pressure 110/45, map of 66, pulse oximetry 92% on room air. General: Resting comfortably in bed in no acute distress. Awake, alert and oriented times three. Fully conversant. HEENT: Normocephalic, atraumatic. Pupils equal, round, and reactive to light and accommodation. Anicteric sclera. Neck is supple without jugular venous distention (JVD). Cardiac: Rate is controlled. Rhythm irregular with chronic atrial fibrillation. 2/6 systolic murmur present radiating to the carotids. Lungs: She has bibasilar crackles fci up her chest wall given her underlying pulmonary fibrosis. Otherwise her upper lung wilson are clear bilaterally. Abdomen: Soft, nontender, nondistended. Positive bowel sounds. Ostomy bag present on the right quadrant. No masses or hernias. Extremities: No edema or tenderness. She is able to move all extremities. Musculoskeletal: Left hip pain persists as well as pain in the left groin. Otherwise strength is intact and there is no other tenderness throughout. LABS: WBC 13.1, hemoglobin and hematocrit 10.9/33.6, platelets 301. Sodium 134, potassium 4, chloride 99, CO2 of 26, INR 1.82. 1. Left hip pain. Patient underwent CT guided biopsy of the left hip yesterday. Pathology and microbiology are currently pending. She is otherwise doing well. There is a concern of infection versus mass at this region with possible erosion into the bone and muscle. Dr. Yung is also following, appreciate input. We will currently await her biopsy results. She is otherwise afebrile and doing well. Leukocytosis and elevated CRP still present. Likely this is related to this left hip process. 2. Subtherapeutic INR. Patient has required Coumadin adjustment throughout her stay here. She is status post 6.25 mg of vitamin K for yesterday's biopsy of the left hip. She has now gone from supratherapeutic to subtherapeutic. We will resume her warfarin and recheck levels tomorrow. Otherwise she is stable. 3. Dyspnea, resolved secondary to hypervolemic status on admission that improved with dialysis sessions and she is no longer in decompensated congestive heart failure (CHF). She is breathing on room air without any respiratory complaints. 4. Chronic atrial fibrillation. Rate controlled with diltiazem. INR subtherapeutic as discussed above. Resume warfarin. 5. Chronic hypotension. Blood pressure within normal limits. Continue midodrine. 6. Gout, stable. Continue Uloric. 7. Anemia of chronic disease related to underlying endstage renal disease. Continue supplement per nephrology. Hemoglobin and hematocrit are stable within her hemoglobin of 10-11 at baseline. 8. Endstage renal disease. She underwent her regular hemodialysis yesterday per her Friday, , Friday schedule. Electrolytes within normal limits and is otherwise doing well. 9. Adenopathy and compression fractures noted earlier this admission on imaging. Patient is aware and agreeable to followup outpatient. 10. Deep venous thrombosis (DVT) prophylaxis. Chronically on Coumadin. DISPOSITION: Awaiting biopsy results. Continue working with physical therapy. My faculty preceptor for this patient encounter was physically present during the encounter and was fully available. All aspects of the patient interview, examination, medical decision making process, and medical care plan development were reviewed and approved by the faculty preceptor. The faculty preceptor is aware and concurs with the plan as stated in the body of this note and will attest to such by his/her cosignature.
--- NOTE | 2018-07-10 12:27 | IPNPDOC ---
Subjective Date Seen The patient was seen on 07/10/18. Subjective Chief Complaint/HPI left leg pain General: Denies: Chills Pulmonary: Denies: Dyspnea, Cough Cardiovascular: Denies: Chest Pain, Palpitations Gastrointestinal: Denies: Nausea, Vomiting Musculoskeletal: Reports: Leg Pain (left leg) Neurological: Reports: Weakness Psych: Reports: Mood Normal Objective Physical Examination General Exam: Positive: Alert, Cooperative, Mild Distress (from left leg discomfort) Chest Exam: Positive: Other (inspiratory velcro like crackles thorughout); Negative: Rales, Rhonchi Heart Exam: Positive: Normal S1, Normal S2, Other (no mumurs, rubs or gallops) Telemetry: Positive: No significant arrhythmia Abdomen Exam: Positive: Normal bowel sounds, Soft, Other (nabsx4, non-tender, no distension); Negative: Hepatospenomegaly Extremity Exam: Positive: Other (continues with left hip pain in groin and radiation to lateral dalton area, no swelling or rashes in area appreciated of left hip/trochanter, tender area over b/l sacroiliac's and L5 spinous process) Neuro Exam: Positive: Normal Speech Psych Exam: Positive: Mood NL Assessment /Plan Assessment IMPRESSION & PLAN: 1. 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 End-stage renal disease - continues on HD, stable, she is not SOB on exam 3. Congestive heart failure and atrial fibrillation -stable, INR was reversed for biopsy to occur, she received Vitamin K Plan/VTE VTE Prophylaxis Ordered?: Yes VS, I&O, 24H, Fishbone Vital Signs/I&O Vital Signs Date Time Temp Pulse Resp B/P (MAP) Pulse Ox O2 Delivery O2 Flow Rate FiO2 07/10/18 08:33 70 123/50 07/10/18 06:00 98.4 18 92 I&O- Last 24 Hours up to 6 AM 07/10/18 06:00 Intake Total 920 ml Output Total 1500 ml Balance -580 ml Laboratory Data 24H LABS Laboratory Tests 2 07/10/18 05:38: Nucleated Red Blood Cells % (auto) 0.0, Prothrombin Time 21.4H, Prothromb Time International Ratio 1.82, Anion Gap 9, Glomerular Filtration Rate 9.7L, Blood Urea Nitrogen 34H, Creatinine 4.57H, Sodium Level 134L, Potassium Level 4.0#, Chloride Level 99, Carbon Dioxide Level 26, Calcium Level 9.2 CBC/BMP Laboratory Tests 07/10/18 05:38 Red Blood Count 3.34 L, Mean Corpuscular Volume 100.6 H, Mean Corpuscular Hemoglobin 32.6, Mean Corpuscular Hemoglobin Concent 32.4, Red Cell Distribution Width 16.7 H, Calcium Level 9.2 Microbiology Microbiology 07/01/18 Blood Culture - Final, Complete NO GROWTH AFTER 5 DAYS 07/01/18 Blood Culture - Final, Complete NO GROWTH AFTER 5 DAYS 07/05/18 MRSA Screen - Final, Complete Staph.aureus Methicillin Resis 07/01/18 Respiratory Virus Panel (PCR) (JORDY) - Final, Complete 07/01/18 Gram Stain - Final, Complete 07/01/18 Sputum Culture - Final, Complete Escherichia Coli Enterobacter Cloacae Complex 07/09/18 Acid Fast Stain, Received Pending 07/09/18 Mycobacterial Culture, Received Pending 07/09/18 Fungal Smear, Received Pending 07/09/18 Fungal Culture, Received Pending 07/09/18 Gram Stain - Final, Resulted 07/09/18 Bacterial Culture, Resulted Pending GME ATTESTATION GME ATTESTATION My faculty preceptor for this patient encounter was physically present during the encounter and was fully available. All aspects of the patient interview, examination, medical decision making process, and medical care plan development were reviewed and approved by the faculty preceptor. The faculty preceptor is aware and concurs with the plan as stated in the body of this note and will attest to such by his/her cosignature. JOVON JASON DO Jul 10, 2018 12:27
[2018-07-10 14:00] VITALS: BP 127/50
[2018-07-10] MEDS ORDERED: WARFARIN SOD 5 MG TAB PO ONE (17:00)
--- NOTE | 2018-07-10 17:04 | IPN ---
DATE: 07/10/2018 Mrs. Carranza is seen this morning on her bedside. She is sitting in the chair and her son is also present in the room. The patient underwent biopsy of her left iliac crest yesterday due to persistent pain. Today, report was called and it was reported positive for breast cancer. The patient has known history of breast cancer about 10 years ago. She denies any other complaints other than pain in her left hip area. PHYSICAL EXAMINATION: Temperature 98.4 degrees Fahrenheit, heart rate 70 per minute and respiratory rate 18 per minute. Blood pressure 123/50 mmHg and oxygen saturation 92%. Head is atraumatic. Neck is supple and without jugular venous distention (JVD) or thyroid enlargement. Lungs have bibasilar crepitations which are chronic and unchanged. Heart sounds are irregular in rhythm. Abdomen is soft and nontender and bowel sounds are present. Extremities without any cyanosis or clubbing. Neurologically, she is awake, alert and oriented times three. LABORATORY DATA: Today's laboratories show WBC count 13.1, hemoglobin 10.9 and hematocrit 33.6. Sodium 134, potassium 4.0, CO2 26, BUN 34 and creatinine 4.57. PROBLEMS: 1. End-stage renal disease. The patient was dialyzed yesterday and will be scheduled for next dialysis tomorrow. At present, there is no emergent need for dialysis today. 2. Hyperkalemia. Her hyperkalemia corrected with dialysis yesterday. No intervention is indicated. 3. Hyponatremia. She has mild hyponatremia and improved with dialysis yesterday. It is likely to improve further with dialysis tomorrow. No other intervention is indicated. 4. Left hip pain. She continues to have pain and a biopsy of her left iliac crest did show metastatic cancer, most likely of breast origin. She does have history of breast cancer about 10 years ago. The patient will require radiation and a bone scan for further evaluation of metastatic disease. 5. Atrial fibrillation and congestive heart failure. Her volume status is very well-compensated and heart rate is well-controlled. Her congestive heart failure is being managed with dialysis.
[2018-07-10 22:00] VITALS: BP_SYST 139; BP_SYST 146; BP_DIAS 60; BP_DIAS 81
[2018-07-11] MEDS: ACETAMINOPHEN TAB 650MG DOSE (2X325MG) PO PRN (04:32)
[2018-07-11 06:00] VITALS: BP 126/63
[2018-07-11 06:21] LABS: HEMATOCRIT 30.6 % (36.0-47.0); HEMOGLOBIN 10.1 g/dl (12.0-15.5); MEAN CORPUSCULAR HEMOGLOBIN 32.9 pg (27.0-33.0); MEAN CORPUSCULAR VOLUME 99.7 fl (80.0-96.0); PLATELET COUNT, AUTOMATED 246 10^3/uL (150-450); RED BLOOD COUNT 3.07 10^6/uL (4.00-5.40); WHITE BLOOD COUNT 15.5 10^3/uL (4.0-10.0)
[2018-07-11 06:38] LABS: INR 2.02; PROTHROMBIN TIME 23.2 SECONDS (12.1-14.4)
[2018-07-11 06:48] LABS: CALCIUM LEVEL 8.7 MG/DL (8.8-10.2); CREATININE FOR GFR 6.13 MG/DL (0.55-1.30); GLOMERULAR FILTRATION RATE 6.9 (>32); POTASSIUM SERUM 4.7 MEQ/L (3.5-5.1)
[2018-07-11] MEDS: MIDODRINE 5 MG TAB PO SCH ×3 (07:37→16:45)
[2018-07-11] MEDS: GABAPENTIN 300 MG CAP PO SCH ×2 (07:38→21:58)
[2018-07-11] MEDS: CALCIUM/VITAMIN D 500 MG TAB PO SCH (07:38)
[2018-07-11] MEDS: FEBUXOSTAT 40 MG TABLET (ULORIC) PO SCH (07:38)
[2018-07-11] MEDS: PANTOPRAZOLE 40MG TAB (PROTONIX) PO SCH ×2 (07:38→21:59)
[2018-07-11] MEDS: MAGNESIUM OXIDE 400 MG TAB (MAG-OX) PO SCH ×2 (07:38→21:59)
[2018-07-11] MEDS: fentaNYL 12 MCG/HR PATCH TOP SCH (07:39)
[2018-07-11] MEDS: BETAMETHASONE DIP 0.05% OINT 15 GM TOP SCH (07:39)
[2018-07-11] MEDS: FENTANYL REMOVAL DOCUMENTATION MISC XX SCH (07:45)
[2018-07-11] MEDS: PERCOCET 5MG/325MG TAB PO PRN ×2 (10:56→16:46)
[2018-07-11 14:00] VITALS: BP 145/59
--- NOTE | 2018-07-11 15:55 | IPN ---
DATE: 07/11/2018 SUBJECTIVE: Patient is examined during hemodialysis. She has no new complaints besides her left hip pain, which has been ongoing during this admission. Biopsy of this hip resulted yesterday positive for metastatic breast adenocarcinoma. Patient has been made aware of the result and updated. All questions answered. No other complaints. PHYSICAL EXAMINATION: VITAL SIGNS: Temperature 98.3, pulse 69, respirations 18, blood pressure (BP) 126/63, mean arterial pressure (MAP) of 84, pulse oximetry 92% on 2 liters. GENERAL: Resting comfortably in bed in no acute distress. Alert and oriented times three. Pleasantly conversant. HEENT: Normocephalic, atraumatic. Extraocular muscles intact. Pupils equal, round, and reactive to light. Anicteric sclerae. NECK: Supple. CARDIAC: Rate is controlled. Rhythm is irregular with her chronic atrial fibrillation. A 2/6 systolic murmur with radiation to carotids present. LUNGS: Bilateral crackles given her underlying pulmonary fibrosis; otherwise, upper lung wilson bilaterally are clear. ABDOMEN: Soft, nontender, nondistended. Positive bowel sounds. Ostomy bag present in the right quadrant. No masses or hernias. EXTREMITIES: No edema or tenderness. Able to move all extremities. MUSCULOSKELETAL: Left hip and groin pain persists, which we now know is from underlying metastatic breast cancer; otherwise, no tenderness or pain anywhere else. LABORATORY DATA: WBC 15.5, hemoglobin and hematocrit 10 and 30, platelets 246. Sodium 133, potassium 4.7, chloride 101, CO2 of 23. INR 2.02. Left hip biopsy from 07/09/2018: Microbiology is pending. Pathology result: Fine-needle aspiration positive for metastatic adenocarcinoma. 1. Left hip pain secondary to metastatic breast adenocarcinoma per biopsy from July 09, 2018. Patient has been updated regarding the results, and all questions were answered. We have ordered a bone scan to further assess the extent of this cancer; however, the scan will not be able to be done until Friday due to IR availability. Patient does have a history of invasive ductal carcinoma, status post lumpectomy and radiation 10 years ago and now following with Dr. Yusuf for endocrine therapy. She will likely require outpatient followup once we further assess this disease to see how aggressive she can be treated and what her options are for possible radiation therapy. Currently we will control her pain and continue supportive care and physical therapy as tolerated. Her persistent leukocytosis is likely secondary to her underlying malignancy. White count is up from 13 to 15 today. 2. Subtherapeutic INR. She is status post vitamin K reversible of hypercoagulable INR for her recently done left hip biopsy. INR today is 2.02. We will continue her back on her 3 mg Coumadin and reassess. 3. Dyspnea secondary to hypervolemic status on admission. It is now resolved. No longer in decompensated diastolic congestive heart failure (CHF). Has no respiratory complaints. 4. Chronic atrial fibrillation, rate controlled with diltiazem. INR as mentioned above. 5. Chronic hypotension. Blood pressure is normal. Continue midodrine. 6. Gout, stable. Continue Uloric. 7. Anemia of chronic disease secondary to end-stage renal disease. Continue supplement per Nepro. Hemoglobin and hematocrit remain stable, 10-11 hemoglobin at her baseline. 8. End-stage renal disease. Continue per regular dialysis scheduled Friday, , Friday. 9. Deep vein thrombosis (DVT) prophylaxis. Chronically on Coumadin. DISPOSITION: Pending a bone scan to further assess cancer. Her overall prognosis is limited by her comorbidities and now her recurrent breast cancer that has metastasized. My faculty preceptor for this patient encounter was physically present during the encounter and was fully available. All aspects of the patient interview, examination, medical decision making process, and medical care plan development were reviewed and approved by the faculty preceptor. The faculty preceptor is aware and concurs with the plan as stated in the body of this note and will attest to such by his/her co-signature. MARY JO
[2018-07-11] MEDS ORDERED: WARFARIN SOD 3 MG TAB PO SCH (17:00)
[2018-07-11 22:00] VITALS: BP 117/57
[2018-07-12] MEDS: PERCOCET 5MG/325MG TAB PO PRN ×4 (00:20→18:22)
[2018-07-12 06:00] VITALS: BP 102/53
[2018-07-12 06:10] LABS: HEMATOCRIT 31.2 % (36.0-47.0); HEMOGLOBIN 10.2 g/dl (12.0-15.5); MEAN CORPUSCULAR HEMOGLOBIN 32.7 pg (27.0-33.0); MEAN CORPUSCULAR HGB CONC 32.7 g/dl (32.0-36.5); PLATELET COUNT, AUTOMATED 219 10^3/uL (150-450); RED BLOOD COUNT 3.12 10^6/uL (4.00-5.40)
[2018-07-12 06:32] LABS: INR 2.9
[2018-07-12 06:56] LABS: CALCIUM LEVEL 8.9 MG/DL (8.8-10.2); CREATININE FOR GFR 4.54 MG/DL (0.55-1.30); GLOMERULAR FILTRATION RATE 9.8 (>32)
[2018-07-12 07:07] LABS: POTASSIUM SERUM 4.3 MEQ/L (3.5-5.1)
[2018-07-12] MEDS ORDERED: PILL CRUSHER/CUTTER 1 EACH XX PRN (08:30)
--- NOTE | 2018-07-12 08:35 | IPN ---
DATE: 07/11/2018 SUBJECTIVE: The patient was seen and examined at the bedside today morning during hemodialysis procedure. She is tolerating the hemodialysis procedure well. Patient reports that she is going to have a bone scan done after hemodialysis today. Pain in the hip is better optimized. OBJECTIVE: VITAL SIGNS: Temperature is 98.9 degrees Fahrenheit. Blood pressure 145/59, pulse is 69, respiratory rate of 18, saturating 100% on nasal cannula at 2 liters. Intake and output: There is no urine output recorded. Weight on the bed scale is not available. PHYSICAL EXAMINATION: GENERAL: The patient is awake, alert and oriented times three. Laying in bed getting hemodialysis done. HEAD/NECK: Extraocular muscles intact. Pupils equally round and reactive to light. Mucous membranes are moist. Neck is supple. There is no jugular venous distention (JVD). CARDIOVASCULAR: S1, S2, regular rate. No edema of the lower extremities. RESPIRATORY: Chest is clear to auscultation bilaterally. Bilateral equal air entry. No rales or rhonchi. ABDOMEN: Soft. Positive bowel sounds. Nontender. No organomegaly. MUSCULOSKELETAL: No clubbing or cyanosis. Pulses are 2+. CENTRAL NERVOUS SYSTEM: No focal deficit. Power is 5/5 in bilateral upper extremities. LAB REVIEW: CBC showed WBC 15.5, hemoglobin is 10, platelets are 246. BMP showed sodium 133, potassium 4.7, chloride 101, bicarbonate 23, BUN 52, creatinine 6.1. Calcium is 8.7. PATHOLOGY: Fine needle aspiration cytology of the left hip core biopsy showed metastatic adenocarcinoma, morphologically consistent with metastatic breast primary. CURRENT INPATIENT MEDICATIONS: Patient's medications were all reviewed by me. There is no change in the medications today as compared with yesterday. ASSESSMENT AND PLAN: 1. End-stage renal disease on hemodialysis. Patient is being dialyzed today according to her regular Friday, , Friday schedule. Ultrafiltration goal will be around 1.5 liter as tolerated by her blood pressure. 2. Left hip metastatic breast cancer. Patient is going to have bone scan today after hemodialysis. Further plan for possible radiation therapy is as per hematology oncology as outpatient. 3. Anemia and end-stage renal disease. Hemoglobin is 10.1 which is optimal. Patient is getting Aranesp 100 mcg IV with hemodialysis.
[2018-07-12] MEDS: CALCIUM/VITAMIN D 500 MG TAB PO SCH (08:58)
[2018-07-12] MEDS: MIDODRINE 5 MG TAB PO SCH ×3 (08:58→16:32)
[2018-07-12] MEDS: MAGNESIUM OXIDE 400 MG TAB (MAG-OX) PO SCH ×2 (08:58→22:50)
[2018-07-12] MEDS: GABAPENTIN 300 MG CAP PO SCH ×2 (08:59→22:50)
[2018-07-12] MEDS: FEBUXOSTAT 40 MG TABLET (ULORIC) PO SCH (09:00)
[2018-07-12] MEDS: PANTOPRAZOLE 40MG TAB (PROTONIX) PO SCH ×2 (09:00→22:50)
[2018-07-12] MEDS: BETAMETHASONE DIP 0.05% OINT 15 GM TOP SCH (09:00)
[2018-07-12 14:00] VITALS: BP 102/41
--- NOTE | 2018-07-12 16:28 | IPNPDOC ---
Subjective Date Seen The patient was seen on 07/12/18. Subjective Chief Complaint/HPI Patient seen and examined at the bedside. Reports that she continues to have left hip/groin pain upon movement. Notes that Percocet has been controlling her pain better. She is scheduled to have a whole-body nuclear bone scan tomorrow for further assessment. She otherwise denies any acute overnight events or complaints. Objective Physical Examination General Exam: Positive: Alert, Cooperative, No Acute Distress ENT Exam: Positive: Atraumatic, Mucous membr. moist/pink Chest Exam: Positive: Diminished Heart Exam: Positive: Rate Normal, Normal S1, Normal S2 Abdomen Exam: Positive: Soft; Negative: Tenderness Extremity Exam: Positive: Other (continues with left hip pain in groin and r adiation to lateral dalton area, no swelling or rashes in area appreciated of left hip/trochanter) Neuro Exam: Positive: Normal Speech Psych Exam: Positive: Mood NL, Oriented x 3 Assessment /Plan Plan/VTE VTE Prophylaxis Ordered?: Yes Plan Left hip pain 2/2 metastatic lesion due to Metastatic Breast Adenocarcinoma s/p Left Hip Biopsy by IR on 07/09/18 Patient pending Whole Body Nuclear Bone Scan--we will consider the patient for radiation therapy thereafter Cont pain medication as ordered Patient will need to follow up with her Oncologist Dr. Bisi Yusuf for further management as outpatient We will follow up with imaging tomorrow PT on board for functional optimization Leukocytosis 2/2 Above ID input appreciated End-stage renal disease on HD Continue per regular dialysis scheduled Friday, , Friday. Nephro on board Chronic atrial fibrillation, rate controlled Cont diltiazem, Coumadin Chronic hypotension Blood pressure is controlled. Continue midodrine. Gout, stable Continue Uloric. Anemia of chronic disease secondary to end-stage renal disease H&H stable History of Invasive Ductal Carcinoma s/p Lumpectomy and Radiation [address] Yusuf--she will need further outpatient follow up for metastatic bone disease as delineated above Deep vein thrombosis (DVT) prophylaxis On Coumadin. Dispo--pending clinical improvement VS, I&O, 24H, Fishbone Vital Signs/I&O Vital Signs Date Time Temp Pulse Resp B/P (MAP) Pulse Ox O2 Delivery O2 Flow Rate FiO2 07/12/18 14:00 98.0 70 18 102/41 (61) 97 1.0 I&O- Last 24 Hours up to 6 AM 07/12/18 06:00 Intake Total 1260 ml Output Total 1500 ml Balance -240 ml Laboratory Data 24H LABS Laboratory Tests 2 07/12/18 05:53: Nucleated Red Blood Cells % (auto) 0.0, Prothrombin Time 31.0H, Prothromb Time International Ratio 2.90, Anion Gap 11, Glomerular Filtration Rate 9.8L, Blood Urea Nitrogen 30H, Creatinine 4.54H, Sodium Level 133L, Potassium Level 4.3, Chloride Level 95L, Carbon Dioxide Level 27, Calcium Level 8.9 CBC/BMP Laboratory Tests 07/12/18 05:53 Red Blood Count 3.12 L, Mean Corpuscular Volume 100.0 H, Mean Corpuscular Hemoglobin 32.7, Mean Corpuscular Hemoglobin Concent 32.7, Red Cell Distribution Width 16.1 H, Calcium Level 8.9 Microbiology Microbiology 07/05/18 MRSA Screen - Final, Complete Staph.aureus Methicillin Resis 07/09/18 Acid Fast Stain, Received Pending 07/09/18 Mycobacterial Culture, Received Pending 07/09/18 Fungal Smear, Received Pending 07/09/18 Fungal Culture, Received Pending 07/09/18 Gram Stain - Final, Complete 07/09/18 Bacterial Culture - Final, Complete INEZ MURRELL MD Jul 12, 2018 16:28
[2018-07-12] MEDS ORDERED: WARFARIN SOD 3 MG TAB PO SCH (17:00)
--- NOTE | 2018-07-12 19:25 | IPN ---
DATE: 07/12/2018 SUBJECTIVE: Patient was seen and examined at the bedside today morning. Her son was also present at the bedside. She was dialyzed yesterday, she tolerated the hemodialysis procedure well. She reports her pain is better optimized with the current pain medications. She could not get her bone scan done yesterday and reports that it is tentatively scheduled for tomorrow morning. Son is interested in having the patient transferred to rehabilitation because of difficulty with ambulation and transportation for dialysis. OBJECTIVE: VITAL SIGNS: Temperature is 98.4 degrees Fahrenheit, blood pressure 122/50, pulse 72, respiratory rate of 18, saturating 95% on nasal cannula at 2 liters. Intake and output: There is no urine output recorded, ultrafiltration with hemodialysis was 1.5 liters. Weight in the bed scale is not available. PHYSICAL EXAMINATION: GENERAL: Patient is awake, alert, oriented times three, laying in bed, no apparent distress. HEAD and NECK EXAM: Extraocular muscles intact. Pupils equally round and reactive to light. Mucous membranes are moist. Neck is supple. There is no jugular venous distention (JVD). CARDIOVASCULAR: S1, S2, regular rate. No edema of the bilateral lower extremities. RESPIRATORY: Chest is clear to auscultation bilaterally. Bilateral equal air entry. No rales or rhonchi. ABDOMEN: Soft, positive bowel sounds, nontender. No organomegaly. MUSCULOSKELETAL: No clubbing or cyanosis. Pulses are 2+. CENTRAL NERVOUS SYSTEM ([employer]): No focal deficit. Power is 5/5 in bilateral upper extremities. LABORATORY REVIEW: CBC showed WBC 16, hemoglobin 10.2, platelets are 219. BMP showed sodium 133, potassium 4.3, chloride 95, BUN 30, creatinine 4.5. CURRENT INPATIENT MEDICATIONS: Patient's medications were all reviewed by me. There is no change in the medications today as compared with yesterday. Her Coumadin dose has been decreased to 1.5 mg by mouth daily. ASSESSMENT AND PLAN: 1. End-stage renal disease on hemodialysis. Patient was dialyzed yesterday according to her Friday, , Friday (TTF) schedule. Next hemodialysis hopefully will be outpatient on Friday. 2. Left hip metastatic breast cancer. Patient could not get the bone scan done yesterday, she will get it done tomorrow and after the bone scan the plan for radiation therapy is as per hematology/oncology as outpatient. 3. Pain and decreased mobility. Patient's pain is optimized with Percocet at this point. However, because of the decreased mobility and difficulty with ambulation and transportation for hemodialysis three times a week, her son is interested in having the patient transferred to rehabilitation. I have discussed this with the hospitalist team and they will convey this message to patient and family services (PFS) services.
[2018-07-12 22:00] VITALS: BP 103/44
[2018-07-12] MEDS: ACETAMINOPHEN TAB 650MG DOSE (2X325MG) PO PRN (22:51)
[2018-07-13 06:00] VITALS: BP 100/38
[2018-07-13 06:11] LABS: HEMATOCRIT 31.4 % (36.0-47.0); HEMOGLOBIN 10.1 g/dl (12.0-15.5); MEAN CORPUSCULAR HEMOGLOBIN 32.1 pg (27.0-33.0); MEAN CORPUSCULAR HGB CONC 32.2 g/dl (32.0-36.5); MEAN CORPUSCULAR VOLUME 99.7 fl (80.0-96.0); PLATELET COUNT, AUTOMATED 238 10^3/uL (150-450); RED BLOOD COUNT 3.15 10^6/uL (4.00-5.40); WHITE BLOOD COUNT 16.3 10^3/uL (4.0-10.0)
[2018-07-13 06:21] LABS: INR 3.18; PROTHROMBIN TIME 33.3 SECONDS (12.1-14.4)
[2018-07-13] MEDS: ACETAMINOPHEN TAB 650MG DOSE (2X325MG) PO PRN (06:21)
[2018-07-13 06:34] LABS: CALCIUM LEVEL 9.1 MG/DL (8.8-10.2); CREATININE FOR GFR 6.31 MG/DL (0.55-1.30); GLOMERULAR FILTRATION RATE 6.7 (>32); POTASSIUM SERUM 4.5 MEQ/L (3.5-5.1)
[2018-07-13] MEDS: MIDODRINE 5 MG TAB PO SCH ×3 (08:49→16:39)
[2018-07-13] MEDS: MAGNESIUM OXIDE 400 MG TAB (MAG-OX) PO SCH ×2 (08:50→21:07)
[2018-07-13] MEDS: PANTOPRAZOLE 40MG TAB (PROTONIX) PO SCH ×2 (08:50→21:05)
[2018-07-13] MEDS: FEBUXOSTAT 40 MG TABLET (ULORIC) PO SCH (08:50)
[2018-07-13] MEDS: CALCIUM/VITAMIN D 500 MG TAB PO SCH (08:50)
[2018-07-13] MEDS: BETAMETHASONE DIP 0.05% OINT 15 GM TOP SCH (08:50)
[2018-07-13] MEDS: GABAPENTIN 300 MG CAP PO SCH ×2 (08:50→21:06)
--- NOTE | 2018-07-13 10:40 | IPN ---
DATE OF SERVICE: 07/13/2018 SUBJECTIVE: Patient examined at bedside. No acute complaints. No issues overnight. She states her left hip and groin pain is well controlled and not bothering her this morning. Otherwise she is doing well and awaiting her bone scan which is scheduled for 11 a.m. this morning. No fevers, chills, abdominal pain, nausea, vomiting or shortness of breath. PHYSICAL EXAMINATION: Vitals: Temperature 97.5, pulse 71, respirations 18, blood pressure 100/38, map of 58, pulse oximetry 97% on 1 liter nasal cannula. General: Resting comfortably in bed, no acute distress. Alert and oriented times three. Pleasantly conversant. HEENT: Normocephalic, atraumatic. Extraocular muscles intact. Neck supple without any jugular venous distention (JVD). Cardiac: Rhythm regular. She does have a history of atrial fibrillation. Rate is controlled. 2/6 systolic murmur radiation to carotids. Lungs: Bilateral crackles with baseline pulmonary fibrosis, otherwise clear in the upper lung wilson bilaterally. Abdomen: Soft, nontender, nondistended. Positive bowel sounds with osteophyte present in the right quadrant without any masses or hernias. Extremities: No edema or tenderness. Able to move all extremities. Musculoskeletal: Left hip and groin pain is minimal today. Strength intact throughout. LAB: WBC 6.3, hemoglobin and hematocrit 10 and 31, platelets 238. Sodium 129, potassium 4.5, chloride 94, CO2 28. INR 3.18. Microbiology from left leg biopsy on 07/09/2018 still pending. ASSESSMENT AND PLAN: 1. Left hip pain secondary to metastatic breast adenocarcinoma per biopsy from 07/09/2018. Pain is well controlled on current regimen. She is scheduled to undergo whole body nuclear medicine bone scan today to further assess the extent of this disease. We will also reach out to radiation oncology to further inquire what her options are. 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 Yusuf. She will continue outpatient followup for this as well. 2. Persistent leukocytosis secondary to stated above malignancy. Otherwise is stable. No infectious source suspected. 3. Supratherapeutic INR. She has required multiple adjustments throughout this stay to her regimen. INR is at 3.18 today. Will continue to hold her Coumadin. Goal was 2-3 given her atrial fibrillation and bioprosthetic mitral valve. 4. Chronic atrial fibrillation rate controlled with diltiazem. INR as mentioned above. 5. Endstage renal disease. Nephrology following. Continue per regular dialysis Friday, , Friday. 6. Dyspnea secondary to decompensated congestive heart failure (CHF) and fluid overload from endstage renal disease, is now stable and back to her baseline without any respiratory complaints. 7. Chronic hypotension. Blood pressure is normal. Continue midodrine. 8. Gout, stable. Continue Uloric. 9. Anemia of chronic disease secondary to endstage renal disease. Continue supplement per nephrology. Hemoglobin and hematocrit stable at her baseline of 10-11 hemoglobin. 10. Deep venous thrombosis (DVT) prophylaxis, chronically on Coumadin. DISPOSITION: Pending further workup and clinical improvement. My faculty preceptor for this patient encounter was physically present during the encounter and was fully available. All aspects of the patient interview, examination, medical decision making process, and medical care plan development were reviewed and approved by the faculty preceptor. The faculty preceptor is aware and concurs with the plan as stated in the body of this note and will attest to such by his/her cosignature.
[2018-07-13] MEDS: PERCOCET 5MG/325MG TAB PO PRN ×3 (12:16→21:06)
--- NOTE | 2018-07-13 12:48 | REP ---
Whole body radionuclide bone scan: The patient has a clinical history of bilateral breast carcinoma. Comparison is the radionuclide bone scan dated 2016. The patient complains of left hip pain radiating to the ankle as been present for the last few months. The patient is a history of right shoulder fracture 4 years ago and left knee replacement 30+ years ago. In addition, she has general arthritis. There are several new foci of uptake in the right and left ribs and in the thoracic and lumbar spine as a change from the prior study. There is bilaterally symmetric shoulder uptake, likely degenerative. There are two faintly visible foci of uptake in the right humerus, one in the proximal shaft and the other in the distal shaft, not present previously. There is no uptake in the right hip. However, there appears to be increased uptake in the left femoral head. There is increased uptake in the right knee as an interval change. This is nonspecific and could be arthritic or metastatic. The left knee replacement is identified. There is increased uptake in the ankles and feet bilaterally as an interval change, likely degenerative. Impression: New uptake in the ribs, right humerus, spine and left femoral head could be metastatic disease. The uptake in the shoulders, right knee, ankles and feet as likely degenerative. The study is performed with 20.7 mCi of technetium 99m labeled MDP. Electronically Signed by Reddy Diaz MD 07/13/2018 12:39 P
--- NOTE | 2018-07-13 12:57 | IPN ---
DATE OF SERVICE: 07/13/2018 SUBJECTIVE: Patient was seen and examined at the bedside today morning. She is getting ready to go for her bone scan today. She is otherwise afebrile and hemodynamically stable. She reports pain in the left hip is optimized. OBJECTIVE: VITAL SIGNS: Temperature is 97.5 degrees Fahrenheit, blood pressure 114/40, pulse is 71, respiratory rate of 18, saturating 97% on nasal cannula at 1 liter. Intake and output: There is no urine output recorded. Weight in the bed scale is not available. PHYSICAL EXAM: GENERAL: Patient is awake, alert, oriented times three, sitting up in the wheelchair today getting ready to go for a test. HEAD and NECK EXAM: Extraocular muscles intact. Pupils equally round and reactive to light. Mucous membranes are moist. Neck is supple. There is no jugular venous distention (JVD). CARDIOVASCULAR: S1, S2, regular rate. No edema of the bilateral lower extremities. RESPIRATORY: Chest is clear to auscultation bilaterally. Bilateral equal air entry. No rales or rhonchi. ABDOMEN: Soft, positive bowel sounds, nontender. No organomegaly. MUSCULOSKELETAL: No clubbing or cyanosis. Pulses are 2+. CENTRAL NERVOUS SYSTEM (PNP): No focal deficit. Power is 5/5 in all extremities. LABORATORY REVIEW: CBC showed WBC 16.3, hemoglobin is 10, platelets are 238. BMP showed sodium 129, potassium 4.5, chloride 94, bicarbonate 28, BUN 45, creatinine is 6.3, calcium is 9.1. CURRENT INPATIENT MEDICATIONS: Patient's medications were all reviewed by me. There is a change in her warfarin dose, which was held tonight; otherwise, there is no other change in medications. ASSESSMENT AND PLAN: 1. End-stage renal disease on hemodialysis. Patient's regular dialysis days are Friday, , Friday. She will be dialyzed tomorrow as per her regular schedule. 2. Left hip metastatic breast cancer. Patient is going for a bone scan today and after the bone scan the decision about radiation therapy will be done by hematology/oncology. 3. Hyponatremia. Patient has hypervolemic hyponatremia. Sodium level is expected to improve after dialysis tomorrow and fluid removal. 4. Anemia in end-stage renal disease. Hemoglobin is 10.1, which is optimal. Continue current dose of Aranesp with dialysis.
[2018-07-13 14:00] VITALS: BP 105/52
[2018-07-13] MEDS ORDERED: WARFARIN SOD 3 MG TAB PO SCH (17:00)
[2018-07-13 22:00] VITALS: BP 100/54
[2018-07-14 06:00] VITALS: BP 106/60
[2018-07-14 06:10] LABS: HEMOGLOBIN 10.6 g/dl (12.0-15.5); MEAN CORPUSCULAR HEMOGLOBIN 31.9 pg (27.0-33.0); MEAN CORPUSCULAR HGB CONC 32.1 g/dl (32.0-36.5); MEAN CORPUSCULAR VOLUME 99.4 fl (80.0-96.0); PLATELET COUNT, AUTOMATED 256 10^3/uL (150-450); RED BLOOD COUNT 3.32 10^6/uL (4.00-5.40); WHITE BLOOD COUNT 16.6 10^3/uL (4.0-10.0)
[2018-07-14] MEDS: GABAPENTIN 300 MG CAP PO SCH ×2 (06:13→21:33)
[2018-07-14] MEDS: PERCOCET 5MG/325MG TAB PO PRN ×3 (06:13→21:32)
[2018-07-14] MEDS: FEBUXOSTAT 40 MG TABLET (ULORIC) PO SCH (06:13)
[2018-07-14] MEDS: CALCIUM/VITAMIN D 500 MG TAB PO SCH (06:13)
[2018-07-14] MEDS: MAGNESIUM OXIDE 400 MG TAB (MAG-OX) PO SCH ×2 (06:13→21:33)
[2018-07-14] MEDS: PANTOPRAZOLE 40MG TAB (PROTONIX) PO SCH ×2 (06:13→21:33)
[2018-07-14 06:27] LABS: INR 3.49; PROTHROMBIN TIME 35.9 SECONDS (12.1-14.4)
[2018-07-14 06:31] LABS: CALCIUM LEVEL 8.7 MG/DL (8.8-10.2); CREATININE FOR GFR 7.59 MG/DL (0.55-1.30); GLOMERULAR FILTRATION RATE 5.4 (>32); POTASSIUM SERUM 4.7 MEQ/L (3.5-5.1)
[2018-07-14] MEDS: MIDODRINE 5 MG TAB PO SCH ×3 (08:14→16:42)
[2018-07-14] MEDS: fentaNYL 12 MCG/HR PATCH TOP SCH (08:16)
[2018-07-14] MEDS: FENTANYL REMOVAL DOCUMENTATION MISC XX SCH (08:23)
[2018-07-14] MEDS: BETAMETHASONE DIP 0.05% OINT 15 GM TOP SCH (08:24)
--- NOTE | 2018-07-14 11:37 | IPN ---
DATE: 07/14/2018 SUBJECTIVE: Patient was seen and examined at the bedside today morning. Her son is also present at the bedside. She got a bone scan done yesterday which showed multiple metastatic lesions in the ribs, right humerus, thoracolumbar spine and left femoral head. Patient is complaining of pain in the left shoulder and left hip region. Today is her regular day of dialysis as well. OBJECTIVE: VITAL SIGNS: Temperature is 98.7 degrees Fahrenheit, blood pressure 106/60, pulse is 70, respiratory rate of 20, saturating 98% on nasal cannula at 1 liter. INTAKE AND OUTPUT: There is no urine output recorded. Weight on the bed scale is not available. PHYSICAL EXAM: GENERAL: Patient is awake, alert, oriented times three laying in bed, mild painful distress. HEAD and NECK EXAM: Extraocular muscles intact. Pupils equally round and reactive to light. Mucous membranes are moist. Neck is supple. There is no jugular venous distention (JVD). CARDIOVASCULAR: S1, S2, regular rate. No edema of the bilateral lower extremities. RESPIRATORY: Chest is clear to auscultation bilaterally. Bilateral equal air entry. No rales or rhonchi. ABDOMEN: Soft. Positive bowel sounds. Nontender. No organomegaly. MUSCULOSKELETAL: Patient has decreased range of movement of the hip and shoulders because of pain. Otherwise, no clubbing or cyanosis. CENTRAL NERVOUS SYSTEM (POLICE SHIFT [employer]ER): No focal deficit. Power is 5/5 in bilateral upper extremities. Patient is able to communicate with me. LABORATORY REVIEW: CBC showed WBC 16.6, hemoglobin is 10.6, platelets 256. BMP showed sodium 127, potassium 4.7, chloride 92, bicarbonate 26, BUN 51, creatinine is 7.5. IMAGING: A nuclear bone scan was done yesterday which showed new uptake in the ribs, right humerus, spine and left femoral head, possibly because of metastatic disease. CURRENT INPATIENT MEDICATIONS: Patient's medications were all reviewed by me. Her warfarin is on hold at this point. No other change in the medications today as compared with yesterday. ASSESSMENT AND PLAN: 1. End-stage renal disease on hemodialysis. Patient's regular dialysis days are Friday, , Friday. She will be dialyzed today in the afternoon as per her regular schedule. Ultrafiltration goal will be around 1.5 liters as tolerated by her blood pressure. 2. Metastatic breast cancer. Patient has multiple metastases to multiple areas on bone scan. Pain is being optimized. She is pending evaluation of hematology/oncology for further goals of care. 3. Anemia of end-stage renal disease. Hemoglobin is 10.6, which is optimal. Continue the Aranesp at this point. Continue Venofer 100 mg IV with hemodialysis. DISPOSITION: Patient has just been diagnosed with metastatic breast cancer. Her son is discussing the goals of are with the family members as well. At this point, I will continue to offer the hemodialysis until the family comes up with a final decision and they get the input from hematology/oncology as well.
--- NOTE | 2018-07-14 16:56 | IPN ---
DATE: 07/14/2018 SUBJECTIVE: Patient examined at bedside. No reported events overnight. She states her left hip pain is controlled on pain regimen. She is due for dialysis today. The results of her whole body bone scan were discussed with her and her son in the room. All questions answered. Son and patient would like time to discuss further options and are requesting further discussions with oncologic services regarding their options and overall prognosis. Otherwise, she has no new complaints. However, she feels that she is weaker overall over the past few weeks. PHYSICAL EXAMINATION: VITAL SIGNS: Temperature 98.7, pulse 70, respiratory rate 20, blood pressure 106/60 with mean arterial pressure (MAP) of 75, pulse oximetry 98% on one liter nasal cannula. GENERAL: Resting comfortably in bed, in no acute distress, alert and oriented, pleasantly conversant. HEENT: Normocephalic, atraumatic. Extraocular muscles intact. NECK: Supple without jugular venous distention (JVD). CARDIAC: Regular rhythm. She does have history of atrial fibrillation, rate controlled, 2/6 systolic murmur with radiation to carotids present. LUNGS: Bilateral crackles from baseline pulmonary fibrosis, otherwise clear in upper lung wilson. ABDOMEN: Soft, nontender, nondistended, positive bowel sounds, with colostomy present right quadrant. EXTREMITIES: No edema or tenderness. Able to move all extremities. MUSCULOSKELETAL: Left hip and groin pain continues today. Strength intact with some guarding of the left hip where pain is. LABORATORY DATA: WBC 16.6, hemoglobin and hematocrit 10 and 33, platelets 256. Sodium 127, potassium 4.7, chloride 92, bicarbonate 26, INR 3.49. Microbiology of left hip biopsy 07/09/2018 is pending. ASSESSMENT AND PLAN: 1. Metastatic breast adenocarcinoma from 07/09/2018 biopsy. Nuclear medicine bone scan reveals metastatic disease with new uptake in the ribs, right humerus, the spine, and left femoral head. This was discussed in depth with the patient and the images from the report themselves were shown to the son. The son and patient at this point want her to be comfortable and they state "she has lived out her life and has reached her goals." They do confirm that she is DO NOT RESUSCITATE (DNR)/DO NOT INTUBATE (DNI), however, currently would like to further discuss their options with oncology. I have reached out to Dr. Razo for possible palliative radiation for her pain and I have also reached out to Dr. Bisi Yusuf who she normally follows with for her history of invasive ductal carcinoma from 10 years ago. Appreciate their input. Currently, we will await family's decision on which route they would like to proceed with after they have discussions with the remainder of their family as well as the oncologic team. 2. Persistent leukocytosis. White count remains around 16. No infectious etiology suspected as she is otherwise stable. Likely secondary to the aforementioned malignancy. 3. Supratherapeutic international normalized ratio (INR) at 3.49 today. The goal is 2-3 given her atrial fibrillation and bioprosthetic mitral valve. Continue trending her INR and will resume warfarin as needed. 4. Chronic atrial fibrillation, rate controlled with diltiazem. INR as mentioned above. 5. End-stage renal disease. Nephrology following. Regular dialysis days Friday, , Friday. Will undergo dialysis today. 6. Dyspnea, secondary to decompensated congestive heart failure (CHF) and fluid overload from end-stage renal disease. Now, she is back to her baseline and euvolemic. This has resolved from admission. 7. Chronic hypotension. Blood pressure within normal limits. Continue midodrine. 8. Gout, stable. Continue Uloric. 9. Anemia of chronic disease, secondary to end-stage renal disease. Continue to supplement as per nephrology. Hemoglobin and hematocrit stable at her baseline of 10-11. 10. Deep vein thrombosis (DVT) prophylaxis, chronically on Coumadin. DISPOSITION: Pending discussion with medical and radiation oncology, pending physical therapy (PT) clearance. CODE STATUS: DO NOT RESUSCITATE (DNR)/DO NOT INTUBATE (DNI). My faculty preceptor for this patient encounter was physically present during the encounter and was fully available. All aspects of the patient interview, examination, medical decision making process, and medical care plan development were reviewed and approved by the faculty preceptor. The faculty preceptor is aware and concurs with the plan as stated in the body of this note and will attest to such by his/her co-signature.
[2018-07-14 18:00] VITALS: BP 126/56
[2018-07-14 22:00] VITALS: BP 119/60
[2018-07-15 06:00] VITALS: BP 111/54
[2018-07-15 06:15] LABS: HEMATOCRIT 30.9 % (36.0-47.0); HEMOGLOBIN 9.9 g/dl (12.0-15.5); PLATELET COUNT, AUTOMATED 290 10^3/uL (150-450); RED BLOOD COUNT 3.09 10^6/uL (4.00-5.40); WHITE BLOOD COUNT 18.6 10^3/uL (4.0-10.0)
[2018-07-15 06:22] LABS: INR 3.4; PROTHROMBIN TIME 35.1 SECONDS (12.1-14.4)
[2018-07-15 06:38] LABS: CALCIUM LEVEL 8.8 MG/DL (8.8-10.2); CREATININE FOR GFR 4.48 MG/DL (0.55-1.30); GLOMERULAR FILTRATION RATE 9.9 (>32); POTASSIUM SERUM 4.4 MEQ/L (3.5-5.1)
[2018-07-15] MEDS: PERCOCET 5MG/325MG TAB PO PRN ×2 (06:48→12:46)
[2018-07-15] MEDS: MIDODRINE 5 MG TAB PO SCH ×3 (09:37→17:45)
[2018-07-15] MEDS: CALCIUM/VITAMIN D 500 MG TAB PO SCH (09:37)
[2018-07-15] MEDS: FEBUXOSTAT 40 MG TABLET (ULORIC) PO SCH (09:37)
[2018-07-15] MEDS: GABAPENTIN 300 MG CAP PO SCH ×2 (09:38→20:21)
[2018-07-15] MEDS: MAGNESIUM OXIDE 400 MG TAB (MAG-OX) PO SCH ×2 (09:38→20:21)
[2018-07-15] MEDS: PANTOPRAZOLE 40MG TAB (PROTONIX) PO SCH ×2 (09:38→20:21)
[2018-07-15] MEDS: BETAMETHASONE DIP 0.05% OINT 15 GM TOP SCH (09:41)
--- NOTE | 2018-07-15 12:12 | CR ---
MEDICAL ONCOLOGY INPATIENT CONSULT DATE OF CONSULTATION: 04/16/2018 Dr. Armando Varghese of the hospitalist service requested inpatient medical oncology consult for recommendations regarding newly diagnosed metastatic breast cancer in an 83-year-old woman with personal history of stage I breast cancer and multiple medical problems. Keren Carranza is well-known to the [facility] Hem[facility]Onc service having been diagnosed with right breast stage I, [id number] invasive ductal carcinoma, ER and SD positive, HER2 negative in 2007. This was treated with lumpectomy followed by adjuvant radiation and she received 10 years of endocrine therapy completed December 2016. She also has a history of left breast stage 0, [id number] ductal carcinoma in situ diagnosed in 2007 treated with lumpectomy. More recently, she was treated with Prolia (denosumab) for osteoporosis. She has had a persistently elevated CA27.29, but without findings of metastatic disease on workup. Her last visit in oncology service was in March 2018. Keren has multiple chronic medical conditions including end-stage renal disease on hemodialysis, coronary artery disease (CAD) status post coronary artery bypass grafting (CABG) 2011, status post valvular cardiac surgery, and has an ileostomy due to colectomy for C. difficile in 2011. On June 26 she was sent to the emergency room with complaint of progressive shortness of breath and suspicion of pneumonia. Her workup here revealed pulmonary edema, echocardiogram showed moderate left ventricular hypertrophy (LVH), normal LV wall motion, ejection fraction (EF) 65%, severe left atrial dilatation, moderately elevated right ventricular pressure with normal RV size and function, normal mitral valve prosthesis, moderate aortic valve sclerosis without regurgitation or stenosis, and mild tricuspid regurgitation. During her hospitalization she complained of progressive left hip pain and went from being ambulatory with a walker to not being able to get out of bed. She then developed left arm pain. Imaging including CT of the thorax, abdomen and pelvis and left lower extremity showed primarily diffuse osteopenia and multiple osteoporotic wedge compression changes in the thoracic vertebrae. However, on rereview of abdomen pelvis CT a 2.2 cm destructive bony lesion in the left iliac crest was seen with partial destruction of the lateral cortex and radiolucency concerning for malignancy and possibly infection. CT guided biopsy of the site revealed adenocarcinoma most consistent with breast primary. ER/SD, HER2 not available at this dictation. Bone scan 07/13/2018 revealed new diffuse uptake involving ribs, right humerus, spine, left femoral head, shoulders, right knee, ankles with likely degenerative joint disease (DJD). related changes. Throughout her hospitalization her mobility has decreased, pain in the arm and leg increased. Oxycodone has been mildly to moderately helpful. Per the patient's son Jared, her overall mental status appears to be less sound, though on interview today she could name the day of the week and month. Dr. Razo of radiation oncology has met the patient and recommended palliative radiation. When I approached last evening she had gone fast asleep and I had an extensive discussion with her son and [id number]. Their overall feeling about Ms. Carranza is she is no longer able to manage independently, and that her overall mental and physical condition has severely declined within the last 2 weeks. On interview today, Keren complains of pain in her left arm and her left leg. On exam she was unable to easily flex her left hip, but could easily flex and extend her ankle and mildly her left knee. She had no weakness in the left arm or wrist. PAST MEDICAL HISTORY: End-stage renal disease on hemodialysis Friday, , Friday. Hypertension. Osteoporosis. History of C. difficile requiring colectomy and permanent ileostomy. Status post permanent pacemaker. Status post MVR. Status post tricuspid valvuloplasty. History of right breast stage I, ER/SD positive, HER2 negative breast cancer 2007, received all appropriate local and extended endocrine therapy. Personal history of left breast stage 0 DCIS 2007 treated with lumpectomy. CAD status post CABG. Atrial fibrillation. PAST SURGICAL HISTORY: CABG 2011. Ileostomy. Mitral valve surgery. Tricuspid valve surgery. Right breast partial mastectomy 2007. Left breast partial mastectomy 2007. FAMILY HISTORY: Not elicited. ALLERGIES: 1. CONTRAST MEDIA. 2. NONSTEROIDAL ANTI-INFLAMMATORIES. SOCIAL HISTORY: Until recently, the patient was living semi-independently with a great deal of support from her son, Jared Carranza. Never smoker, denies alcohol. MEDICATIONS: - acetaminophen 650 mg as needed - betamethasone film - bisacodyl 5 mg as needed daily - calcium with vitamin D 1000 mg daily - darbepoietin 100 mcg at dialysis - diltiazem 30 mg twice a day - febuxostat 40 mg daily - fentanyl 12 mcg every 72 hours - gabapentin 300 mg twice a day - iron 100 mg IV at dialysis - magnesium oxide 400 mg twice a day by mouth - BenGay cream as needed - midodrine three times a day 10 mg - ondansetron 4 mg every 6 hours as needed nausea or vomiting - oxycodone/acetaminophen 5/325 one tablet every 4 hours as needed - pantoprazole 40 mg twice a day PHYSICAL EXAMINATION: Temperature 98, blood pressure 111/54, heart rate 78, respiratory 18, O2 sat 99% on 2 liters nasal cannula. Patient is a petite older woman reclining in bed, awake, alert, chatty, remembers me immediately from our last visit and asks about radiation. Respiratory: Clear lungs to auscultation bilaterally, anteriorly and posteriorly. No wheezes, no rales. Cardiac: S1-S2 irregularly regular. Abdomen: Soft, nontender, nondistended. Extremities: No pedal edema. Lymph nodes: No palpable submandibular, cervical, supraclavicular or axillary adenopathy bilaterally. Breast exam: Deferred. Musculoskeletal: Tenderness to light touch left elbow, able to flex and extend the left arm and left wrist. Neurologic exam: Cranial nerves not tested. Face is symmetric. Sensation intact, symmetric throughout. Hip flexion on the right 5/5, left hip flexion limited 4/5, extension intact 5/5, left knee flexion/extension and ankle flexion/extension fully intact 5/5, right knee and ankle extension and flexion 5/5. LABORATORY DATA: WBC 18, hemoglobin 9.9, hematocrit 31, platelets 16. Sodium 134, normal potassium, bicarb and BUN, chloride 96, GFR 4, creatinine 25, lactic acid 94, and normal calcium 8.8. IMAGING STUDIES: As noted above. IMPRESSION: Keren Carranza is an 83-year-old woman now quite debilitated with ECOG performance status 4, with multiple major organ problems including end-stage renal disease on dialysis, coronary disease status post CABG in 2012, and at least apparent diastolic dysfunction episode on this admission, though with normal LV structure and function on echo, osteoporosis, personal history of early stage ER/SD positive, HER2 negative breast cancer now with evidence of metastatic breast cancer widely involving the skeleton with painful left iliac and apparent left humerus involvement though scattered foci on bone scan including right humerus. She is in quite a bit of pain despite opioids, long-acting and short-acting. RECOMMENDATIONS: 1. I agree completely with palliative radiation to the left iliac, possibly left spine and left humerus. 2. At this juncture, given very poor for performance status, I am holding off recommending systemic treatment. Today, in the presence of her son and the hospitalist team, we discussed no systemic treatment intervention and possible hospice care given her overall terminal prognosis and poor performance status. If after palliative radiation, she returns to becoming ambulatory, then systemic treatment with possibly an antiestrogen drug could possibly could be considered, but I am concerned at the overall decline in Ms. Carranza since her last oncology visit. We talked today about hospice care. She and her son have discussed this. She has already completed the DO NOT RESUSCITATE order process. She is accepting of her limited life span. Her chief concern is not having pain and I assured her that hospice care goals are for palliation of symptoms. Thank you for this consult. Please reconsult if needed. cc: Reddy Razo MD
[2018-07-15 14:00] VITALS: BP 138/69
[2018-07-15] MEDS: MORPHINE 10MG/0.5ML ORAL CONCENTRATE SOLUTION U/D SL PRN (15:29)
--- NOTE | 2018-07-15 17:22 | IPN ---
DATE: 07/15/2018 SUBJECTIVE: The patient examined at bedside with son in room. No reported issues overnight. Her pain in the left hip and groin and left shoulder persist. At this point, after thorough discussions the family has had with radiation oncology and with medical oncology and with the hospitalist team, they are considering pursuing hospice down the line and currently would like to proceed with palliative radiation for pain control, emphasizing currently that they want a better quality of life. They are aware of her poor prognosis and that she has a terminal illness. The patient is stating "I have lived out my life, I just want to see my grandchildren one more time." In the room with us today was our medical oncologist who is also onboard and in agreement with proceeding with palliative radiation and symptomatic control at this point. PHYSICAL EXAMINATION: VITAL SIGNS: Temperature 98, pulse 78, respirations 18, blood pressure 111/54 with a mean arterial pressure (MAP) of 73, pulse oximetry 99% on two liters nasal cannula. GENERAL: Resting comfortably in bed, in no acute distress, alert and oriented, pleasantly conversant. HEENT: Normocephalic, atraumatic. Extraocular muscles intact. NECK: Supple without any jugular venous distention (JVD). CARDIAC: Regular rhythm with underlying history of atrial fibrillation. Rate is controlled. A 2/6 systolic murmur with radiation to carotids present. LUNGS: Bilateral crackles from baseline pulmonary fibrosis, otherwise clear in the upper lung wilson. ABDOMEN: Soft, nontender, nondistended. Positive bowel sounds. Colostomy bag present in the right quadrant. EXTREMITIES: No edema. Able to move all extremities. MUSCULOSKELETAL: Tenderness to palpation in the left hip and groin persists today. She is noted to be guarding her left leg due to the pain in the left hip with movement. LABORATORY DATA: WBC 18.6, hemoglobin and hematocrit 9.9 and 31, platelets 290. Sodium 134, potassium 4.4, INR 3.4. Microbiology of left hip biopsy on 07/09/2018 is pending. ASSESSMENT AND PLAN: 1. 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 The patient and son have been updated throughout the stay regarding her prognosis and results. They are aware of her terminal prognosis and have spoken with our radiation and medical oncology team. They would like to pursue palliative radiation at this point and would like to further discuss possibly comfort measures and hospice. Per the family's request, we will consult hospice services and do our best to make Ms. Carranza more comfortable with her pain regimen. We will add on morphine and continue with Percocet and fentanyl patch. She is currently DO NOT RESUSCITATE (DNR)/DO NOT INTUBATE (DNI). There is a concern regarding the cost of palliative radiation and thus we will discuss with our social services manager and landfill grader regarding the family's options to pursue this plan. 2. Persistent leukocytosis. White count remains elevated, likely secondary to underlying malignancy. No infectious source suspected. 3. Supratherapeutic international normalized ratio (INR), at 3.4 today. Continue holding Coumadin. Goal INR is 2-3 given atrial fibrillation and bioprosthetic mitral valve. Continue daily INR checks. 4. Chronic atrial fibrillation, rate controlled with diltiazem. INR as mentioned above. 5. End-stage renal disease. Nephrology following. Regular dialysis days Friday, , Friday. She will undergo dialysis tomorrow. 6. Chronic hypotension. Blood pressure within normal limits. Continue midodrine. 7. Gout, stable. Continue Uloric. 8. Anemia of chronic disease, secondary to end-stage renal disease. Continue to supplement as per nephrology. Hemoglobin and hematocrit are stable. 9. Deep vein thrombosis (DVT) prophylaxis, chronically on Coumadin. DISPOSITION: Family is currently in the process of discussing possibly hospice and comfort measures but currently would like to continue with palliative radiation which we are in the process of setting up. The patient is aware of terminal prognosis and family has emphasized that they do not want to pursue any treatment for this cancer or any invasive measures at this point. Medical orders for life-sustaining treatment (MOLST) form is also in chart. We will do our best to make her comfortable and honor their wishes. All questions were answered. My faculty preceptor for this patient encounter was physically present during the encounter and was fully available. All aspects of the patient interview, examination, medical decision making process, and medical care plan development were reviewed and approved by the faculty preceptor. The faculty preceptor is aware and concurs with the plan as stated in the body of this note and will attest to such by his/her co-signature.
[2018-07-15 22:00] VITALS: BP 115/54
[2018-07-16 06:00] VITALS: BP 140/66
[2018-07-16 06:14] LABS: HEMATOCRIT 32.7 % (36.0-47.0); HEMOGLOBIN 10.3 g/dl (12.0-15.5); MEAN CORPUSCULAR HEMOGLOBIN 32.1 pg (27.0-33.0); MEAN CORPUSCULAR HGB CONC 31.5 g/dl (32.0-36.5); MEAN CORPUSCULAR VOLUME 101.9 fl (80.0-96.0); PLATELET COUNT, AUTOMATED 318 10^3/uL (150-450); RED BLOOD COUNT 3.21 10^6/uL (4.00-5.40); WHITE BLOOD COUNT 16.2 10^3/uL (4.0-10.0)
[2018-07-16] MEDS: MIDODRINE 5 MG TAB PO SCH ×3 (06:15→16:39)
[2018-07-16] MEDS: FEBUXOSTAT 40 MG TABLET (ULORIC) PO SCH (06:16)
[2018-07-16] MEDS: GABAPENTIN 300 MG CAP PO SCH ×2 (06:16→20:57)
[2018-07-16] MEDS: MAGNESIUM OXIDE 400 MG TAB (MAG-OX) PO SCH ×2 (06:16→20:57)
[2018-07-16] MEDS: PANTOPRAZOLE 40MG TAB (PROTONIX) PO SCH ×2 (06:16→20:57)
[2018-07-16] MEDS: CALCIUM/VITAMIN D 500 MG TAB PO SCH (06:16)
[2018-07-16] MEDS: MORPHINE 10MG/0.5ML ORAL CONCENTRATE SOLUTION U/D SL PRN ×4 (06:16→14:18)
[2018-07-16] MEDS: BETAMETHASONE DIP 0.05% OINT 15 GM TOP SCH (06:17)
[2018-07-16 06:26] LABS: INR 3.13; PROTHROMBIN TIME 32.9 SECONDS (12.1-14.4)
[2018-07-16 06:35] LABS: CALCIUM LEVEL 8.7 MG/DL (8.8-10.2); CREATININE FOR GFR 6.35 MG/DL (0.55-1.30); GLOMERULAR FILTRATION RATE 6.6 (>32); POTASSIUM SERUM 4.9 MEQ/L (3.5-5.1)
--- NOTE | 2018-07-16 07:16 | IPN ---
DATE OF SERVICE: 07/15/2018 SUBJECTIVE: Patient was seen and examined at the bedside today morning. She is complaining of pain in the left shoulder and left hip. Her son was also present at the bedside. They were seen by hematology, oncology and radiation oncology yesterday. There is tentative plan for palliative radiation therapy. The patient's son is also interested in getting hospice on board. She was dialyzed yesterday. She tolerated the hemodialysis procedure well. One liter of fluid was removed. OBJECTIVE: VITAL SIGNS: Temperature is 96.8 degrees Fahrenheit, blood pressure 138/69, pulse is 79, respiratory rate of 19, saturating 96% on nasal cannula at 2 liters. INTAKE AND OUTPUT: Urine output recorded as 0. Ultrafiltration with hemodialysis was 1 liter. Bed scale weight is not available. PHYSICAL EXAM: GENERAL: Patient is awake, alert, oriented times three laying in bed, in mild painful distress. HEAD AND NECK EXAM: Extraocular muscles intact. Pupils equally round and reactive to light. Mucous membranes are moist. Neck is supple. There is no jugular venous distention (JVD). CARDIOVASCULAR: S1, S2, regular rate. No edema of the bilateral lower extremities. RESPIRATORY: Chest is clear to auscultation bilaterally. Bilateral equal air entry. No rales or rhonchi. ABDOMEN: Soft. Positive bowel sounds. Nontender. No organomegaly. MUSCULOSKELETAL: Decreased range of movement of the left hip and left shoulder. Otherwise no clubbing or cyanosis. CENTRAL NERVOUS SYSTEM (OPERATING COST CLERK): No focal deficit. She is awake and alert and able to communicate. LABORATORY REVIEW: CBC showed a WBC of 18.6, hemoglobin is 9.9 and platelets are 290. BMP showed sodium 134, potassium 4.4, chloride 96, bicarbonate 29, BUN 25, and creatinine is 4.4. CURRENT INPATIENT MEDICATIONS: Patient's medications were all reviewed by me. There is no change in the medications today as compared with yesterday. ASSESSMENT AND PLAN: 1. End-stage renal disease on hemodialysis. Patient's regular dialysis days are Friday, , Friday. She was dialyzed yesterday. If we continue the current care, she will be dialyzed tomorrow as per her regular schedule. 2. Metastatic breast cancer. She has multiple metastatic lesions in the bones. She is currently not a candidate for chemotherapy. Palliative radiation was offered to them for relief of pain. 3. Anemia and end-stage renal disease. Hemoglobin is optimal. Continue Venofer and IV iron at this point. 4. Disposition. Patient overall has a poor prognosis because of metastatic cancer. Pain is being optimized. Patient's son is considering palliative radiation therapy and they are also going to see hospice today. The patient herself has made herself DO NOT RESUSCITATE (DNR) and she expresses that she has lived her life, she has achieved her goals and she is willing to accept hospice care if her family decides to do that.
--- NOTE | 2018-07-16 07:59 | RADONC ---
RADIATION ONCOLOGY CONSULTATION NOTE DATE: 07/14/2018 DIAGNOSIS: Right breast cancer. STAGE: Stage IV, metastatic. ECOG PERFORMANCE STATUS: 4. CONSULTATION NOTE: Ms. Carranza is an 83-year-old white female with the diagnosis of metastatic adenocarcinoma of the breast who has been referred to us for consideration of palliative radiation therapy for painful left hip and back pain. HISTORY OF PRESENT ILLNESS: The patient was first seen by us on 09/17/2007 for what was then a stage I, [id number], moderately differentiated infiltrating ductal carcinoma of the right breast. The patient underwent lumpectomy and sentinel lymph node biopsy followed by postoperative radiation therapy to the right breast for a dose of 4860 cGy in 27 fractions of 180 cGy each from 10/06/2007 through 11/16/2007. This was followed by a 1600 cGy boost to the primary site from 11/17/2007 through 11/26/2007. That brought the primary site in the breast to a total dose of 6460 cGy in 35 fractions completed on 11/26/2007. The patient was lost to our followup, but apparently has had multiple medical problems since completion of treatment. Apparently, the patient has some type of heart issue, including chronic atrial fibrillation. She has chronic hypotension. The patient in addition has had history of Clostridium difficile which has resulted in a colostomy for the past several years now. She has a history of DVTs and is chronically on Coumadin. She has congestive heart failure which is decompensated at times with dyspnea. The patient has chronic renal failure and is on dialysis for years now three times a week. She is frail and also has some confusion. ALLERGIES: The patient is allergic to IV contrast and nonsteroidal anti-inflammatory drugs. FAMILY HISTORY: The patient's family history is negative for malignancy, but is positive for end-stage renal disease. SOCIAL HISTORY: The patient denies drug use, alcohol use or smoking. REVIEW OF SYSTEMS: The patient's review of systems is positive for physical limitations secondary to her advanced age and various health issues. She is presenting in a hospital bed. She is unable to walk secondary to the hip and back pain. She has a colostomy and is undergoing dialysis. She denies nausea, vomiting, fevers, chills, night sweats, diplopia, headaches, or chest pain. PHYSICAL EXAMINATION: The patient is presenting in a hospital bed. HEENT: Normocephalic, atraumatic. Extraocular movements appear to be intact. The remainder of the physical examination was deferred at this point. ASSESSMENT: I had more than one very lengthy discussions with this patient's family as well as with the patient. We do have a diagnosis of metastatic breast cancer which is causing this patient pain and of course she would be a candidate for palliative radiation therapy. I discussed with the patient and family in detail the potential benefits as well as possible acute and chronic sequelae of external beam radiation therapy. We discussed logistics of treatment planning, simulation and subsequent fractionated daily radiation treatments. We can initiate this treatment at anytime. The patient's family is concerned that they are unable to manage her care at this point. She cannot walk and they have difficulty getting her into the bathroom. They have difficulties managing her colostomy issues as well as other problems. At least prior to admission, she was walking. I have let the family know that I can schedule her for initiation of treatment planning and radiation can begin at anytime. This way if they do finally decide on treatment, we can do that. In addition, the patient has been seen by medical oncology and is discussing hormonal treatment as well. Thank you for allowing us to participate in this patient's care. as always warm regards.
[2018-07-16] MEDS ORDERED: HEPARIN 1,000 UNITS/ML 10ML VIAL (FOR RADIOLOGY& DIALYSIS ONLY) IV ONE (10:30)
--- NOTE | 2018-07-16 12:05 | IPN ---
DATE OF SERVICE: 07/16/2018 SUBJECTIVE: Patient was seen and examined at the bedside today morning during hemodialysis procedure. She is tolerating the hemodialysis procedure well. Her family members were also present at the bedside. She just got the mapping for left hip radiation therapy done today morning as well. The patient reports persistent left hip pain. She is unable to move her lower extremity. OBJECTIVE: VITAL SIGNS: Temperature is 97.5 degrees Fahrenheit, blood pressure 140/66, pulse is 70, respiratory rate of 18, saturating 92% on nasal cannula at 2 liters. INTAKE AND OUTPUT: Urine output is not recorded. Weight on the bed scale weight is not available. PHYSICAL EXAM: GENERAL: Patient is awake, alert, and oriented times three, mild painful distress, laying in bed getting hemodialysis done. HEAD AND NECK EXAM: Extraocular muscles intact. Pupils equally round and reactive to light. Mucous membranes are moist. Neck is supple. There is no jugular venous distention (JVD). CARDIOVASCULAR: S1, S2, regular rate. No edema of the bilateral lower extremities. RESPIRATORY: Chest is clear to auscultation bilaterally. Bilateral equal air entry. No rales or rhonchi. ABDOMEN: Soft. Positive bowel sounds. Nontender. No organomegaly. MUSCULOSKELETAL: Decreased range of movement of the left shoulder and left hip because of pain. CENTRAL NERVOUS SYSTEM (TECHNICAL ARTIST): No focal deficit. Power is 5/5 in bilateral upper extremities. LABORATORY REVIEW: CBC showed a WBC of 16.2, hemoglobin is 10.3, platelets are 318. BMP showed sodium 130, potassium 4.4, chloride 94, bicarbonate 28, BUN 38, creatinine is 6.3, calcium is 8.7. CURRENT INPATIENT MEDICATIONS: The patient's medications were all reviewed by me. She has been started on sublingual morphine yesterday. No other change in the medications today as compared with yesterday. ASSESSMENT AND PLAN: 1. End-stage renal disease on hemodialysis. Patient is being dialyzed today according to her regular schedule. Because of decreased by mouth intake I will only do ultrafiltration of 1 liter during dialysis. 2. Metastatic breast cancer. The patient got the mapping done for palliative radiation therapy of the left hip. She is not a candidate for chemotherapy. 3. Anemia and end-stage renal disease. Continue current dose of Venofer and Aranesp with hemodialysis. DISPOSITION: Patient is in intractable pain. She is requiring a lot of opioids for the optimization of pain. Family is discussing possible hospice versus comfort measures. There is no bed available in hospice at this point. Family members want to continue the hemodialysis and the palliative radiation therapy at this point.
[2018-07-16] MEDS ORDERED: LORazepam 0.5 MG TAB PO PRN (13:30)
--- NOTE | 2018-07-16 19:37 | IPN ---
DATE: 07/16/2018 SUBJECTIVE: Patient is examined at bedside with son and daughter in law and grandson in the room. Her mentation has been declining overall where she has been more confused overnight over the past few days. This morning she states that her pain is controlled with the current dailey regimen. However her hip is inspection machine tender to palpation and the family is concerned that she is less coherent with her pain medicine and noted to be more drowsy. Patient and family again reemphasize that they would like to pursue palliative radiation and are currently in discussions with hospice regarding her treatment options. Currently they would like to continue with current treatment including dialysis and current medications. No other complaints. She is scheduled to undergo radiation mapping today. PHYSICAL EXAMINATION: VITALS: Temperature 97.5, pulse 70, respirations 18, blood pressure 140/66, map of 90, pulse ox 92% on 2 liters nasal cannula. GENERAL: Resting comfortably in bed. Visibly tired, frail appearing. Communicative when prompted. HEENT: Normocephalic, atraumatic, extraocular muscles are intact. NECK: Supple. Without JVD. CARDIAC: Irregular rhythm with atrial fibrillation. Rate is controlled 2/6 systolic murmur present. LUNGS: Bilateral crackles heard at the bases from pulmonary fibrosis. Otherwise clear in upper lung wilson. ABDOMEN: Soft and nontender and nondistended. Positive bowel sounds. Colostomy bag in the right quadrant. EXTREMITIES: No edema or calf tenderness. MUSCULOSKELETAL: Tenderness to palpation on the left shoulder, hip and groin. She is guarding her extremities and overall weak. Her strength has declined from the previous days. LABS: WBC 16.2, hemoglobin and hematocrit 7.3 and 32.7, platelets 318, sodium potassium 134.9, chloride and bicarbonate 94 and 28. INR 3.13. Microbiology of left hip biopsy on 07/09/2018 is pending. ASSESSMENT AND PLAN: 1. Metastatic breast adenocarcinoma with most severe pain in the left hip and groin and left shoulder as stated above and in previous notes family and patient are in agreement to proceed with palliative radiation. She will undergo mapping later today. They would like to continue with current plan of treatment with the current medications and pain control and continue with dialysis. Currently they are in talks with Hospice regarding her options. They again emphasize that their [place] priority currently is making her comfortable and giving her a better quality of life as she declines and passes away ultimately. Currently she is DO NOT RESUSCITATE DO NOT INTUBATE with MOLST form in the chart. 2. Persistent leukocytosis, likely secondary to the above stated malignancy. 3. Supratherapeutic INR. Continues to trend down. Is at 3.13 today. Continue holding Coumadin. Goal INR 2-3 given a atrial fibrillation and biprosthestic mitral valve. Continue daily INR checks. 4. Chronic atrial fibrillation. Rate controlled with diltiazem. INR as mentioned above. 5. End-stage renal disease. Nephrology is following. Regular dialysis days are Friday, , Friday undergoing dialysis later today. 6. Chronic hypotension. Blood pressure within normal limits. Continue Midodrine. 7. Gout stable. Continue Uloric. 8. Anemia of chronic disease secondary to end-stage renal disease. Continue supplement per nephrology. Hemoglobin and hematocrit are stable. 9. DVT prophylaxis. Chronically on Coumadin. DISPOSITION: Patient has a terminal prognosis and family is aware. Patient has remainder of her family relatives coming into town to visit her today and tomorrow and to say their goodbyes. They are currently in the talks of Hospice but at this point are continuing with current medical care with ultimate plans for palliative radiation.
[2018-07-16 20:54] VITALS: BP 102/30
[2018-07-16 22:00] VITALS: BP 115/43
[2018-07-17] MEDS: MORPHINE 10MG/0.5ML ORAL CONCENTRATE SOLUTION U/D SL PRN (00:54)
[2018-07-17 06:00] VITALS: BP 99/46
[2018-07-17 06:09] LABS: HEMATOCRIT 32.4 % (36.0-47.0); HEMOGLOBIN 10.1 g/dl (12.0-15.5); MEAN CORPUSCULAR HEMOGLOBIN 32.2 pg (27.0-33.0); MEAN CORPUSCULAR HGB CONC 31.2 g/dl (32.0-36.5); MEAN CORPUSCULAR VOLUME 103.2 fl (80.0-96.0); PLATELET COUNT, AUTOMATED 263 10^3/uL (150-450); RED BLOOD COUNT 3.14 10^6/uL (4.00-5.40)
[2018-07-17 06:20] LABS: INR 2.76; PROTHROMBIN TIME 29.8 SECONDS (12.1-14.4)
[2018-07-17 06:38] LABS: CALCIUM LEVEL 9.2 MG/DL (8.8-10.2); CREATININE FOR GFR 4.4 MG/DL (0.55-1.30); GLOMERULAR FILTRATION RATE 10.1 (>32); POTASSIUM SERUM 4.1 MEQ/L (3.5-5.1)
--- NOTE | 2018-07-17 08:11 | RADONC ---
RADIATION ONCOLOGY SIMULATION NOTE DATE: 07/15/2018 CHART NUMBER: [id number] SIMULATION NOTE: Ms. Carranza was taken to the CT scan for CT simulation of her hip and back wilson. CT was accomplished without difficulty or discomfort. Radiation treatment planning is underway and radiation treatments will begin subsequently. An immobilization device was created and will be used throughout the course of treatment. It was created without difficulty or discomfort. I was physically present throughout the course of CT simulation.
[2018-07-17] MEDS ORDERED: SCOPOLAMINE 1MG TRANSDERMAL PATCH TOP PRN (09:00)
[2018-07-17] MEDS: PERCOCET 5MG/325MG TAB PO PRN (09:02)
[2018-07-17] MEDS ORDERED: LORA0.5T11 PO (09:05)
[2018-07-17] MEDS ORDERED: HYOS125TA PO (09:05)
[2018-07-17] MEDS ORDERED: MORP20SO3 PO (09:05)
[2018-07-17] MEDS: fentaNYL 12 MCG/HR PATCH TOP SCH (09:15)
--- NOTE | 2018-07-17 10:44 | IPN ---
DATE OF SERVICE: 07/17/2018 SUBJECTIVE: Patient was seen and examined at the bedside today morning. She was dialyzed yesterday. She tolerated the hemodialysis procedure well. 700 mL of fluid was removed. Dialysis stopped earlier because patient was restless and was in pain. Last 24 hour events were noted. Patient's family members have finally decided to make her comfort measures only and hospice has already seen her. Patient is awaiting transfer to hospice facility today. Today's visit was a courtesy visit only. I met patient's son at the bedside and I met her as well. All the medications are being stopped. Dialysis is being stopped from now on. Patient will be transferred to hospice facility soon. Patient will not be charged for today's visit.
[2018-07-17] MEDS ORDERED: WARFARIN SOD 2.5 MG TAB PO SCH (17:00)
--- NOTE | 2018-07-18 18:18 | DS.PDOC ---
Discharge Summary General Date of Admission Jun 26, 2018 at 20:37 Date of Discharge 07/17/18 Attending Physician: ANDREW PEREZ DO Specialist/Consultants [facility] Medical oncologist: Dr. Yusuf Radiation Oncologist: Dr. Palomino Nephro: Dr. Christopher/Dr. Corbett ID: Dr. Yung Ortho: Dr. Nye Discharge Summary PROCEDURES PERFORMED DURING STAY: Left hip biopsy, transfused 7U albumin ADMITTING DIAGNOSES: 1. . DISCHARGE DIAGNOSES: 1. Metastatic breast adenocarcinoma 2. Persistent leukocytosis 2/2 malignancy Supra therapeutic INR Chronic A. fib ESRD, HD TTS Chronic hypotension Gout Anemia of chronic disease 2/2 ESRD COMPLICATIONS/CHIEF COMPLAINT: Esrd/Hemoptysis. HISTORY OF PRESENT ILLNESS: . HOSPITAL COURSE: . DISCHARGE MEDICATIONS: Please see below. ALLERGIES: Please see below. PHYSICAL EXAMINATION ON DISCHARGE: VITAL SIGNS: Please see below. Patient resting comfortably in bed, no acute distress. Remainder of exam was not performed given that she is comfortable measures only and going home with hospice. She appears comfortable and at peace, surrounded by family. LABORATORY DATA: Please see below. IMAGING: * 06/26/2018 CXR: Cardiomegaly and pulmonary vascular congestion consistent with CHF with slight blunting of the right lateral pleural angle. Diffuse interstitial fibrosis pattern. No acute infiltrate. * 06/26/[address]: Chronic fibrosis and bronchiectasis, right more so than left. There are superimposed interstitial and ground glass alveolar infiltrates, right greater than left with a small right effusion. Findings suggest asymmetric pulmonary edema. There is cardiomegaly. There is mild mediastinal adenopathy. * 06/28/2018 CXR: Stable exam. * 06/29/2018 echo: 1. Moderate concentric left ventricle hypertrophy with normal regional left ventricular (LV) wall motion and wall thickening. Left ventricular ejection fraction (LVEF) 65% by visual estimate. No paradoxical septal motion. Unable to assess LV diastolic function in the setting of atrial fibrillation and status post mitral valve bioprosthesis. 2. Severe left atrial dilatation. 3. Suggestive of moderate elevation of estimated right ventricle systolic pressure (41-46 mmHg). Normal right ventricle size and systolic function. Central venous pressure estimated to be 5-10 mmHg at the time of the study. 4. Well seated and normally functioning mitral valve bioprosthesis. No mitral stenosis or regurgitation. Cusp of the mitral valve prosthesis appeared normal. 5. Moderate aortic valve sclerosis of a 3-cusp aortic valve. No aortic regurgitation or stenosis. 6. Status post tricuspid valve repair. Mild tricuspid regurgitation. 7. Tiny pericardial effusion. * 06/29/2018 left hip x-ray: Left hip osteoarthritis. Vascular calcification and diffuse osteopenia are also noted. * 06/30/2018 CXR: 1. Stable cardiomegaly and stable chronic COPD/emphysematous changes along with scattered fibrosis. 2. Underlying interstitial edema cannot definitively be excluded. No focal consolidation or effusion. * 07/01/[address]: No new pulmonary parenchymal consolidation. * 07/02/2018 CT abdomen and pelvis: No acute intra-abdominal or pelvic abnormality. Large ventral hernia containing unobstructed small bowel loops. Right lower quadrant ileostomy. Extensive vascular calcification. Diffuse interstitial pulmonary fibrosis. Bilateral renal atrophy. Multiple osteoporotic wedge compression deformities in the thoracic and lumbar spine. ADDENDUM REPORT 1: This study is reviewed at the request of infectious disease consultants regarding this patient's left hip region pain. An additional finding is identified in the left iliac crest. CT images here demonstrate a bony destructive lesion measuring approximately 2.2 cm in the anterior aspect of the iliac crest which needs further evaluation. There is partial d estruction of thelateral cortex and radiolucency in the lesion. A metastatic malignant lesion could have this appearance. Infection is a less likely possibility. IMPRESSION: Small lytic destructive lesion in the left iliac crest. * 07/02/2018 CT left femur: Left hip osteoarthritis. Diffuse osteopenia. Extensive vascular calcification. Left knee arthroplasty. No acute abnorm ality seen. * 07/09/2018 CT-GUIDED LEFT ILIAC BONE BIOPSY: The left iliac bone lesion was localized using CT guidance. The skin was prepped and draped in a sterile fashion. 1% lidocaine was used as a local anesthetic. Using CT guidance a 19/20 gauge coaxial needle biopsy system was inserted and advanced into the lesion. Eight core biopsy samples were obtained and sent to lab. * 07/13/2018 nuclear med bone scan: New uptake in the ribs, right humerus, spine and left femoral head could be metastatic disease. The uptake in the shoulders, right knee, ankles and feet as likely degenerative. PROGNOSIS: Terminal ACTIVITY: As tolerated. DIET: as tolerated DISCHARGE PLAN: HOSPICE DISPOSITION: [address] [place] [address] Medical Facility. DISCHARGE CONDITION: Stable. TIME SPENT ON DISCHARGE: Greater than 35 minutes. Vital Signs/I&Os Vital Signs Date Time Temp Pulse Resp B/P (MAP) Pulse Ox O2 Delivery O2 Flow Rate FiO2 07/17/18 09:40 20 07/17/18 09:00 2.0 07/17/18 06:00 99.1 71 99/46 (63) 96 I&O- Last 24 Hours up to 6 AM 07/18/18 06:00 Intake Total 150 ml Output Total 0 ml Balance 150 ml Laboratory Data Labs 24H Laboratory Tests 2 07/18/18 12:13: Lab Scanned Report Transfusion Record Microbiology Microbiology 07/09/18 Acid Fast Stain, Received Pending 07/09/18 Mycobacterial Culture, Received Pending 07/09/18 Fungal Smear, Received Pending 07/09/18 Fungal Culture, Received Pending 07/09/18 Gram Stain - Final, Complete 07/09/18 Bacterial Culture - Final, Complete Discharge Medications Scheduled Fentanyl (Fentanyl) 12 Mcg/Hr Dis, 12 MCG TOP Q3RD, (Reported) APPLIED PATCH TO LEFT HIP Friday Scheduled PRN Hyoscyamine Sulfate (Hyoscyamine Sulfate) 0.125 Mg Tab.subl, 0.125 MG PO Q4HP PRN for TERMINAL SECRETIONS Use sublingually if unable to swallow Lorazepam (Lorazepam) 0.5 Mg Tablet, 0.5 MG PO Q4HP PRN for ANXIETY/AGITATION Use sublingually if unable to swallow Morphine Sulfate (Morphine Sulfate) 100 Mg/5 Ml Solution, 0.25-1 ML PO Q2H PRN for PAIN OR DYSPNEA Use sublingually if unable to swallow Allergies Coded Allergies: Contrast Media (Verified Allergy, Intermediate, RADIOACTIVE DYE-ITCHING, 12/11/16) NSAIDS (Non-Steroidal Anti-Inflamma (Verified Adverse Reaction, Unknown, Pt was told not to take, 07/01/18) GME ATTESTATION GME ATTESTATION My faculty preceptor for this patient encounter was physically present during the encounter and was fully available. All aspects of the patient interview, examination, medical decision making process, and medical care plan development were reviewed and approved by the faculty preceptor. The faculty preceptor is aware and concurs with the plan as stated in the body of this note and will attest to such by his/her cosignature. GEOFF PRUETT DO Jul 18, 2018 18:18
== END 2018-07-17 10:38 | disposition hospice, inpatient (51) | DRG 477 ==
LOC: M ED 14:27 → M ED INP 20:37 → EEVIPCON 20:37 → M MSPAV 23:50
PROVIDERS: ADMIT Internal Medicine; ATTEND Internal Medicine
PROC: 5A1D70Z Performance of Urinary Filtration, Intermittent, Less than 6 Hours Per Day (ICD-10-PCS; 2018-06-27)
PROC: 0QB23ZX Excision of Right Pelvic Bone, Percutaneous Approach, Diagnostic (ICD-10-PCS; principal; 2018-07-09)
DX: C79.51 Secondary malignant neoplasm of bone (principal); N18.6 End stage renal disease; I50.31 Acute diastolic (congestive) heart failure; J81.1 Chronic pulmonary edema; E87.1 Hypo-osmolality and hyponatremia; I13.2 Hypertensive heart and chronic kidney disease with heart failure and with stage 5 chronic kidney disease, or end stage renal disease; R04.2 Hemoptysis; C50.919 Malignant neoplasm of unspecified site of unspecified female breast; M10.30 Gout due to renal impairment, unspecified site; D63.1 Anemia in chronic kidney disease; I48.2 Chronic atrial fibrillation; D72.829 Elevated white blood cell count, unspecified; Z79.899 Other long term (current) drug therapy; Z91.041 Radiographic dye allergy status; Z88.6 Allergy status to analgesic agent; M81.0 Age-related osteoporosis without current pathological fracture; Z79.01 Long term (current) use of anticoagulants; Z95.0 Presence of cardiac pacemaker; I95.1 Orthostatic hypotension; Z93.3 Colostomy status; Z95.2 Presence of prosthetic heart valve; Z96.652 Presence of left artificial knee joint; E87.5 Hyperkalemia; Z66 Do not resuscitate